=== PATIENT | male | born 1940 | race Asian ===

== ENCOUNTER → 2016-10-09 | Outpatient (CLI) | payer BC ==
[~2016-10-09] MED LIST: GADAVIST IV PRN; GLUC10007 PO; KFL250 PO; MTR500 PO; MULTTAB58 PO; NRV5 PO; OXYB5TAB74 PO; TAMS0.4C38 PO; TERA5CAP PO; saw palmetto PO
--- NOTE | 2016-10-09 14:28 | DIAGNOSTIC IMAGING REPORT ---
MRI OF THE BRAIN WITHOUT AND WITH IV CONTRAST CLINICAL HISTORY: HEADACHE, LEFT SIDED FACIAL NUMBNESS neuropathy COMPARISON STUDY: 05/31/2009 TECHNIQUE: Utilizing a 1.5 Giovanna magnet and dedicated coil, multiplanar, multiecho imaging of the brain was performed pre and postcontrast administration. IV administration of 8.5 mL of Gadavist contrast was uneventful. FINDINGS: Diffusion-weighted images are considered negative for an acute ischemic process. There is been a significant increase in number as well as size of the periventricular and deep white matter foci of increased signal. Increased involvement of the optic radiations bilaterally is present. Postcontrast images are considered negative for an enhancing lesion. Ventricular system is midline. Internal auditory canals are symmetric. IMPRESSION: 1. Significant increase in number as well as size of foci of increased signal within the periventricular and deep white matter regions. 2. No evidence for an acute ischemic focus. 3. Possibility of a late onset demyelinating disorder is considered, versus progressive chronic small vessel change. Electronically signed by: Preston Mosqueda M.D. 10/09/2016 2:27 PM Dictated Date/Time: 10/09/2016 2:22 PM
== END | disposition home or self-care (01) ==
LOC: C.MRI 12:37
PROVIDERS: ATTEND Family Medicine
DX: I10 Essential (primary) hypertension (principal); R51 Headache; R93.0 Abnormal findings on diagnostic imaging of skull and head, not elsewhere classified

== ENCOUNTER → 2017-12-31 | Outpatient (CLI) | payer OTHER, MEDICARE ==
[~2017-12-31] MED LIST changes: +DTR/5 PO; -GADAVIST IV PRN; -OXYB5TAB74 PO
== END | disposition home or self-care (01) ==
LOC: C.LAB 12:30
PROVIDERS: ATTEND Urology
DX: N41.0 Acute prostatitis (principal)

== ENCOUNTER 2020-03-21 06:46 | Inpatient (IN) ==
[2020-03-21] MEDS ORDERED: MAGNESIUM SULFATE / D5W 1 GM/100 ML BAG IV ONE (07:02)
[2020-03-21] MEDS ORDERED: ONDANSETRON INJ 2 MG/ML 2 ML VIAL IV STA (07:08)
--- NOTE | 2020-03-21 07:09 | Emergency Department Note ---
History of Present Illness General Chief complaint: Nausea Stated complaint: NAUSEA/DOUBLE VISION/FEVER Time Seen by Provider: 03/21/20 06:46 Source: patient, EMS, RN notes reviewed and old records reviewed Mode of arrival: EMS Limitations: no limitations History of Present Illness Provider complaint: double vision, hypertension Onset (ago): hour(s) 10 Location: eyes Radiation: non-radiation Current Pain Intensity: 0 Associated symptoms: + fever/chills and + nausea/vomiting; no confusion, no chest pain, no headaches and no shortness of breath Treatments prior to arrival: aspirin (2 baby) This is an 79-year-old male who presents emergency department with double vision. The patient reports his symptoms started around 9:00 last evening. He reports he began seeing double at that time. The patient reports he also recent ly had a visit with a kidney doctor. He reports he takes amlodipine for his blood pressure and took the amlodipine this morning but he noted that his blood pressure was markedly increased. He reports he does not normally have issues with his blood pressure. He is also complaining of nausea. He also reports he is allergic to IV contrast and is refusing the IV contrast for CAT scan study. Home Medications Home Medications Medication Instructions Recorded Confirmed Type terazosin 5 mg PO HS 11/29/19 03/21/20 History amlodipine 5 mg tablet 7.5 mg PO QAM tab 03/19/20 03/21/20 History aspirin 162 mg PO DAILY 03/21/20 03/21/20 History Allergies Allergy/AdvReac Type Severity Reaction Status Date / Time iodine Allergy Unknown RASHES Verified 03/21/20 08:21 Past Med/Surg History Medical History (Updated 03/21/20 @ 13:16 by Marshall Pisano MD) Acute kidney injury Anemia baseline hgb 10-11 range per chart review/no hx of blood transfusions per patient Asthma as child BPH (benign prostatic hyperplasia) Chronic cerebral ischemia possible per 02/2019 MRI but patient states further neurology workup ruled out Chronic kidney disease, stage IV (severe) (Acute) E coli bacteremia was hospitalized while in [facility] for this (10/2018) finished ABX treatment HTN (hypertension) Losartan on hold in setting of ROSALVA Kidney stones Migraine Prostatitis 2015; with sepsis Tinnitus hx Vertigo hx Surgical History (Updated 03/21/20 @ 12:28 by Josafat Lechuga) History of colonoscopy History of renal stent has currently History of tooth extraction wisdom teeth S/P TURP modified, during ureteral stent placement for kidney stone in [place] Family History (Updated 03/21/20 @ 11:21 by Josafat Lechuga) Family/Other Hypertension Diabetes Mother , old age at age 88 Breast cancer Hypertension Father , complications of hip fracture No problems noted. 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) Feels Safe at Home: Yes Safety Concerns: Feels Safe At This Time Smoking Status: Former smoker Age Quit Using Tobacco: 43 ; packs per day: 0.5 ; Years Smoked: 20 ; Second Hand Exposure: No ; Hx Alcohol Use: Yes Alcohol type: beer and hard liquor Alcohol Intake Frequency: Rarely Hx Substance Use: No Review of Systems A total of 10 systems reviewed and were otherwise negative Physical Exam Vital Signs Vital Signs - 24 hr 03/21/20 07:52 03/21/20 08:00 03/21/20 08:10 Pulse Rate 113 H 103 H 103 H Pulse Rate [Apical] Pulse Rate from SpO2 Sensor Respiratory Rate 20 19 15 Respiratory Effort / Characteristics Respiratory Depth Blood Pressure 165/101 H Blood Pressure [Right Arm] Blood Pressure Mean 128 Blood Pressure Mean [Right Arm] Pulse Oximetry Oxygen Delivery Method Room Air Room Air Room Air 03/21/20 08:20 03/21/20 08:30 03/21/20 08:31 Pulse Rate 107 H 104 H 103 H Pulse Rate [Apical] Pulse Rate from SpO2 Sensor Respiratory Rate 18 14 20 Respiratory Effort / Characteristics Respiratory Depth Blood Pressure 174/102 H Blood Pressure [Right Arm] Blood Pressure Mean 140 Blood Pressure Mean [Right Arm] Pulse Oximetry Oxygen Delivery Method Room Air Room Air Room Air 03/21/20 08:40 03/21/20 08:41 03/21/20 08:50 Pulse Rate 98 H 98 H Pulse Rate [Apical] 97 H Pulse Rate from SpO2 Sensor Respiratory Rate 19 16 20 Respiratory Effort / Characteristics Respiratory Depth Blood Pressure Blood Pressure [Right Arm] 174/102 H Blood Pressure Mean Blood Pressure Mean [Right Arm] 126 Pulse Oximetry Oxygen Delivery Method Room Air Room Air 03/21/20 09:00 03/21/20 10:13 03/21/20 10:14 Pulse Rate 98 H 101 H 100 H Pulse Rate [Apical] 99 H Pulse Rate from SpO2 Sensor 101 H 100 H Respiratory Rate 17 21 15 Respiratory Effort / Characteristics Respiratory Depth Blood Pressure 159/96 H 145/124 H Blood Pressure [Right Arm] 145/124 H Blood Pressure Mean 113 129 Blood Pressure Mean [Right Arm] 131 Pulse Oximetry 97 97 Oxygen Delivery Method Room Air Room Air Room Air 03/21/20 10:20 03/21/20 10:49 03/21/20 10:50 Pulse Rate 105 H 100 H 100 H Pulse Rate [Apical] Pulse Rate from SpO2 Sensor 106 H 95 H 100 H Respiratory Rate 23 20 18 Respiratory Effort / Characteristics Respiratory Depth Blood Pressure Blood Pressure [Right Arm] Blood Pressure Mean Blood Pressure Mean [Right Arm] Pulse Oximetry 98 97 98 Oxygen Delivery Method Room Air Room Air Room Air 03/21/20 11:00 03/21/20 11:10 03/21/20 11:20 Pulse Rate 100 H 96 H 100 H Pulse Rate [Apical] Pulse Rate from SpO2 Sensor 99 H 97 H 99 H Respiratory Rate 15 17 19 Respiratory Effort / Characteristics Respiratory Depth Blood Pressure 149/93 H Blood Pressure [Right Arm] Blood Pressure Mean 98 Blood Pressure Mean [Right Arm] Pulse Oximetry 98 97 98 Oxygen Delivery Method Room Air Room Air Room Air 03/21/20 11:30 03/21/20 11:40 03/21/20 11:50 Pulse Rate 101 H 101 H 102 H Pulse Rate [Apical] 97 H Pulse Rate from SpO2 Sensor 101 H 101 H Respiratory Rate 16 23 20 Respiratory Effort / Characteristics Non-Labored Spontaneous Respiratory Depth Normal Blood Pressure 147/96 H Blood Pressure [Right Arm] 147/96 H Blood Pressure Mean 116 Blood Pressure Mean [Right Arm] 113 Pulse Oximetry 98 96 Oxygen Delivery Method Room Air Room Air Room Air VITAL SIGNS - Vital signs and nursing notes were reviewed. GENERAL - 79-year-old male appearing stated age who is in no acute distress. Communicates well with provider and answers questions appropriately. SKIN - Without rashes. HEAD - NC/AT. EYES - PERRL, Rt eye does not adduct and has a general nystagmus with movement. Sclera anicteric. Palpebral conjunctiva pink and moist with no injection noted. EARS - No deformities of external structures noted on gross examination bilaterally. No pain elicited with palpation of the tragus bilaterally. External auditory canals without discharge or otorrhea. Tympanic membranes pearly chun without retraction or bulging. No fluid or purulent material visualized behind the TM. Handle of malleus, umbo, cone of light, pars tensa/flaccid all easily visualized. NOSE - Midline and without cyanosis. No epistaxis or purulent drainage noted. Septum midline without deviation or septal hematoma noted. MOUTH/OROPHARYNX - Without perioral cyanosis. Buccal mucosa pink and moist and without leukoplakia. Tongue midline with equal elevation of palate bilaterally. No tonsillar hypertrophy, erythema, or exudates noted. dentition noted. NECK - Neck with FROM. Supple to palpation. lymphadenopathy noted. No nuchal rigidity. LUNGS - Chest wall symmetric without accessory muscle use, intercostals retractions, or central cyanosis. Normal vesicular breath sounds CTA B/L. No wheezes, rales, or rhonchi appreciated. CARDIAC - RRR with S1/S2. No murmur, rubs, or gallops appreciated. ABDOMEN - Abdominal contour without pulsations or visible masses. BS normoactive all four quadrants. No tenderness, palpable masses, hep atosplenomegaly, or ascites noted. EXTREMITIES - No clubbing or peripheral cyanosis. No pretibial edema present. +3/5 radial, posterior tibial, and dorsalis pedis pulses palpated throughout. +5/5 strength noted in UE/LE bilaterally. NEUROLOGIC - Cranial nerves II through XII grossly intact. Sensory intact to light touch throughout. Patellar reflexes +2/4. PSYCH - A&Ox3 and cooperates fully with examiner. Pt is very pleasant and interacts well with examiner. Course Administered Medications Heparin Sodium (Porcine) (Heparin Sodium (Porcine)) 5,000 units SQ Q12 KRISHNA Stop: 04/20/20 20:59 Last Admin: 03/21/20 20:59 Dose: 5,000 units Documented by: [id number] Cosigned by: [id number] Terazosin HCl (Hytrin) 5 mg PO HS KRISHNA Stop: 04/20/20 20:59 Last Admin: 03/21/20 20:59 Dose: 5 mg Documented by: [id number] Discontinued Medications Clopidogrel Bisulfate (Plavix) 75 mg PO NOW ONE Stop: 03/21/20 11:59 Last Admin: 03/21/20 12:58 Dose: 75 mg Documented by: [id number] Magnesium Sulfate/Dextrose (Magnesium Sulfate / D5w) 1 gm in 100 mls @ 50 mls/hr IV ONE ONE Stop: 03/21/20 09:01 Last Infusion: 03/21/20 10:58 Dose: 0 mls/hr Documented by: [id number] Admin: 03/21/20 08:09 Dose: 50 mls/hr Documented by: [id number] Sodium Chloride (Nss 1000ml) 1,000 mls @ 999 mls/hr IV .Q1H1M ONE Stop: 03/21/20 08:12 Last Infusion: 03/21/20 08:55 Dose: 0 mls/hr Documented by: [id number] Admin: 03/21/20 08:09 Dose: 999 mls/hr Documented by: [id number] Promethazine HCl (Phenergan) 25 mg in 51 mls @ 204 mls/hr IV NOW STA Stop: 03/21/20 08:06 Last Infusion: 03/21/20 08:25 Dose: 0 mls/hr Documented by: [id number] Admin: 03/21/20 08:09 Dose: 204 mls/hr Documented by: [id number] Sodium Chloride (Nss 1000ml) 1,000 mls @ 100 mls/hr IV .Q10H KRISHNA Stop: 03/21/20 23:50 Last Infusion: 03/22/20 00:34 Dose: 0 mls/hr Documented by: [id number] Admin: 03/21/20 14:34 Dose: 100 mls/hr Documented by: [id number] Ondansetron HCl (Zofran) 4 mg IV NOW STA Stop: 03/21/20 07:09 Last Admin: 03/21/20 07:35 Dose: 4 mg Documented by: [id number] Medical Decision Making Differential Diagnosis Infection, dehydration, metabolic abnormality, hypo/hyperglycemia, electrolyte disturbance, anemia, hypoxia, cardiac sources, intracerebral event, toxicologic, neurologic, as well as other pathologies. Medical Records Attestation: I reviewed the patient's medical records. Home Medications Current Medication List: was personally reviewed by me Laboratory Data Attestation: I reviewed the patient's lab results. Result diagrams: 03/21/20 07:19 06/18/20 06:03 Lab Results 03/21/20 03/21/20 03/21/20 Range/Units 07:19 07:19 07:19 WBC 5.09 (4.8-10.8) K/uL RBC 3.87 L (4.7-6.1) M/uL Hgb 11.4 L (14.0-18.0) g/dL Hct 32.0 L (42-52) % MCV 82.7 (80-100) fL MCH 29.5 (25-34) pg MCHC 35.6 (32-36) g/dL RDW Std Deviation 43.9 (36.4-46.3) fL RDW Coeff of Rickey 14.6 H (11.5-14.5) % Plt Count 171 (130-400) K/uL MPV 10.7 H (7.4-10.4) fL Immature Gran % (Auto) 0.2 % Neut % (Auto) 68.8 % Lymph % (Auto) 25.5 % [place] % (Auto) 3.7 % Eos % (Auto) 1.6 % Baso % (Auto) 0.2 % Immature Gran # (Auto) 0.01 (0.00-0.02) K/uL Neut # (Auto) 3.50 (1.4-6.5) K/uL Lymph # (Auto) 1.30 (1.2-3.4) K/uL [place] # (Auto) 0.19 (0.11-0.59) K/uL Eos # (Auto) 0.08 (0-0.5) K/uL Baso # (Auto) 0.01 (0-0.2) K/uL ESR (0-14) mm/hr PT 11.2 (9.0-12.0) Seconds INR 1.1 (0.9-1.1) APTT 29.2 (21.0-31.0) Seconds PTT Ratio 1.0 Sodium 140 (136-145) mmol/L Potassium 3.6 (3.5-5.1) mmol/L Chloride 109 H (98-107) mmol/L Carbon Dioxide 22 (21-32) mmol/L Anion Gap 9.0 (3-11) BUN 23 H (7-18) mg/dl Creatinine 2.09 H (0.6-1.4) mg/dl Est Cr Clr Drug Dosing 27.8 ml/min Est GFR ( Amer) 33.4 Est GFR (Non-Af Amer) 28.8 BUN/Creatinine Ratio 11.1 (10-20) Glucose 167 H (70-99) mg/dl Calcium 8.9 (8.5-10.1) mg/dl Magnesium 1.8 (1.8-2.4) mg/dl Total Bilirubin 0.6 (0.2-1) mg/dl AST 13 L (15-37) U/L ALT 18 (12-78) U/L Alkaline Phosphatase 67 (45-117) U/L CK-MB (CK-2) 1.2 (0.5-3.6) ng/ml Troponin I < 0.015 (0-0.045) ng/ml C-Reactive Protein (0-0.29) mg/dl Total Protein 8.6 H (6.4-8.2) gm/dl Albumin 3.7 (3.4-5.0) gm/dl Globulin 4.9 H (2.5-4.0) gm/dl Albumin/Globulin Ratio 0.8 L (0.9-2) 03/21/20 03/21/20 Range/Units 07:19 07:19 WBC (4.8-10.8) K/uL RBC (4.7-6.1) M/uL Hgb (14.0-18.0) g/dL Hct (42-52) % MCV (80-100) fL MCH (25-34) pg MCHC (32-36) g/dL RDW Std Deviation (36.4-46.3) fL RDW Coeff of Rickey (11.5-14.5) % Plt Count (130-400) K/uL MPV (7.4-10.4) fL Immature Gran % (Auto) % Neut % (Auto) % Lymph % (Auto) % [place] % (Auto) % Eos % (Auto) % Baso % (Auto) % Immature Gran # (Auto) (0.00-0.02) K/uL Neut # (Auto) (1.4-6.5) K/uL Lymph # (Auto) (1.2-3.4) K/uL [place] # (Auto) (0.11-0.59) K/uL Eos # (Auto) (0-0.5) K/uL Baso # (Auto) (0-0.2) K/uL ESR 43 H (0-14) mm/hr PT (9.0-12.0) Seconds INR (0.9-1.1) APTT (21.0-31.0) Seconds PTT Ratio Sodium (136-145) mmol/L Potassium (3.5-5.1) mmol/L Chloride (98-107) mmol/L Carbon Dioxide (21-32) mmol/L Anion Gap (3-11) BUN (7-18) mg/dl Creatinine (0.6-1.4) mg/dl Est Cr Clr Drug Dosing ml/min Est GFR ( Amer) Est GFR (Non-Af Amer) BUN/Creatinine Ratio (10-20) Glucose (70-99) mg/dl Calcium (8.5-10.1) mg/dl Magnesium (1.8-2.4) mg/dl Total Bilirubin (0.2-1) mg/dl AST (15-37) U/L ALT (12-78) U/L Alkaline Phosphatase (45-117) U/L CK-MB (CK-2) (0.5-3.6) ng/ml Troponin I (0-0.045) ng/ml C-Reactive Protein 1.15 H (0-0.29) mg/dl Total Protein (6.4-8.2) gm/dl Albumin (3.4-5.0) gm/dl Globulin (2.5-4.0) gm/dl Albumin/Globulin Ratio (0.9-2) Imaging Data Radiologist's Impression: [place] [phone] Ultrasound Report Patient: HONEY VELASQUEZ Admit Date: 03/21/20 MR#: [id number] Address1: [address] [place] [address] Acct ID:[id number] Address2: Date: 1940 [facility] Zip: [place] [address] Age: 79 Location: ED Sex: M Room/Bed: Att Phy: Diagnosis: NAUSEA/DOUBLE VISION/FEVER Es Phy: Albina Cruz D.O. Service Date: 03/21/20 Fam Phy: Interpreting Phy: Long Oconnell MD Admit Phy: Ordering Phy: Marshall Pisano MD cc: ~ ULTRASOUND OF THE CAROTID ARTERIES CLINICAL HISTORY: 3rd cranial nerve palsy. COMPARISON STUDY: No priors. TECHNIQUE: Real-time, grayscale, and color Doppler sonography of the carotid arteries is performed. Images are reviewed in the transverse and longitudinal planes. FINDINGS: Blood pressures were not assessed due to the presence of IV catheters. The carotid arteries are patent bilaterally and demonstrate antegrade flow. There is mild atherosclerotic plaque bilaterally. Normal doppler arterial waveforms are seen throughout. Velocity measurements are listed below. Common carotid peak systolic velocity (cm/sec): RIGHT: 96 LEFT: 97 ICA proximal peak systolic velocity (cm/sec): RIGHT: 65 LEFT: 98 ICA mid peak systolic velocity (cm/sec): RIGHT: 56 LEFT: 61 ICA distal peak systolic velocity (cm/sec): RIGHT: 66 LEFT: 60 ICA/CC peak systolic ratio: RIGHT: 0.7 LEFT: 1.0 Antegrade flow was shown in the vertebral arteries. The external carotid arter ies are patent. IMPRESSION: 1. There is no sonographic evidence of hemodynamically significant stenosis in the right or left carotid arterial system. 2. Antegrade flow is shown in the vertebral arteries. ACT 112: Negative or not required by law. Electronically signed by: Long Oconnell M.D. 03/21/2020 10:54 AM Dictated: 03/21/20 1052 Transcribed: 03/21/20 1052 [place] [phone] Magnetic Resonance Report Patient: HONEY VELASQUEZ Admit Date: 03/21/20 MR#: [id number] Address1: [address] [place] [address] Acct ID:[id number] Address2: Date: 1940 [facility] Zip: [place] [address] Age: 79 Location: ED Sex: M Room/Bed: Att Phy: Diagnosis: NAUSEA/DOUBLE VISION/FEVER Es Phy: Albina CruzDMari Service Date: 03/21/20 [facility] Phy: Interpreting Phy: Preston Mosqueda MD Admit Phy: Ordering Phy: Marshall Pisano MD cc: ~ MR angio head wo con HISTORY: Mental status change Pt cant adduct Rt eye (3rd nerve palsy) TECHNIQUE: 3-D [id number] MRA of the brain was performed without contrast. COMPARISON STUDY: None. FINDINGS: Visualized intracranial internal carotid arteries, distal vertebral arteries, and basilar artery are widely patent. There is no significant stenosis, occlusion, or aneurysm seen within the bilateral ACAs, MCAs, or clearing distribution clerk. 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 ACT 112: Negative or not required by law. The above report was generated using voice recognition software. It may contain grammatical, syntax or spelling errors. Electronically signed by: Preston Mosqueda M.D. 03/21/2020 9:43 AM Dictated: 03/21/20940 Transcribed: 03/21/20940 [place] [phone] Magnetic Resonance Report Patient: HONEY VELASQUEZ Admit Date: 03/21/20 MR#: [id number] Address1: [address] [place] [address] Acct ID:[id number] Address2: Date: 1940 [facility] Zip: [place] [address] Age: 79 Location: ED Sex: M Room/Bed: Att Phy: Diagnosis: NAUSEA/DOUBLE VISION/FEVER Es Phy: Albina Cruz,DAimeeOAimee Service Date: 03/21/20 Fam Phy: Interpreting Phy: Preston Mosqueda MD Admit Phy: Ordering Phy: Marshall Pisano MD cc: ~ MR brain wo con HISTORY: Mental status change Pt cant adduct Rt eye (3rd nerve palsy) TECHNIQUE: Multiplanar multisequence MRI of the brain was performed without the use of contrast. COMPARISON STUDY: 03/02/2019 FINDINGS: Small focus of acute ischemic change left central pontine medullary junction. This measures no more than 4 mm. No additional acute ischemic event is identified. Findings of considerable atrophy and chronic small vessel change are stable compared to the prior study. The ventricular system is midline. It demonstrates mild compensatory prominence. IMPRESSION: 1. Acute/subacute punctate infarct left central pontine medullary junction. 2. Pre-existing extensive component of atrophy and chronic small vessel change. 3. This report was phoned to the emergency room ACT 112: Negative or not required by law. The above report was generated using voice recognition software. It may contain grammatical, syntax or spelling errors. Electronically signed by: Preston Mosqueda M.D. 03/21/2020 10:03 AM Dictated: 03/21/2049 Transcribed: 03/21/2049 [place], [place] [phone] CT Scan Report Patient: HONEY VELASQUEZ Admit Date: 03/21/20 MR#: [id number] Address1: [address] [place] [address] Acct ID:[id number] Address2: Date: 1940 [facility] Zip: [place] [address] Age: 79 Location: ED Sex: M Room/Bed: Att Phy: Diagnosis: NAUSEA/DOUBLE VISION/FEVER Es Phy: Albina CruzD.OAimee Service Date: 03/21/20 Fam Phy: Interpreting Phy: Long Oconnell MD Admit Phy: Ordering Phy: Marshall Pisano MD cc: ~ CT SCAN OF THE BRAIN WITHOUT IV CONTRAST CLINICAL HISTORY: Strokelike symptoms. COMPARISON STUDY: MRI of the brain dated 03/02/2019. TECHNIQUE: Unenhanced axial CT scan of the brain is performed from the vertex to the skull base. A dose lowering technique was utilized adhering to the principles of ALARA. CT DOSE: 614.27 mGy.cm FINDINGS: Brain parenchyma: There is age-related involutional change noting mild to moderate subcortical and periventricular microangiopathic disease. There is no hemorrhage, mass effect, or evidence of acute territorial ischemia by CT criteria. Chun-white matter differentiation is preserved. No extra-axial fluid collection is seen. Ventricles, sulci, cisterns: Prominent secondary to involutional change. Intracranial vasculature: There is atherosclerotic calcification of the cavernous carotid and vertebral arteries. Calvarium: Unremarkable. Sinuses and mastoids: Trace mucosal thickening is noted in the maxillary antra. The remaining paranasal sinuses are clear. The mastoid air cells are well pneumatized. Orbits: The bony orbits are grossly intact. IMPRESSION: There is no hemorrhage, mass effect, or evidence of acute territorial ischemia by CT criteria. ACT 112: Negative or not required by law. Electronically signed by: Long Oconnell M.D. 03/21/2020 7:51 AM Dictated: 03/21/20748 Transcribed: 03/21/20748 ECG Data Attestation: I personally reviewed and interpreted this ECG as follows: Indication: + other (Rt 3rd nerve palsy) Rate (beats per minute): 110 Rhythm: + sinus tachycardia ECG Intervals/blocks: + Normal QT-c (468) ECG [place]: + Normal; no Left axis deviation and no Right axis deviation ECG ST segments: no ST depression and no ST elevation Comparison ECG Date: from (11/29/2019) Change: no significant change Blood Pressure Blood Pressure Findings: Elevated blood pressure Blood Pressure Disposition: elevated BP felt to be situational MDM Narrative Patient was seen and evaluated as above in room C6. Review was performed of nursing notes and vital signs. I did review pertinent previous visits and patient history. After obtaining a thorough history and physical examination the above work up was performed. This is an 79-year-old male that presents the emergency department with a right 3rd nerve palsy. The symptoms have been ongoing for greater than 12 hours, for this reason I do not feel the patient is a TPA candidate. Using shared medical decision making with the patient I recommended a CTA of the head and neck which the patient refused due to contrast allergy. I did recommend Solu-Medrol Benadryl and Zantac which he also refused. He did go for CT of the head which does not show any acute intracranial abnormality. Again using shared medical decision making her recommended an MRA of the head as well as ultrasound of the neck. His MRI of the head is concerning for a pontine stroke the patient was given magnesium here in the emergency department he Meño took aspirin at home he was given a normal saline bolus. The patient was given Zofran as well as Phenergan for his nausea. There was concerned that the patient had slurred speech however I actually believe that this is a reaction to his Phenergan. I did discuss the case with the hospitalist service who did agree to admit the patient. While in the department, I personally reevaluated the patient several times and each time the patient was found to be resting comfortably. The patient was educated upon management, educated upon todays findings/results. An order was placed for continuous cardiac monitoring. The monitor shows a rate of 94 with Normal Sinus rhythm. The patient was evaluated during the global COVID-19 pandemic, and that diagnosis was suspected/considered upon their initial presentation. Their evaluation, treatment and testing was consistent with current guidelines for patients who present with complaints or symptoms that may be related to COVID- 19. Impression & Plan Left pontine stroke, Chronic kidney disease, stage IV (severe), Diplopia, Cranial nerve III palsy Discharge Plan Visit Data *Final* Discharge Date/Time: 03/21/20 13:11 Chief Complaint: Nausea Stated Complaint: NAUSEA/DOUBLE VISION/FEVER Other Complaint: Fever Visual Disturbance ED Provider: Marshall Pisano Discharge Problem: Left pontine stroke, Chronic kidney disease, stage IV (severe), Diplopia, Cranial nerve III palsy Patient Disposition: Admitted As Inpatient Discharge Instructions Interventions: ED Discharge Assessment Last Done: 03/21/20 13:11 Discharge Problem: Cranial nerve III palsy Qualifiers: Laterality: right Qualified Code(s): H49.01 - Third [oculomotor] nerve palsy, right eye
[2020-03-21] MEDS ORDERED: SODIUM CHLORIDE 0.9% 1000ML 1,000 ML IV ONE (07:12)
[2020-03-21 07:37] LABS: Basophils # (auto) 0.01 K/uL (0-0.2); Basophils % (auto) 0.2 %; Eosinophils # (auto) 0.08 K/uL (0-0.5); Eosinophils % (auto) 1.6 %; Hemoglobin 11.4 g/dL (14.0-18.0); Immature Granulocytes # (auto) 0.01 K/uL (0.00-0.02); Immature Granulocytes % (auto) 0.2 %; Lymphocytes % (auto) 25.5 %; Mean Corpuscular Hemoglobin 29.5 pg (25-34); Mean Corpuscular Hgb Conc 35.6 g/dL (32-36); Mean Corpuscular Volume 82.7 fL (80-100); Mean Platelet Volume 10.7 fL (7.4-10.4); Monocytes # (auto) 0.19 K/uL (0.11-0.59); Monocytes % (auto) 3.7 %; Neutrophils % (auto) 68.8 %; Platelet Count 171 K/uL (130-400); RDW Coefficient of Variation 14.6 % (11.5-14.5); RDW Standard Deviation 43.9 fL (36.4-46.3); Red Blood Count 3.87 M/uL (4.7-6.1); White Blood Count 5.09 K/uL (4.8-10.8)
[2020-03-21 07:49] LABS: INR 1.1 (0.9-1.1); Partial Thromboplastin Time 29.2 Seconds (21.0-31.0); Prothrombin Time 11.2 Seconds (9.0-12.0)
[2020-03-21] MEDS ORDERED: PROMETHAZINE 25 MG/51 ML BAG IV STA (07:52)
--- NOTE | 2020-03-21 07:53 | CT Scan Report ---
CT SCAN OF THE BRAIN WITHOUT IV CONTRAST CLINICAL HISTORY: Strokelike symptoms. COMPARISON STUDY: MRI of the brain dated 03/02/2019. TECHNIQUE: Unenhanced axial CT scan of the brain is performed from the vertex to the skull base. A do se lowering technique was utilized adhering to the principles of ALARA. CT DOSE: 614.27 mGy.cm FINDINGS: Brain parenchyma: There is age-related involutional change noting mild to moderate subcortical and pe riventricular microangiopathic disease. There is no hemorrhage, mass effect, or evidence of acute ter ritorial ischemia by CT criteria. Chun-white matter differentiation is preserved. No extra-axial flui d collection is seen. Ventricles, sulci, cisterns: Prominent secondary to involutional change. Intracranial vasculature: There is atherosclerotic calcification of the cavernous carotid and vertebr al arteries. Calvarium: Unremarkable. Sinuses and mastoids: Trace mucosal thickening is noted in the maxillary antra. The remaining paranas al sinuses are clear. The mastoid air cells are well pneumatized. Orbits: The bony orbits are grossly intact. IMPRESSION: There is no hemorrhage, mass effect, or evidence of acute territorial ischemia by CT gloria boyd. ACT 112: Negative or not required by law. Electronically signed by: Long Oconnell M.D. 03/21/2020 7:51 AM
[2020-03-21 08:12] LABS: Alkaline Phosphatase 67 U/L (45-117); Chloride 109 mmol/L (98-107); Creatine Kinase MB 1.2 ng/ml (0.5-3.6); Magnesium 1.8 mg/dl (1.8-2.4); Potassium 3.6 mmol/L (3.5-5.1); Sodium 140 mmol/L (136-145)
[2020-03-21 08:21] LABS: Albumin Level 3.7 gm/dl (3.4-5.0); Aspartate Aminotransferase 13 U/L (15-37); Blood Urea Nitrogen 23 mg/dl (7-18); Carbon Dioxide 22 mmol/L (21-32); Creatinine Clr Calc Pharmacy 27.8 ml/min; Est GFR (African American) 33.4; Est GFR (Non-African American) 28.8
[2020-03-21 08:23] LABS: BUN Creatinine Ratio 11.1 (10-20); Calcium 8.9 mg/dl (8.5-10.1); Glucose 167 mg/dl (70-99)
[2020-03-21 08:26] LABS: Albumin Globulin Ratio 0.8 (0.9-2); Bilirubin,Total 0.6 mg/dl (0.2-1); Troponin I < 0.015 ng/ml (0-0.045)
[2020-03-21 08:28] LABS: Alanine Aminotransferase 18 U/L (12-78); Globulin 4.9 gm/dl (2.5-4.0); Total Protein 8.6 gm/dl (6.4-8.2)
--- NOTE | 2020-03-21 09:44 | Magnetic Resonance Report ---
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 COMPARISON STUDY: None. FINDINGS: Visualized intracranial internal carotid arteries, distal vertebral arteries, and basilar a rtery are widely patent. There is no significant stenosis, occlusion, or aneurysm seen within the laz ateral ACAs, MCAs, or cab starter. 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 ACT 112: Negative or not required by law. The above report was generated using voice recognition software. It may contain grammatical, syntax or spelling errors. Electronically signed by: Perston Mosqueda M.D. 03/21/2020 9:43 AM
--- NOTE | 2020-03-21 10:05 | Magnetic Resonance Report ---
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 COMPARISON STUDY: 03/02/2019 FINDINGS: Small focus of acute ischemic change left central pontine medullary junction. This measures no more than 4 mm. No additional acute ischemic event is identified. Findings of considerable atrophy and chronic small vessel change are stable compared to the prior beto dy. The ventricular system is midline. It demonstrates mild compensatory prominence. IMPRESSION: 1. Acute/subacute punctate infarct left central pontine medullary junction. 2. Pre-existing extensive component of atrophy and chronic small vessel change. 3. This report was phoned to the emergency room ACT 112: Negative or not required by law. The above report was generated using voice recognition software. It may contain grammatical, syntax or spelling errors. Electronically signed by: Preston Mosqueda M.D. 03/21/2020 10:03 AM
--- NOTE | 2020-03-21 10:55 | Ultrasound Report ---
ULTRASOUND OF THE CAROTID ARTERIES CLINICAL HISTORY: 3rd cranial nerve palsy. COMPARISON STUDY: No priors. TECHNIQUE: Real-time, grayscale, and color Doppler sonography of the carotid arteries is performed. I mages are reviewed in the transverse and longitudinal planes. FINDINGS: Blood pressures were not assessed due to the presence of IV catheters. The carotid arteries are patent bilaterally and demonstrate antegrade flow. There is mild atheroscler otic plaque bilaterally. Normal doppler arterial waveforms are seen throughout. Velocity measurements are listed below. Common carotid peak systolic velocity (cm/sec): RIGHT: 96 LEFT: 97 ICA proximal peak systolic velocity (cm/sec): RIGHT: 65 LEFT: 98 ICA mid peak systolic velocity (cm/sec): RIGHT: 56 LEFT: 61 ICA distal peak systolic velocity (cm/sec): RIGHT: 66 LEFT: 60 ICA/CC peak systolic ratio: RIGHT: 0.7 LEFT: 1.0 Antegrade flow was shown in the vertebral arteries. The external carotid arteries are patent. IMPRESSION: 1. There is no sonographic evidence of hemodynamically significant stenosis in the right or left krishnamurthy tid arterial system. 2. Antegrade flow is shown in the vertebral arteries. ACT 112: Negative or not required by law. Electronically signed by: Long Oconnell M.D. 03/21/2020 10:54 AM
--- NOTE | 2020-03-21 11:06 | History & Physical Report ---
Date of Service March 21, 2020 Assessment & Plan (1) Left pontine stroke: MRI brain confirmed left acute/subacute pontine stroke at the boy- medullary junction. 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 He has had intermittent myoclonic jerks of the LUE/LLE but has no weakness on exam of those limbs. No sensory loss on the left either. Speech is fluent. No dysphagia. Likely small vessel disease with thrombosis causing the event. Will change aspirin to plavix for secondary prevention. Initiate statin; check lipids in am. Check HbA1C in am. Check echo; r/o thrombus; r/o PFO. Telemetry; r/o a.fib/flutter. Formal neuro consult with Dr Guardado requested. PT, OT, speech evals. (2) Diplopia: 2nd to left-sided pontine stroke as above. I patched the right eye and his diplopia extinguished. Will need to see ophthamology post-discharge. No driving after discharge. (3) Chronic kidney disease, stage IV (severe): baseline Cr 2 to 2.5. Cr today 2. Gentle IV fluids; repeat BMP am. Follows with [facility] [place] [place] nephrology. (4) BPH (benign prostatic hypertrophy): Long history of prostate issues including UTI/prostatitis/sepsis/BPH. s/p modified TURP in [place]. Follows with Dr Flores [facility] [place] [place] urology. Cont alpha kelly. (5) Hypertension: Allow permissive HTN today. Hold amlodipine. Cont alpha kelly. Start more aggressive BP control tomorrow. (6) Abnormal EKG: EKG with ST changes but patient without any recent or current ischemic symptoms. Check echo and LV function. (7) DVT prophylaxis: heparin 5000 BID extensively updated at bedside History of Present Illness Chief Complaint: double vision, nausea Primary Care Provider: Albina Cruz DO 79yo male with history of HTN, CKD stage 4, and BPH who presents with acute onset of dizziness/lightheadedness starting at 2100 last night when he was standing on his porch visiting with his grandchildren. He went inside to his bedroom to lay down/rest and noted double vision with images [id number] and occasionally vertical diplopia. He went to bed and slept all night. Upon awakening this am he noted continued double vision. He had associated nausea with emesis (mucous) this am as well. Denies motor weakness. Denies paresthesias. Since coming to ER he has noted "involuntary twitching" of left arm and left leg. No obvious dysphagia. Mouth is dry and feels that this has affected his speech but no aphasia. Allergies Allergy/AdvReac Type Severity Reaction Status Date / Time iodine Allergy Unknown RASHES Verified 03/21/20 08:21 Home Medications Home Medications Medication Instructions Recorded Confirmed Type terazosin 5 mg PO HS 11/29/19 03/21/20 History amlodipine 5 mg tablet 7.5 mg PO QAM tab 03/19/20 03/21/20 History aspirin 162 mg PO DAILY 03/21/20 03/21/20 History Past Med/Surg History Medical History (Updated 03/21/20 @ 13:16 by Marshall Pisano MD) Acute kidney injury Anemia baseline hgb 10-11 range per chart review/no hx of blood transfusions per patient Asthma as child BPH (benign prostatic hyperplasia) Chronic cerebral ischemia possible per 02/2019 MRI but patient states further neurology workup ruled out Chronic kidney disease, stage IV (severe) (Acute) E coli bacteremia was hospitalized while in [facility] for this (10/2018) finished ABX treatment HTN (hypertension) Losartan on hold in setting of ROSALVA Kidney stones Migraine Prostatitis 2015; with sepsis Tinnitus hx Vertigo hx Surgical History (Updated 03/21/20 @ 12:28 by Josafat Lechuga) History of colonoscopy History of renal stent has currently History of tooth extraction wisdom teeth S/P TURP modified, during ureteral stent placement for kidney stone in [place] Family History (Updated 03/21/20 @ 11:21 by Josafat Lechuga) Family/Other Hypertension Diabetes Mother , old age at age 88 Breast cancer Hypertension Father , complications of hip fracture No problems noted. 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) Feels Safe at Home: Yes Safety Concerns: Feels Safe At This Time Smoking Status: Former smoker Age Quit Using Tobacco: 43 ; packs per day: 0.5 ; Years Smoked: 20 ; Second Hand Exposure: No ; Hx Alcohol Use: Yes Alcohol type: beer and hard liquor Alcohol Intake Frequency: Rarely Hx Substance Use: No Review of Systems Constitutional: + fever (highest temp 99.1 on Thursday night), + fatigue (Thursday/Thursday ) and + weight loss (10 pounds around the time of his kidney stone ); no anorexia Eyes: + diplopia Ear, Nose, Mouth, Throat: no nasal discharge, no sore throat and no dysphagia no loss of taste or smell Respiratory: no cough and no dyspnea Cardiovascular: no chest pain and no edema Gastrointestinal: + nausea and + vomiting; no abdominal pain, no diarrhea/loose stools and no blood in stools Genitourinary: no dysuria and no difficulty urinating Musculoskeletal: + back pain and + neck pain Integumentary: no rash Neurologic: + gait abnormality, + unsteadiness and + headache(s); no paralysis and no numbness Psychiatric: no depression (but sad about COVID-19, etc) Endocrine: no diabetes Hematologic / Lymphatic: no easy bleeding and no easy bruising Physical Exam Constitutional: well developed and well nourished; no acute distress and no altered mental status speech fluent/clear Eyes: PERRL visual mcdaniel full by direct confrontation; CN 3 palsy with inability to adduct the right eye on extraocular muscle testing; no ptosis ENMT: external ear and nose normal, oropharynx normal Ears: + unable to visualize TM (2nd cerumen ) Neck: trachea midline, no thyromegaly no bruits Respiratory: normal respiratory effort, lungs clear to auscultation Cardiovascular: Rate/Rhythm: regular rhythm and + tachycardic Heart Sounds: normal S1 and normal S2; no murmur Vessels: posterior tibial pulses present and dorsalis pedis pulses present; no JVD Extremities: no edema Gastrointestinal (Abdomen): normal bowel sounds, soft, nontender, no hepatosplenomegaly Musculoskeletal: no cyanosis or clubbing, extremities motor strength 5/5 Skin: no rashes, warm and dry Neurologic: deep tendon reflexes 2+ bilaterally, plantar reflexes intact bilaterally, moves all extremities and awake; no focal motor deficits and not confused Speech / Cognition: normal speech Motor/Sensory: no pronator drift Cranial Nerves: + EOM not intact (CN 3 palsy, right, with inability to adduct eye) and + nystagmus Coordination: normal [id number] test Psychiatric: A+Ox3, euthymic affect Lymphatic: no cervical lymphadenopathy Results & Data Results & Data ([facility]) Vital Signs (Past 12 Hours) Vital Signs Temp Pulse Pulse Resp BP BP Pulse Ox 03/21/20 10:14 99 H 16 145/124 H 98 03/21/20 08:41 97 H 16 174/102 H 03/21/20 07:35 96 H 16 171/95 H 97 03/21/20 06:59 36.9 C 113 H 16 179/87 H 97 Laboratory Results Laboratory Results - last 24 hr 03/21/20 03/21/20 03/21/20 07:19 07:19 07:19 WBC 5.09 RBC 3.87 L Hgb 11.4 L Hct 32.0 L MCV 82.7 MCH 29.5 MCHC 35.6 RDW Std Deviation 43.9 RDW Coeff of Rickey 14.6 H Plt Count 171 MPV 10.7 H Immature Gran % (Auto) 0.2 Neut % (Auto) 68.8 Lymph % (Auto) 25.5 Roberts % (Auto) 3.7 Eos % (Auto) 1.6 Baso % (Auto) 0.2 Immature Gran # (Auto) 0.01 Neut # (Auto) 3.50 Lymph # (Auto) 1.30 Roberts # (Auto) 0.19 Eos # (Auto) 0.08 Baso # (Auto) 0.01 ESR PT 11.2 INR 1.1 APTT 29.2 PTT Ratio 1.0 Sodium 140 Potassium 3.6 Chloride 109 H Carbon Dioxide 22 Anion Gap 9.0 BUN 23 H Creatinine 2.09 H Est Cr Clr Drug Dosing 27.8 Est GFR ( Amer) 33.4 Est GFR (Non-Af Amer) 28.8 BUN/Creatinine Ratio 11.1 Glucose 167 H Calcium 8.9 Magnesium 1.8 Total Bilirubin 0.6 AST 13 L ALT 18 Alkaline Phosphatase 67 CK-MB (CK-2) 1.2 Troponin I < 0.015 C-Reactive Protein Total Protein 8.6 H Albumin 3.7 Globulin 4.9 H Albumin/Globulin Ratio 0.8 L 03/21/20 03/21/20 07:19 07:19 WBC RBC Hgb Hct MCV MCH MCHC RDW Std Deviation RDW Coeff of Rickey Plt Count MPV Immature Gran % (Auto) Neut % (Auto) Lymph % (Auto) Roberts % (Auto) Eos % (Auto) Baso % (Auto) Immature Gran # (Auto) Neut # (Auto) Lymph # (Auto) Roberts # (Auto) Eos # (Auto) Baso # (Auto) ESR Pending PT INR APTT PTT Ratio Sodium Potassium Chloride Carbon Dioxide Anion Gap BUN Creatinine Est Cr Clr Drug Dosing Est GFR ( Amer) Est GFR (Non-Af Amer) BUN/Creatinine Ratio Glucose Calcium Magnesium Total Bilirubin AST ALT Alkaline Phosphatase CK-MB (CK-2) Troponin I C-Reactive Protein Pending Total Protein Albumin Globulin Albumin/Globulin Ratio Diagnostic Findings 1. MRI brain - IMPRESSION: 1. Acute/subacute punctate infarct left central pontine medullary junction. 2. Pre-existing extensive component of atrophy and chronic small vessel change. 2. MRA brain - IMPRESSION: No significant stenosis, occlusion, or aneurysm within the [place]. 3. carotid duplex study - no ICA stenosis; antegrade flow vertebral arteries. 4. EKG - my reading - nonspecific ST changes III, AVF; nonspecific ST changes V1-V4; NSR; QTc borderline prolonged Code Status & VTE Plan Code Status full - but would NOT want prolonged mech ventilation, etc VTE Prophylaxis Plan VTE Prophylaxis will be ordered: Yes PG Care Time/CCT Total # of Minutes Spent Total Time Spent with Patient: Total time spent is greater than 50% in coordination of care (as documented) at patient's floor/unit and/or counseling patient: Coding Level of Care Code 01830 Initial Inpt Care Lvl 2 Diagnoses Left pontine stroke I63.50 Diplopia H53.2 Chronic kidney disease, stage IV (severe) N18.4 BPH (benign prostatic hypertrophy) N40.0 Lower urinary tract symptom presence: symptoms absent Hypertension I10 Hypertension type: essential hypertension Abnormal EKG R94.31 DVT prophylaxis Z29.9 (1) BPH (benign prostatic hypertrophy) Lower urinary tract symptom presence: symptoms absent Qualified Code(s): N40.0 - Benign prostatic hyperplasia without lower urinary tract symptoms (2) Hypertension Hypertension type: essential hypertension Qualified Code(s): I10 - Essential (primary) hypertension
[2020-03-21] MEDS ORDERED: CLOPIDOGREL BISULFATE 75 MG TAB PO ONE (11:58)
[2020-03-21] MEDS ORDERED: ONDANSETRON INJ 2 MG/ML 2 ML VIAL IV PRN (13:51)
[2020-03-21] MEDS ORDERED: PHARMACIST DISCHARGE MED REC CONSULT PRN (13:51)
[2020-03-21] MEDS ORDERED: ACETAMINOPHEN 325 MG TAB PO PRN (13:51)
[2020-03-21] MEDS ORDERED: SODIUM CHLORIDE 0.9% 1000ML 1,000 ML IV SCH (13:51)
--- NOTE | 2020-03-21 14:54 | XCELERA ---
[id number]
--- NOTE | 2020-03-21 15:27 | Electrocardiogram Report ---
Test Reason : Blood Pressure : / mmHG Vent. Rate : 110 BPM Atrial Rate : 110 BPM P-R Int : 164 ms QRS Dur : 088 ms QT Int : 346 ms P-R-T Axes : 074 043 063 degrees QTc Int : 468 ms Sinus tachycardia Nonspecific ST and T wave abnormality Abnormal ECG When compared with ECG of 29-NOV-2019 12:24, Nonspecific T wave abnormality now evident in Inferior leads Confirmed by Nicholas Venegas ([id number]) on 03/21/2020 3:27:01 PM Referred By: REFERRED SELF Confirmed By:Yusuf Venegas
[2020-03-21] MEDS: HEPARIN SOD 5,000 UNIT/0.5 ML VIAL SQ SCH (20:59)
[2020-03-21] MEDS ORDERED: TERAZOSIN HCL 5 MG CAP PO SCH (21:00)
[2020-03-21 22:41] LABS: Appearance Urine Cloudy (Clear); Bacteria Urine Automated 4+ (Negative); Bilirubin Urine Negative (Negative); Blood Urine 1+ (Negative); Color Urine Yellow; Epithelial Cell Urine Auto 0-5 /lpf (0-5); Glucose Urine UA Negative (Negative); Ketones Urine Negative (Negative); Leukocyte Esterase Urine 3+ (Negative); Nitrite Urine Positive (Negative); Protein Urine 1+ (Negative); Specific Gravity Urine 1.013 (1.000-1.030); Urobilinogen Urine Negative (Negative); WBC Urine Automated >30 /hpf (0-5); pH Urine 6.5 (4.5-7.5)
[2020-03-22 07:02] LABS: BUN Creatinine Ratio 11.4 (10-20); Calcium 8.3 mg/dl (8.5-10.1); Creatinine Clr Calc Pharmacy 28.2 ml/min; Est GFR (African American) 34.8; Potassium 3.8 mmol/L (3.5-5.1)
[2020-03-22 08:15] LABS: Estimated Average Glucose 111 mg/dl; Hemoglobin A1C 5.5 % (4.5-5.6)
[2020-03-22] MEDS ORDERED: ATORVASTATIN 40 MG TAB PO SCH (09:00)
[2020-03-22] MEDS ORDERED: CLOPIDOGREL BISULFATE 75 MG TAB PO SCH (09:00)
[2020-03-22] MEDS: HEPARIN SOD 5,000 UNIT/0.5 ML VIAL SQ SCH ×2 (09:30→10:21)
--- NOTE | 2020-03-22 09:36 | Discharge Summary ---
Date of Service March 22, 2020 Admission HPI Per Admitting Provider 79yo male with history of HTN, CKD stage 4, and BPH who presents with acute onset of dizziness/lightheadedness starting at 2100 last night when he was standing on his porch visiting with his grandchildren. He went inside to his bedroom to lay down/rest and noted double vision with images [id number] and occasionally vertical diplopia. He went to bed and slept all night. Upon awakening this am he noted continued double vision. He had associated nausea with emesis (mucous) this am as well. Denies motor weakness. Denies paresthesias. Since coming to ER he has noted "involuntary twitching" of left arm and left leg. No obvious dysphagia. Mouth is dry and feels that this has affected his speech but no aphasia. 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 on extraocular muscle testing; no ptosis ENMT: external ear and nose normal, oropharynx normal Ears: + unable to visualize TM (2nd cerumen ) Neck: trachea midline, no thyromegaly no bruits Respiratory: normal respiratory effort, lungs clear to auscultation Cardiovascular: Rate/Rhythm: regular rhythm and + tachycardic Heart Sounds: normal S1 and normal S2; no murmur Vessels: posterior tibial pulses present and dorsalis pedis pulses present; no JVD Extremities: no edema Gastrointestinal (Abdomen): normal bowel sounds, soft, nontender, no hepatosplenomegaly Musculoskeletal: no cyanosis or clubbing, extremities motor strength 5/5 Skin: no rashes, warm and dry Neurologic: deep tendon reflexes 2+ bilaterally, plantar reflexes intact bilaterally, moves all extremities and awake; no focal motor deficits and not confused Speech / Cognition: normal speech Motor/Sensory: no pronator drift Cranial Nerves: + EOM not intact (CN 3 palsy, right, with inability to adduct eye) and + nystagmus Coordination: normal [id number] test Psychiatric: A+Ox3, euthymic affect Lymphatic: no cervical lymphadenopathy Principal Diagnosis left pontine stroke Discharge Exam Constitutional cooperative; no acute distress and not ill appearing Neck normal visual inspection Respiratory normal respiratory effort and able to speak in complete sentences; no respiratory distress, no labored breathing, no retractions, no cough and no audible wheezes Auscultation: lungs clear to auscultation bilaterally; no crackles, no rales, no rhonchi and no wheezes Cardiovascular Rate/Rhythm: regular rate and regular rhythm Heart Sounds: normal S1 and normal S2; no gallop, no murmur and no cardiac rub Vessels: posterior tibial pulses present Extremities: no pedal edema and no edema Gastrointestinal (Abdomen) Inspection/Auscultation: abdomen normal to inspection and normal bowel sounds; abdomen not distended Percussion/Palpation: abdomen soft; abdomen nontender, no guarding, abdomen not rigid and no abdominal mass Neurologic Cranial Nerves: PERRL and no nystagmus Diplopia improving, slight lag of right eye compared to left, no obvious nystagmus or palsy Discharge Data Allergies Allergy/AdvReac Type Severity Reaction Status Date / Time iodine Allergy Unknown RASHES Verified 03/21/20 08:21 Consultations 03/21/20 10:34 ED Decision to Admit Stat 03/21/20 13:51 Consult Case Management - Discharge Planning Routine Consult Neurology Routine Ordered Studies 03/21/20 06:58 CT head/brain wo con Stat 03/21/20 07:00 MR angio head wo con Stat MR brain wo con Stat 03/21/20 07:09 US carotid doppler BI Stat Hospital Course (1) Left pontine stroke: Very pleasant 79-year-old man who presented to the emergency department for acute diplopia and dizziness found to be secondary to a left stroke at the pontine midbrain junction. This also caused a presentation with a right sided cranial nerve III palsy. Full stroke work-up including transthoracic echocardiogram, carotid ultrasound, lipid profile, hemoglobin A1c performed. TTE and carotid ultrasounds negative for concerning disease. Cardiac ejection fraction 60 to 65%. No other abnormalities noted on cardiac echo. Hemoglobin A1c was 5.5, lipid profile showed cholesterol of 151, triglycerides of 104, HDL 33, LDL of 97. Given that this was his first stroke his daily aspirin was changed to 75 mg Plavix daily and he was started on 40 mg of daily atorvastatin to lower his LDL to 70 or less. We advised blood pressure control and to discuss with his PCP restarting his losartan as it would also provide protective benefit for his chronic kidney disease. Recommended to follow-up with neurology in 2 to 3 weeks, as well as with ophthalmology in addition to doing eye exercises and PT. All other medical conditions controlled per home regimens. (2) Cranial nerve III palsy: Total Time Total Time Spent Total Time Spent (In Minutes): Discharge Plan Discharge Items Patient Disposition: Home - Self-Care Reason For Visit: LEFT PONTINE STROKE Discharge Diagnosis: left pontine stroke Activity: Resume your previous activity Non-emergency contact: Primary Care Provider and Neurologist Call non-emergency contact if: you have any medication questions and your symptoms worsen Follow-up/Referrals: Tonny Guardado MD [Physician] - Albina Cruz DO [Primary Care Provider] - Diet: Regular Addtl Attending Provider Instructions: You were seen in the hospital for double vision and dizziness found to be secondary to a left pontine stroke on MRI. Doppler ultrasound of your carotid arteries and cardiac echogram were both negative. Your lipid levels and HgA1c were also within normal limits. Your daily aspirin was switched to plavix as a preventative measure for future strokes. The stroke was most likely due to a history of plaque build up from smoking and elevated blood pressures. In regards to your double vision, making sure that you complete appropriate eye therapy and exercises will optimize your ability to return to normal vision and reading/writing ability. follow up with Dr. Guardado in 2-3 weeks and an ophth almologist in 2-3 weeks. If you have any questions about your care, please contact your PCP or Neurologist. If you have worsening or repeat symptoms, loss of strength on one side, abnormal tingling or sensations on one side, seek care in the ER immediately. Pending Studies at Discharge: No Stand-Alone Forms: Medications to Prevent Stroke, My [facility] Awareness Card, Smok ing Cessation Medications and DC Order Prescriptions: New clopidogrel 75 mg Tablet 75 mg PO QAM Qty: 30 RF: 0 atorvastatin 40 mg Tablet 40 mg PO QAM Qty: 30 RF: 0 Continued amlodipine 5 mg tablet 7.5 mg PO QAM RF: 0 terazosin 5 mg Capsule 5 mg PO HS RF: 0 Discontinued aspirin 81 mg Tablet,Delayed Release (Dr/Ec) 162 mg PO DAILY RF: 0 Discharge Orders: Discharge Order (Routine); Ordered 03/22/20 Ordered By: Radha Plascencia Admission Data Admit Date/Time: 03/21/20 11:58 Attending Provider: Goto,Kiyomi K. Admit Provider: Josafat Lechuga Primary Care Provider: Albina Cruz Other Providers: Josafat Lechuga ; Tonny Guardado ; Radha Plascencia Other Interventions: Discharge Summary Assessment (RN) Last Done: 03/22/20 11:57 DC Date/Time DO NOT enter until pt leaves facility: 03/22/20 13:00 Supervising Physician Co-Signing Physician Notes Patient seen and examined with PGY-1 Dr. Plascencia. Agree with history, exam findings, assessment, and plan of care as outlined by Dr. Plascencia. Case also discussed with consulting neurologist, Dr. Guardado. 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 Since admission, his diplopia from the CN3 palsy has started to improve. MRI/MRA brain shows a left pontine stroke in the boy-midbrain junction and small vessel disease. Carotid ultrasound unremarkable. Hemoglobin A1C not consistent with DM or pre-DM. Lipids: LDL 97, HDL 33. TTE does not show an embolic source or shunt. EF 60-65%. There is mild, concentric LVH, mild aortic regurg. He was switched from ASA to Plavix 75mg and started on a high intensity statin. He will follow up with Ophtho at discharge and Dr. Guardado (neurology) in 1-2 weeks. Follow up with PCP, Dr. Cruz within 1 week. Cr was at his baseline. If he needs additional BP control, can consider an ASHLEY or ARB for renal protection. Discharged home today. I personally spent 25 minutes discharge planning for this patient. Resident Activity Tracking Resident Involvement: Resident Care Provided Care Provided: Adult Hospital Medicine
[2020-03-22] MEDS ORDERED: STROKE PATIENT DISCHARGE STA (10:51)
--- NOTE | 2020-03-22 11:13 | Neurology Consultation ---
Date of Consultation March 22, 2020 Assessment & Plan (1) Left pontine stroke: (2) Cranial nerve III palsy: (3) Diplopia: (4) Hypertension: Patient has experienced an acute, tiny left pontine stroke near the midline and near the midbrain junction. This has resulted in some acute double vision and on exam he has a mild right 3rd nerve palsy with limited abduction. Up and down gaze is normal and there is no nystagmus. There are no pupillary changes and this has been painless. The location of this stroke is classic for small vessel ischemic disease from hypertension. In addition he has moderate old small vessel ischemia seen on MRI as well. Other risk factors would include age/Genetics and has history of cigarette smoking. Otherwise, his neurologic examination is unremarkable and he has no other focal neurologic signs, meningeal signs, or encephalopathy. Overall, his prognosis for recovery is quite good and he is already making improvements with double vision since admission. Recommendations: 1. Agree with switching aspirin to 75 milligrams clopidogrel daily. 2. Control blood pressure as you are doing, aiming for a mean arterial pressure of 95-100. 3. Follow up with Ophthalmology as an outpatient. 4. I can see in 2-3 weeks as an outpatient for follow-up as well. Overall, I spent a total of 60 minutes with this case including review of records, review of MRI films, direct evaluation the patient at bedside, and discussing the case with the patient and RN at bedside as well as Dr. De Paz including differential diagnosis and treatment options. History of Present Illness Reason for Consultation: Patient is an 79-year-old, who was asked to see at the request of Dr. Lechuga, for neurologic consultation regarding acute onset double vision and stroke. Requesting Physician: Dr. Lechuga Attending Physician: Kenna De Paz, History of Present Illness Patient has a history of hypertension for years and some migraine headaches. I saw him in November of 2016 for left facial numbness and chronic cerebral ischemia seen on imaging. He was on aspirin at that time and stable. Patient was in [place] in October of 2019 and developed a right renal stone. He underwent lithotripsy when he came back to the [place] by Dr. Flores at the end of November. He has been doing fairly well although on March 16 he noted some elevated blood pressure. The patient had some lightheadedness (not true vertigo) around 2099March 20 with some vague double vision. He ended up going to sleep around 2200 hours and slept well. He remembers getting up to go to the bathroom once in the middle the night and although he was a little bit off balance he did not notice anything else in particular. When he awoke at 0600 he noted double vision. The images were side ways and above each other and he had no eye pain or headaches. He had no visual loss. He did not notice any numbness or weakness of the limbs, confusion but he wondered if he had a little bit of dysarthria. He took his blood pressure and it was 150/90 something. EMS came in it was 171/100. He arrived to the emergency room March 21 at 0752 with a blood pressure 165/101, pulse of 113 and respiratory rate of 20. O2 saturation was 97 percent. He had some double vision with the inability to adduct his right eye fully. There was some nystagmus associated. No other focal neurologic finding was noted and he had no mental status change. CBC was remarkable for mild anemia and a sed rate was 43. Chem profile was noted for a mild elevation of BUN and creatinine. Glucose was 167. CRP was elevated at 1.15. CT scan of the head was unremarkable. Carotid ultrasound was unremarkable. MR angiography of the head showed no significant vessel stenosis for anomaly. MRI of the brain showed a very small (3-4 millimeter) acute infarct in the left pontine-midbrain junction (near midline). This was not a pontomedullary junction infarct that was recorded by Radiology. There was moderate old small vessel ischemia seen and mild generalized atrophy. Echocardiogram showed no abnormalities, shunt, or source of embolus. This morning the patient feels his double vision is better and he has no headache or other symptoms. Total cholesterol was 151 and triglyceride 109. Chem profile showed a BUN of 23 and creatinine of 2.0. Glucose was 99. Allergies Allergy/AdvReac Type Severity Reaction Status Date / Time iodine Allergy Unknown RASHES Verified 03/21/20 08:21 Home Medications Home Medications Medication Instructions Recorded Confirmed Type terazosin 5 mg PO HS 11/29/19 03/21/20 History amlodipine 5 mg tablet 7.5 mg PO QAM tab 03/19/20 03/21/20 History aspirin 162 mg PO DAILY 03/21/20 03/21/20 History atorvastatin 40 mg PO QAM #30 tab 03/22/20 Rx clopidogrel 75 mg PO QAM #30 tab 03/22/20 Rx Patient History Medical History Acute kidney injury Anemia baseline hgb 10-11 range per chart review/no hx of blood transfusions per patient Asthma as child BPH (benign prostatic hyperplasia) Chronic cerebral ischemia possible per 02/2019 MRI but patient states further neurology workup ruled out Chronic kidney disease, stage IV (severe) (Acute) E coli bacteremia was hospitalized while in [place] for this (10/2018) finished ABX treatment HTN (hypertension) Losartan on hold in setting of ROSALVA Kidney stones Migraine Prostatitis 2015; with sepsis Tinnitus hx Vertigo hx Surgical History History of colonoscopy History of renal stent has currently History of tooth extraction wisdom teeth S/P TURP modified, during ureteral stent placement for kidney stone in [facility] Family History Family/Other Hypertension Diabetes Mother , old age at age 88 Breast cancer Hypertension Father , complications of hip fracture No problems noted. 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) Feels Safe at Home: Yes Safety Concerns: Feels Safe At This Time Smoking Status: Former smoker Age Quit Using Tobacco: 43 ; packs per day: 0.5 ; Years Smoked: 20 ; Second Hand Exposure: No ; Hx Alcohol Use: Yes Alcohol type: beer and hard liquor Alcohol Intake Frequency: Rarely Hx Substance Use: No Review of Systems Constitutional: no fever, no fatigue and no weakness Eyes: + diplopia; no eye pain and no worsening vision Ear, Nose, Mouth, Throat: no ear pain, no tinnitus, no hearing loss, no dizziness, no hoarseness and no dysphagia Respiratory: no cough and no dyspnea Cardiovascular: no chest pain, no palpitations and no lightheadedness Gastrointestinal: no abdominal pain, no nausea and no vomiting Genitourinary: no dysuria and no urinary incontinence Musculoskeletal: no back pain, no neck pain, no radicular pain, no joint pain and no myalgia Integumentary: no rash and no lesions Neurologic: no gait abnormality, no localized weakness, no generalized we akness, no tingling, no numbness, no tremor(s), no abnormal movements, no headac he(s), no abnormal speech, no confusion and no memory loss Psychiatric: no depression, no irritability, no anxiety, no difficulty concentrating, no confusion and no hallucinations Endocrine: no fatigue and no flushing Hematologic / Lymphatic: no easy bleeding and no easy bruising Allergy / Immunological: no urticaria and no problem reported Exam (Neuro) Physical Exam: The patient is right-handed. The patient is awake, alert, and attentive. Speech is normal without any aphasia or dysarthria. he can name objects, repeat phrases, and has normal spontaneous speech. Mentation and thought processes are intact, with orientation to person, place and time, and normal fund of knowledge. Attention and concentration are normal. Mood and affect are normal and appropriate. General appearance and grooming are normal. Short and long-term memory are intact. The discs are sharp with positive venous pulsations bilaterally. There are no exudates, hemorrhages, or blood vessel changes seen. Pupils are 3 mm bilaterally and reactive to light. Extraocular eye muscles are intact to the right without nystagmus. To the left, he cannot fully abduct the right eye but the left eye fully abducts. Again, there is no nystagmus. Visual acuity and visual mcdaniel seem normal grossly to confrontation. There are no deficits to sensation in the face in all 3 distributions of the fifth cranial nerve bilaterally. Corneal reflexes are positive bilaterally. Facial strength and symmetry was normal bilaterally. Hearing seems normal to whisper and finger rub bilaterally. Palate moves well without asymmetry. There is normal sternocleidomastoid and trapezius (shoulder shrug) strength bilaterally. Tongue is midline with good strength bilaterally. Neck has a full range of motion without discomfort. There are no cervical bruits bilaterally. There are no cranial or ocular bruits. Heart is without murmur. There is a regular rhythm and rate. Cervical, thoracic, and lumbar spine are nontender to palpation. Gait is narrow based, with good arm swing, turns, and stance. Stance sitting up in the bed with his feet dangling is quite normal. With outstretched arms there is no drift. There are no resting, postural, or action tremors. There is no ataxia with finger to nose testing. There is good facility in the hands. No other abnormal involuntary movements are noted. Motor strength is 5/5 diffusely in the arms bilaterally including deltoids, biceps, triceps, brachioradialis, wrist flexors and extensors, integrated marketing specialist, and intrinsic hand muscles. Motor strength is 5/5 diffusely in the legs bilaterally including hip flexors, quadriceps, hamstrings, gastrocnemius, tibialis anterior, tibialis posterior, and Peroneii muscles. Toe extensors are normal and there is good bulk in the extensor digitorum brevis muscles bilaterally. The limbs have good tone without rigidity or spasticity. There is no atrophy noted in the muscles. Muscle bulk is normal, there is no tenderness to palpation, no myotonia to percussion, and no fasciculations seen. Sensory examination is intact to touch and pin throughout all 4 limbs diffusely. Reflexes are 1/4 in the biceps, triceps, brachioradialis, quadriceps, and Achilles tendons bilaterally. There is no clonus bilaterally. Toes are downgoing with plantar stimulation bilaterally. Peripheral pulses are present and of normal quality distally in all 4 limbs. There is no peripheral edema noted in the limbs. Results & Data ([facility]) Vital Signs (Past 12 Hours) Vital Signs Temp Pulse Pulse Resp BP Pulse Ox 03/22/20 07:00 36.6 C 70 18 134/73 97 03/22/20 04:13 87 03/22/20 03:18 36.6 C 74 20 147/71 H 97 03/22/20 00:00 36.8 C 83 20 134/73 96 Diagnostic Findings MR brain wo con HISTORY: Mental status change Pt cant adduct Rt eye (3rd nerve palsy) TECHNIQUE: Multiplanar multisequence MRI of the brain was performed without the use of contrast. COMPARISON STUDY: 03/02/2019 FINDINGS: Small focus of acute ischemic change left central pontine medullary junction. This measures no more than 4 mm. No additional acute ischemic event is identified. Findings of considerable atrophy and chronic small vessel change are stable compared to the prior study. The ventricular system is midline. It demonstrates mild compensatory prominence. IMPRESSION: 1. Acute/subacute punctate infarct left central pontine medullary junction. 2. Pre-existing extensive component of atrophy and chronic small vessel change. 3. This report was phoned to the emergency room ACT 112: Negative or not required by law. The above report was generated using voice recognition software. It may contain grammatical, syntax or spelling errors. Electronically signed by: Preston Mosqueda M.D. 03/21/2020 10:03 AM PG Care Time/CCT Total # of Minutes Spent Total Time Spent with Patient: Total time spent is greater than 50% in coordination of care (as documented) at patient's floor/unit and/or counseling patient: Coding Level of Care Code 55355 Initial Inpt Care Lvl 3 Diagnoses Left pontine stroke I63.50 Cranial nerve III palsy H49.01 Laterality: right Diplopia H53.2 Hypertension I10 Hypertension type: essential hypertension Time Spent (min) 60 (1) Cranial nerve III palsy Laterality: right Qualified Code(s): H49.01 - Third [oculomotor] nerve palsy, right eye (2) Hypertension Hypertension type: essential hypertension Qualified Code(s): I10 - Essential (primary) hypertension
--- NOTE | 2020-03-22 11:47 | Pharmacy Report ---
Pharmacist Stroke Counseling - Date of Service March 22, 2020 - Scope: Pharmacy has been consulted to provide medication discharge counseling for this patient admitted with [ischemic stroke] [hemorrhagic stroke] [transient ischemic attack] as per the Pharmacist Discharge Counseling for Stroke Patients Cristal walls - Medications on Discharge: Home Medications Medication Instructions Recorded Confirmed terazosin 5 mg PO HS 11/29/19 03/21/20 amlodipine 5 mg tablet 7.5 mg PO QAM tab 03/19/20 03/21/20 aspirin 162 mg PO DAILY 03/21/20 03/21/20 New Rx's Medication Instructions Recorded atorvastatin 40 mg PO QAM #30 tab 03/22/20 clopidogrel 75 mg PO QAM #30 tab 03/22/20 - Action: The above medications, specifically ones for stroke treatment/prophylaxis, have been reviewed in detail with the patient and/or patient telephone claims representative(s) prior to discharge. This includes indication, common adverse reactions, drug interactions, and medication administration. Medication counseling has been employed using the teach-back method to ensure understanding. - Outcome: The patient has demonstrated understanding of the medications. Additional comments: - Patient is very knowledgeable about current medications. No barriers anticipated to taking medications as prescribed. - During discussion of atorvastatin, patient expressed concern that this was not mentioned by neurologist this morning. I called and clarified with ordering provider of atorvastatin. Confirmed that patient should be taking atorvastatin. Thank you for allowing pharmacy to be involved in the care of this patient. Please call [phone] with any additional questions
== END 2020-03-22 13:00 | disposition home or self-care (01) | DRG 65 ==
LOC: ED 06:46 → 2W 11:58 → SUATTDRO 11:58 → 2W 13:11

== ENCOUNTER 2021-01-24 07:05 | Inpatient (IN) ==
--- NOTE | 2021-01-23 14:19 | Anesthesiology Consultation ---
Date of Service January 23, 2021 Assessment & Plan (1) Encounter for pre-operative examination: Chart Review Chart Review: Acceptable Risk for Surgery (pending anesthesia evaluation DOS ) and Patient NOT seen in Pre Admission Testing Per urology office note January 23an continue Plavix. Per nursing assessment January 23, 2021, patient denies any recent travel. No known Covid infection of past 90 days. No known Covid positive contacts or Covid related symptoms. Preop Covid test 01/22/21= negative Seen by nephrology 12/18/2020 = patient seen for recheck. Most recent creatinine has fluctuated between 2.02.5. Most recent creatinine 2.8has not really changed. 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 Following with hematology. Patient has had abnormal paraprotein detected on blood workslightly elevated level of kappa light chain as well as slightly elevated level of lambda chain with normal ratio so does not need renal biopsy. History Surgery Operation Date: 01/24/21 08:35 Proposed Procedures p Cystoscopy, Ureteronephroscopy, Retrograde Pyelogram, with Possible Ureteral Diliation, Left Laser Destruction or Extraction of the Stone, Insertion or Exchangeof Stent Catheter - Anshul Flores MD Operation Date: 01/25/21 12:55 Proposed Procedures p Left Extracorporeal Shock Wave Lithotripsy(Left) - Darin Royal DO Height/Weight Height: 5 ft 8 in Weight: 68.946 kg Allergies Allergy/AdvReac Type Severity Reaction Status Date / Time iodine Allergy Severe RASHES Verified 01/23/21 10:39 Medications Home Medications Medication Instructions Recorded Confirmed Last Taken terazosin 5 mg PO HS 11/29/19 01/23/21 03/20/20 cholecalciferol (vitamin D3) 125 125 mcg PO QPM cap 04/24/20 01/23/21 Unknown mcg (5,000 unit) capsule glucos sul [id number] 2 cap PO QPM 04/24/20 01/23/21 Unknown vitamin B complex 1 tab PO QAM 04/24/20 01/23/21 Unknown amlodipine 10 mg tablet 10 mg PO QAM 01/02/21 01/23/21 Unknown Lactobacillus acidophilus 10,000 mmu cells PO QAM 01/23/21 01/23/21 Unknown [Probiotic] clopidogrel 75 mg PO QPM 01/23/21 01/23/21 Unknown ferrous fumarate 55 mg PO QAM 01/23/21 01/23/21 Unknown omeprazole 20 mg PO QAM 01/23/21 01/23/21 Unknown ondansetron HCl 4 mg tablet 4 mg PO Q8H PRN #20 tab 01/23/21 01/23/21 Unknown oxycodone-acetaminophen 5 mg-325 1 tab PO Q8H #21 tab 01/23/21 01/23/21 Unknown mg tablet vitamin A-vitamin C-vit E-min 1 tab PO QAM 01/23/21 01/23/21 Unknown [Ocuvite] Past Medical History Medical History (Updated 01/23/21 @ 14:16 by Lucinda Velasquez PA-C) Acute kidney injury Asthma as child BPH (benign prostatic hyperplasia) Chronic cerebral ischemia Chronic kidney disease, stage IV (severe) E coli bacteremia was hospitalized while in [facility] for this (10/2018) finished ABX treatment GERD (gastroesophageal reflux disease) HTN (hypertension) Losartan on hold in setting of ROSALVA Kidney stones Left pontine stroke Double vision, 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 On Plavix Prostatitis 2015; with sepsis Past Family History Family History Family/Other Hypertension Diabetes Mother , old age at age 88 Breast cancer Hypertension Father , complications of hip fracture No problems noted. Denies family history of Myocardial infarction Stroke Past Surgical History Surgical History History of colonoscopy History of cystoscopy History of lithotripsy History of tooth extraction wisdom teeth S/P TURP modified, during ureteral stent placement for kidney stone in [place] Social History Smoking Status: Former smoker Do You Dip or Chew Tobacco: No Smoking End Date: quit 40 years ago Hx Alcohol Use: Yes Alcohol type: beer and hard liquor alcohol intake frequency: holidays/special occasions only Hx Substance Use: No substance use type: does not use Lab Results Anesthesia Preop Results Results Anesthesia Widget: WBC 10.41 K/uL (4.8-10.8) 01/22/21 Hgb 12.7 g/dL (14.0-18.0) L 01/22/21 Hct 34.6 % (42-52) L 01/22/21 Plt 185 K/uL (130-400) 01/22/21 Na 139 mmol/L (136-145) 01/22/21 K 4.0 mmol/L (3.5-5.1) 01/22/21 Cl 110 mmol/L (98-107) H 01/22/21 CO2 23 mmol/L (21-32) 01/22/21 BUN 25 mg/dl (7-18) H 01/22/21 Creat 2.04 mg/dl (0.6-1.4) H 01/22/21 Glucose Level 154 mg/dl (70-99) H 01/22/21 Testing Laboratory Results 01/11/21= UA: Cloudy urine appearance, 100+ urine protein, large urine blood, positive urine nitrate, moderate leukocyte esterase, 04 RBC, 1030 urine WBC. Electrocardiogram Date: 03/21/20 Findings: + ST @ (110 bpm) Nonspecific ST and T wave abnormality Chest X-Ray Date: 01/08/21 Cardiomediastinal and hilar silhouettes are within normal limits. There is no pneumothorax, pleural effusion, airspace consolidation or overt pulmonary edema. There is chronic interstitial coarsening. Mild linear scarring/atelectasis of the inferior segment lingula. Echocardiogram Date: 03/20/20 EF: 60-65% LV Function: normal RWMA: + none Other Findings: + LVH (mild/concentric ) Valvular Disease: + AI (mild ) Injection of contrast document on interatrial shunt. Other Testing Carotid doppler 03/21/20= There is no sonographic evidence of hemodynamically significant stenosis in the right or left carotid arterial system. Antegrade flow is shown in the vertebral arteries.
[~2021-01-24 07:05] MED LIST changes: +CIPROFLOXACIN / D5W 400 MG/200 ML BAG IV SCH; -DTR/5 PO; -GLUC10007 PO; -KFL250 PO; -MTR500 PO; -MULTTAB58 PO; -NRV5 PO; +SODIUM CHLORIDE 0.9% 1000ML IV SCH; -TAMS0.4C38 PO; -TERA5CAP PO; -saw palmetto PO
[2021-01-24] MEDS ORDERED: fentaNYL citrate 100 MCG/2 ML VIAL ONE (07:32)
[2021-01-24] MEDS ORDERED: ONDANSETRON INJ 2 MG/ML 2 ML VIAL ONE (07:32)
[2021-01-24] MEDS ORDERED: PROPOFOL IV EMULSION 10 MG/ML 20 ML VIAL IV ONE (07:32)
[2021-01-24] MEDS ORDERED: LIDOCAINE HCL 2% 2 ML VIAL/AMP(20MG/ML) INFIL ONE (07:32)
[2021-01-24] MEDS ORDERED: DEXAMETHASONE SOD INJ 4 MG/ML VIAL ONE (07:32)
--- NOTE | 2021-01-24 07:57 | History & Physical Bridge Note ---
Date of Service January 24, 2021 History & Physical Bridge Note I have examined the patient, reviewed the History & Physical and in the interval since the performance of the History & Physical I have noted the following changes of clinical significance: no changes noted
[2021-01-24] MEDS ORDERED: ATROPINE SULFATE 0.1 MG/ML 10ML SYR IV PRN (08:02)
[2021-01-24] MEDS ORDERED: ePHEDrine sulfate 50 MG/ML AMP IV PRN (08:02)
[2021-01-24] MEDS ORDERED: ONDANSETRON INJ 2 MG/ML 2 ML VIAL IV PRN ×2 (08:02→12:29)
[2021-01-24] MEDS ORDERED: fentaNYL citrate 100 MCG/2 ML VIAL IV PRN (08:02)
[2021-01-24] MEDS ORDERED: PHENYLEPHRINE 100MCG/ML 5ML SYR ONE (08:16)
[2021-01-24] MEDS ORDERED: HYDROCODONE/ACETAMOPHEN 5/325MG TAB PO PRN (08:50)
[2021-01-24] MEDS ORDERED: ACETAMINOPHEN 325 MG TAB PO PRN ×2 (08:50→12:29)
--- NOTE | 2021-01-24 08:56 | Operative Report ---
PG Post Operative Report Pre & Post Diagnosis Operation Date: 01/24/21 08:35 Pre-Op Diagnosis: Kidney Stone, Renal Insufficiency Post-Op Diagnosis: Kidney Stone, Renal Insufficiency Operation Date: 01/25/21 12:55 <No data on this case meets the specified criteria> I identified the patient and participated in the time-out.: Yes Procedure Operation Date: 01/24/21 08:35 Actual Procedures p Cystoscopy, Ureteronephroscopy, Retrograde Pyelogram, Left Laser Destruction of Stone, Insertion of Left Stent Catheter(Left) - Anshul Flores MD Operation Date: 01/25/21 12:55 <No data on this case meets the specified criteria> Surgeon Nicholas Flores MD Occupational Health And Safety Officer none Estimated Blood Loss 0 Findings Consistent with Post-Op Diagnosis Specimens none Description of Procedure The patient was identified in the preoperative holding area, appropriate informed consents were reviewed and completed and the patient was transferred to the operative suite. Upon arrival, appropriate antibiotics and anesthesia were administered and the patient was placed in dorsal lithotomy position and prepped and draped in sterile fashion. To be in the case I passed a 22 Kazakh cystoscope with 30 degree lens. Inspection revealed a healthy-appearing urethra, he has a very large prostate which is status post TURP. I was able to advance the scope into the bladder and inspected. He had some inflammation of the bladder with a little bit of blood. I was able to identify the left UO and cannulated with a sensor wire and a 10 Kazakh double-lumen catheter. 2 wires were advanced to the kidney, there was a bit of J hooking in the distal ureter but this was straightened with a 10 Kazakh double-lumen. After advancing both wires, I advanced a flexible ureteroscope over 1 will reserving that there is a safety wire. Inspection revealed a large stone that had been pushed retrograde back into the upper pole of the kidney. There were no other stones visualized. He had a little bit of cloudiness to the lower pole but the remainder of the urine was relatively clear. I elected to continue with the case given the appearance of the urine. I lasered the stone fragmented into pieces that were safer spontaneous passage. I reinspected and saw no large fragments. Inspection of the ureter revealed a healthy-appearing ureter with the site of impaction inspected and found to be healthy. A 6 Kazakh by 26 cm double-J ureteral stent was placed with a good curl in the kidney as well as the bladder. There was good drainage through and around the stent. The bladder was decompressed and the case concluded. He was reversed from anesthesia and taken to the recovery room in stable condition. Of note, his preop cultures did show gram-negative bacilli, these are not speciated, given the appearance of the urine I elected to proceed with the case but I will cover him with antibiotics for an extended time period post operatively. There were no complications. I attest to the content of the Intraoperative Record and any orders documented therein. Any exceptions are noted below.
[2021-01-24] MEDS ORDERED: SODIUM CHLORIDE 0.9% 1000ML 1,000 ML IV SCH ×2 (09:00→13:45)
--- NOTE | 2021-01-24 09:16 | Fluoroscopy Report ---
FL KUB CLINICAL HISTORY: LEFT LASER AND STENT PLACEMENT COMPARISON STUDY: Supine abdomen dated 01/22/2021 FLUOROSCOPY TIME: 24 seconds. NUMBER OF FLUOROSCOPIC IMAGES: 7 FINDINGS: 7 intraprocedural fluoroscopic spot images were obtained during a retrograde study and the laser lithotripsy. A left-sided nephroureteral stent was placed. Only the proximal pigtail was docume nted. IMPRESSION: Fluoroscopic spot images obtained during a left-sided retrograde study with laser lithot ripsy and ureteral stent placement ACT 112: Negative or not required by law. Electronically signed by: Tyler Burrell M.D. 01/24/2021 9:14 AM
[2021-01-24] MEDS ORDERED: MEPERIDINE HCL 50 MG/ML CARP ONE (09:35)
[2021-01-24] MEDS ORDERED: ACETAMINOPHEN 1000 MG/100 ML IV IV ONE (09:36)
[2021-01-24] MEDS ORDERED: MEPERIDINE HCL 25 MG/ML CARP/VIAL IV ONE (09:39)
[2021-01-24] MEDS ORDERED: ACETAMINOPHEN 1,000 MG/100 ML VIAL IV STA (09:40)
[2021-01-24] MEDS ORDERED: LABETALOL HCL IV 5 MG/ML 20ML IV ONE (09:40)
[2021-01-24] MEDS ORDERED: cefTRIAXone SODIUM 1,000 MG in DEXTROSE 5% 50 ML IV STA (09:51)
[2021-01-24 10:28] LABS: Hemoglobin 13.1 g/dL (14.0-18.0); Mean Corpuscular Hemoglobin 31.3 pg (25-34); Mean Corpuscular Volume 86.1 fL (80-100); Mean Platelet Volume 10.9 fL (7.4-10.4); Platelet Count 136 K/uL (130-400); RDW Coefficient of Variation 15.1 % (11.5-14.5); RDW Standard Deviation 47.2 fL (36.4-46.3); Red Blood Count 4.18 M/uL (4.7-6.1); White Blood Count 4.99 K/uL (4.8-10.8)
--- NOTE | 2021-01-24 10:44 | Anesthesiology Progress Note ---
Date of Service January 24, 2021 Anesthesia Post Procedure Vital Signs Vital Signs: Temp Pulse Pulse Resp BP Pulse Ox 01/24/21 10:35 96 H 20 115/72 92 01/24/21 10:25 104 H 19 122/76 93 01/24/21 10:15 102 H 19 126/78 93 01/24/21 10:05 112 H 23 128/83 93 01/24/21 09:55 107 H 23 127/87 95 01/24/21 09:45 107 H 29 H 159/120 H 94 01/24/21 09:35 137 H 29 H 216/117 H 97 01/24/21 09:25 105 H 15 160/104 H 93 01/24/21 09:15 109 H 21 133/85 91 01/24/21 09:05 101 H 19 115/77 95 01/24/21 08:55 97.3 F L 100 H 107 H 20 110/77 96 01/24/21 07:36 98.1 F 107 H 20 142/85 H 95 Pain Intensity Left Upper Abdomen: Pain Intensity: 1 Transfer of Care Handoff Completed per policy Notes Mental Status: alert / awake / arousable and participated in evaluation Patient Amnestic to Procedure: Yes Nausea / Vomiting: adequately controlled Pain: adequately controlled Airway Patency, RR, SpO2: stable & adequate BP & HR: stable & adequate Hydration State: stable & adequate Anesthetic Complications: no major complications apparent and Pt Satisfied with anesthetic care Notes: Patient appeared to become uroseptic s/p laser litho with stent placement. The patient was having rigors. The patient was given IV demerol and acetaminophen. The patient was also tachycardic and hypertensive, and labetolol 10mg IV was given. Dr. Royal was notified of the situation. The patient was given IV rocephin and blood cultures/labs were drawn. The patient was looking much better. The patient was seen by Dr. Royal, and the plan is for the patient to stay for further monitoring.
[2021-01-24 10:51] LABS: Albumin Globulin Ratio 0.7 (0.9-2); Albumin Level 3.2 gm/dl (3.4-5.0); BUN Creatinine Ratio 11.1 (10-20); Bilirubin,Total 1.5 mg/dl (0.2-1); Calcium 9.1 mg/dl (8.5-10.1); Creatinine Clr Calc Pharmacy 13.2 ml/min; Est GFR (African American) 14.4; Est GFR (Non-African American) 12.5; Globulin 4.9 gm/dl (2.5-4.0); Potassium 4.6 mmol/L (3.5-5.1); Total Protein 8.1 gm/dl (6.4-8.2)
[2021-01-24 10:56] LABS: Dohle Bodies 1+; Echinocytes 1+; Immature Granulocytes # (auto) 0.01 K/uL (0.00-0.02); Immature Granulocytes % (auto) 0.2 %; Lymphocytes # (auto) 0.55 K/uL (1.2-3.4); Mean Corpuscular Hgb Conc 36.4 g/dL (32-36); Monocytes # (auto) 0.11 K/uL (0.11-0.59); Monocytes % (auto) 2.2 %; Neutrophils # (auto) 4.32 K/uL (1.4-6.5); Neutrophils % (auto) 86.6 %
[2021-01-24] MEDS ORDERED: MoRPHine SULFATE 2 MG/ML CARP IV PRN ×2 (12:29)
[2021-01-24] MEDS ORDERED: oxyCODONE HCL IR 5 MG TAB (IMMEDIATE RELEASE) PO PRN ×2 (12:29)
--- NOTE | 2021-01-24 12:59 | XRay Report ---
XR chest 1V portable CLINICAL HISTORY: tachypnea COMPARISON STUDY: Chest radiograph January 08, 2021. FINDINGS: There is no pneumothorax. A small left pleural effusion is noted with left basilar opacity. Patient is rotated. Cardiac size is at the upper limits of normal. There is no evidence for pulmonar y edema. IMPRESSION: Small left pleural effusion with left basilar opacity which could reflect consolidation or atelectasis. ACT 112: Negative or not required by law. Electronically signed by: Chris Palacios M.D. 01/24/2021 12:58 PM
[2021-01-24] MEDS ORDERED: SODIUM CHLOR 0.45% + 20MEQ KCL 20 MEQ/1,000 ML BAG IV SCH (13:30)
--- NOTE | 2021-01-24 13:39 | Hospitalist Consultation ---
Date of Consultation January 24, 2021 Assessment & Plan (1) Acute kidney injury: Patient with a history of CKD stage III-IV and follows with nephrology. Baseline creatinine is 2.0-2.3 Presents here after having left ureterolithiasis and is now status post cystoscopy with left ureteral stent placement by urology on 01/24 Preoperative laboratory values showed creatinine up to 4.16, BUN up to 46, with an anion gap metabolic acidosis and hyponatremia. Acute kidney injury likely secondary to post renal obstruction versus intrinsic from infection? Nephrology consulted-appreciated -Ureteral stent now in place -Continue IV fluids-nephrology plans on switching to bicarbonate drip rather than normal saline -Follow BMP in the morning -Follow strict I's and O's, limit fluid 1800 mL as per nephrology -Renally dose medications when appropriate and avoid nephrotoxins -Discontinue morphine and would advise against all NSAIDs -Treating infection as below -Support blood pressure by giving IV fluids and holding amlodipine in the morning (2) Kidney stone: As above, left-sided ureterolithiasis now status post stent Urology managing Pain control with oxycodone Discontinue IV morphine in the setting of renal failure (3) UTI (urinary tract infection): UA abnormal from the office on 01/23 Has a 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 to ertapenem Urine culture from 01/23 already with 2 different gram-negative myesha species Blood cultures are pending Consult infectious disease-discussed through [facility] today prior to formal consultation-recommends meropenem for now Follow all cultures (4) Chronic kidney disease, stage IV (severe): As above (5) BPH (benign prostatic hypertrophy): With a history of TURP Watch for urine retention (6) Hypertension: Blood pressures were apparently elevated in the PACU but he was having rigors, question if this blood pressure was accurate He was given 1 dose of IV labetalol in the PACU and now blood pressures are in the 90s systolic Support blood pressure with IV fluids as above Hold home amlodipine in the morning (7) Metabolic acidosis: As above Starting bicarbonate drip (8) Hyponatremia: Secondary to acute kidney injury Follow BMP (9) 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 Continue Plavix, should be on a statin-we will need to research why he is not (10) GERD (gastroesophageal reflux disease): No acute issues Continue PPI (11) Pleural effusion: Chest x-ray done x2 on 01/24, first was preoperative and the second 1 was postoperative for bibasilar crackles noted and requiring 2 to 3 L nasal cannula With left-sided small pleural effusion which is new since chest x-ray from a couple of months ago Could be some volume overload secondary to renal failure Wean off oxygen as tolerated Not big enough for thoracentesis at this point Follow clinically and with chest x-ray (12) Hyperbilirubinemia: Bilirubin mildly elevated at 1.5, other LFTs are normal Follow LFTs in the morning but not having any abdominal pain Could be secondary to infection (13) DVT prophylaxis: SCDs, avoid SQ heparin for now given recent procedure Disposition-transfer to PCU for closer monitoring given low blood pressures and hypoxia and possibility of early sepsis History of Present Illness Reason for Consultation: Post-op,possible sepsis Requesting Physician: Dr. 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 He was also found to have a UTI based on UA collected in Urology office on 01/23. Agronomy Advisor noted to be up to 4 from baseline of 2.0-2.3, along with hyponatremia and AG metabolic acidosis. Post-op, he had some tremors and tachycardia, hypertension, fever, was given IV Demerol, labetalol, and IV tylenol in the PACU. Fever down but now mildly hypotensive in 90s systolic. When I saw him, he was eating his dinner and denied feeling lightheaded or short of breath, no chest pain. No abdominal pain except for some slight amount on the left that was sharp in nature with movement or taking a deep breath. I did discuss his care with the knitting demonstrator on the phone as well as infectious disease via [place] [facility]. Allergies Allergy/AdvReac Type Severity Reaction Status Date / Time iodine Allergy Severe RASHES Verified 01/24/21 07:29 Home Medications Medication Instructions Recorded Confirmed Type terazosin 5 mg PO HS 11/29/19 01/24/21 History cholecalciferol (vitamin D3) 125 125 mcg PO QPM cap 04/24/20 01/24/21 History mcg (5,000 unit) capsule glucos sul [id number]-C-Mn 2 cap PO QPM 04/24/20 01/24/21 History vitamin B complex 1 tab PO QAM 04/24/20 01/24/21 History amlodipine 10 mg tablet 10 mg PO QAM 01/02/21 01/24/21 History Probiotic 10,000 mmu cells PO QAM 01/23/21 01/24/21 History clopidogrel 75 mg PO QPM 01/23/21 01/24/21 History ferrous fumarate 55 mg PO QAM 01/23/21 01/24/21 History omeprazole 20 mg PO QAM 01/23/21 01/24/21 History ondansetron HCl 4 mg tablet 4 mg PO Q8H PRN #20 tab 01/23/21 01/24/21 Rx oxycodone-acetaminophen 5 mg-325 1 tab PO Q8H #21 tab 01/23/21 01/24/21 Rx mg tablet vitamin A-vitamin C-vit E-min 1 tab PO QAM 01/23/21 01/24/21 History cefadroxil 500 mg PO BID #10 cap 01/24/21 Rx Patient History Medical History Asthma as child BPH (benign prostatic hyperplasia) 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 On Plavix Prostatitis 2015; with sepsis Surgical History History of colonoscopy History of cystoscopy History of lithotripsy History of tooth extraction wisdom teeth S/P TURP modified, during ureteral stent placement for kidney stone in [place] Family History Family/Other Hypertension Diabetes Mother , old age at age 88 Breast cancer Hypertension Father , complications of hip fracture No problems noted. 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) Feels Safe at Home: Yes Assistive Devices: Glasses Review of Systems Review of Systems: All systems reviewed & are unremarkable except as noted in HPI & below Physical Exam Constitutional: WD/WN, vitals as above Eyes: + anicteric sclerae and EOM intact bilaterally ENMT: external ear and nose normal, oropharynx normal Neck: trachea midline, no thyromegaly Respiratory: normal respiratory effort; no cough Auscultation: + crackles (Bibasilar); no rhonchi and no wheezes Cardiovascular: RRR, no murmur, no edema Chest (Breasts): Chest: normal inspection of chest Gastrointestinal (Abdomen): normal bowel sounds, soft, nontender, no hepatosplenomegaly Musculoskeletal: Extremities: extremities normal to inspection; no cyanosis and no clubbing Skin: no rashes, warm and dry Neurologic: moves all extremities and awake; no focal motor deficits Psychiatric: A+Ox3, euthymic affect Lymphatic: no lymphedema Results & Data Results & Data ([facility]) Vital Signs (Past 12 Hours) Vital Signs Temp Pulse Pulse Pulse Resp BP Pulse Ox 01/24/21 13:23 94 H 96 H 16 97/62 L 94 01/24/21 12:50 36.6 C 92 H 16 97/61 L 93 01/24/21 12:20 36.9 C 98 H 20 105/63 94 01/24/21 12:00 93 H 17 100/61 94 01/24/21 11:45 97 H 18 102/60 95 01/24/21 11:30 37.6 C H 97 H 19 100/61 93 01/24/21 11:15 97 H 22 101/65 93 01/24/21 11:05 95 H 20 105/63 93 01/24/21 10:55 93 H 20 104/61 92 01/24/21 10:45 37.5 C 99 H 21 108/63 92 01/24/21 10:35 96 H 20 115/72 92 01/24/21 10:25 104 H 19 122/76 93 01/24/21 10:15 102 H 19 126/78 93 01/24/21 10:05 112 H 23 128/83 93 01/24/21 09:55 107 H 23 127/87 95 01/24/21 09:45 107 H 29 H 159/120 H 94 01/24/21 09:35 137 H 29 H 216/117 H 97 01/24/21 09:25 105 H 15 160/104 H 93 01/24/21 09:15 109 H 21 133/85 91 01/24/21 09:05 101 H 19 115/77 95 01/24/21 08:55 36.3 C L 100 H 107 H 20 110/77 96 01/24/21 07:36 36.7 C 107 H 20 142/85 H 95 Laboratory Results 01/24/21 01/24/21 Range/Units 10:03 10:03 WBC 4.99 (4.8-10.8) K/uL RBC 4.18 L (4.7-6.1) M/uL Hgb 13.1 L (14.0-18.0) g/dL Hct 36.0 L (42-52) % MCV 86.1 (80-100) fL MCH 31.3 (25-34) pg MCHC 36.4 H (32-36) g/dL RDW Std Deviation 47.2 H (36.4-46.3) fL RDW Coeff of Rickey 15.1 H (11.5-14.5) % Plt Count 136 (130-400) K/uL MPV 10.9 H (7.4-10.4) fL Immature Gran % (Auto) 0.2 % Neut % (Auto) 86.6 % Lymph % (Auto) 11.0 % Sampson % (Auto) 2.2 % Eos % (Auto) 0.0 % Baso % (Auto) 0.0 % Neut # (Auto) 4.32 (1.4-6.5) K/uL Lymph # (Auto) 0.55 L (1.2-3.4) K/uL Sampson # (Auto) 0.11 (0.11-0.59) K/uL Eos # (Auto) 0.00 (0-0.5) K/uL Baso # (Auto) 0.00 (0-0.2) K/uL Immature Gran # (Auto) 0.01 (0.00-0.02) K/uL Dohle Bodies 1+ Echinocytes 1+ Sodium 133 L (136-145) mmol/L Potassium 4.6 (3.5-5.1) mmol/L Chloride 104 (98-107) mmol/L Carbon Dioxide 17 L (21-32) mmol/L Anion Gap 12.0 H (3-11) BUN 46 H D (7-18) mg/dl Creatinine 4.16 H D (0.6-1.4) mg/dl Est Cr Clr Drug Dosing 13.2 ml/min Est GFR ( Amer) 14.4 Est GFR (Non-Af Amer) 12.5 BUN/Creatinine Ratio 11.1 (10-20) Glucose 119 H (70-99) mg/dl Calcium 9.1 (8.5-10.1) mg/dl Total Bilirubin 1.5 H (0.2-1) mg/dl AST 21 (15-37) U/L ALT 22 (12-78) U/L Alkaline Phosphatase 60 (45-117) U/L Total Protein 8.1 (6.4-8.2) gm/dl Albumin 3.2 L (3.4-5.0) gm/dl Globulin 4.9 H (2.5-4.0) gm/dl Albumin/Globulin Ratio 0.7 L (0.9-2) Specimen Hemolysis Diagnostic Findings Chest x-ray images personally reviewed by me and agree with the following report: Chest X-Ray 01/24/21 12:29 XR chest 1V portable CLINICAL HISTORY: tachypnea COMPARISON STUDY: Chest radiograph January 08, 2021. FINDINGS: There is no pneumothorax. A small left pleural effusion is noted with left basilar opacity. Patient is rotated. Cardiac size is at the upper limits of normal. There is no evidence for pulmonary edema. IMPRESSION: Small left pleural effusion with left basilar opacity which could reflect consolidation or atelectasis. ACT 112: Negative or not required by law. SINGLE VIEW CHEST CLINICAL HISTORY: Dyspnea. FINDINGS: An AP, portable, upright chest radiograph is compared to study performed earlier the same day 01/24/2021. The heart is enlarged noting atherosclerotic calcification of the thoracic aorta. The pulmonary vasculature is noncongested. Chronic interstitial thickening is similar to previous. There is a small left pleural effusion with bibasilar consolidation. This is unchanged from today's earlier study. The right lung appears clear noting basilar scarring/atelectasis. No pneumothorax is seen. The skeletal structures are osteopenic. The bony thorax is grossly intact. IMPRESSION: 1. A small left pleural effusion with left basilar consolidation is unchanged from today's earlier examination. 2. Cardiomegaly without radiographic evidence of congestive failure. PG Care Time/CCT Total # of Minutes Spent Total Time Spent with Patient: Total time spent is greater than 50% in coordination of care (as documented) at patient's floor/unit and/or counseling patient: Coding Level of Care Code 52043 Inpt Consult Level 3 Diagnoses Acute kidney injury N17.9 Kidney stone N20.0 UTI (urinary tract infection) N39.0 Chronic kidney disease, stage IV (severe) N18.4 BPH (benign prostatic hypertrophy) N40.0 Lower urinary tract symptom presence: symptoms absent Hypertension I10 Hypertension type: essential hypertension Metabolic acidosis E87.2 Hyponatremia E87.1 Left pontine stroke I63.50 GERD (gastroesophageal reflux disease) K21.9 Pleural effusion J90 Hyperbilirubinemia E80.6 DVT prophylaxis Z29.9 (1) BPH (benign prostatic hypertrophy) Lower urinary tract symptom presence: symptoms absent Qualified Code(s): N40.0 - Benign prostatic hyperplasia without lower urinary tract symptoms (2) Hypertension Hypertension type: essential hypertension Qualified Code(s): I10 - Essential (primary) hypertension
--- NOTE | 2021-01-24 14:56 | Nephrology Consultation ---
Date of Consultation January 24, 2021 Assessment & Plan (1) Acute on chronic renal failure: baseline creatinine low to mid 2's; was at baseline 2 days back; now creatinine 4.2 on presentation w/ acidosis. no obvious offending meds on med list from before admission but he did have several ibuprofen doses. obstructive uropathy versus prerenal or ischemic ATN; glomerulopathies related to nsaids on differential but far less likely -started renal diet and 1.8 L fluid limit -IVF as below -daily bmp -no need for acute dialysis; cannot rule out need this admission -be sure to renally dose abtx; inf dzs consult recommended -note that home bp meds have been held and agree w/ this given hypotens ion/labile bp -avoid morphine and nsaids for pain control w/ advanced renal failure -needs strict I/O and daily STANDINg wt >>BLADDER scan prn ordered Present on Admission?: Yes (2) Metabolic acidosis: anion gap metabolic acidosis > from ROSALVA/CKD -recheck in AM >changed IVF to bicarb gtt to run continuously given relative hypotension Present on Admission?: Yes (3) UTI (urinary tract infection): history of ESBL resistant klebsiella colonization; last 3 urine cx results being ffaxed from [facility] and I will put on his hard chart. reported UTI by [facility] OPERATIONS STAFF OFFICER; f/u pending blood and urine cxs -recommend inf dzs consultation w/ [facility]; their team knows this of pt >> Dr Melchor aware Present on Admission?: Yes (4) Dyspnea: IVF at lower rate of 80 mL/ hr as above - needs repeat CXR today Present on Admission?: Yes (5) Labile blood pressure: sbp 200s in pacu; angelic to 90s now >> may contribute to worsened renal function as well next few days; cont to monitor; IVF for now; bp meds held Present on Admission?: Yes History of Present Illness Reason for Consultation: ROSALVA on CKD Requesting Physician: Dr Melchor Attending Physician: Nicholas Flores MD History of Present Illness 80 y/o M whom I'm asked to see for ROSALVA on CKD was admitted today to the urology service for laser therapy of L stone w/ L ureteral stent placement. PMH includes CKD 4, chronic urinary colonization w/ resistant/ESBL Klebsiella for symptomatic tx only, nephrolithiasis w/ [place], HTN, L pontine strke, prostatic hypertrophy s/p TURP, hx of abnormal serum paraproteins, GERD. He follows w/ Dr Swanson in CKD clinic; last seen 12/18. Also evaluated by hematology for paraproteinemia and per Kiki[facility] and their evaluation no renal bx indicated. His baseline creatinine is labile but generally low-mid 2's; his admission creatinine was 4.2. Labs notable also for AG 12, bicarb 17. UA from urology visit 01/23 concerning for infection. Creatinine on 01/22 was 2.0. he is cur rently receiving NS at 125 mL/hr for 1L. Also on ceftriaxone. he tells me that he had 3-4 doses of ibuprofen 600 mg tabs x 2 (1200 mg/dose) in the days prior to admission. In pacu by report he had rigors and extreme HTN > received labetalol; denies pain abdominal or flank currently; no chest pain; slight sob w/ speech after repeated evals; no current urinary complaints Allergies Allergy/AdvReac Type Severity Reaction Status Date / Time iodine Allergy Severe RASHES Verified 01/24/21 07:29 Home Medications Medication Instructions Recorded Confirmed Type terazosin 5 mg PO HS 11/29/19 01/24/21 History cholecalciferol (vitamin D3) 125 125 mcg PO QPM cap 04/24/20 01/24/21 History mcg (5,000 unit) capsule glucos sul 9DLm-lyj-[id number]-C-Mn 2 cap PO QPM 04/24/20 01/24/21 History vitamin B complex 1 tab PO QAM 04/24/20 01/24/21 History amlodipine 10 mg tablet 10 mg PO QAM 01/02/21 01/24/21 History Probiotic 10,000 mmu cells PO QAM 01/23/21 01/24/21 History clopidogrel 75 mg PO QPM 01/23/21 01/24/21 History ferrous fumarate 55 mg PO QAM 01/23/21 01/24/21 History omeprazole 20 mg PO QAM 01/23/21 01/24/21 History ondansetron HCl 4 mg tablet 4 mg PO Q8H PRN #20 tab 01/23/21 01/24/21 Rx oxycodone-acetaminophen 5 mg-325 1 tab PO Q8H #21 tab 01/23/21 01/24/21 Rx mg tablet vitamin A-vitamin C-vit E-min 1 tab PO QAM 01/23/21 01/24/21 History cefadroxil 500 mg PO BID #10 cap 01/24/21 Rx Patient History Medical History Asthma as child BPH (benign prostatic hyperplasia) 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 On Plavix Prostatitis 2015; with sepsis Surgical History History of colonoscopy History of cystoscopy History of lithotripsy History of tooth extraction wisdom teeth S/P TURP modified, during ureteral stent placement for kidney stone in [facility] Family History Family/Other Hypertension Diabetes Mother , old age at age 88 Breast cancer Hypertension Father , complications of hip fracture No problems noted. 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, 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) Feels Safe at Home: Yes Assistive Devices: None Review of Systems Review of Systems: All systems reviewed & are unremarkable except as noted in Subjective Respiratory: + dyspnea (slight w/ speech after asking him repeatedly) Physical Exam Constitutional: well developed, well nourished and cooperative; no acute distress Eyes: + anicteric sclerae and EOM intact bilaterally ENMT: Ears: no external ear abnormality Nose: no external nose abnormality Mouth: + dry oral mucous membranes Neck: no nuchal rigidity Respiratory: normal respiratory effort and able to speak in complete sentences (but slight sob w/ this); no respiratory distress and no labored breathing Auscultation: + diminished lung sounds and + crackles ([address] posterior mcdaniel) Cardiovascular: Rate/Rhythm: regular rhythm and + tachycardic Extremities: no edema Gastrointestinal (Abdomen): Inspection/Auscultation: normal bowel sounds; abdomen not distended Percussion/Palpation: abdomen soft; abdomen nontender Musculoskeletal: Extremities: + abnormal strength (? less mvt of L arm ) Skin: no rashes, warm and dry Neurologic: witt, fluent speech, no tremor Psychiatric: A+Ox3, euthymic affect Results & Data ([facility]) Vital Signs (Past 12 Hours) Vital Signs Temp Pulse Pulse Pulse Resp BP Pulse Ox 01/24/21 14:20 36.4 C L 94 H 16 97/63 L 94 01/24/21 13:23 94 H 96 H 16 97/62 L 94 01/24/21 12:50 36.6 C 92 H 16 97/61 L 93 01/24/21 12:20 36.9 C 98 H 20 105/63 94 01/24/21 12:00 93 H 17 100/61 94 01/24/21 11:45 97 H 18 102/60 95 01/24/21 11:30 37.6 C H 97 H 19 100/61 93 01/24/21 11:15 97 H 22 101/65 93 01/24/21 11:05 95 H 20 105/63 93 01/24/21 10:55 93 H 20 104/61 92 01/24/21 10:45 37.5 C 99 H 21 108/63 92 01/24/21 10:35 96 H 20 115/72 92 01/24/21 10:25 104 H 19 122/76 93 01/24/21 10:15 102 H 19 126/78 93 01/24/21 10:05 112 H 23 128/83 93 01/24/21 09:55 107 H 23 127/87 95 01/24/21 09:45 107 H 29 H 159/120 H 94 01/24/21 09:35 137 H 29 H 216/117 H 97 01/24/21 09:25 105 H 15 160/104 H 93 01/24/21 09:15 109 H 21 133/85 91 01/24/21 09:05 101 H 19 115/77 95 01/24/21 08:55 36.3 C L 100 H 107 H 20 110/77 96 01/24/21 07:36 36.7 C 107 H 20 142/85 H 95 Laboratory Results 01/24/21 10:03 01/24/21 10:03 Diagnostic Findings cxr IMPRESSION: Small left pleural effusion with left basilar opacity which could reflect consolidation or atelectasis. (1) UTI (urinary tract infection) Hematuria presence: with hematuria Urinary tract infection type: site unspecified Qualified Code(s): N39.0 - Urinary tract infection, site not specified; R31.9 - Hematuria, unspecified (2) Acute on chronic renal failure Acute renal failure type: with acute tubular necrosis Chronic kidney disease stage: stage 4 (severe) Qualified Code(s): N17.0 - Acute kidney failure with tubular necrosis; N18.4 - Chronic kidney disease, stage 4 (severe)
[2021-01-24] MEDS ORDERED: MEROPENEM CONSULT ACITVE PRN (16:09)
[2021-01-24] MEDS: SODIUM BICARBONATE 8.4% 150 MEQ in DEXTROSE 5% 1,000 ML IV SCH (16:49)
--- NOTE | 2021-01-24 16:50 | XRay Report ---
SINGLE VIEW CHEST CLINICAL HISTORY: Dyspnea. FINDINGS: An AP, portable, upright chest radiograph is compared to study performed earlier the same d ay 01/24/2021. The heart is enlarged noting atherosclerotic calcification of the thoracic aorta. The p ulmonary vasculature is noncongested. Chronic interstitial thickening is similar to previous. There i s a small left pleural effusion with bibasilar consolidation. This is unchanged from today's earlier study. The right lung appears clear noting basilar scarring/atelectasis. No pneumothorax is seen. The skeletal structures are osteopenic. The bony thorax is grossly intact. IMPRESSION: 1. A small left pleural effusion with left basilar consolidation is unchanged from today's earlier ex amination. 2. Cardiomegaly without radiographic evidence of congestive failure. ACT 112: Negative or not required by law. Electronically signed by: Long Oconnell M.D. 01/24/2021 4:48 PM
[2021-01-24] MEDS: MEROPENEM 500 MG in SYRINGE 0 ML IV SCH (17:25)
[2021-01-24] MEDS: TERAZOSIN HCL 5 MG CAP PO SCH (20:09)
[2021-01-24] MEDS: CHOLECALCIFEROL 1,000 UNITS 25 MCG TAB PO SCH (20:09)
[2021-01-24] MEDS: CLOPIDOGREL BISULFATE 75 MG TAB PO SCH (20:09)
[2021-01-24] MEDS ORDERED: CHOLECALCIFEROL 1,000 UNITS 25 MCG TAB PO SCH (21:00)
[2021-01-25] MEDS ORDERED: SODIUM CHLORIDE 0.65% NA SOLN 45 ML (OCEAN) ONE (03:54)
[2021-01-25] MEDS: MEROPENEM 500 MG in SYRINGE 0 ML IV SCH (05:21)
[2021-01-25 06:17] LABS: Hematocrit (blood only) 28.9 % (42-52); Hemoglobin 10.7 g/dL (14.0-18.0); Mean Corpuscular Hemoglobin 30.9 pg (25-34); Mean Corpuscular Volume 83.5 fL (80-100); Mean Platelet Volume 11.1 fL (7.4-10.4); Platelet Count 126 K/uL (130-400); RDW Coefficient of Variation 14.7 % (11.5-14.5); RDW Standard Deviation 44.9 fL (36.4-46.3); Red Blood Count 3.46 M/uL (4.7-6.1); White Blood Count 7.97 K/uL (4.8-10.8)
[2021-01-25 06:39] LABS: Dohle Bodies 2+; Immature Granulocytes # (auto) 0.01 K/uL (0.00-0.02); Immature Granulocytes % (auto) 0.1 %; Lymphocytes % (auto) 8.8 %; Monocytes # (auto) 0.39 K/uL (0.11-0.59); Monocytes % (auto) 4.9 %; Neutrophils # (auto) 6.87 K/uL (1.4-6.5); Neutrophils % (auto) 86.2 %; Toxic Vacuolation 1+
[2021-01-25 06:57] LABS: Albumin Level 2.4 gm/dl (3.4-5.0); BUN Creatinine Ratio 12.8 (10-20); Bilirubin Direct 0.4 mg/dl (0-0.2); Calcium 8.1 mg/dl (8.5-10.1); Creatinine Clr Calc Pharmacy 12.4 ml/min; Est GFR (African American) 13.3; Est GFR (Non-African American) 11.4; Potassium 3.7 mmol/L (3.5-5.1); Total Protein 6.9 gm/dl (6.4-8.2)
[2021-01-25] MEDS: PANTOprazole 40 MG TAB PO SCH (08:13)
[2021-01-25] MEDS: SODIUM BICARBONATE 8.4% 150 MEQ in DEXTROSE 5% 1,000 ML IV SCH ×2 (08:13→20:31)
[2021-01-25] MEDS ORDERED: cefTRIAXone SODIUM 1,000 MG in DEXTROSE 5% 50 ML IV SCH (09:00)
[2021-01-25] MEDS ORDERED: amLODIPine BESYLATE 5 MG TAB PO SCH (09:00)
[2021-01-25] MEDS ORDERED: NON-FORMULARY MEDICATION (Ferrous Fumarate 55 mg (18 mg iron) Tablet Extended Release) PO SCH (09:00)
--- NOTE | 2021-01-25 09:05 | Nephrology Progress Note ---
Date of Service January 25, 2021 Assessment & Plan (1) Acute on chronic renal failure: baseline creatinine low to mid 2's; was at baseline 2 days back; now creatinine 4.2 on presentation 01/24 w/ acidosis. no obvious offending meds on med list from before admission but he did have several ibuprofen doses. obstructive uropathy versus prerenal or ischemic ATN; glomerulopathies related to nsaids on differential but far less likely -cont renal diet and 1.8 L fluid limit -IVF as below -no need for acute dialysis; cannot rule out need this admission -daily bmp -avoid morphine and nsaids for pain control w/ advanced renal failure -needs strict I/O and daily STANDINg wt -bladder scan prn ordered >>also ordered bmp for 1500 >> reordered for 1800 > will at that point consider ? change ivf to 1/2 NS at 80 ml/hr >>note that home bp meds have been held and agree w/ this given hypotension/lab ile bp >> overall improved though but may still see lability effects on renal function next 24-48 hr >>>>>>tachycardia noted and new >> not on rate control meds as OP; consider cautious low dose beta blockade and other causes; defer to primary service (2) Metabolic acidosis: anion gap metabolic acidosis > from ROSALVA/CKD; resolved w/ med mgt (3) UTI (urinary tract infection): history of ESBL resistant klebsiella colonization; last 3 urine cx results [email or web address] and I will put on his hard chart. reported UTI by [facility] [employer]; f/u pending blood and urine cxs -cont meropenem recommended by ID (4) Dyspnea: on RA, CXR last evening reassuring (5) Labile blood pressure: sbp 200s in pacu; down to 90s for several hours yesterday >> may contribute to worsened renal function as well next few days. much less labile today -ivf, bp meds as above Admission and Anticipated Discharge Date Admission Date: January 24, 2021 Subjective seen on rounds this am at 10; no further /worsening sob; no pain; no n/v Review of Systems Review of Systems: All systems reviewed & are unremarkable except as noted in Subjective Physical Exam Constitutional: well developed, well nourished and cooperative; no acute distress Eyes: + anicteric sclerae and EOM intact bilaterally ENMT: Ears: no external ear abnormality Nose: no external nose abnormality Mouth: + dry oral mucous membranes Neck: no nuchal rigidity Respiratory: normal respiratory effort and able to speak in complete sentences (but slight sob w/ this); no respiratory distress and no labored breathing Auscultation: + diminished lung sounds (L base) and + crackles (1/[address] BL posterior mcdaniel, R>L) Cardiovascular: Rate/Rhythm: regular rhythm and + tachycardic Extremities: no edema Gastrointestinal (Abdomen): Inspection/Auscultation: normal bowel sounds; abdomen not distended Percussion/Palpation: abdomen soft; abdomen nontender Musculoskeletal: Extremities: + abnormal strength Skin: no rashes, warm and dry Neurologic: witt, fluent speech, marked generalized weakness - needs assist to sit forward for lung exam Psychiatric: A+Ox3, euthymic affect Genitourinary: no cesar Results & Data ([facility]) Vital Signs (Past 12 Hours) Vital Signs Temp Pulse Resp BP Pulse Ox 01/25/21 07:05 37.0 C 114 H 18 142/76 H 90 01/25/21 03:42 37.1 C 106 H 22 112/62 92 01/24/21 22:51 36.7 C 101 H 20 108/67 90 Laboratory Results 01/25/21 05:37 01/25/21 05:37 (1) UTI (urinary tract infection) Hematuria presence: with hematuria Urinary tract infection type: site unspecified Qualified Code(s): N39.0 - Urinary tract infection, site not specified; R31.9 - Hematuria, unspecified (2) Acute on chronic renal failure Acute renal failure type: with acute tubular necrosis Chronic kidney disease stage: stage 4 (severe) Qualified Code(s): N17.0 - Acute kidney failure with tubular necrosis; N18.4 - Chronic kidney disease, stage 4 (severe)
--- NOTE | 2021-01-25 09:53 | Urology Progress Note ---
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 Flores; admitted for UTI, possible bacteremia, and acute on chronic renal insufficiency. - Afebrile, HR 100-110s, SBPs improved - Pt notes some subjective improvement - Lab work reviewed - creatinine increased to 4.46, WBC 7.97 - Urine culture prelim Klebsiella and Klebsiella ESBL - discussed with Dr. Melchor - transitioning to Ceftazidime/Avibactam - Blood cultures 1/2 prelim gram negative bacilli - continue to follow cultures - Continue antibiotics and supportive care - Appreciate hospital medicine, nephrology and ID recommendations - Will continue to monitor closely, please call with any acute changes Admission and Anticipated Discharge Date Admission Date: January 24, 2021 Subjective 80 yo M POD #1 s/p Cystoscopy, URS, Retrograde Pyelogram, Left Laser Destruction of Stone, Insertion of Left Stent with Dr. Flores; admitted for UTI, possible bacteremia, and acute on chronic renal insufficiency. Patient seen and examined at bedside this AM. He is awake and sitting up in bed. Reports feeling tired and weak, but feeling better than yesterday. No abdominal pain, occasional mild left flank discomfort. Voiding via urinal, depends. No dysuria. Notes hematuria, clearing some today. Low appetite. No nausea or vomiting. Breathing stable, on RA. No CP. No fever or chills. Hospital medicine, nephrology and ID following. No additional concerns today. Chart review: Afebrile HRs - 100-110s, SBPs 110-140s Creatinine 4.46 WBC 7.97 Urine culture (01/23) showing Klebsiella, #2 Klebsiella ESBL BCx 1/2 (01/24) gram negative bacilli BCx (01/25) pending On IV Meropenem Review of Systems Constitutional: as per Subjective / HPI Respiratory: as per Subjective / HPI Cardiovascular: as per Subjective / HPI Gastrointestinal: as per Subjective / HPI Genitourinary: + as per Subjective / HPI Physical Exam Constitutional: comfortable; no acute distress nontoxic Neck: normal visual inspection Respiratory: normal respiratory effort and able to speak in complete sentences; no respiratory distress and no labored breathing Cardiovascular: Extremities: no pedal edema Gastrointestinal (Abdomen): Inspection/Auscultation: abdomen normal to inspection; abdomen not distended Percussion/Palpation: abdomen soft; abdomen nontender and no guarding Musculoskeletal: Head/Neck/Chest: normocephalic and head atraumatic Skin: no rashes, warm and dry Neurologic: moves all extremities and awake Psychiatric: Orientation: alert and oriented x 3 Genitourinary: no CVA tenderness Results & Data ([facility]) Vital Signs (Past 12 Hours) Vital Signs Temp Pulse Resp BP Pulse Ox 01/25/21 07:05 37.0 C 114 H 18 142/76 H 90 01/25/21 03:42 37.1 C 106 H 22 112/62 92 01/24/21 22:51 36.7 C 101 H 20 108/67 90 PG Care Time/CCT Total # of Minutes Spent Total Time Spent with Patient: Total time spent is greater than 50% in coordination of care (as documented) at patient's floor/unit and/or counseling patient: Coding Level of Care Code 67458 Subseq Hosp Care Lvl 2 Diagnoses UTI (urinary tract infection) N39.0; R31.9 Urinary tract infection type: site unspecified Hematuria presence: with hematuria 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
[2021-01-25] MEDS ORDERED: [UNRECOGNIZED DRUG - OTHER] PRN (12:14)
--- NOTE | 2021-01-25 12:44 | Hospitalist Progress Note ---
Date of Service January 25, 2021 Assessment & Plan (1) Acute kidney injury: Patient with a history of CKD stage III-IV and follows with nephrology. Baseline creatinine is 2.0-2.3 Presents here after having left ureterolithiasis and is now status post cystoscopy with left ureteral stent placement by urology on 01/24 Preoperative laboratory values showed creatinine up to 4.16, BUN up to 46, with an anion gap metabolic acidosis and hyponatremia. Acute kidney injury likely secondary to post renal obstruction versus intrinsic from infection; also took several doses of ibuprofen at home Nephrology consulted-appreciated Creatinine is improving this afternoon down to 4.2 after increasing this morning to 4.4 He is making urine, metabolic acidosis is improved -Ureteral stent now in place -Continue IV fluids-nephrology recommends continued bicarbonate drip -Follow BMP in the morning -Follow strict I's and O's, limit fluid 1800 mL as per nephrology -Renally dose medications when appropriate and avoid nephrotoxins -Discontinued morphine and would advise against all NSAIDs -Treating infection as below -Support blood pressure holding amlodipine from home (2) UTI (urinary tract infection): UA abnormal from the office on 01/23 Has a 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 to ertapenem Urine culture from 01/23 now resulted with 2 different ESBL Klebsiellas that are highly resistant to multiple antibiotics Blood cultures also now positive for gram-negative rods which is likely also ESBL Klebsiella Consult infectious disease-formal consult still pending, but discussed through [employer] today-given that second Klebsiella organism is intermediate sensitivity to meropenem, will switch to Avycaz which should cover for both -Other option would be to add gentamicin-will await formal ID consult Discussed antibiotic choices with pharmacist today as well Follow all cultures (3) Bacteremia: As above, with gram-negative rods in blood cultures, likely to be the same ESBL Klebsiella Continue Avycaz as above, discontinue meropenem -Repeat blood cultures now -Tylenol as needed for fevers (4) Kidney stone: As above, left-sided ureterolithiasis now status post stent Urology managing Pain control with oxycodone, acetaminophen Not really having much pain (5) Chronic kidney disease, stage IV (severe): As above (6) BPH (benign prostatic hypertrophy): With a history of TURP Watch for urine retention (7) Hypertension: Blood pressures were apparently elevated in the PACU but he was having rigors, question if this blood pressure was accurate He was given 1 dose of IV labetalol in the PACU and then blood pressures were in the 90s systolic Blood pressures are now much improved after holding home amlodipine and giving IV fluids -Continue to hold home amlodipine (8) Metabolic acidosis: As above, secondary to acute kidney injury Now improving after being on bicarbonate drip Follow BMP (9) Hyponatremia: Secondary to acute kidney injury, stable at 133 Follow BMP (10) 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 There is an increased [employer] hemorrhage risk with statins and low-cholesterols in people over 75. (11) GERD (gastroesophageal reflux disease): No acute issues Continue PPI (12) Pleural effusion: Chest x-ray done x2 on 01/24, first was preoperative and the second 1 was postoperative for bibasilar crackles noted and requiring 2 to 3 L nasal cannula With left-sided small pleural effusion which is new since chest x-ray from a couple of months ago Could be some volume overload secondary to renal failure He is now weaned off oxygen He also has a remote history of smoking and could have some component of this although no wheezing on my examination Not big enough for thoracentesis at this point Follow clinically and with chest x-ray as needed (13) Hyperbilirubinemia: Bilirubin mildly elevated at 1.5, other LFTs are normal Bilirubin now normal (14) Generalized weakness: No focal neurological deficits Feel he is just generalized weak from the sepsis No need for stroke work-up (15) Visual disturbance: With about 1 week of intermittent visual disturbances seeing things that are not there that then disappear after 1 second Doubt this is neurologically related Recommend follow-up with ophthalmology after discharge (16) Sinus tachycardia: With persistent sinus tachycardia secondary to sepsis Did get sustained 120s 130s today and was given low-dose of IV Lopressor x1 Continue to treat sepsis as above Monitor on telemetry (17) DVT prophylaxis: SCDs, start SQ heparin Disposition- continued stay in PCU Admission and Anticipated Discharge Date Admission Date: January 24, 2021 Subjective Patient reports feeling a bit better today. He was out of bed to a chair and eating lunch when I saw him. He has some pain in the left flank and abdomen region but improved. He still feels a little bit short of breath but was weaned off oxygen and pulse ox has been low to mid 90s on room air. Denies chest pain. He is concerned that he feels generally weak and at times feels like he slumped to the right side in his chair. He also describes over the last week some occasional visual changes where he will see things that are not there for a couple of seconds and then it goes away. He questions if he needs a work-up for recurrent stroke. Telemetry with sinus tachycardia in the low 100s persistently. His heart rate was sustained in the 120s to 130s later in the day and he was given 1 small dose of Lopressor 2.5 mg IV x1 Review of Systems Review of Systems: All systems reviewed & are unremarkable except as noted in HPI & below Physical Exam Constitutional: WD/WN, vitals as above Eyes: PERRL, conjunctivae normal, anicteric sclerae EOM intact bilaterally; no anisocoria and no nystagmus ENMT: external ear and nose normal, oropharynx normal Neck: trachea midline, no thyromegaly Respiratory: normal respiratory effort; no cough Auscultation: + crackles (Very minimal at the bases, improved); no rhonchi and no wheezes Cardiovascular: Rate/Rhythm: regular rhythm and + tachycardic (Mild) Heart Sounds: no murmur Extremities: no calf tenderness and no edema Chest (Breasts): Chest: normal inspection of chest Gastrointestinal (Abdomen): normal bowel sounds, soft, nontender, no hepatosplenomegaly Musculoskeletal: Extremities: extremities normal to inspection; no cyanosis and no clubbing Skin: no rashes, warm and dry Neurologic: CN's II-XI intact bilaterally, moves all extremities and awake; no focal motor deficits (5 out of 5 strength throughout upper and lower extremities bilaterally) Motor/Sensory: no sensory deficit (intact to lt touch UEs and LEs bilat) Psychiatric: A+Ox3, euthymic affect Lymphatic: no lymphedema Results & Data Results & Data ([facility]) Vital Signs (Past 12 Hours) Vital Signs Temp Pulse Resp BP Pulse Ox 01/25/21 11:27 36.9 C 118 H 20 128/86 93 01/25/21 07:05 37.0 C 114 H 18 142/76 H 90 01/25/21 03:42 37.1 C 106 H 22 112/62 92 Laboratory Results 01/25/21 01/25/21 01/25/21 Range/Units 17:49 05:37 05:37 WBC 7.97 (4.8-10.8) K/uL RBC 3.46 L (4.7-6.1) M/uL Hgb 10.7 L (14.0-18.0) g/dL Hct 28.9 L (42-52) % MCV 83.5 (80-100) fL MCH 30.9 (25-34) pg MCHC 37.0 H (32-36) g/dL RDW Std Deviation 44.9 (36.4-46.3) fL RDW Coeff of Rickey 14.7 H (11.5-14.5) % Plt Count 126 L (130-400) K/uL MPV 11.1 H (7.4-10.4) fL Immature Gran % (Auto) 0.1 % Neut % (Auto) 86.2 % Lymph % (Auto) 8.8 % Woodford % (Auto) 4.9 % Eos % (Auto) 0.0 % Baso % (Auto) 0.0 % Neut # (Auto) 6.87 H (1.4-6.5) K/uL Lymph # (Auto) 0.70 L (1.2-3.4) K/uL Woodford # (Auto) 0.39 (0.11-0.59) K/uL Eos # (Auto) 0.00 (0-0.5) K/uL Baso # (Auto) 0.00 (0-0.2) K/uL Immature Gran # (Auto) 0.01 (0.00-0.02) K/uL Toxic Vacuolation 1+ Dohle Bodies 2+ Sodium 133 L 133 L (136-145) mmol/L Potassium 3.5 3.7 D (3.5-5.1) mmol/L Chloride 100 102 (98-107) mmol/L Carbon Dioxide 25 23 (21-32) mmol/L Anion Gap 8.0 8.0 (3-11) BUN 62 H 58 H (7-18) mg/dl Creatinine 4.20 H 4.46 H D (0.6-1.4) mg/dl Est Cr Clr Drug Dosing 13.1 12.4 ml/min Est GFR ( Amer) 14.3 13.3 Est GFR (Non-Af Amer) 12.3 11.4 BUN/Creatinine Ratio 14.8 12.8 (10-20) Glucose 133 H 126 H (70-99) mg/dl Calcium 8.7 8.1 L (8.5-10.1) mg/dl Total Bilirubin 1.0 D (0.2-1) mg/dl Direct Bilirubin 0.4 H (0-0.2) mg/dl AST 16 (15-37) U/L ALT 18 (12-78) U/L Alkaline Phosphatase 46 (45-117) U/L Total Protein 6.9 (6.4-8.2) gm/dl Albumin 2.4 L (3.4-5.0) gm/dl PG Care Time/CCT Total # of Minutes Spent Total Time Spent with Patient: Total time spent is greater than 50% in coordination of care (as documented) at patient's floor/unit and/or counseling patient: Coding Level of Care Code 46012 Subseq Hosp Care Lvl 3 Diagnoses Acute kidney injury N17.9 UTI (urinary tract infection) N39.0; R31.9 Hematuria presence: with hematuria Urinary tract infection type: site unspecified Bacteremia R78.81 Kidney stone N20.0 Chronic kidney disease, stage IV (severe) N18.4 BPH (benign prostatic hypertrophy) N40.0 Lower urinary tract symptom presence: symptoms absent Hypertension I10 Hypertension type: essential hypertension Metabolic acidosis E87.2 Hyponatremia E87.1 Left pontine stroke I63.50 GERD (gastroesophageal reflux disease) K21.9 Pleural effusion J90 Hyperbilirubinemia E80.6 Generalized weakness R53.1 Visual disturbance H53.9 Sinus tachycardia R00.0 DVT prophylaxis Z29.9 (1) UTI (urinary tract infection) Hematuria presence: with hematuria Urinary tract infection type: site unspecified Qualified Code(s): N39.0 - Urinary tract infection, site not specified; R31.9 - Hematuria, unspecified (2) BPH (benign prostatic hypertrophy) Lower urinary tract symptom presence: symptoms absent Qualified Code(s): N40.0 - Benign prostatic hyperplasia without lower urinary tract symptoms (3) Hypertension Hypertension type: essential hypertension Qualified Code(s): I10 - Essential (primary) hypertension
[2021-01-25] MEDS ORDERED: METOPROLOL TARTRATE 1 MG/ML VIAL IV STA (13:31)
[2021-01-25 18:26] LABS: BUN Creatinine Ratio 14.8 (10-20); Calcium 8.7 mg/dl (8.5-10.1); Creatinine Clr Calc Pharmacy 13.1 ml/min; Est GFR (African American) 14.3; Est GFR (Non-African American) 12.3; Potassium 3.5 mmol/L (3.5-5.1)
[2021-01-25] MEDS ORDERED: LEVALBUTEROL HCL 0.63 MG/3 ML NEB NEB STA (21:09)
[2021-01-25] MEDS ORDERED: ACETAMINOPHEN 1,000 MG/100 ML VIAL IV STA (21:12)
[2021-01-25] MEDS ORDERED: LIDOCAINE 2% JELLY 5 ML TUBE ONE (22:05)
[2021-01-25 22:22] LABS: iSTAT Arterial Blood Gas HCO3 21 meg/L (19-24); iSTAT Arterial Blood Gas pCO2 27 mmHg (35-46); iSTAT Arterial Blood Gas pH 7.51 (7.35-7.45); iSTAT Arterial Blood Gas pO2 77 mmHg (80-95); iSTAT Carbon Dioxide 22 mmol/L (24-31)
[2021-01-25] MEDS ORDERED: FUROSEMIDE 20 MG in SYRINGE 0 ML IV ONE (22:30)
[2021-01-25 22:37] LABS: Hemoglobin 10.9 g/dL (14.0-18.0); Immature Granulocytes # (auto) 0.03 K/uL (0.00-0.02); Immature Granulocytes % (auto) 0.5 %; Lymphocytes # (auto) 0.51 K/uL (1.2-3.4); Lymphocytes % (auto) 8.3 %; Mean Corpuscular Hemoglobin 30.9 pg (25-34); Mean Corpuscular Volume 82.2 fL (80-100); Mean Platelet Volume 10.7 fL (7.4-10.4); Monocytes % (auto) 3.3 %; Neutrophils # (auto) 5.38 K/uL (1.4-6.5); Neutrophils % (auto) 87.9 %; Platelet Count 131 K/uL (130-400); RDW Coefficient of Variation 14.3 % (11.5-14.5); RDW Standard Deviation 43.6 fL (36.4-46.3); Red Blood Count 3.53 M/uL (4.7-6.1); White Blood Count 6.12 K/uL (4.8-10.8)
[2021-01-25] MEDS: HEPARIN SOD 5,000 UNIT/0.5 ML VIAL SQ SCH (22:40)
[2021-01-25 22:54] LABS: BUN Creatinine Ratio 15.6 (10-20); Calcium 7.9 mg/dl (8.5-10.1); Creatinine Clr Calc Pharmacy 13.9 ml/min; Est GFR (African American) 15.3; Est GFR (Non-African American) 13.2; Mean Corpuscular Hgb Conc 37.6 g/dL (32-36); Potassium 3.6 mmol/L (3.5-5.1)
[2021-01-25] MEDS ORDERED: ACETAMINOPHEN 1000 MG/100 ML IV IV PRN (23:28)
[2021-01-26] MEDS: CLOPIDOGREL BISULFATE 75 MG TAB PO SCH ×2 (01:00→20:25)
[2021-01-26] MEDS: CHOLECALCIFEROL 1,000 UNITS 25 MCG TAB PO SCH (01:00)
[2021-01-26] MEDS: TERAZOSIN HCL 5 MG CAP PO SCH ×2 (01:01→20:26)
--- NOTE | 2021-01-26 03:34 | Communication Note ---
Date of Service: January 26, 2021 Called to bedside at approximately 9:10 PM by nursing for ongoing rigors and shortness of breath. Patient was previously on room air and had a new require ment of 4 L of nasal cannula. Upon assessment at bedside patient appeared to have difficulty breathing, was visibly rigors throughout his body and was unable to speak a comprehensive fashion secondary to his trouble breathing. Lung mcdaniel with crackles bilaterally at bases. Bicarb drip stopped. O2 support was elevated to oxi- mask without much improvement, after which orders for chest x- ray, ABG, BiPAP were placed. Manual blood pressure taken by nursing initially 180/110, repeated by myself after being placed on BiPAP. Remeasure of manual blood pressure 160/100. Heart rate varied sinus tachycardia between 130 and 155. Maintaining saturation of 92 on BiPAP. Patient acutely confused and unable to follow commands or speak coherently which is new per nursing. Chest x-ray showed worsening left-sided opacification and streaking throughout pulmonary vasculature most likely pulmonary edema. KUB showed severe abdominal distention with dilated loops of bowel considerably worsened compared to admission. Szvqu-iw-esej ABG done by respiratory therapy showed a pH of 7.51/27/77/21. Patient was switched to CPAP. Breathing status considerably improved with CPAP. Patient likely suffered flash pulmonary edema secondary to increasing volume expansion with sodium bicarb drip. Last echo showing EF 60 to 65% in March 2020. 1 dose of 20 mg IV Lasix ordered to help relieve pulmonary edema. Multiple attempts made to place Woodward catheter as patient is admitted for acute renal failure and unable to quantify proper I&O's. Nursing unable to place Woodward due to difficulties with prostamegaly. Laboratories repeatedno significant change in CBC, small interval reduction in creatinine from 4.46-3.96. Procalcitonin elevated at 6.58. Patient is already covered on appropriate antibiotics for gram-negative bacteremia secondary to urinary source. Can trend pro-Willie going forward while monitoring patient for ongoing rigors and breathing difficulty. Lactate negative at 1.6. No indicat ion of bowel ischemia at this time however low threshold to get a CT abdomen pelvis if patient has worsening abdominal distention or abdominal pain. KUB ordered for the a.m. Resident Activity Tracking Resident Involvement: Resident Care Provided Care Provided: Adult Hospital Medicine
--- NOTE | 2021-01-26 07:19 | XRay Report ---
KUB CLINICAL HISTORY: distended abdomen COMPARISON STUDY: KUB January 25, 2021. FINDINGS: Moderate gaseous distention of the colon is similar to prior exam. Transverse colon measure s 7.4 cm in caliber. Small bowel dilatation has slightly diminished. Left ureteral stent is in place. No definite ureteral calculi or fragments are noted. Pelvic calcifications favor phleboliths. IMPRESSION: Persistent moderate gaseous distention of the colon. An ileus is favored. However, radio graphic follow-up is recommended. ACT 112: Negative or not required by law. Electronically signed by: Chris Palacios M.D. 01/26/2021 7:18 AM
[2021-01-26] MEDS: PANTOprazole 40 MG TAB PO SCH (07:41)
[2021-01-26] MEDS: HEPARIN SOD 5,000 UNIT/0.5 ML VIAL SQ SCH ×2 (07:41→20:31)
[2021-01-26 07:43] LABS: Basophils # (auto) 0.01 K/uL (0-0.2); Basophils % (auto) 0.1 %; Eosinophils # (auto) 0.02 K/uL (0-0.5); Eosinophils % (auto) 0.2 %; Hematocrit (blood only) 29.4 % (42-52); Hemoglobin 10.7 g/dL (14.0-18.0); Immature Granulocytes # (auto) 0.04 K/uL (0.00-0.02); Immature Granulocytes % (auto) 0.4 %; Lymphocytes # (auto) 1.06 K/uL (1.2-3.4); Lymphocytes % (auto) 9.5 %; Mean Corpuscular Hemoglobin 30.7 pg (25-34); Mean Corpuscular Hgb Conc 36.4 g/dL (32-36); Mean Corpuscular Volume 84.5 fL (80-100); Mean Platelet Volume 10.7 fL (7.4-10.4); Monocytes # (auto) 0.79 K/uL (0.11-0.59); Monocytes % (auto) 7.1 %; Neutrophils # (auto) 9.27 K/uL (1.4-6.5); Neutrophils % (auto) 82.7 %; Platelet Count 150 K/uL (130-400); RDW Coefficient of Variation 14.6 % (11.5-14.5); RDW Standard Deviation 45.2 fL (36.4-46.3); Red Blood Count 3.48 M/uL (4.7-6.1); White Blood Count 11.19 K/uL (4.8-10.8)
[2021-01-26 08:12] LABS: BUN Creatinine Ratio 14.9 (10-20); Calcium 8.5 mg/dl (8.5-10.1); Est GFR (African American) 14.1; Est GFR (Non-African American) 12.1; Potassium 3.5 mmol/L (3.5-5.1)
--- NOTE | 2021-01-26 08:23 | XRay Report ---
SINGLE VIEW CHEST CLINICAL HISTORY: Hypoxia. FINDINGS: An AP, portable, upright chest radiograph is compared to studies dated 01/24/2021. The exami nation is degraded by portable technique and patient rotation. The heart is enlarged noting atheros clerotic calcification of the thoracic aorta. There is prominence of the pulmonary vasculature. Chron ic interstitial thickening is similar to previous. There is a small left pleural effusion with bibasi lar consolidation. This is unchanged from yesterday. Question trace left pleural effusion. There is r ight basilar scarring/atelectasis. No pneumothorax is seen. The skeletal structures are osteopenic. T he bony thorax is grossly intact. IMPRESSION: 1. A small left pleural effusion with left basilar consolidation is unchanged from yesterday. 2. Cardiomegaly with prominence of the pulmonary vasculature. Correlate clinically for mild congestiv e change. 3. Question trace right pleural effusion. ACT 112: Negative or not required by law. Electronically signed by: Long Oconnell M.D. 01/26/2021 8:21 AM
--- NOTE | 2021-01-26 09:04 | XRay Report ---
KUB CLINICAL HISTORY: Abdominal distention. FINDINGS: 2 AP, portable, supine abdominal radiographs are compared to study dated 01/22/2021 and haile elated with abdominal CT dated 06/13/2020. A left ureteral stent is new from previous. No calcification s are clearly identified in the left ureter along the course of the stent. Question a calculus projec ting over the lower pole of the left kidney. No calcifications are seen projecting over the right kid sandra. There is gaseous distention of the small bowel loops and colon. No evidence of intraperitoneal f ree air is seen on these supine views. Numerous phleboliths are seen in the pelvis. The skeletal stru ctures are osteopenic and appear intact. Spondylotic changes noted in the lumbar spine. There is left basilar consolidation. IMPRESSION: 1. A left ureteral stent is new from previous. No calcifications are seen along the course of the ivory nt. 2. There is gaseous distention of the small bowel and colon. The appearance favors a postoperative il eus. Developing obstruction is considered less likely and clinical correlation will be required. 3. A calcification projects over the lower pole of the left kidney. 4. Left basilar consolidation is noted. Electronically signed by: Long Oconnell M.D. 01/26/2021 9:03 AM
--- NOTE | 2021-01-26 09:52 | Nephrology Progress Note ---
Date of Service January 26, 2021 Assessment & Plan (1) Acute on chronic renal failure: baseline creatinine low to mid 2's; was at baseline 2 days back; now creatinine 4.2 on presentation 01/24 w/ acidosis. no obvious offending meds on med list from before admission but he did have several ibuprofen doses. obstructive uropathy versus prerenal or ischemic ATN; glomerulopathies related to nsaids on differential but far less likely -cont renal diet and 1.8 L fluid limit -daily bmp -avoid morphine and nsaids for pain control w/ advanced renal failure -needs strict I/O and daily STANDINg wt -bladder scan prn ordered (2) Metabolic acidosis: anion gap metabolic acidosis > from ROSALVA/CKD; resolved w/ med mgt (3) UTI (urinary tract infection): history of ESBL resistant klebsiella colonization; last 3 urine cx results being ffaxed from [facility] and I will put on his hard chart. reported UTI by [employer]; f/u pending blood and urine cxs -cont meropenem recommended by ID (4) Dyspnea: Patient required BiPAP last night during the time of having chills and temperature of 39. He is on room air this morning. We will continue to monitor. No IV fluids. (5) Labile blood pressure: sbp 200s in pacu; down to 90s for several hours yesterday >> may contribute to worsened renal function as well next few days. much less labile today -Avoid hypotension Admission and Anticipated Discharge Date Admission Date: January 24, 2021 Subjective Seen in follow-up for acute kidney injury on CKD. Patient had a fever of 39 last night and chills. No fever this morning. No shortness of breath. No leg swelling. Review of Systems Review of Systems: All systems reviewed & are unremarkable except as noted in HPI & below Physical Exam Physical Exam: General exam: Appears comfortable, no acute distress HEENT: Pupils are equal and reactive to light Neck: No JVD, neck is supple trachea is midline Respiratory system: Clear breath sounds bilaterally. Gastrointestinal: Abdomen is soft, non distended, non tender, bowel sounds are present CVS: Regular rate and rhythm. No murmurs, rubs or gallops Musculoskeletal: No joint or muscle tenderness Extremities: Non tender, no edema, peripheral pulses are present Neuro: Oriented, no tremors, no focal neurological deficits Skin: No rashes Results & Data ([facility]) Vital Signs (Past 12 Hours) Vital Signs Temp Pulse Pulse Resp BP Pulse Ox 01/26/21 08:01 36.7 C 96 H 18 131/81 92 01/26/21 04:50 36.7 C 82 20 120/74 95 01/26/21 02:35 90 17 94 01/26/21 01:00 37.2 C 01/25/21 23:35 115 H 20 96 01/25/21 23:14 39.2 C H 123 H 22 106/70 94 01/25/21 22:06 125 H 27 H 95 Laboratory Results 01/26/21 07:16 01/25/21 01/26/21 22:21 07:16 WBC 6.12 11.19 H RBC 3.53 L 3.48 L MCV 82.2 84.5 MCH 30.9 30.7 MCHC 37.6 H 36.4 H RDW Std Deviation 43.6 45.2 RDW Coeff of Rickey 14.3 14.6 H Plt Count 131 150 MPV 10.7 H 10.7 H (1) Acute on chronic renal failure Acute renal failure type: with acute tubular necrosis Chronic kidney disease stage: stage 4 (severe) Qualified Code(s): N17.0 - Acute kidney failure with tubular necrosis; N18.4 - Chronic kidney disease, stage 4 (severe) (2) UTI (urinary tract infection) Urinary tract infection type: site unspecified Hematuria presence: with hematuria Qualified Code(s): N39.0 - Urinary tract infection, site not specified; R31.9 - Hematuria, unspecified
--- NOTE | 2021-01-26 11:57 | Urology Progress Note ---
Date of Service January 26, 2021 Assessment & Plan (1) UTI (urinary tract infection): Patient is postop day 2 status post stone treatment with stent. Patient is undergoing supportive care for bacteremia with highly resistant infection. Is following with nephrology, infectious disease, and hospitalist group. Patient is tolerating antibiotics. Have been discussing different options for medications moving forward. Bacteria are sensitive to Bactrim however due to patient's significant chronic kidney disease are trying to find an alternative. Patient is returning to normal activity. Is tolerating full diet. Is not having considerable issues. Has not had nausea or vomiting. Chills have largely gone away. Is noticing some weakness but is improving overall. We will continue with supportive care and close monitoring. We will monitor kidney function and time. Creatinine was elevated again today. Continue with active management of this. (2) Carbapenem-resistant Klebsiella pneumoniae infection: Admission and Anticipated Discharge Date Admission Date: January 24, 2021 Subjective Postop from stone treatment and stent placement for obstruction issues. Po stoperatively patient developed chills ill feelings and tachycardia and was admitted for observation. Patient was found to be bacteremic. Subsequently cultures were found to be a Carbapenem resistant Klebsiella. Patient's renal function has fluctuated and is dealing with an acute kidney injury on chronic kidney disease. Patient has been tolerating well otherwise. Fevers and chills are gone away and patient is feeling somewhat weak but overall better. Has noticed some frequency and urgency. Has not had severe pain in the back and flank. Does have occasional burning and irritation. No severe episodes or major changes. No new nausea or vomiting. Had tolerated anesthesia without major problems. Is working with nephrology, hospitalist, and infectious disease. Review of Systems Review of Systems: All systems reviewed & are unremarkable except as noted in HPI & below Physical Exam Physical Exam: General: Alert in no acute distress. HEENT: Normocephalic Atraumatic. Inspection normal. Cranial Nerves 2-12 Grossly intact. Normal inspection of face. Normal inspection of neck. Psychologic: Normal affect. Respiratory: Nonlabored. No use of accessory muscles. No tachypnea or dyspnea. Cardiovascular: No tachycardia Skin: Harvey and Dry. No rashes or visible lesions. Extremities/Lymphatics: No edema Abdomen: Soft Non-distended. No rebound or guarding. Results & Data ([facility]) Vital Signs (Past 12 Hours) Vital Signs Temp Pulse Pulse Resp BP Pulse Ox 04/24/21 08:01 36.7 C 96 H 18 131/81 92 01/26/21 04:50 36.7 C 82 20 120/74 95 01/26/21 02:35 90 17 94 01/26/21 01:00 37.2 C PG Care Time/CCT Total # of Minutes Spent Total Time Spent with Patient: Total time spent is greater than 50% in coordination of care (as documented) at patient's floor/unit and/or counseling patient: Coding Level of Care Code 86531 Subseq Hosp Care Lvl 3 Diagnoses UTI (urinary tract infection) N39.0; R31.9 Urinary tract infection type: site unspecified Hematuria presence: with hematuria Carbapenem-resistant Klebsiella pneumoniae infection A49.8 (1) UTI (urinary tract infection) Urinary tract infection type: site unspecified Hematuria presence: with hematuria Qualified Code(s): N39.0 - Urinary tract infection, site not specified; R31.9 - Hematuria, unspecified
--- NOTE | 2021-01-26 14:43 | Hospitalist Progress Note ---
Date of Service January 26, 2021 Assessment & Plan (1) Acute kidney injury: Patient with a history of CKD stage III-IV and follows with nephrology. Baseline creatinine is 2.0-2.3 Presents here after having left ureterolithiasis and is now status post cystoscopy with left ureteral stent placement by urology on 01/24 Preoperative laboratory values showed creatinine up to 4.16, BUN up to 46, with an anion gap metabolic acidosis and hyponatremia. Acute kidney injury likely secondary to post renal obstruction versus intrinsic from infection; also took several doses of ibuprofen at home Nephrology consulted-appreciated Creatinine was improved to 3.9, but became volume overloaded and received 1 dose of IV Lasix on the evening of 01/25-creatinine now up slightly to 4.25, BUN up to 63 He is making urine with 0 mL on PVR; metabolic acidosis is now resolved, potassium is normal He is now discontinued from bicarbonate drip due to volume overload -Appreciate nephrology consultation -Ureteral stent remains in place -Follow BMP in the morning -Follow strict I's and O's, limit fluid 1800 mL -Renally dose medications when appropriate and avoid nephrotoxins -Discontinued morphine and would advise against all NSAIDs -Treating infection as below -Support blood pressure holding amlodipine from home (2) UTI (urinary tract infection): UA abnormal from the office on 01/23 Has a history 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 that is resis tant to ertapenem Initially he was treated with IV ceftriaxone preoperatively, and then received 2 doses of meropenem from 01/24-01/25 before switching to Avycaz as below Urine culture from 01/23 resulted with 2 different ESBL Klebsiellas that are highly resistant to multiple antibiotics Blood cultures also now positive Carbapenem resistant ESBL Klebsiella Consult infectious disease-formal consult still pending, but discussed through [employer] -given that second Klebsiella organism is intermediate sensitivity to meropenem, will switch to Avycaz which should cover for both Follow repeat blood cultures Suspect he will need at least 2 to 4 weeks or perhaps longer of IV antibiotics given this is likely colonized in his prostate-await ID consultation for recommendations (3) Bacteremia: As above, with ESBL Klebsiella Continue Avycaz as above With rigors, fever 39.2, and hypoxic respiratory failure on the evening of 01/25, and then milder rigors on 01/26 but is improving -Repeat blood cultures from 01/25-no growth to date -Continue Tylenol as needed for fevers -Awaiting ID consultation (4) Carbapenem-resistant Klebsiella pneumoniae infection: As above (5) Acute respiratory failure with hypoxia: Secondary to sepsis Chest x-ray on day of admission shows small left pleural effusion likely secondary to volume overload from acute kidney injury Chest x-ray on the evening of 01/25 shows worsening pulmonary edema and pleural effusions Chest x-ray on 01/26 is improved Pulse ox dropped to 82% while having rigors with fever on the evening of 01/25, required IV Lasix, BiPAP placement through the night Now weaned to room air and improved Also with small left pleural effusion which is now improved after IV Lasix Continue incentive spirometry Follow and keep pulse ox greater than 90% (6) Kidney stone: As above, left-sided ureterolithiasis now status post stent and lithotripsy Urology managing Pain control with oxycodone, acetaminophen Not really having much pain -will need stent removal in the future -Discontinue vitamin D in case contributing to development of kidney stones-his vitamin D-OH level from last year was in the 70s, although not hypercalcemic care (7) Chronic kidney disease, stage IV (severe): As above (8) BPH (benign prostatic hypertrophy): With a history of TURP Watch for urine retention-PVRs have been 0 Woodward catheter attempts were placed on the evening of 01/25 unsuccessfully but will hold off for now (9) Hypertension: Blood pressures were apparently elevated in the PACU but he was having rigors; question if this blood pressure was accurate He was given 1 dose of IV labetalol in the PACU and then blood pressures were in the 90s systolic Blood pressures are now much improved after holding home amlodipine and giving IV fluids -Continue to hold home amlodipine (10) Metabolic acidosis: As above, secondary to acute kidney injury Now resolved after being on bicarbonate drip Follow BMP -Have discontinued bicarbonate drip as above (11) Hyponatremia: Secondary to acute kidney injury, now resolved Follow BMP (12) Pleural effusion: Chest x-ray done x2 on 01/24, first was preoperative and the second 1 was postoperative for bibasilar crackles noted and requiring 2 to 3 L nasal cannula With left-sided small pleural effusion which is new since chest x-ray from a couple of months ago Could be some volume overload secondary to renal failure Improved now after IV Lasix (13) Sinus tachycardia: With persistent sinus tachycardia secondary to sepsis Now much improved after volume resuscitation Continue to treat sepsis as above Monitor on telemetry (14) Hyperbilirubinemia: Bilirubin mildly elevated at 1.5, other LFTs are normal Bilirubin now normal (15) Generalized weakness: No focal neurological deficits Feel he is just generalized weak from the sepsis No need for stroke work-up PT/OT consultations placed (16) Visual disturbance: With about 1 week of intermittent visual disturbances seeing things that are not there that then disappear after 1 second Doubt this is neurologically related Recommend follow-up with ophthalmology after discharge (17) GERD (gastroesophageal reflux disease): No acute issues Continue PPI (18) 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 There is an increased [employer]PER[employer] hemorrhage risk with statins and low-cholesterols in people over 75. (19) DVT prophylaxis: SCDs, SQ heparin Disposition- continued stay in PCU Admission and Anticipated Discharge Date Admission Date: January 24, 2021 Subjective Patient had an episode last night of rigors and fever to 39.2, hypoxia requiring BiPAP. Chest x-ray showed pulmonary edema and his IV bicarbonate drip was stopped and he was given IV Lasix. Woodward catheter placement was attempted x3 without success. His blood pressure remained stable and he had sinus tachycardia up to the 150s. He wore BiPAP all night and was weaned off of it this morning to room air and he is much improved. He is making urine and has 0 mL on his PVR. He denies any shortness of breath or chest pain. He has minimal left-sided abdominal/flank pain from his stent. He did start to have some tremors/milder rigors this afternoon when he was being infused with his Avycaz, however he was given Tylenol preemptively and his temperature only went up to 37.3 and the tremors improved. He reports he is passing flatus and had 2 bowel movements today. He is evidence of distended bowel without obstruction but more consistent with ileus on KUB-KUB performed last night and again this morning which was improved. He has no nausea or vomiting and is eating. Telemetry with normal sinus rhythm and sinus tachycardia, PACs, rates in the 90s to 150s Review of Systems Review of Systems: All systems reviewed & are unremarkable except as noted in HPI & below Physical Exam Constitutional: WD/WN, vitals as above Eyes: + anicteric sclerae Neck: trachea midline, no thyromegaly Respiratory: normal respiratory effort; no cough Auscultation: + crackles (Very minimal at the bases); no rhonchi and no wheezes Cardiovascular: RRR, no murmur, no edema Extremities: no calf tenderness Chest (Breasts): Chest: normal inspection of chest Gastrointestinal (Abdomen): normal bowel sounds, soft, nontender, no hepatosplenomegaly Musculoskeletal: Extremities: extremities normal to inspection; no cyanosis and no clubbing Skin: no rashes, warm and dry Neurologic: moves all extremities and awake Psychiatric: A+Ox3, euthymic affect Results & Data Results & Data ([facility]) Vital Signs (Past 12 Hours) Vital Signs Temp Pulse Pulse Resp BP Pulse Ox 01/26/21 13:15 36.6 C 99 H 20 153/81 H 93 01/26/21 12:53 93 01/26/21 11:53 36.7 C 92 H 17 122/73 92 01/26/21 09:05 92 H 01/26/21 08:01 36.7 C 96 H 18 131/81 92 01/26/21 04:50 36.7 C 82 20 120/74 95 Laboratory Results 01/26/21 01/26/21 01/25/21 Range/Units 07:16 07:16 22:21 WBC 11.19 H (4.8-10.8) K/uL RBC 3.48 L (4.7-6.1) M/uL Hgb 10.7 L (14.0-18.0) g/dL Hct 29.4 L (42-52) % MCV 84.5 (80-100) fL MCH 30.7 (25-34) pg MCHC 36.4 H (32-36) g/dL RDW Std Deviation 45.2 (36.4-46.3) fL RDW Coeff of Rickey 14.6 H (11.5-14.5) % Plt Count 150 (130-400) K/uL MPV 10.7 H (7.4-10.4) fL Immature Gran % (Auto) 0.4 % Neut % (Auto) 82.7 % Lymph % (Auto) 9.5 % [place] % (Auto) 7.1 % Eos % (Auto) 0.2 % Baso % (Auto) 0.1 % Neut # (Auto) 9.27 H (1.4-6.5) K/uL Lymph # (Auto) 1.06 L (1.2-3.4) K/uL [place] # (Auto) 0.79 H (0.11-0.59) K/uL Eos # (Auto) 0.02 (0-0.5) K/uL Baso # (Auto) 0.01 (0-0.2) K/uL Immature Gran # (Auto) 0.04 H (0.00-0.02) K/uL POC pH (7.35-7.45) POC pCO2 (35-46) mmHg POC pO2 (80-95) mmHg POC HCO3 (19-24) susan/L POC Total CO2 (24-31) mmol/L POC Base Excess (-9-1.8) susan/L POC ABG O2 Sat (90-95) % Sodium 136 (136-145) mmol/L Potassium 3.5 (3.5-5.1) mmol/L Chloride 101 (98-107) mmol/L Carbon Dioxide 26 (21-32) mmol/L Anion Gap 9.0 (3-11) BUN 63 H (7-18) mg/dl Creatinine 4.25 H (0.6-1.4) mg/dl Est Cr Clr Drug Dosing 13.0 ml/min Est GFR ( Amer) 14.1 Est GFR (Non-Af Amer) 12.1 BUN/Creatinine Ratio 14.9 (10-20) Glucose 95 (70-99) mg/dl Lactate (0.4-2.0) mmol/L Calcium 8.5 (8.5-10.1) mg/dl Procalcitonin 6.58 H (0-0.5) ng/ml 01/25/21 01/25/21 01/25/21 Range/Units 22: 22: 22: WBC 6.12 (4.8-10.8) K/uL RBC 3.53 L (4.7-6.1) M/uL Hgb 10.9 L (14.0-18.0) g/dL Hct 29.0 L (42-52) % MCV 82.2 (80-100) fL MCH 30.9 (25-34) pg MCHC 37.6 H (32-36) g/dL RDW Std Deviation 43.6 (36.4-46.3) fL RDW Coeff of Rickey 14.3 (11.5-14.5) % Plt Count 131 (130-400) K/uL MPV 10.7 H (7.4-10.4) fL Immature Gran % (Auto) 0.5 % Neut % (Auto) 87.9 % Lymph % (Auto) 8.3 % [place] % (Auto) 3.3 % Eos % (Auto) 0.0 % Baso % (Auto) 0.0 % Neut # (Auto) 5.38 (1.4-6.5) K/uL Lymph # (Auto) 0.51 L (1.2-3.4) K/uL [place] # (Auto) 0.20 (0.11-0.59) K/uL Eos # (Auto) 0.00 (0-0.5) K/uL Baso # (Auto) 0.00 (0-0.2) K/uL Immature Gran # (Auto) 0.03 H (0.00-0.02) K/uL POC pH (7.35-7.45) POC pCO2 (35-46) mmHg POC pO2 (80-95) mmHg POC HCO3 (19-24) susan/L POC Total CO2 (24-31) mmol/L POC Base Excess (-9-1.8) susan/L POC ABG O2 Sat (90-95) % Sodium 136 (136-145) mmol/L Potassium 3.6 (3.5-5.1) mmol/L Chloride 101 (98-107) mmol/L Carbon Dioxide 24 (21-32) mmol/L Anion Gap 11.0 (3-11) BUN 62 H (7-18) mg/dl Creatinine 3.96 H (0.6-1.4) mg/dl Est Cr Clr Drug Dosing 13.9 ml/min Est GFR ( Amer) 15.3 Est GFR (Non-Af Amer) 13.2 BUN/Creatinine Ratio 15.6 (10-20) Glucose 98 (70-99) mg/dl Lactate 1.6 (0.4-2.0) mmol/L Calcium 7.9 L (8.5-10.1) mg/dl Procalcitonin (0-0.5) ng/ml 01/25/21 Range/Units 22:00 WBC (4.8-10.8) K/uL RBC (4.7-6.1) M/uL Hgb (14.0-18.0) g/dL Hct (42-52) % MCV (80-100) fL MCH (25-34) pg MCHC (32-36) g/dL RDW Std Deviation (36.4-46.3) fL RDW Coeff of Rickey (11.5-14.5) % Plt Count (130-400) K/uL MPV (7.4-10.4) fL Immature Gran % (Auto) % Neut % (Auto) % Lymph % (Auto) % [place] % (Auto) % Eos % (Auto) % Baso % (Auto) % Neut # (Auto) (1.4-6.5) K/uL Lymph # (Auto) (1.2-3.4) K/uL [place] # (Auto) (0.11-0.59) K/uL Eos # (Auto) (0-0.5) K/uL Baso # (Auto) (0-0.2) K/uL Immature Gran # (Auto) (0.00-0.02) K/uL POC pH 7.51 H* (7.35-7.45) POC pCO2 27 L (35-46) mmHg POC pO2 77 L (80-95) mmHg POC HCO3 21 (19-24) susan/L POC Total CO2 22 L (24-31) mmol/L POC Base Excess -2.0 (-9-1.8) susan/L POC ABG O2 Sat 97.0 H (90-95) % Sodium (136-145) mmol/L Potassium (3.5-5.1) mmol/L Chloride (98-107) mmol/L Carbon Dioxide (21-32) mmol/L Anion Gap (3-11) BUN (7-18) mg/dl Creatinine (0.6-1.4) mg/dl Est Cr Clr Drug Dosing ml/min Est GFR ( Amer) Est GFR (Non-Af Amer) BUN/Creatinine Ratio (10-20) Glucose (70-99) mg/dl Lactate (0.4-2.0) mmol/L Calcium (8.5-10.1) mg/dl Procalcitonin (0-0.5) ng/ml Urine Culture Final 01/25/21-1234 Organism 1 Klebsiella pneumoniae [place] Count >100,000 CFU/ml Sens Sensitivities to Follow Organism 2 Klebsiella pneumoniae ESBL [place] Count >100,000 CFU/ml Sens Sensitivities to Follow 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 This organism is also an extended spectrum Beta lactamase record producer. This is considered a Multidrug Resistant Organism. Phoned to FLAVIA DOBBS on 01/25/21 at 1053 by Maricarmen Heaton. Results were verbalized back to Maricarmen Heaton. Kleb pneum ESBL K pne RX M.I.C. RX M.I.C. --- --------- --- --------- Amox/Clav R >16/8 R >16/8 Amp/Sul R >16/8 R >16/8 Cefazolin R >16 R >16 Cefepime I 4 R >16 Cefotaxime R >16 Ceftaz/Avibact S <=4 Ceftriaxone S <=1 R >2 Ciprofloxacin R >2 R >2 Ertapenem S <=0.5 R >2 Gentamicin R >8 S <=4 Levofloxacin R >4 R >4 Meropenem S <=1 I 2 Nitrofurantoin R >64 R >64 Tobramycin R >8 I 8 Trimeth/Sulfa S <=2/38 S <=2/38 Pip/Tazo I 64 R >64 Blood Culture Aerobic Preliminary 01/26/21-0721 Organism 1 Klebsiella pneumoniae Sens Sensitivities to Follow Phoned positive Blood Culture Gram Stain report to YOLA SIMMS on 01/24/21 at 2353 [place] [id number]. [place] [id number]. Kleb pneum RX M.I.C. --- --------- Amox/Clav R >16/8 Amp/Sul R >16/8 Cefazolin R >16 Cefepime I 4 Ceftriaxone S <=1 Ciprofloxacin R >2 Ertapenem S <=0.5 Gentamicin R >8 Levofloxacin R >4 Meropenem S <=1 Tobramycin R >8 Trimeth/Sulfa R >2/38 Pip/Tazo I 64 PG Care Time/CCT Total # of Minutes Spent Total Time Spent with Patient: Total time spent is greater than 50% in coordin ation of care (as documented) at patient's floor/unit and/or counseling patient: Coding Level of Care Code 33810 Subseq Hosp Care Lvl 3 Diagnoses Acute kidney injury N17.9 UTI (urinary tract infection) N39.0; R31.9 Hematuria presence: with hematuria Urinary tract infection type: site unspecified Bacteremia R78.81 Carbapenem-resistant Klebsiella pneumoniae infection A49.8 Acute respiratory failure with hypoxia J96.01 Kidney stone N20.0 Chronic kidney disease, stage IV (severe) N18.4 BPH (benign prostatic hypertrophy) N40.0 Lower urinary tract symptom presence: symptoms absent Hypertension I10 Hypertension type: essential hypertension Metabolic acidosis E87.2 Hyponatremia E87.1 Pleural effusion J90 Sinus tachycardia R00.0 Hyperbilirubinemia E80.6 Generalized weakness R53.1 Visual disturbance H53.9 GERD (gastroesophageal reflux disease) K21.9 Left pontine stroke I63.50 DVT prophylaxis Z29.9 (1) UTI (urinary tract infection) Hematuria presence: with hematuria Urinary tract infection type: site unspecified Qualified Code(s): N39.0 - Urinary tract infection, site not specified; R31.9 - Hematuria, unspecified (2) BPH (benign prostatic hypertrophy) Lower urinary tract symptom presence: symptoms absent Qualified Code(s): N40.0 - Benign prostatic hyperplasia without lower urinary tract symptoms (3) Hypertension Hypertension type: essential hypertension Qualified Code(s): I10 - Essential (primary) hypertension
[2021-01-27 06:44] LABS: Basophils # (auto) 0.01 K/uL (0-0.2); Basophils % (auto) 0.1 %; Eosinophils # (auto) 0.14 K/uL (0-0.5); Eosinophils % (auto) 1.7 %; Hematocrit (blood only) 28.8 % (42-52); Hemoglobin 10.8 g/dL (14.0-18.0); Immature Granulocytes # (auto) 0.12 K/uL (0.00-0.02); Immature Granulocytes % (auto) 1.5 %; Lymphocytes # (auto) 1.24 K/uL (1.2-3.4); Lymphocytes % (auto) 15.4 %; Mean Corpuscular Hemoglobin 30.9 pg (25-34); Mean Corpuscular Hgb Conc 37.5 g/dL (32-36); Mean Corpuscular Volume 82.3 fL (80-100); Mean Platelet Volume 10.5 fL (7.4-10.4); Monocytes # (auto) 0.98 K/uL (0.11-0.59); Monocytes % (auto) 12.1 %; Neutrophils # (auto) 5.58 K/uL (1.4-6.5); Neutrophils % (auto) 69.2 %; Platelet Count 169 K/uL (130-400); RDW Coefficient of Variation 14.5 % (11.5-14.5); RDW Standard Deviation 43.7 fL (36.4-46.3); White Blood Count 8.07 K/uL (4.8-10.8)
--- NOTE | 2021-01-27 07:11 | Electrocardiogram Report ---
Test Reason : Blood Pressure : / mmHG Vent. Rate : 138 BPM Atrial Rate : 138 BPM P-R Int : 140 ms QRS Dur : 092 ms QT Int : 280 ms P-R-T Axes : 056 030 044 degrees QTc Int : 424 ms Sinus tachycardia Possible Inferior infarct , age undetermined Nonspecific ST abnormality Abnormal ECG When compared with ECG of 21-MAR-2020 06:51, Inferior infarct is now Present Confirmed by Philip Robins ([id number]) on 01/27/2021 7:10:51 AM Referred By: Anshul Flores Confirmed By:Philip Robins
[2021-01-27 07:12] LABS: BUN Creatinine Ratio 20.6 (10-20); Calcium 8.2 mg/dl (8.5-10.1); Est GFR (African American) 18.1; Est GFR (Non-African American) 15.6; Magnesium 2.2 mg/dl (1.8-2.4); Phosphorus 3.5 mg/dl (2.5-4.9); Potassium 2.9 mmol/L (3.5-5.1)
[2021-01-27] MEDS ORDERED: POTASSIUM CHLORIDE CRTAB 20 MEQ TABCR PO STA ×2 (07:53→12:00)
[2021-01-27] MEDS: PANTOprazole 40 MG TAB PO SCH (08:08)
[2021-01-27] MEDS: HEPARIN SOD 5,000 UNIT/0.5 ML VIAL SQ SCH ×2 (08:08→21:07)
[2021-01-27] MEDS ORDERED: POTASSIUM CHLORIDE CRTAB 20 MEQ TABCR PO ONE (08:45)
--- NOTE | 2021-01-27 09:41 | Nephrology Progress Note ---
Date of Service January 27, 2021 Assessment & Plan (1) Acute on chronic renal failure: baseline creatinine low to mid 2's; was 4.2 on presentation 01/24 w/ acidosis. no obvious offending meds on med list from before admission but he did have several ibuprofen doses. obstructive uropathy versus prerenal or ischemic ATN; glomerulopathies related to nsaids on differential but far less likely. Creatinine down to 3.4 on 01/27/2021. Potassium is 2.9 likely due to GI losses. -Potassium chloride 40 mEq p.o. once. Patient received 20 mEq IV. -cont renal diet and 1.8 L fluid limit -daily bmp -avoid morphine and nsaids for pain control w/ advanced renal failure -needs strict I/O and daily STANDINg wt -bladder scan prn ordered (2) Metabolic acidosis: anion gap metabolic acidosis > from ROSALVA/CKD; resolved w/ med mgt (3) UTI (urinary tract infection): Due to Carbapenem resistant klebsiella reported UTI by [employer]; f/u pending blood and urine cxs -cont ceftazidime/Avibactam per ID (4) Dyspnea: Patient required BiPAP on 01/26/2021 but better this morning. He is on room air this morning. We will continue to monitor. No IV fluids. (5) Labile blood pressure: sbp 200s in pacu; stable now>> may contribute to worsened renal function as well next few days. Admission and Anticipated Discharge Date Admission Date: January 24, 2021 Subjective Seen in follow-up for acute kidney injury and renal stones. He feels better today. No fever last night. He is having diarrhea. No shortness of breath. Creatinine downtrending. Review of Systems Review of Systems: All systems reviewed & are unremarkable except as noted in HPI & below Physical Exam Physical Exam: General exam: Appears comfortable, no acute distress HEENT: Pupils are equal and reactive to light Neck: No JVD, neck is supple trachea is midline Respiratory system: Clear breath sounds bilaterally. Gastrointestinal: Abdomen is soft, non distended, non tender, bowel sounds are present CVS: Regular rate and rhythm. No murmurs, rubs or gallops Musculoskeletal: No joint or muscle tenderness Extremities: Non tender, no edema, peripheral pulses are present Neuro: Oriented, no tremors, no focal neurological deficits Skin: No rashes Results & Data ([facility]) Vital Signs (Past 12 Hours) Vital Signs Temp Pulse Pulse Resp BP Pulse Ox 01/27/21 07:26 36.8 C 95 H 19 135/72 94 01/27/21 04:09 36.9 C 93 H 18 139/80 94 01/27/21 00:00 36.8 C 99 H 20 130/73 94 01/26/21 22:46 98 H 22 99 Laboratory Results 01/27/21 06:04 01/27/21 01/27/21 06:04 06:04 WBC 8.07 RBC 3.50 L MCV 82.3 MCH 30.9 MCHC 37.5 H RDW Std Deviation 43.7 RDW Coeff of Rickey 14.5 Plt Count 169 MPV 10.5 H Phosphorus 3.5 (1) Acute on chronic renal failure Acute renal failure type: with acute tubular necrosis Chronic kidney disease stage: stage 4 (severe) Qualified Code(s): N17.0 - Acute kidney failure with tubular necrosis; N18.4 - Chronic kidney disease, stage 4 (severe) (2) UTI (urinary tract infection) Urinary tract infection type: site unspecified Hematuria presence: with hematuria Qualified Code(s): N39.0 - Urinary tract infection, site not specified; R31.9 - Hematuria, unspecified
--- NOTE | 2021-01-27 11:55 | Hospitalist Progress Note ---
Date of Service January 27, 2021 Assessment & Plan (1) Acute kidney injury: with a history of CKD stage III-IV and follows with nephrology. Baseline creatinine is 2.0-2.3 Presents here after having left ureterolithiasis and is now status post cystoscopy with left ureteral stent placement by urology on 01/24 Preoperative laboratory values showed creatinine up to 4.16, BUN up to 46, with an anion gap metabolic acidosis and hyponatremia. Acute kidney injury likely secondary to post renal obstruction versus intrinsic from infection; also took several doses of ibuprofen at home Nephrology consulted-appreciated Creatinine peaked at 4.25, now improving to 3.45 He is making urine with 0 mL on PVR; metabolic acidosis is now resolved, potassium is actually low today from GI losses Has since been discontinued from bicarbonate drip due to volume overload -Appreciate nephrology consultation -Ureteral stent remains in place -Follow BMP in the morning -Follow strict I's and O's, limit fluid 1800 mL due to volume overload requiring lasix use -Renally dose medications when appropriate and avoid nephrotoxins -avoid nephrotoxins -Treating infection as below -Support blood pressure- holding amlodipine from home (2) Bacteremia: As above, with ESBL Klebsiella x 2 With septicemia, POA with fever, tachycardia, leukocytosis, and bacteremia, UTI Continue Avycaz which will cover for both organisms With rigors, fever 39.2, and hypoxic respiratory failure on the evening of 01/25, and then milder rigors on 01/26 but now fevers resolved -Repeat blood cultures from 01/25-no growth to date over 48 hours now -Continue Tylenol as needed for fevers -Awaiting ID consultation-hopefully on Thursday Suspect will need at least 2 weeks IV abx, but perhaps even 4-6 weeks of IV abx given likely source is prostate (3) UTI (urinary tract infection): UA abnormal from the office on 01/23 Has a 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 to ertapenem Initially he was treated with IV ceftriaxone preoperatively, and then received 2 doses of meropenem from 01/24-01/25 before switching to Avycaz as below Urine culture from 01/23 resulted with 2 different ESBL Klebsiellas that are highly resistant to multiple antibiotics Blood cultures also now positive Carbapenem resistant ESBL Klebsiella Consult infectious disease-formal consult still pending, but discussed through [email or web address] -given that second Klebsiella organism is intermediate sensitivity to meropenem, will switch to Avycaz which should cover for both Follow repeat blood cultures Suspect he will need at least 2 to 4 weeks or perhaps longer of IV antibiotics given this is likely colonized in his prostate-await ID consultation for recommendations (4) Diarrhea: having numerous loose stools on 01/26 and 01/27 C. diff gene positive but toxin negative, so no need to treat for now -now afebrile, leukocytosis resolved, no significant abd pain -start Florastor -replace K+ -if diarrhea persists or clinically worsens, could repeat C. diff testing (5) Hypokalemia: K+ 2.9 today, likely 2/2 GI losses from diarrhea -replace with 60meq po KCL follow BMP in AM (6) Carbapenem-resistant Klebsiella pneumoniae infection: As above (7) Acute respiratory failure with hypoxia: Secondary to sepsis Chest x-ray on day of admission shows small left pleural effusion likely secondary to volume overload from acute kidney injury Chest x-ray on the evening of 01/25 shows worsening pulmonary edema and pleural effusions Chest x-ray on 01/26 is improved Pulse ox dropped to 82% while having rigors with fever on the evening of 01/25, required IV Lasix, BiPAP placement through the night Now weaned to room air and improved Also with small left pleural effusion which is now improved after IV Lasix Continue incentive spirometry Follow and keep pulse ox greater than 90% (8) Kidney stone: As above, left-sided ureterolithiasis now status post stent and lithotripsy Urology managing Pain control with oxycodone, acetaminophen Not really having much pain -will need stent removal in the future -Discontinue vitamin D in case contributing to development of kidney stones-his vitamin D-OH level from last year was in the 70s, although not hypercalcemic care (9) Chronic kidney disease, stage IV (severe): As above (10) Metabolic acidosis: As above, secondary to acute kidney injury Now resolved after being on bicarbonate drip Follow BMP -Have discontinued bicarbonate drip as above (11) Hyponatremia: Secondary to acute kidney injury, now resolved Follow BMP (12) Pleural effusion: Chest x-ray done x2 on 01/24, first was preoperative and the second 1 was postoperative for bibasilar crackles noted and requiring 2 to 3 L nasal cannula With left-sided small pleural effusion which is new since chest x-ray from a couple of months ago Could be some volume overload secondary to renal failure Improved now after IV Lasix (13) Sinus tachycardia: With persistent sinus tachycardia secondary to sepsis Now much improved after volume resuscitation Continue to treat sepsis as above Monitor on telemetry (14) Hyperbilirubinemia: Bilirubin mildly elevated at 1.5, other LFTs are normal Bilirubin now normal (15) Generalized weakness: No focal neurological deficits Feel he is just generalized weak from the sepsis PT/OT consultations placed (16) Visual disturbance: With about 1 week of intermittent visual disturbances prior to admission- seeing things that are not there that then disappear after 1 second Doubt this is neurologically related Recommend follow-up with ophthalmology after discharge (17) GERD (gastroesophageal reflux disease): No acute issues Continue PPI (18) 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 There is an increased [employer]ISTER hemorrhage risk with statins and low-cholesterols in people over 75. (19) Hypertension: Blood pressures were apparently elevated in the PACU but he was having rigors; question if this blood pressure was accurate He was given 1 dose of IV labetalol in the PACU and then blood pressures were in the 90s systolic BPs low during sepsis which is ow resolved If BPs remain mildly elevated as they are nowm can restart amlodipine in AM tomorrow (20) BPH (benign prostatic hypertrophy): With a history of TURP Watch for urine retention-PVRs have been 0 continue terazosin (21) DVT prophylaxis: SCDs, SQ heparin Disposition- continued stay in PCU, improving, Awaiting formal ID consult on Thursday and further improvement in ROSALVA. WIll likely need fdc IV abx Admission and Anticipated Discharge Date Admission Date: January 24, 2021 Subjective Pt feels very well today. Only minor left sided abd pain with certain movements, no hematuria and is making plenty of urine. Is having very frequent loose stools today. Denies CP or SOB. Is eating and drinking. No fevers overnight. Tele with NSR, rates 80-90s Review of Systems Review of Systems: All systems reviewed & are unremarkable except as noted in HPI & below Physical Exam Constitutional: WD/WN, vitals as above Eyes: + anicteric sclerae Neck: trachea midline, no thyromegaly Respiratory: normal respiratory effort; no cough Auscultation: + crackles (Very minimal at the bases); no rhonchi and no wheezes Cardiovascular: RRR, no murmur, no edema Extremities: no calf tenderness Chest (Breasts): Chest: normal inspection of chest Gastrointestinal (Abdomen): normal bowel sounds, soft, nontender, no hepatosplenomegaly Musculoskeletal: Extremities: extremities normal to inspection; no cyanosis and no clubbing Skin: no rashes, warm and dry Neurologic: moves all extremities and awake Psychiatric: A+Ox3, euthymic affect Lymphatic: no lymphedema Results & Data Results & Data ([facility]) Vital Signs (Past 12 Hours) Vital Signs Temp Pulse Pulse Resp BP Pulse Ox 01/27/21 11:12 91 H 01/27/21 07:26 36.8 C 95 H 19 135/72 94 01/27/21 04:09 36.9 C 93 H 18 139/80 94 01/27/21 00:00 36.8 C 99 H 20 130/73 94 Laboratory Results 01/27/21 01/27/21 01/27/21 Range/Units 14:58 06:04 06:04 WBC 8.07 (4.8-10.8) K/uL RBC 3.50 L (4.7-6.1) M/uL Hgb 10.8 L (14.0-18.0) g/dL Hct 28.8 L (42-52) % MCV 82.3 (80-100) fL MCH 30.9 (25-34) pg MCHC 37.5 H (32-36) g/dL RDW Std Deviation 43.7 (36.4-46.3) fL RDW Coeff of Rickey 14.5 (11.5-14.5) % Plt Count 169 (130-400) K/uL MPV 10.5 H (7.4-10.4) fL Immature Gran % (Auto) 1.5 % Neut % (Auto) 69.2 % Lymph % (Auto) 15.4 % Parmer % (Auto) 12.1 % Eos % (Auto) 1.7 % Baso % (Auto) 0.1 % Neut # (Auto) 5.58 (1.4-6.5) K/uL Lymph # (Auto) 1.24 (1.2-3.4) K/uL Parmer # (Auto) 0.98 H (0.11-0.59) K/uL Eos # (Auto) 0.14 (0-0.5) K/uL Baso # (Auto) 0.01 (0-0.2) K/uL Immature Gran # (Auto) 0.12 H (0.00-0.02) K/uL Sodium 139 (136-145) mmol/L Potassium 2.9 L D (3.5-5.1) mmol/L Chloride 106 (98-107) mmol/L Carbon Dioxide 23 (21-32) mmol/L Anion Gap 10.0 (3-11) BUN 71 H (7-18) mg/dl Creatinine 3.45 H D (0.6-1.4) mg/dl Est Cr Clr Drug Dosing 16.0 ml/min Est GFR ( Amer) 18.1 Est GFR (Non-Af Amer) 15.6 BUN/Creatinine Ratio 20.6 H (10-20) Glucose 111 H (70-99) mg/dl Calcium 8.2 L (8.5-10.1) mg/dl Phosphorus 3.5 (2.5-4.9) mg/dl Magnesium 2.2 (1.8-2.4) mg/dl Procalcitonin (0-0.5) ng/ml Stl C. diff Tox B Gene Positive Cdiff Gene H (Neg) Stl C.difficile Tox A&B Negative Cdiff Toxin (Negative) 01/27/21 Range/Units 06:04 WBC (4.8-10.8) K/uL RBC (4.7-6.1) M/uL Hgb (14.0-18.0) g/dL Hct (42-52) % MCV (80-100) fL MCH (25-34) pg MCHC (32-36) g/dL RDW Std Deviation (36.4-46.3) fL RDW Coeff of Rickey (11.5-14.5) % Plt Count (130-400) K/uL MPV (7.4-10.4) fL Immature Gran % (Auto) % Neut % (Auto) % Lymph % (Auto) % Parmer % (Auto) % Eos % (Auto) % Baso % (Auto) % Neut # (Auto) (1.4-6.5) K/uL Lymph # (Auto) (1.2-3.4) K/uL Parmer # (Auto) (0.11-0.59) K/uL Eos # (Auto) (0-0.5) K/uL Baso # (Auto) (0-0.2) K/uL Immature Gran # (Auto) (0.00-0.02) K/uL Sodium (136-145) mmol/L Potassium (3.5-5.1) mmol/L Chloride (98-107) mmol/L Carbon Dioxide (21-32) mmol/L Anion Gap (3-11) BUN (7-18) mg/dl Creatinine (0.6-1.4) mg/dl Est Cr Clr Drug Dosing ml/min Est GFR ( Amer) Est GFR (Non-Af Amer) BUN/Creatinine Ratio (10-20) Glucose (70-99) mg/dl Calcium (8.5-10.1) mg/dl Phosphorus (2.5-4.9) mg/dl Magnesium (1.8-2.4) mg/dl Procalcitonin 42.71 H (0-0.5) ng/ml Stl C. diff Tox B Gene (Neg) Stl C.difficile Tox A&B (Negative) BCxs (01/25) NGTD PG Care Time/CCT Total # of Minutes Spent Total Time Spent with Patient: Total time spent is greater than 50% in coordination of care (as documented) at patient's floor/unit and/or counseling patient: Coding Level of Care Code 87649 Subseq Hosp Care Lvl 3 Diagnoses Acute kidney injury N17.9 Bacteremia R78.81 UTI (urinary tract infection) N39.0; R31.9 Hematuria presence: with hematuria Urinary tract infection type: site unspecified Diarrhea R19.7 Hypokalemia E87.6 Carbapenem-resistant Klebsiella pneumoniae infection A49.8 Acute respiratory failure with hypoxia J96.01 Kidney stone N20.0 Chronic kidney disease, stage IV (severe) N18.4 Metabolic acidosis E87.2 Hyponatremia E87.1 Pleural effusion J90 Sinus tachycardia R00.0 Hyperbilirubinemia E80.6 Generalized weakness R53.1 Visual disturbance H53.9 GERD (gastroesophageal reflux disease) K21.9 Left pontine stroke I63.50 Hypertension I10 Hypertension type: essential hypertension BPH (benign prostatic hypertrophy) N40.0 Lower urinary tract symptom presence: symptoms absent DVT prophylaxis Z29.9 (1) UTI (urinary tract infection) Hematuria presence: with hematuria Urinary tract infection type: site unspecified Qualified Code(s): N39.0 - Urinary tract infection, site not specified; R31.9 - Hematuria, unspecified (2) BPH (benign prostatic hypertrophy) Lower urinary tract symptom presence: symptoms absent Qualified Code(s): N40.0 - Benign prostatic hyperplasia without lower urinary tract symptoms (3) Hypertension Hypertension type: essential hypertension Qualified Code(s): I10 - Essential (primary) hypertension
[2021-01-27] MEDS: SACCHAROMYCES BOULARDII 250 MG CAP PO SCH (12:46)
[2021-01-27 16:53] LABS: Cdiff Antigen Positive; Cdiff Toxin A+B Negative Cdiff Toxin (Negative)
--- NOTE | 2021-01-27 17:43 | Urology Progress Note ---
Date of Service January 27, 2021 Assessment & Plan (1) UTI (urinary tract infection): Patient is postop day 3 status post stone treatment with stent. Patient is undergoing supportive care for bacteremia with highly resistant infection. Is following with nephrology, infectious disease, and hospitalist group. Patient is tolerating antibiotics. Have been discussing different options for medications moving forward. Bacteria are sensitive to Bactrim however due to patient's significant chronic kidney disease are trying to find an alternative. Patient is returning to normal activity. Is tolerating full diet. Is not having considerable issues. Has not had nausea or vomiting. Chills have largely gone away. Is noticing some weakness but is improving overall. We will continue with supportive care and close monitoring. We will monitor kidney function and time. Creatinine improved mildly but is still being closely monitored. Patient continues to mildly improve however still closely monitoring and actively managing. Has not had fevers for greater than 24 hours. Admission and Anticipated Discharge Date Admission Date: January 24, 2021 Subjective Postop from stone treatment and stent placement for obstruction issues. Patient developed fever found to have a Carbapenem resistant UTI with bacteremia. Patient was also dealing with acute long and acute kidney failure on chronic kidney disease. Patient has not been dealing with major issues related to pain, patient has been tolerating stents well. Has noticed some frequency and urgency. Has not had severe pain in the back and flank. Does have occasional burning and irritation. No severe episodes or major changes. No new nausea or vomiting. Review of Systems Review of Systems: All systems reviewed & are unremarkable except as noted in HPI & below Physical Exam Physical Exam: General: Alert in no acute distress. HEENT: Normocephalic Atraumatic. Inspection normal. Cranial Nerves 2-12 Grossly intact. Normal inspection of face. Normal inspection of neck. Psychologic: Normal affect. Respiratory: Nonlabored. No use of accessory muscles. No tachypnea or dyspnea. Cardiovascular: No tachycardia Skin: [place] and Dry. No rashes or visible lesions. Extremities/Lymphatics: No edema Abdomen: Soft Non-distended. No rebound or guarding. Results & Data ([facility]) Vital Signs (Past 12 Hours) Vital Signs Temp Pulse Pulse Resp BP Pulse Ox 01/27/21 17:16 87 01/27/21 15:46 37.1 C 100 H 18 156/88 H 94 01/27/21 12:03 36.9 C 100 H 17 161/82 H 96 01/27/21 11:12 91 H 01/27/21 07:26 36.8 C 95 H 19 135/72 94 PG Care Time/CCT Total # of Minutes Spent Total Time Spent with Patient: Total time spent is greater than 50% in coordination of care (as documented) at patient's floor/unit and/or counseling patient: Coding Level of Care Code 45286 Subseq Hosp Care Lvl 2 Diagnoses UTI (urinary tract infection) N39.0; R31.9 Hematuria presence: with hematuria Urinary tract infection type: site unspecified (1) UTI (urinary tract infection) Hematuria presence: with hematuria Urinary tract infection type: site unspecified Qualified Code(s): N39.0 - Urinary tract infection, site not specified; R31.9 - Hematuria, unspecified
[2021-01-27] MEDS: CLOPIDOGREL BISULFATE 75 MG TAB PO SCH (21:07)
[2021-01-27] MEDS: TERAZOSIN HCL 5 MG CAP PO SCH (21:07)
[2021-01-28 06:08] LABS: Basophils # (auto) 0.03 K/uL (0-0.2); Basophils % (auto) 0.4 %; Eosinophils # (auto) 0.11 K/uL (0-0.5); Eosinophils % (auto) 1.5 %; Hematocrit (blood only) 26.8 % (42-52); Hemoglobin 9.7 g/dL (14.0-18.0); Immature Granulocytes # (auto) 0.37 K/uL (0.00-0.02); Lymphocytes # (auto) 1.39 K/uL (1.2-3.4); Lymphocytes % (auto) 18.8 %; Mean Corpuscular Hgb Conc 36.2 g/dL (32-36); Mean Platelet Volume 10.1 fL (7.4-10.4); Monocytes # (auto) 0.91 K/uL (0.11-0.59); Monocytes % (auto) 12.3 %; Neutrophils # (auto) 4.59 K/uL (1.4-6.5); Platelet Count 211 K/uL (130-400); RDW Coefficient of Variation 14.6 % (11.5-14.5); RDW Standard Deviation 44.9 fL (36.4-46.3); Red Blood Count 3.23 M/uL (4.7-6.1)
[2021-01-28 06:48] LABS: BUN Creatinine Ratio 21.3 (10-20); Calcium 8.5 mg/dl (8.5-10.1); Creatinine Clr Calc Pharmacy 19.7 ml/min; Est GFR (African American) 23.3; Est GFR (Non-African American) 20.1; Potassium 3.2 mmol/L (3.5-5.1)
[2021-01-28] MEDS: PANTOprazole 40 MG TAB PO SCH (08:26)
[2021-01-28] MEDS: HEPARIN SOD 5,000 UNIT/0.5 ML VIAL SQ SCH ×2 (08:26→20:58)
[2021-01-28] MEDS: SACCHAROMYCES BOULARDII 250 MG CAP PO SCH (08:26)
--- NOTE | 2021-01-28 08:26 | Urology Progress Note ---
Date of Service January 28, 2021 Assessment & Plan (1) UTI (urinary tract infection): (2) Carbapenem-resistant Klebsiella pneumoniae infection: 80 year-old male patient, POD #4 s/p Cystoscopy, URS, Retrograde Pyelogram, Left Laser Destruction of Stone, Insertion of Left Stent with Dr. Flores; admitted for UTI, bacteremia, and acute on chronic renal insufficiency. -Plan of care reviewed with Dr. Royal. -Patient continues to clinically progress. -Remains afebrile. -Labs reviewed - white count stable, creatinine improved this morning to 2.80 (previously 3.45). -Reviewed hospital and nephrology notes, appreciate input. -Plans for ID consultation today, await recommendations. Likely home with 2-4 weeks IV antibiotic therapy. -Continue with supportive care and antibiotic therapy for bacteremia with highly resistant infection. -Will continue to follow closely, please call with any acute changes. Admission and Anticipated Discharge Date Admission Date: January 24, 2021 Subjective Patient seen and examined this morning. Clinically progressing as expected. He is tolerating diet, without nausea or vomiting. Does report mild discomfort to left lower side/abdominal area. Dysuria has improved, denies hematuria. Feels he is emptying his bladder well. Denies fevers or chills. Has been out of bed ambulating without dizziness/lightheadedness. Plans for formal ID consult today. Chart review: Afebrile Wbc 7.40 Hgb 9.7 Creatinine 2.80 (previously 3.45) Urine culture 01/23 positive for Klebsiella pneumoniae and Klebsiella pneumoniae ESBL - carbapenem resistant. Initial blood cultures 01/24 positive for Klebsiella. Repeat blood cultures 01/25 no growth after 48 hours. Currently on IV Ceftazidime/Avibactam. Denies additional urologic concerns today. Review of Systems Constitutional: as per Subjective / HPI; no fever and no chills Gastrointestinal: as per Subjective / HPI; no nausea and no vomiting Genitourinary: + as per Subjective / HPI Physical Exam Constitutional: well developed and well nourished; no acute distress and not ill appearing Respiratory: normal respiratory effort and able to speak in complete sentences; no respiratory distress and no audible wheezes Gastrointestinal (Abdomen): Inspection/Auscultation: abdomen normal to inspection; abdomen not distended Patient points to left lower abdominal quadrant where intermittent discomfort is present. Musculoskeletal: Moves all extremities without difficulty Skin: No visible rashes, lesions, or wounds noted. Psychiatric: Orientation: alert, oriented x 3 and cooperative Affect: euthymic affect Results & Data ([facility]) Vital Signs (Past 12 Hours) Vital Signs Temp Pulse Resp BP Pulse Ox 01/28/21 07:41 36.8 C 98 H 18 162/70 H 95 01/28/21 03:33 36.9 C 101 H 20 138/91 95 01/28/21 00:10 36.9 C 88 18 146/76 H 96 PG Care Time/CCT Total # of Minutes Spent Total Time Spent with Patient: Total time spent is greater than 50% in c oordination of care (as documented) at patient's floor/unit and/or counseling patient: Coding Level of Care Code 28279 Subseq Hosp Care Lvl 2 Diagnoses UTI (urinary tract infection) N39.0; R31.9 Hematuria presence: with hematuria Urinary tract infection type: site unspecified Carbapenem-resistant Klebsiella pneumoniae infection A49.8 (1) UTI (urinary tract infection) Hematuria presence: with hematuria Urinary tract infection type: site unspecified Qualified Code(s): N39.0 - Urinary tract infection, site not specified; R31.9 - Hematuria, unspecified
[2021-01-28] MEDS: TERAZOSIN HCL 5 MG CAP PO SCH (20:58)
[2021-01-28] MEDS: CLOPIDOGREL BISULFATE 75 MG TAB PO SCH (20:58)
[2021-01-29] MEDS: ACETAMINOPHEN 325 MG TAB PO PRN (02:54)
[2021-01-29 06:30] LABS: Hematocrit (blood only) 28.7 % (42-52); Hemoglobin 10.4 g/dL (14.0-18.0); Mean Corpuscular Hemoglobin 30.5 pg (25-34); Mean Corpuscular Hgb Conc 36.2 g/dL (32-36); Mean Corpuscular Volume 84.2 fL (80-100); Platelet Count 239 K/uL (130-400); RDW Coefficient of Variation 14.7 % (11.5-14.5); RDW Standard Deviation 45.5 fL (36.4-46.3); Red Blood Count 3.41 M/uL (4.7-6.1); White Blood Count 8.65 K/uL (4.8-10.8)
--- NOTE | 2021-01-29 06:50 | Hospitalist Progress Note ---
Date of Service January 29, 2021 Assessment & Plan (1) Acute kidney injury: with a history of CKD stage III-IV and follows with nephrology. Baseline creatinine is 2.0-2.3 Presents here after having left ureterolithiasis and is now status post cystoscopy with left ureteral stent placement by urology on 01/24 Preoperative laboratory values showed creatinine up to 4.16, BUN up to 46, with an anion gap metabolic acidosis and hyponatremia. Acute kidney injury likely secondary to post renal obstruction versus intrinsic from infection; also took several doses of ibuprofen at home Nephrology consulted-appreciated Creatinine peaked at 4.25, now improving to 3.45 He is making urine with 0 mL on PVR; metabolic acidosis is now resolved, potassium is actually low today from GI losses Has since been discontinued from bicarbonate drip due to volume overload -Appreciate nephrology consultation -Ureteral stent remains in place -Follow BMP in the morning -Follow strict I's and O's, limit fluid 1800 mL due to volume overload requiring lasix use -Renally dose medications when appropriate and avoid nephrotoxins -avoid nephrotoxins -Treating infection as below -Support blood pressure- holding amlodipine from home (2) Bacteremia: As above, with ESBL Klebsiella x 2 With septicemia, POA with fever, tachycardia, leukocytosis, and bacteremia, UTI Continue Avycaz which will cover for both organisms With rigors, fever 39.2, and hypoxic respiratory failure on the evening of 01/25, and then milder rigors on 01/26 but now fevers resolved -Repeat blood cultures from 01/25-no growth to date over 48 hours now -Continue Tylenol as needed for fevers -Awaiting ID consultation-hopefully on Thursday Plan is to continue antibiotics until 02/16. Will need to have ureteral stents removed. Will obtain ultrasound peripheral line Appreciate input from Urology. (3) UTI (urinary tract infection): UA abnormal from the office on 01/23 Has a 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 to ertapenem Initially he was treated with IV ceftriaxone preoperatively, and then received 2 doses of meropenem from 01/24-01/25 before switching to Avycaz as below Urine culture from 01/23 resulted with 2 different ESBL Klebsiellas that are highly resistant to multiple antibiotics Blood cultures also now positive Carbapenem resistant ESBL Klebsiella Consult infectious disease-formal consult still pending, but discussed through [facility] -given that second Klebsiella organism is intermediate sensitivity to meropenem, will switch to Avycaz which should cover for both Follow repeat blood cultures (4) Diarrhea: having numerous loose stools on 01/26 and 01/27 C. diff gene positive but toxin negative, so no need to treat for now -now afebrile, leukocytosis resolved, no significant abd pain -start Florastor improved, will monitor (5) Hypokalemia: improved, but remains low, will replace (6) Carbapenem-resistant Klebsiella pneumoniae infection: As above (7) Acute respiratory failure with hypoxia: Secondary to sepsis Chest x-ray on day of admission shows small left pleural effusion likely secondary to volume overload from acute kidney injury Chest x-ray on the evening of 01/25 shows worsening pulmonary edema and pleural effusions Chest x-ray on 01/26 is improved Pulse ox dropped to 82% while having rigors with fever on the evening of 01/25, required IV Lasix, BiPAP placement through the night Now weaned to room air and improved Also with small left pleural effusion which is now improved after IV Lasix Continue incentive spirometry Follow and keep pulse ox greater than 90% (8) Kidney stone: As above, left-sided ureterolithiasis now status post stent and lithotripsy Urology managing Pain control with oxycodone, acetaminophen Not really having much pain -will need stent removal in the future -Discontinue vitamin D in case contributing to development of kidney stones-his vitamin D-OH level from last year was in the 70s, although not hypercalcemic care (9) Chronic kidney disease, stage IV (severe): As above (10) Metabolic acidosis: As above, secondary to acute kidney injury Now resolved after being on bicarbonate drip Follow BMP -Have discontinued bicarbonate drip as above (11) Hyponatremia: Secondary to acute kidney injury, now resolved Follow BMP (12) Pleural effusion: Chest x-ray done x2 on 01/24, first was preoperative and the second 1 was postoperative for bibasilar crackles noted and requiring 2 to 3 L nasal cannula With left-sided small pleural effusion which is new since chest x-ray from a couple of months ago Could be some volume overload secondary to renal failure Improved now after IV Lasix (13) Sinus tachycardia: With persistent sinus tachycardia secondary to sepsis Now much improved after volume resuscitation Continue to treat sepsis as above Monitor on telemetry (14) Hyperbilirubinemia: Bilirubin mildly elevated at 1.5, other LFTs are normal Bilirubin now normal (15) Generalized weakness: No focal neurological deficits Feel he is just generalized weak from the sepsis PT/OT consultations placed (16) Visual disturbance: With about 1 week of intermittent visual disturbances prior to admission- seeing things that are not there that then disappear after 1 second Doubt this is neurologically related Recommend follow-up with ophthalmology after discharge (17) GERD (gastroesophageal reflux disease): No acute issues Continue PPI (18) 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 There is an increased [employer] hemorrhage risk with statins and low-cholesterols in people over 75. (19) Hypertension: Blood pressures were apparently elevated in the PACU but he was having rigors; question if this blood pressure was accurate He was given 1 dose of IV labetalol in the PACU and then blood pressures were in the 90s systolic BPs low during sepsis which is ow resolved If BPs remain mildly elevated as they are nowm can restart amlodipine in AM tomorrow (20) BPH (benign prostatic hypertrophy): With a history of TURP Watch for urine retention-PVRs have been 0 continue terazosin (21) DVT prophylaxis: SCDs, SQ heparin Disposition- continued stay in PCU, improving, Awaiting formal ID consult on Thursday and further improvement in ROSAL[facility]. WIll likely need director long term care IV abx Admission and Anticipated Discharge Date Admission Date: January 24, 2021 Subjective 80 yo male reports feeling well. He has no new complaints at this time. Review of Systems Review of Systems: All systems reviewed & are unremarkable except as noted in HPI & below Physical Exam Physical Exam: Constitutional: WD/WN, vitals as above Eyes: + anicteric sclerae Neck: trachea midline, no thyromegaly Respiratory: normal respiratory effort; no cough Auscultation: + crackles (Very minimal at the bases); no rhonchi and no wheezes Cardiovascular: RRR, no murmur, no edema Extremities: no calf tenderness Chest (Breasts): Chest: normal inspection of chest Gastrointestinal (Abdomen): normal bowel sounds, soft, nontender, no hepatosplenomegaly Musculoskeletal: Extremities: extremities normal to inspection; no cyanosis and no clubbing Skin: no rashes, warm and dry Neurologic: moves all extremities and awake Psychiatric: A+Ox3, euthymic affect Lymphatic: no lymphedema Results & Data Results & Data ([facility]) Vital Signs (Past 12 Hours) Vital Signs Temp Pulse Resp BP Pulse Ox 01/29/21 02:56 37.0 C 69 19 148/63 H 96 01/28/21 23:50 37.3 C 91 H 20 164/77 H 96 01/28/21 18:57 37.7 C H 83 19 131/71 94 PG Care Time/CCT Total # of Minutes Spent Total Time Spent with Patient: Total time spent is greater than 50% in coordination of care (as documented) at patient's floor/unit and/or counseling patient: Coding Level of Care Code 51765 Subseq Hosp Care Lvl 3 Diagnoses Acute kidney injury N17.9 Bacteremia R78.81 UTI (urinary tract infection) N39.0; R31.9 Hematuria presence: with hematuria Urinary tract infection type: site unspecified Diarrhea R19.7 Hypokalemia E87.6 Carbapenem-resistant Klebsiella pneumoniae infection A49.8 Acute respiratory failure with hypoxia J96.01 Kidney stone N20.0 Chronic kidney disease, stage IV (severe) N18.4 Metabolic acidosis E87.2 Hyponatremia E87.1 Pleural effusion J90 Sinus tachycardia R00.0 Hyperbilirubinemia E80.6 Generalized weakness R53.1 Visual disturbance H53.9 GERD (gastroesophageal reflux disease) K21.9 Left pontine stroke I63.50 Hypertension I10 Hypertension type: essential hypertension BPH (benign prostatic hypertrophy) N40.0 Lower urinary tract symptom presence: symptoms absent DVT prophylaxis Z29.9 Time Spent (min) 35 (1) UTI (urinary tract infection) Hematuria presence: with hematuria Urinary tract infection type: site unspecified Qualified Code(s): N39.0 - Urinary tract infection, site not specified; R31.9 - Hematuria, unspecified (2) BPH (benign prostatic hypertrophy) Lower urinary tract symptom presence: symptoms absent Qualified Code(s): N40.0 - Benign prostatic hyperplasia without lower urinary tract symptoms (3) Hypertension Hypertension type: essential hypertension Qualified Code(s): I10 - Essential (primary) hypertension
[2021-01-29 06:56] LABS: BUN Creatinine Ratio 19.4 (10-20); Calcium 8.3 mg/dl (8.5-10.1); Creatinine Clr Calc Pharmacy 23.2 ml/min; Est GFR (African American) 28.3; Est GFR (Non-African American) 24.5; Potassium 3.2 mmol/L (3.5-5.1)
[2021-01-29 07:04] LABS: Basophils # (auto) 0.02 K/uL (0-0.2); Basophils % (auto) 0.2 %; Eosinophils # (auto) 0.12 K/uL (0-0.5); Eosinophils % (auto) 1.4 %; Immature Granulocytes # (auto) 0.55 K/uL (0.00-0.02); Immature Granulocytes % (auto) 6.4 %; Lymphocytes # (auto) 1.74 K/uL (1.2-3.4); Lymphocytes % (auto) 20.1 %; Monocytes # (auto) 0.71 K/uL (0.11-0.59); Monocytes % (auto) 8.2 %; Neutrophils # (auto) 5.51 K/uL (1.4-6.5); Neutrophils % (auto) 63.7 %
[2021-01-29] MEDS: PANTOprazole 40 MG TAB PO SCH (07:43)
[2021-01-29] MEDS: SACCHAROMYCES BOULARDII 250 MG CAP PO SCH (07:43)
[2021-01-29] MEDS: HEPARIN SOD 5,000 UNIT/0.5 ML VIAL SQ SCH ×2 (07:43→21:26)
[2021-01-29] MEDS ORDERED: POTASSIUM CHLORIDE CRTAB 20 MEQ TABCR PO STA (08:04)
--- NOTE | 2021-01-29 12:40 | Nephrology Progress Note ---
Date of Service January 29, 2021 Assessment & Plan Admission and Anticipated Discharge Date Admission Date: January 24, 2021 Subjective (1) Acute on chronic renal failure: baseline creatinine low to mid 2's; was 4.2 on presentation 01/24 w/ acidosis. ARF from obstructive uropathy. Now S/p stent Creatinine down to baseline now. -At this point D/c renal Diet-- -daily bmp -avoid morphine and nsaids for pain control w/ advanced renal failure -needs strict I/O -bladder scan prn ordered (2) Metabolic acidosis: anion gap metabolic acidosis > from ROSALVA/CKD; resolved w/ med mgt (3) UTI (urinary tract infection): Due to Carbapenem resistant klebsiella reported UTI by [facility] [employer]; f/u pending blood and urine cxs -cont Abx per ID. Plan is for prolonged outpt iv ABX through PICC line Subjective Seen in follow-up for acute kidney injury and renal stones. He feels better today. No new issues. Creatinine downtrending. Review of Systems Review of Systems: All systems reviewed & are unremarkable except as noted in HPI & below Physical Exam Physical Exam: General exam: Appears comfortable, no acute distress HEENT: Pupils are equal and reactive to light Neck: No JVD, neck is supple trachea is midline Respiratory system: Clear breath sounds bilaterally. Gastrointestinal: Abdomen is soft, non distended, non tender, bowel sounds are present CVS: Regular rate and rhythm. No murmurs, rubs or gallops Musculoskeletal: No joint or muscle tenderness Extremities: Non tender, no edema, peripheral pulses are present Neuro: Oriented, no tremors, no focal neurological deficits Skin: No rashes Results [facility] ([facility]) Vital Signs (Past 12 Hours) Vital Signs Temp Pulse Resp BP Pulse Ox 01/29/21 12:00 36.8 C 74 18 137/80 95 01/29/21 08:28 36.8 C 66 20 131/69 98 01/29/21 02:56 37.0 C 69 19 148/63 H 96
[2021-01-29] MEDS: POTASSIUM CHLORIDE CRTAB 20 MEQ TABCR PO SCH (13:53)
[2021-01-29] MEDS: TERAZOSIN HCL 5 MG CAP PO SCH (21:26)
[2021-01-29] MEDS: CLOPIDOGREL BISULFATE 75 MG TAB PO SCH (21:26)
[2021-01-30] MEDS: ACETAMINOPHEN 325 MG TAB PO PRN ×2 (02:51→23:40)
[2021-01-30 07:33] LABS: Toxic Granulation 1+
--- NOTE | 2021-01-30 07:53 | Urology Progress Note ---
Date of Service January 30, 2021 Assessment & Plan (1) Bacteremia: (2) UTI (urinary tract infection): (3) Kidney stone: Sepsis/bacteremia from source - resistant klebsiella - on appropriate abx - Cr improving steadily - clinically improving - ID recs for extended course of IV treatment - need to finalize arrangements for home infusion/PICC/etc - if these logistics can be arranged, he could be d/c'ed home today, if not, tomorrow Admission and Anticipated Discharge Date Admission Date: January 24, 2021 Subjective Pt seen yesterday and today continues to improve low grade temps yesterday no subjective complaints feels he is more energetic no discomfort no hematuria Physical Exam Constitutional: well developed and well nourished Neck: neck nontender Respiratory: normal respiratory effort; no respiratory distress and does not use accessory muscles Cardiovascular: Rate/Rhythm: regular rate Vessels: radial pulses present Extremities: no edema Gastrointestinal (Abdomen): Inspection/Auscultation: abdomen normal to inspection Percussion/Palpation: abdomen soft; abdomen nontender and no guarding Musculoskeletal: Head/Neck/Chest: normocephalic and head atraumatic Extremities: extremities normal to inspection Skin: no rashes and no lesions Trauma: no evidence of skin trauma Neurologic: awake; not obtunded Speech / Cognition: normal speech Motor/Sensory: no tremor Psychiatric: Orientation: alert and oriented x 3 Genitourinary: no CVA tenderness Lymphatic: no lymphadenopathy Results & Data ([facility]) Vital Signs (Past 12 Hours) Vital Signs Temp Pulse Resp BP BP Pulse Ox 01/30/21 04:27 37.2 C 84 18 156/81 H 98 01/29/21 23:14 37.9 C H 84 18 167/79 H 96 PG Care Time/CCT Total # of Minutes Spent Total Time Spent with Patient: Total time spent is greater than 50% in coordination of care (as documented) at patient's floor/unit and/or counseling patient: Coding Level of Care Code 98587 Subseq Hosp Care Lvl 3 Diagnoses Bacteremia R78.81 UTI (urinary tract infection) N39.0; R31.9 Urinary tract infection type: site unspecified Hematuria presence: with hematuria Kidney stone N20.0 (1) UTI (urinary tract infection) Urinary tract infection type: site unspecified Hematuria presence: with hematuria Qualified Code(s): N39.0 - Urinary tract infection, site not specified; R31.9 - Hematuria, unspecified
[2021-01-30 08:06] LABS: Creatinine Clr Calc Pharmacy 24.1 ml/min; Est GFR (African American) 29.7; Est GFR (Non-African American) 25.6
[2021-01-30] MEDS: POTASSIUM CHLORIDE CRTAB 20 MEQ TABCR PO SCH (08:07)
[2021-01-30] MEDS: HEPARIN SOD 5,000 UNIT/0.5 ML VIAL SQ SCH ×2 (08:07→21:43)
[2021-01-30] MEDS: SACCHAROMYCES BOULARDII 250 MG CAP PO SCH (08:08)
[2021-01-30] MEDS: PANTOprazole 40 MG TAB PO SCH (08:08)
[2021-01-30] MEDS: CLOPIDOGREL BISULFATE 75 MG TAB PO SCH (20:53)
[2021-01-30] MEDS: TERAZOSIN HCL 5 MG CAP PO SCH (20:53)
[2021-01-31 07:49] LABS: Creatinine Clr Calc Pharmacy 24.7 ml/min; Est GFR (African American) 30.7; Est GFR (Non-African American) 26.5
[2021-01-31] MEDS: POTASSIUM CHLORIDE CRTAB 20 MEQ TABCR PO SCH (08:17)
[2021-01-31] MEDS: SACCHAROMYCES BOULARDII 250 MG CAP PO SCH (08:19)
[2021-01-31] MEDS: PANTOprazole 40 MG TAB PO SCH (08:19)
[2021-01-31] MEDS: HEPARIN SOD 5,000 UNIT/0.5 ML VIAL SQ SCH (08:19)
--- NOTE | 2021-01-31 12:04 | Urology Progress Note ---
Date of Service January 31, 2021 Assessment & Plan (1) UTI (urinary tract infection): Bacteremia/sepsis from an obstructed and infected kidney stone Very resistant Klebsiella Home with IV antibiotics x3 weeks All arrangements have been made Plan for discharge home this afternoonstable condition overall with creatinine back to baseline at 2.2 Admission and Anticipated Discharge Date Admission Date: January 24, 2021 Subjective Substantial subjective improvement Feeling much better Ultrasound-guided IV placed today Home nursing arranged for tomorrow morning to administer his antibiotic Anxious to go home Physical Exam Constitutional: well developed and well nourished Respiratory: no respiratory distress Cardiovascular: Extremities: no pedal edema Gastrointestinal (Abdomen): Inspection/Auscultation: abdomen normal to inspection Results & Data ([facility]) Vital Signs (Past 12 Hours) Vital Signs Temp Pulse Pulse Resp BP Pulse Ox 01/31/21 10:48 80 01/31/21 08:21 92 H 19 153/74 H 98 01/31/21 04:24 36.8 C 83 18 151/86 H 97 PG Care Time/CCT Total # of Minutes Spent Total Time Spent with Patient: Total time spent is greater than 50% in c oordination of care (as documented) at patient's floor/unit and/or counseling patient: Coding Level of Care Code 30181 Subseq Hosp Care Lvl 3 Diagnoses UTI (urinary tract infection) N39.0; R31.9 Urinary tract infection type: site unspecified Hematuria presence: with hematuria (1) UTI (urinary tract infection) Urinary tract infection type: site unspecified Hematuria presence: with hematuria Qualified Code(s): N39.0 - Urinary tract infection, site not specified; R31.9 - Hematuria, unspecified
--- NOTE | 2021-01-31 23:34 | Hospitalist Progress Note ---
Date of Service January 31, 2021 Assessment & Plan (1) Acute kidney injury: with a history of CKD stage III-IV and follows with nephrology. Baseline creatinine is 2.0-2.3 Presents here after having left ureterolithiasis and is now status post cystoscopy with left ureteral stent placement by urology on 01/24 Preoperative laboratory values showed creatinine up to 4.16, BUN up to 46, with an anion gap metabolic acidosis and hyponatremia. Acute kidney injury likely secondary to post renal obstruction versus intrinsic from infection; also took several doses of ibuprofen at home Nephrology consulted-appreciated Creatinine peaked at 4.25, now improved Has since been discontinued from bicarbonate drip due to volume overload -Appreciate nephrology consultation -Ureteral stent remains in place -Renally dose medications when appropriate and avoid nephrotoxins -avoid nephrotoxins -Treating infection as below -Support blood pressure- holding amlodipine from home (2) Bacteremia: As above, with ESBL Klebsiella x 2 With septicemia, POA with fever, tachycardia, leukocytosis, and bacteremia, UTI Continue Avycaz which will cover for both organisms With rigors, fever 39.2, and hypoxic respiratory failure on the evening of 01/25, and then milder rigors on 01/26 but now fevers resolved -Repeat blood cultures from 01/25-no growth to date over 48 hours now -Continue Tylenol as needed for fevers -Awaiting ID consultation-hopefully on Thursday Plan is to continue antibiotics until 02/16. Will need to have ureteral stents removed. Will obtain ultrasound peripheral line Antibiotic will be dosedfor twice a day until Creatinine clearance imprves to over 30. However his baseline number have not achieved over 30, this seems unlikely, that he would require an increase in his dosage to TID. ID and family are aware. Urology and or PCP will followup weekly labs. Appreciate input from Urology. Assisted with discharge planning with Urology and case management. 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 diff gene positive but toxin negative, so no need to treat for now -now afebrile, leukocytosis resolved, no significant abd pain -start Florastor improved, (5) Hypokalemia: improved, but remains low, will replace (6) Carbapenem-resistant Klebsiella pneumoniae infection: As above (7) Acute respiratory failure with hypoxia: Secondary to sepsis Chest x-ray on day of admission shows small left pleural effusion likely secondary to volume overload from acute kidney injury Chest x-ray on the evening of 01/25 shows worsening pulmonary edema and pleural effusions Chest x-ray on 01/26 is improved Pulse ox dropped to 82% while having rigors with fever on the evening of 01/25, required IV Lasix, BiPAP placement through the night Now weaned to room air and improved Also with small left pleural effusion which is now improved after IV Lasix Continue incentive spirometry Follow and keep pulse ox greater than 90% (8) Kidney stone: As above, left-sided ureterolithiasis now status post stent and lithotripsy Urology managing Pain control with oxycodone, acetaminophen Not really having much pain -will need stent removal in the future -Discontinue vitamin D in case contributing to development of kidney stones-his vitamin D-OH level from last year was in the 70s, although not hypercalcemic care (9) Chronic kidney disease, stage IV (severe): As above (10) Metabolic acidosis: As above, secondary to acute kidney injury Now resolved after being on bicarbonate drip Follow BMP -Have discontinued bicarbonate drip as above (11) Hyponatremia: Secondary to acute kidney injury, now resolved Follow BMP (12) Pleural effusion: Chest x-ray done x2 on 01/24, first was preoperative and the second 1 was postoperative for bibasilar crackles noted and requiring 2 to 3 L nasal cannula With left-sided small pleural effusion which is new since chest x-ray from a couple of months ago Could be some volume overload secondary to renal failure Improved now after IV Lasix (13) Sinus tachycardia: With persistent sinus tachycardia secondary to sepsis Now much improved after volume resuscitation Continue to treat sepsis as above Monitor on telemetry (14) Hyperbilirubinemia: Bilirubin mildly elevated at 1.5, other LFTs are normal Bilirubin now normal (15) Generalized weakness: No focal neurological deficits Feel he is just generalized weak from the sepsis PT/OT consultations placed (16) Visual disturbance: With about 1 week of intermittent visual disturbances prior to admission- seeing things that are not there that then disappear after 1 second Doubt this is neurologically related Recommend follow-up with ophthalmology after discharge (17) GERD (gastroesophageal reflux disease): No acute issues Continue PPI (18) 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 There is an increased [employer] hemorrhage risk with statins and low-cholesterols in people over 75. (19) Hypertension: Blood pressures were apparently elevated in the PACU but he was having rigors; question if this blood pressure was accurate He was given 1 dose of IV labetalol in the PACU and then blood pressures were in the 90s systolic BPs low during sepsis which is ow resolved If BPs remain mildly elevated as they are nowm can restart amlodipine in AM tomorrow (20) BPH (benign prostatic hypertrophy): With a history of TURP Watch for urine retention-PVRs have been 0 continue terazosin (21) DVT prophylaxis: SCDs, SQ heparin Disposition- continued stay in PCU, improving, Awaiting formal ID consult on Thursday and further improvement in ROSALVA. WIll likely need detention IV abx Admission and Anticipated Discharge Date Admission Date: January 24, 2021 Subjective PATIENT REPORTS NO NEW SYMPTOMS. Patient has questions about dosing. Also had extensive conversation with regarding dosing of antibiotic. Review of Systems Review of Systems: All systems reviewed & are unremarkable except as noted in HPI & below Physical Exam Physical Exam: Constitutional: WD/WN, vitals as above Eyes: + anicteric sclerae Neck: trachea midline, no thyromegaly Respiratory: normal respiratory effort; no cough Chest (Breasts): Chest: normal inspection of chest Musculoskeletal: Extremities: extremities normal to inspection; no cyanosis and no clubbing Skin: no rashes, warm and dry Neurologic: moves all extremities and awake Psychiatric: euthymic affect Lymphatic: no lymphedema Results & Data Results & Data ([facility]) Vital Signs (Past 12 Hours) Vital Signs Temp Pulse Pulse Resp BP Pulse Ox 01/31/21 14:22 36.9 C 79 14 L 20 163/76 H 97 01/31/21 12:41 36.9 C 79 20 163/76 H 97 PG Care Time/CCT Total # of Minutes Spent Total Time Spent with Patient: Total time spent is greater than 50% in coordination of care (as documented) at patient's floor/unit and/or counseling patient: Prolonged Care Time Prolonged Care Time: Yes Total Prolonged Care Time: 67 9:00 to 9:10 12:00 to 12:05 4:08 to 5:00 Coding Level of Care Code 53441 Subseq Hosp Care Lvl 3 Diagnoses Acute kidney injury N17.9 Bacteremia R78.81 UTI (urinary tract infection) N39.0; R31.9 Hematuria presence: with hematuria Urinary tract infection type: site unspecified Diarrhea R19.7 Hypokalemia E87.6 Carbapenem-resistant Klebsiella pneumoniae infection A49.8 Acute respiratory failure with hypoxia J96.01 Kidney stone N20.0 Chronic kidney disease, stage IV (severe) N18.4 Metabolic acidosis E87.2 Hyponatremia E87.1 Pleural effusion J90 Sinus tachycardia R00.0 Hyperbilirubinemia E80.6 Generalized weakness R53.1 Visual disturbance H53.9 GERD (gastroesophageal reflux disease) K21.9 Left pontine stroke I63.50 Hypertension I10 Hypertension type: essential hypertension BPH (benign prostatic hypertrophy) N40.0 Lower urinary tract symptom presence: symptoms absent DVT prophylaxis Z29.9 Additional Codes Prolonged Care Time - Prolonged Care Time: Yes ([id number]) (1) UTI (urinary tract infection) Hematuria presence: with hematuria Urinary tract infection type: site unspecified Qualified Code(s): N39.0 - Urinary tract infection, site not specified; R31.9 - Hematuria, unspecified (2) BPH (benign prostatic hypertrophy) Lower urinary tract symptom presence: symptoms absent Qualified Code(s): N40.0 - Benign prostatic hyperplasia without lower urinary tract symptoms (3) Hypertension Hypertension type: essential hypertension Qualified Code(s): I10 - Essential (primary) hypertension
--- NOTE | 2021-02-06 10:17 | Discharge Summary ---
Date of Service February 06, 2021 Admission HPI Per Admitting Provider 80-year-old gentleman with a history of CKD and kidney stones who presented to the hospital after being seen in the office with an acute, obstructing left ureteral calculus He was presenting for surgical intervention in the form of ureteroscopy Of note, he is chronically colonized urine with Klebsiella Principal Diagnosis Sepsis; kidney stones; CKD Discharge Data Allergies Allergy/AdvReac Type Severity Reaction Status Date / Time iodine Allergy Severe RASHES Verified 01/24/21 07:29 Consultations 01/24/21 12:29 Consult Hospitalist Routine 01/24/21 13:35 Consult Nephrology Routine 01/24/21 15:37 Consult Infectious Diseases Routine Procedures Performed Operation Date: 01/24/21 08:35 Actual Procedures p Left Laser Destruction of Stone, (Left) - Anshul Flores MD s Insertion of Left Stent Catheter(Left) - Anshul Flores MD s Cystoscopy, Ureteronephroscopy, Retrograde Pyelogram(Left) - Anshul Flores MD Operation Date: 01/25/21 12:55 <No data on this case meets the specified criteria> Ordered Studies 01/24/21 08:35 FL KUB Routine 01/30/21 08:35 US guide vascular access Routine Hospital Course (1) Carbapenem-resistant Klebsiella pneumoniae infection: (2) UTI (urinary tract infection): (3) Kidney stone: Dr. Bonner underwent cystoscopy ureteroscopy and laser lithotripsy with a planned outpatient procedure, however after the surgery he developed chills, fluctuating blood pressure and heart rate and other signs and symptoms concerning for development of sepsis Of note, he is chronically colonized with bacteria in his bladderthis has been present from the time of an episode of acute prostatitis approximately 5 years ago He also was hospitalized in [place] last year with a sepsis event after an obstructing kidney stone on the right He has chronic kidney diseasehis preop labs showed stability, however at the time of admission he had an acute rise in creatinine, doubling his baseline creatinine He was admitted, immediate consultation placed to nephrology as well as infectious disease, cultures were sent again Cultures ultimately returned a Klebsiella which was extremely resistant to standard antibiotics Given the balance between kidney function and antibiotic coverage, the full team input was required to be able to identify an appropriate and reasonable treatment He required relatively close care for several days. His creatinine unfortunately continued to worsen through his first 3/4 days of the hospitalization before it peaked and began to improve He ultimately was discharged home on IV antibioticsculture/sensitivity appropriate, he also had essential resolution of his acute kidney failure back to his baseline CKD He was in stable condition at that time, he was ambulatory, he was tolerating a diet and clinically appeared well Total Time Total Time Spent Total Time Spent (In Minutes): 60 Total Time Includes: Examination of the Patient, Discharge Planning, Medication Reconciliation, Communication With Other Providers and Other Discharge Plan Discharge Items Patient Disposition: Home - Home Health Services Reason For Visit: Calculus of Kidney, Renal Insufficiency Discharge Diagnosis: calculus of the left ureter, bacteremia, ROSALVA Activity: Resume your previous activity Lifting: Gradually increase as tolerated Bathing: No limitations Sexual Activity: When tolerated Exercise/Sports: Gradually increase as tolerated Driving/Machine Use: No limitations Non-emergency contact: Surgeon, Hand I Tube Bender and Urologist Call non-emergency contact if: you have any medication questions, your pain is not controlled, your pain is worsening, you have a fever and your temperature is above 101 Follow-up/Referrals: Anshul Flores MD [Physician] - 02/11/21 11:20 am Albina Cruz DO [Primary Care Provider] - 02/05/21 3:10 pm (WILL SEE HAILEY GUTIÉRREZ) Diet: Regular Addtl Attending Provider Instructions: Please take all medications as prescribed and keep all follow-ups as scheduled. Please call our office at [phone] with any questions, concerns or need to reschedule appointments for any reason. We are happy to assist you. Your stent removal is scheduled 02/11/21 at 11:[address] Flores in the office. You will continue your home IV antibiotics as directed. A prescription was arranged for IV Avycaz 0.94 grams Q12 hours until 02/15. It is recommended that you obtain routine, weekly blood work to assess your kidney function. Please continue to follow closely with your assistant front end manager as well. [facility] will start seeing you on Thursday morning. While you have a ureteral stent in place: Some discomfort is normal. Certain movements may trigger pain or a feeling that you need to urinate. You may also feel mild soreness or pressure before or during urination. These symptoms should go away a few days after the stent is removed. Your urine may be slightly pink or red. This is due to bleeding caused by minor irritation from the stent. This may happen on and off while you have the stent, it is not harmful and is to be expected. Medication to help minimize discomfort or bladder spasms, or to prevent infection may be prescribed. Take this as directed. Drink plenty of fluids to help flush out your urinary tract. If you go home with a catheter, wash with soapy water and a fresh washcloth twice daily. We recommend mild bar soap such as Dial or Dove. How long will you need a stent? An appointment should already be made for you for stent removal, unless directed otherwise. The stent is often taken out after the blockage in the ureter is treated or the ureter has healed. This may take 1-2 weeks, or longer. If a stent is needed for a longer period of time, it may need to be exchanged every few months. Likely prior to your followup appointment you will be asked to get an X-ray, please complete this the night before or morning of your appointment. When to call [facility] at [phone]: Your urine contains heavy blood clots You are constantly leaking urine Fever of 101F or higher, chills, nausea, or vomiting Your pain is not relieved with medication The end of the stent comes out of your urethra Pending Studies at Discharge: No Stand-Alone Forms: Anesthesia/Sedation, Adult, [facility], Smoking Cessation Medications and DC Order Prescriptions: Continued amlodipine 10 mg tablet 10 mg PO QAM RF: 0 oxycodone-acetaminophen 5-325 mg tablet 1 tab PO Q8H Qty: 21 RF: 0 ondansetron HCl [Zofran] 4 mg tablet 4 mg PO Q8H PRN (Reason: nausea and vomiting) Qty: 20 RF: 0 vitamin B complex 1 tab PO QAM RF: 0 cholecalciferol (vitamin D3) 125 mcg (5,000 unit) capsule 125 mcg PO QPM RF: 0 glucos sul [id number]-peo-zjcwe-C-Mn 2 cap PO QPM RF: 0 terazosin 5 mg Capsule 5 mg PO HS RF: 0 omeprazole 20 mg Capsule,Delayed Release(Dr/Ec) 20 mg PO QAM RF: 0 vitamin A-vitamin C-vit E-min Tablet 1 tab PO QAM RF: 0 Probiotic 10 billion cell Capsule 10,000 mmu cells PO QAM RF: 0 clopidogrel 75 mg tablet 75 mg PO QPM RF: 0 ferrous fumarate 55 mg (18 mg iron) Tablet Extended Release 55 mg PO QAM RF: 0 Discharge Orders: Discharge Order (Routine); Ordered 01/31/21 Ordered By: Tara Ramirez/Other Patient Handouts: Preventing Deep Vein Thrombosis, Having a Ureteral Stent Admission Data Admit Date/Time: 01/24/21 11:03 Attending Provider: Anshul Flores Admit Provider: Anshul Flores Primary Care Provider: Albina Cruz Other Providers: Willy Oconnor ; Mary Carson ; Josafat Lechuga ; Jose Gandhi ; Herbie Quarles ; Petar Cee ; Cathi Melchor ; Lorelei Camarena ; Geo Ortega ; Karely Crouch ; Chelsey Mcguire ; Raul Mitchell ; Minesh Johnson ; Ninfa Sprague ; Terry Pardo ; Francisco Javier Dowd ; Kenna De Paz ; Anshul Knight ; Josafat Moseley ; Dick Palomino ; Magi Joyce ; Rahat Carcamo ; Toya Edmond ; Miguelangel Sarmiento ; Carlo Sprague ; Pedro Mcguire I. ; El Delacruz II ; Sara Beck ; Preston Sharma ; [facility],Referral Center ; Elan Dang Other Interventions: Discharge Summary Assessment (RN) Last Done: 01/31/21 14:22 Coding Level of Care Code D/C Day Management >30 mins Diagnoses Carbapenem-resistant Klebsiella pneumoniae infection A49.8 UTI (urinary tract infection) N39.0; R31.9 Urinary tract infection type: site unspecified Hematuria presence: with hematuria Kidney stone N20.0
== END 2021-01-31 17:31 | disposition home health service (06) | DRG 853 ==
LOC: ASU 07:05 → 3N 11:03 → 2S 16:19

== ENCOUNTER 2021-12-31 14:47 | Inpatient (IN) ==
[2021-12-31 15:39] LABS: Basophils # (auto) 0.01 K/uL (0-0.2); Basophils % (auto) 0.1 %; Eosinophils # (auto) 0.01 K/uL (0-0.5); Eosinophils % (auto) 0.1 %; Hematocrit (blood only) 37.3 % (42-52); Hemoglobin 13.2 g/dL (14.0-18.0); Immature Granulocytes # (auto) 0.02 K/uL (0.00-0.02); Immature Granulocytes % (auto) 0.2 %; Lymphocytes # (auto) 0.68 K/uL (1.2-3.4); Lymphocytes % (auto) 7.3 %; Mean Corpuscular Hemoglobin 30.8 pg (25-34); Mean Corpuscular Hgb Conc 35.4 g/dL (32-36); Mean Corpuscular Volume 86.9 fL (80-100); Mean Platelet Volume 10.3 fL (7.4-10.4); Monocytes # (auto) 0.57 K/uL (0.11-0.59); Monocytes % (auto) 6.1 %; Neutrophils # (auto) 8.01 K/uL (1.4-6.5); Neutrophils % (auto) 86.2 %; Platelet Count 208 K/uL (130-400); RDW Coefficient of Variation 14.5 % (11.5-14.5); Red Blood Count 4.29 M/uL (4.7-6.1)
[2021-12-31 16:12] LABS: Alanine Aminotransferase 13 U/L (7-52); Albumin Globulin Ratio 1.1 (0.9-2); Albumin Level 4.6 gm/dl (3.4-5.0); Alkaline Phosphatase 76 U/L (34-104); Anion Gap 9 (3-11); Aspartate Aminotransferase 15 U/L (13-39); BUN Creatinine Ratio 12.6 (10-20); Bilirubin,Total 1.1 mg/dl (0.2-1.0); Blood Urea Nitrogen 25 mg/dl (6-23); Calcium 9.5 mg/dl (8.5-10.1); Carbon Dioxide 23 mmol/L (21-32); Chloride 105 mmol/L (98-107); Est GFR (Non-African American) 30.2 ml/min; Globulin 4.3 gm/dl (2.5-4.0); Glucose 146 mg/dl (70-99(Fasting)); Lipase 22 U/L (11-82); Potassium 4.1 mmol/L (3.5-5.1); Sodium 137 mmol/L (136-145); Total Protein 8.9 gm/dl (6.0-8.3)
--- NOTE | 2021-12-31 16:21 | Electrocardiogram Report ---
Test Reason : Blood Pressure : / mmHG Vent. Rate : 099 BPM Atrial Rate : 099 BPM P-R Int : 154 ms QRS Dur : 084 ms QT Int : 344 ms P-R-T Axes : 044 009 049 degrees QTc Int : 441 ms Normal sinus rhythm Normal ECG When compared with ECG of 25-JAN-2021 20:52, Criteria for Inferior infarct are no longer Present Confirmed by Abdiel Chávez ([id number]) on 12/31/2021 4:20:52 PM Referred By: Confirmed By:Abdiel Chávez
--- NOTE | 2021-12-31 16:34 | Emergency Department Note ---
Impression & Plan Acute epididymitis, UTI (urinary tract infection) ED Provider Note NAME: HONEY VELASQUEZ AGE: 81 SEX: M : 1940 ARRIVES VIA: Walk-In INFORMANT: Patient ED PROVIDER(S): Herbie Craft DO CHIEF COMPLAINT: right testicular pain HPI: Patient is an 81-year-old male who presents to the ER with right testicular pain. He notes for the past 2 to 3 days he has had been having dysuria, urgency, and some frequency. He denies any headache or change in her vision. No chest pain or shortness of breath. No belly pain with exception of right testicular pain. This has been swollen/become more painful over the past 24 hours. Patient notes that he called Dr. Flores he was referred in. He has been having a string of infections with Klebsiella and has become sepsis with these. He admits to feeling hot and cold. ROS: See above HPI for pertinent positives & negatives. A total of 10 systems reviewed and were otherwise negative. PAST MEDICAL HISTORY:See Below PAST SURGICAL HISTORY:See Below FAMILY HISTORY:See Below SOCIAL HISTORY:See Below HOME MEDICATIONS:See Below ALLERGIES:See Below VITALS:See Below PHYSICAL EXAMINATION: GENERAL: Sitting up in bed, alert, well appearing, well nourished, no distress, non-toxic EYE EXAM: normal conjunctiva. PERRL and EOM's grossly intact. OROPHARYNX: no exudate, no erythema, lips, buccal mucosa, and tongue normal and mucous membranes are moist NECK: supple, no nuchal rigidity, no adenopathy, non-tender LUNGS: Clear to auscultation. Normal chest wall mechanics HEART: no murmurs, S1 normal and S2 normal : Enlarged tender and erythematous right testicle. No appreciable hernia ABDOMEN: abdomen soft, non-tender, normo-active bowel sounds, no masses, no rebound or guarding. UPPER EXTREMITIES: upper extremities are grossly normal. LOWER EXTREMITIES: No pitting edema. NEURO EXAM: Normal sensorium, cranial nerves II-XII grossly intact, normal speech, no gross weakness of arms, no gross weakness of legs. MEDICAL DECISION MAKING: Patient is an 81-year-old male who follows with infectious disease, urology and nephrology who presents the ER for urinary symptoms in combination with right testicular pain and swelling. IV was established blood work was obtained. Labs show no significant leukocytosis. No anemia. BMP with a creatinine 1.9 which is improved from previous which normally runs in the low twos. T bili slightly up at 1.1. LFTs and lipase were negative. UA with leuks whites and +1 bacteria and only 5 epithelial cells. Ultrasound shows a large right epididymis. With the previous Klebsiella infections discussed with Dr. Flores who recommended meropenem. This is consistent with his previous sensitivities. He was given 2 dose of IV morphine as well as fluids and Zofran. Discussed with Dr. Jaydon Castle for admission. Triage Nursing notes reviewed. Limited review of prior medical records performed Vital Signs: reviewed and remarkable for no significant abnormalities Differential diagnosis: Testicular torsion, mass, infection, hernia, hydrocele, epididymitis, STI, trauma, intra-abdominal process, as well as other pathologies. ER treatment provided: See below Diagnostics interpreted by me: ECG: none Cardiac Monitoring: An order was placed for continuous cardiac monitoring. The monitor shows a rate of 101 with sinus rhythm. Laboratory studies: As stated above and show below. Imaging studies: Ultrasound shows epididymitis Consultation(s): Discussed with Dr. 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, 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) Feels Safe at Home: Yes Assistive Devices: None Allergies Allergies Allergy/AdvReac Type Severity Reaction Status Date / Time Iodinated Contrast Media Allergy Severe Rashes Unverified 12/31/21 16:03 iodine Allergy Severe RASHES Verified 12/31/21 16:02 Home Meds Home Medications Medication Instructions Recorded Confirmed terazosin 5 mg capsule 5 mg PO HS 11/29/19 12/31/21 cholecalciferol (vitamin D3) 125 125 mcg PO QPM cap 04/24/20 12/31/21 mcg (5,000 unit) capsule amlodipine 10 mg tablet 10 mg PO QAM 01/02/21 12/31/21 Lactobacillus acidophilus 10 10,000 mmu cells PO QAM 01/23/21 12/31/21 billion cell capsule (Probiotic) clopidogrel 75 mg tablet 75 mg PO QPM 01/23/21 12/31/21 omeprazole 20 mg capsule,delayed 20 mg PO QAM 01/23/21 12/31/21 release vitamin A-vitamin C-vit E-min 1 tab PO QAM 01/23/21 12/31/21 tablet ferrous sulfate 27 mg iron tablet 27 mg PO DAILY 12/31/21 12/31/21 glucosamine sulf dipot 2 cap PO HS 12/31/21 12/31/21 chlr,msm,chond 550 mg-C 30 mg-que 1 mg capsule (Glucosamine Chondroitin) loratadine 10 mg tablet 10 mg PO HS 12/31/21 12/31/21 magnesium oxide 400 mg PO DAILY 12/31/21 12/31/21 vitamin B complex 1 tab PO DAILY 12/31/21 12/31/21 Results & Data (ED) Vital Signs Vital Signs - 24 hr 12/31/21 14:58 12/31/21 15:02 12/31/21 15:56 Temperature 37.6 C H 37.5 C Temperature Source Temporal Artery Scan Oral Pulse Rate 107 H Pulse Rate [Left Radial] 101 H Pulse Rate from SpO2 Sensor Pulse Rhythm [Left Radial] Regular Respiratory Rate 18 14 Respiratory Effort / Characteristics Non-Labored Respiratory Depth Normal Blood Pressure 149/85 H Blood Pressure [Left Arm] 174/93 H Blood Pressure Mean 106 Blood Pressure Mean [Left Arm] 120 Blood Pressure Position [Left Arm] Lying Pulse Oximetry 98 98 98 Oxygen Delivery Method Room Air Room Air Room Air Sepsis Recent Fever Within 48 Hours Yes Sepsis New/Unexplained Change in Mental Status No Sepsis Action Taken by Nursing No Action Required 12/31/21 16:28 12/31/21 16:30 12/31/21 17:35 Temperature Temperature Source Pulse Rate 99 H 101 H 97 H Pulse Rate [Left Radial] Pulse Rate from SpO2 Sensor 101 H 104 H 94 H Pulse Rhythm [Left Radial] Respiratory Rate 21 20 17 Respiratory Effort / Characteristics Respiratory Depth Blood Pressure 163/88 H Blood Pressure [Left Arm] Blood Pressure Mean 113 Blood Pressure Mean [Left Arm] Blood Pressure Position [Left Arm] Pulse Oximetry 99 99 97 Oxygen Delivery Method Sepsis Recent Fever Within 48 Hours Sepsis New/Unexplained Change in Mental Status Sepsis Action Taken by Nursing 12/31/21 17:53 12/31/21 18:00 Temperature Temperature Source Pulse Rate 100 H Pulse Rate [Left Radial] 98 H Pulse Rate from SpO2 Sensor 101 H Pulse Rhythm [Left Radial] Regular Respiratory Rate 20 16 Respiratory Effort / Characteristics Non-Labored Respiratory Depth Normal Blood Pressure 164/85 H Blood Pressure [Left Arm] 163/88 H Blood Pressure Mean 111 Blood Pressure Mean [Left Arm] 113 Blood Pressure Position [Left Arm] Lying Pulse Oximetry 98 97 Oxygen Delivery Method Room Air Sepsis Recent Fever Within 48 Hours Sepsis New/Unexplained Change in Mental Status Sepsis Action Taken by Nursing Laboratory Data Result diagrams: 12/31/21 15:20 12/31/21 15:20 Lab Results 12/31/21 12/31/21 12/31/21 Range/Units 15:20 15:20 17:50 WBC 9.30 (4.8-10.8) K/uL RBC 4.29 L (4.7-6.1) M/uL Hgb 13.2 L (14.0-18.0) g/dL Hct 37.3 L (42-52) % MCV 86.9 (80-100) fL MCH 30.8 (25-34) pg MCHC 35.4 (32-36) g/dL RDW Std Deviation 46.0 (36.4-46.3) fL RDW Coeff of Rickey 14.5 (11.5-14.5) % Plt Count 208 (130-400) K/uL MPV 10.3 (7.4-10.4) fL Immature Gran % (Auto) 0.2 % Neut % (Auto) 86.2 % Lymph % (Auto) 7.3 % Cottle % (Auto) 6.1 % Eos % (Auto) 0.1 % Baso % (Auto) 0.1 % Neut # (Auto) 8.01 H (1.4-6.5) K/uL Lymph # (Auto) 0.68 L (1.2-3.4) K/uL Cottle # (Auto) 0.57 (0.11-0.59) K/uL Eos # (Auto) 0.01 (0-0.5) K/uL Baso # (Auto) 0.01 (0-0.2) K/uL Immature Gran # (Auto) 0.02 (0.00-0.02) K/uL Sodium 137 (136-145) mmol/L Potassium 4.1 (3.5-5.1) mmol/L Chloride 105 (98-107) mmol/L Carbon Dioxide 23 (21-32) mmol/L Anion Gap 9 (3-11) BUN 25 H (6-23) mg/dl Creatinine 1.99 H (0.6-1.4) mg/dl Est Cr Clr Drug Dosing Not Reportable Est GFR ( Amer) 35.0 ml/min Est GFR (Non-Af Amer) 30.2 ml/min BUN/Creatinine Ratio 12.6 (10-20) Glucose 146 H (70-99(Fasting)) mg/dl Calcium 9.5 (8.5-10.1) mg/dl Total Bilirubin 1.1 H (0.2-1.0) mg/dl AST 15 (13-39) U/L ALT 13 (7-52) U/L Alkaline Phosphatase 76 (34-104) U/L Total Protein 8.9 H (6.0-8.3) gm/dl Albumin 4.6 (3.4-5.0) gm/dl Globulin 4.3 H (2.5-4.0) gm/dl Albumin/Globulin Ratio 1.1 (0.9-2) Lipase 22 (11-82) U/L Urine Color [place] Urine Appearance Cloudy A (Clear) Urine pH 6.5 (4.5-7.5) Ur Specific [place] 1.016 (1.000-1.030) Urine Protein 2+ H (Negative) Urine Glucose (UA) Negative (Negative) Urine Ketones Negative (Negative) Urine Blood 3+ H (Negative) Urine Nitrite Negative (Negative) Urine Bilirubin Negative (Negative) Urine Urobilinogen Negative (Negative) Ur Leukocyte Esterase 2+ H (Negative) Urine WBC (Auto) >30 H (0-5) /hpf Urine RBC (Auto) >30 H (0-4) /hpf U Hyaline Cast (Auto) 0 (0-5) /lpf U Epithel Cells (Auto) 5-10 H (0-5) /lpf Urine Bacteria (Auto) 1+ H (Negative) Urine Yeast Not Reportable Administered Medications Discontinued Medications Morphine Sulfate (Morphine Sulfate 2 Mg/Ml Carp) 2 mg IV NOW STA Stop: 12/31/21 17:37 Last Admin: 12/31/21 17:45 Dose: 2 mg Documented by: [id number] Morphine Sulfate (Morphine Sulfate 4 Mg/Ml 1 Ml Carp\Vial) 4 mg IV NOW STA Stop: 12/31/21 18:40 Last Admin: 12/31/21 18:44 Dose: 4 mg Documented by: [id number] Ondansetron HCl (Ondansetron Inj 2 Mg/Ml 2 Ml Vial) 4 mg IV NOW STA Stop: 12/31/21 17:37 Last Admin: 12/31/21 17:46 Dose: 4 mg Documented by: [id number] Imaging Data Radiologist's Impression: Scrotum Ultrasound 12/31/21 16:23 US scrotum/testicle CLINICAL HISTORY: r testicular pain. COMPARISON: None. TECHNIQUE: Grayscale, color images and Doppler spectral waveform assessment of the scrotum. FINDINGS: Right testicle: The testicle is normal in size and homogeneous in echogenicity. There is no evidence for testicular mass. There is slight increased flow to the right testis when compared to the left. Right testicular size: 4.1 x 2.9 x 2.7 cm. Right epididymis: The epididymis is grossly enlarged and heterogeneous in echogenicity. Diffuse increased vascularity is present with the findings characteristic of marked epididymitis. Right hemiscrotum: There is a very small right hydrocele. There is no evidence for a varicocele. Left testicle: The testicle is normal in size and homogeneous in echogenicity. There is no evidence for testicular mass. There is anatomic color flow Doppler to the testes. Left testicular size: 4.6 x 2.7 x 2.8 cm. Left epididymis: The epididymis is normal in size. There is no evidence for cyst or mass. Left hemiscrotum: There is no evidence for a hydrocele. There is no evidence for a varicocele. IMPRESSION: 1. Slight increased flow to the right testis when compared to the left. The testes are otherwise normal bilaterally. 2. Marked enlargement of the right epididymis with heterogeneous echogenicity and marked increased flow present. The findings are characteristic of epididymitis. 3. Small right hydrocele. ACT 112: Negative or not required by law. Electronically signed by: Aleksander Cramer M.D. 12/31/2021 5:17 PM Discharge Plan Visit Data Chief Complaint: Testicular Pain Stated Complaint: IV ANTIBIOTICS FOR POSS KIDNEY INFECTION, DR REFER ED Provider: Herbie Craft Discharge Problem: Acute epididymitis, UTI (urinary tract infection) Forms Stand Alone Forms: [facility] Prescriptions Prescriptions: No Action amlodipine 10 mg tablet 10 mg PO QAM RF: 0 cholecalciferol (vitamin D3) 125 mcg (5,000 unit) capsule 125 mcg PO QPM RF: 0 terazosin 5 mg Capsule 5 mg PO HS RF: 0 omeprazole 20 mg Capsule,Delayed Release(Dr/Ec) 20 mg PO QAM RF: 0 vitamin A-vitamin C-vit E-min Tablet 1 tab PO QAM RF: 0 Probiotic 10 billion cell Capsule 10,000 mmu cells PO QAM RF: 0 clopidogrel 75 mg tablet 75 mg PO QPM RF: 0 vitamin B complex Tablet 1 tab PO DAILY RF: 0 loratadine 10 mg Tablet 10 mg PO HS RF: 0 ferrous sulfate 27 mg iron Tablet 27 mg PO DAILY RF: 0 Glucosamine Chondroitin 550-30-1 mg Capsule 2 cap PO HS RF: 0 magnesium oxide 400 mg magnesium Tablet 400 mg PO DAILY RF: 0 Referrals Referrals: Albina Cruz DO [Primary Care Provider] - Discharge Problem: UTI (urinary tract infection) Qualifiers: Urinary tract infection type: site unspecified Hematuria presence: with hematuria Qualified Code(s): N39.0 - Urinary tract infection, site not specified
--- NOTE | 2021-12-31 17:20 | Ultrasound Report ---
US scrotum/testicle CLINICAL HISTORY: r testicular pain. COMPARISON: None. TECHNIQUE: Grayscale, color images and Doppler spectral waveform assessment of the scrotum. FINDINGS: Right testicle: The testicle is normal in size and homogeneous in echogenicity. There is no evidence for testicular mass. There is slight increased flow to the right testis when compared to the left. Right testicular size: 4.1 x 2.9 x 2.7 cm. Right epididymis: The epididymis is grossly enlarged and heterogeneous in echogenicity. Diffuse incr eased vascularity is present with the findings characteristic of marked epididymitis. Right hemiscrotum: There is a very small right hydrocele. There is no evidence for a varicocele. Left testicle: The testicle is normal in size and homogeneous in echogenicity. There is no evidence for testicular mass. There is anatomic color flow Doppler to the testes. Left testicular size: 4.6 x 2.7 x 2.8 cm. Left epididymis: The epididymis is normal in size. There is no evidence for cyst or mass. Left hemiscrotum: There is no evidence for a hydrocele. There is no evidence for a varicocele. IMPRESSION: 1. Slight increased flow to the right testis when compared to the left. The testes are ot herwise normal bilaterally. 2. Marked enlargement of the right epididymis with heterogeneous echogenicity and marked increased fl ow present. The findings are characteristic of epididymitis. 3. Small right hydrocele. ACT 112: Negative or not required by law. Electronically signed by: Aleksander Cramer M.D. 12/31/2021 5:17 PM
[2021-12-31] MEDS ORDERED: MoRPHine SULFATE 2 MG/ML CARP IV STA (17:36)
[2021-12-31] MEDS ORDERED: ONDANSETRON INJ 2 MG/ML 2 ML VIAL IV STA (17:36)
[2021-12-31] MEDS ORDERED: MEROPENEM 500 MG in SYRINGE 0 ML IV STA (17:51)
[2021-12-31] MEDS ORDERED: MEROPENEM CONSULT ACTIVE PRN (17:51)
[2021-12-31 18:02] LABS: Appearance Urine Cloudy (Clear); Bacteria Urine Automated 1+ (Negative); Bilirubin Urine Negative (Negative); Blood Urine 3+ (Negative); Color Urine Orange; Glucose Urine UA Negative (Negative); Ketones Urine Negative (Negative); Leukocyte Esterase Urine 2+ (Negative); Nitrite Urine Negative (Negative); Protein Urine 2+ (Negative); Specific Gravity Urine 1.016 (1.000-1.030); Urobilinogen Urine Negative (Negative); WBC Urine Automated >30 /hpf (0-5); pH Urine 6.5 (4.5-7.5)
[2021-12-31 18:14] LABS: RBC Urine Automated >30 /hpf (0-4)
[2021-12-31 18:15] LABS: Cast Urine Automated 0 /lpf (0-5)
[2021-12-31] MEDS ORDERED: MoRPHine SULFATE 4 MG/ML 1 ML CARP\\VIAL IV STA (18:39)
--- NOTE | 2021-12-31 18:52 | History & Physical Report ---
Date of Service December 31, 2021 Assessment & Plan (1) Acute epididymitis: Plan: right-sided. has h/o ESBL klebsiella - recurrent infections. thus, will need to start broad with Meropenem IV. await urine & blood cultures. scrotal support/elevation. cool packs prn. pain meds prn. no evidence of torsion on u/s. low threshold for formal urology consultation w/ Dr Flores who knows Dr Bonner well. (2) UTI (urinary tract infection): Plan: ua highly suggestive and certainly has clinical/radiographic evidence of epididymitis. cont IV meropenem. follow blood/urine cx's. see #1 above for further information. gentle IV fluids overnight x 1 liter. (3) Benign localized prostatic hyperplasia with lower urinary tract symptoms (LUTS): Plan: despite #1, #2 he appears to be voiding without difficulty. no evidence of obstruction on CT a/p today. cont alpha kelly. (4) GERD (gastroesophageal reflux disease): Plan: cont PPI. (5) Chronic kidney disease, stage IV (severe): Plan: baseline CrCl 20s, with baseline Cr ~1.9 to low 2's. follows with [facility]. gentle hydration overnight, bmp in am. (6) Hypertension: Plan: uncontrolled while in the ER - simply trend for now. cont amlodipine. cont alpha kelly. adjust meds if needed. (7) Hematuria, gross: Plan: CT a/p obtained to r/o obstructing kidney stone -- this was not seen. hematuria could be2nd to bladder infection, prostatitis, etc. follow. treat #1, #2. (8) History of stroke: Plan: cont plavix for secondary prevention. (9) Kidney stones: Plan: CT a/p obtained to r/o obstructing stone on right given his RLQ abd pain - negative for obstructing stones; does have tiny stones in L renal pelvis but no hydronephrosis either side. (10) DVT prophylaxis: Plan: if gross hematuria resolves then consider adding heparin 5000 BID in meantime - SCDs Plan: updated at bedside History of Present Illness Chief Complaint: gross hematuria, right testicular pain, RLQ abdominal pain Primary Care Provider: Albina Cruz, DO 81yo male with h/o BPH, kidney stones, recurrent MDR ESBL klebsiella UTIs, and prior bacteremia due to klebsiella infection presents with 3-4 days of low-grade fevers (99-100.5), gross hematuria, fatigue, and simply feeling unwell. Then, about 24 hours ago, he developed right testicular pain and swelling. Further, he has had right groin pain and right anterior upper thigh pain over the last few days. He is followed by Dr Nicholas Flores of [facility] for his urological issues. He contacted their office and they advised him to come to the ER today for evaluation. Allergies Allergy/AdvReac Type Severity Reaction Status Date / Time Iodinated Contrast Media Allergy Severe Rashes Unverified 12/31/21 16:03 iodine Allergy Severe RASHES Verified 12/31/21 16:02 Home Medications Medication Instructions Recorded Confirmed Type terazosin 5 mg capsule 5 mg PO HS 11/29/19 12/31/21 History cholecalciferol (vitamin D3) 125 125 mcg PO QPM cap 04/24/20 12/31/21 History mcg (5,000 unit) capsule amlodipine 10 mg tablet 10 mg PO QAM 01/02/21 12/31/21 History Lactobacillus acidophilus 10 10,000 mmu cells PO QAM 01/23/21 12/31/21 History billion cell capsule (Probiotic) clopidogrel 75 mg tablet 75 mg PO QPM 01/23/21 12/31/21 History omeprazole 20 mg capsule,delayed 20 mg PO QAM 01/23/21 12/31/21 History release vitamin A-vitamin C-vit E-min 1 tab PO QAM 01/23/21 12/31/21 History tablet ferrous sulfate 27 mg iron tablet 27 mg PO DAILY 12/31/21 12/31/21 History glucosamine sulf dipot 2 cap PO HS 12/31/21 12/31/21 History chlr,msm,chond 550 mg-C 30 mg-que 1 mg capsule (Glucosamine Chondroitin) loratadine 10 mg tablet 10 mg PO HS 12/31/21 12/31/21 History magnesium oxide 400 mg PO DAILY 12/31/21 12/31/21 History vitamin B complex 1 tab PO DAILY 12/31/21 12/31/21 History Past Med/Surg History Medical History (Updated 12/31/21 @ 19:54 by Josafat Lechuga) Asthma as child BPH (benign prostatic hyperplasia) 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 On Plavix Prostatitis 2016; with sepsis Surgical History History of colonoscopy History of cystoscopy History of lithotripsy History of tooth extraction wisdom teeth S/P TURP modified, during ureteral stent placement for kidney stone in [place] Family History (Updated 12/31/21 @ 19:50 by Josafat Lechuga) Family/Other Hypertension Diabetes Mother , old age at age 88 Breast cancer Hypertension Father , from complications of hip fracture No problems noted. 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 How many Children do You have: 2 other: 2 children; 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, 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) Feels Safe at Home: Yes Assistive Devices: Glasses Review of Systems Review of Systems: gen - fevers, chills, fatigue, weakness present; no significant weight changes of late; appetite good despite the fevers eyes - no vision changes HENT - no sore throat, runny nose or dysphagia neck - no pain CV - no chest pain or orthopnea or edema pulm - no cough, no dyspnea GI - no abdominal pain; fleeting nausea x 1 time only; no vomiting; no diarrhea; no blood in stools - no dysuria; has had gross hematuria, right testicular pain/swelling musculo - right upper thigh/groin pain; no joint effusions skin - no rash psych - no depression neuro - no headaches, no paresthesias Physical Exam Physical Exam: gen - very pleasant; looks tired & unwell but nontoxic eyes - PERRL HENT - cerumen b/l ear canals; mouth - MMM neck - supple, no lymphadenopathy or thyroid masses heart - RRR, s1 s2, no murmur lungs - CTA b/l abd - minimal discomfort RLQ to palpation; soft otherwise; ND; BS+; no HSM - right testicle/epididymis warm, very swollen and tender to palpation; left testicle wnl musculo - NO pain of right hip with passive flexion/extension; no joint effusions skin - no rash ext - no edema, pulses 2+ b/l psych - a/o x 3 lymph - no cervical lymph nodes neuro - strength 5/5 x 4 exts; DTRs 2+ b/l upper & lower exts Results & Data Results & Data ([facility]) Vital Signs (Past 12 Hours) Vital Signs Temp Pulse Pulse Resp BP BP Pulse Ox 12/31/21 18:00 100 H 16 164/85 H 97 12/31/21 17:53 98 H 20 163/88 H 98 12/31/21 17:35 97 H 17 163/88 H 97 12/31/21 16:30 101 H 20 99 12/31/21 16:28 99 H 21 99 12/31/21 15:56 37.5 C 101 H 14 174/93 H 98 12/31/21 15:02 98 12/31/21 14:58 37.6 C H 107 H 18 149/85 H 98 Laboratory Results Laboratory Results - last 24 hr 12/31/21 12/31/21 12/31/21 15:20 15:20 17:50 WBC 9.30 RBC 4.29 L Hgb 13.2 L Hct 37.3 L MCV 86.9 MCH 30.8 MCHC 35.4 RDW Std Deviation 46.0 RDW Coeff of Rickey 14.5 Plt Count 208 MPV 10.3 Immature Gran % (Auto) 0.2 Neut % (Auto) 86.2 Lymph % (Auto) 7.3 Pacific % (Auto) 6.1 Eos % (Auto) 0.1 Baso % (Auto) 0.1 Neut # (Auto) 8.01 H Lymph # (Auto) 0.68 L Pacific # (Auto) 0.57 Eos # (Auto) 0.01 Baso # (Auto) 0.01 Immature Gran # (Auto) 0.02 Sodium 137 Potassium 4.1 Chloride 105 Carbon Dioxide 23 Anion Gap 9 BUN 25 H Creatinine 1.99 H Est Cr Clr Drug Dosing Not Reportable Est GFR ( Amer) 35.0 Est GFR (Non-Af Amer) 30.2 BUN/Creatinine Ratio 12.6 Glucose 146 H Calcium 9.5 Total Bilirubin 1.1 H AST 15 ALT 13 Alkaline Phosphatase 76 Total Protein 8.9 H Albumin 4.6 Globulin 4.3 H Albumin/Globulin Ratio 1.1 Lipase 22 Urine Color Gamaliel Urine Appearance Cloudy A Urine pH 6.5 Ur Specific [place] 1.016 Urine Protein 2+ H Urine Glucose (UA) Negative Urine Ketones Negative Urine Blood 3+ H Urine Nitrite Negative Urine Bilirubin Negative Urine Urobilinogen Negative Ur Leukocyte Esterase 2+ H Urine WBC (Auto) >30 H Urine RBC (Auto) >30 H U Hyaline Cast (Auto) 0 U Epithel Cells (Auto) 5-10 H Urine Bacteria (Auto) 1+ H Urine Yeast Not Reportable SARS-CoV-2, RNA, NAAT 12/31/21 19:37 WBC RBC Hgb Hct MCV MCH MCHC RDW Std Deviation RDW Coeff of Rickey Plt Count MPV Immature Gran % (Auto) Neut % (Auto) Lymph % (Auto) Pacific % (Auto) Eos % (Auto) Baso % (Auto) Neut # (Auto) Lymph # (Auto) Pacific # (Auto) Eos # (Auto) Baso # (Auto) Immature Gran # (Auto) Sodium Potassium Chloride Carbon Dioxide Anion Gap BUN Creatinine Est Cr Clr Drug Dosing Est GFR ( Amer) Est GFR (Non-Af Amer) BUN/Creatinine Ratio Glucose Calcium Total Bilirubin AST ALT Alkaline Phosphatase Total Protein Albumin Globulin Albumin/Globulin Ratio Lipase Urine Color Urine Appearance Urine pH Ur Specific [place] Urine Protein Urine Glucose (UA) Urine Ketones Urine Blood Urine Nitrite Urine Bilirubin Urine Urobilinogen Ur Leukocyte Esterase Urine WBC (Auto) Urine RBC (Auto) U Hyaline Cast (Auto) U Epithel Cells (Auto) Urine Bacteria (Auto) Urine Yeast SARS-CoV-2, RNA, NAAT Pending Diagnostic Findings Scrotum Ultrasound 12/31/21 16:23 US scrotum/testicle CLINICAL HISTORY: r testicular pain. COMPARISON: None. TECHNIQUE: Grayscale, color images and Doppler spectral waveform assessment of the scrotum. FINDINGS: Right testicle: The testicle is normal in size and homogeneous in echogenicity. There is no evidence for testicular mass. There is slight increased flow to the right testis when compared to the left. Right testicular size: 4.1 x 2.9 x 2.7 cm. Right epididymis: The epididymis is grossly enlarged and heterogeneous in echogenicity. Diffuse increased vascularity is present with the findings characteristic of marked epididymitis. Right hemiscrotum: There is a very small right hydrocele. There is no evidence for a varicocele. Left testicle: The testicle is normal in size and homogeneous in echogenicity. There is no evidence for testicular mass. There is anatomic color flow Doppler to the testes. Left testicular size: 4.6 x 2.7 x 2.8 cm. Left epididymis: The epididymis is normal in size. There is no evidence for cyst or mass. Left hemiscrotum: There is no evidence for a hydrocele. There is no evidence for a varicocele. IMPRESSION: 1. Slight increased flow to the right testis when compared to the left. The testes are otherwise normal bilaterally. 2. Marked enlargement of the right epididymis with heterogeneous echogenicity and marked increased flow present. The findings are characteristic of epididymitis. 3. Small right hydrocele. ACT 112: Negative or not required by law. Electronically signed by: Aleksander Cramer M.D. 12/31/2021 5:17 PM Abdomen/Pelvis CT 12/31/21 19:36 CT abd pelvis wo con CLINICAL HISTORY: RLQ abd pain; eval for stone . Previous history of stones. COMPARISON STUDY: 06/13/2020 CT DOSE: 277.61 mGy.cm TECHNIQUE: Standard CT of the Abdomen and Pelvis was performed without IV contrast. The patient did not receive oral contrast. A dose lowering technique was utilized adhering to the principles of ALARA. FINDINGS: Lung base: The lung bases are clear. Abdominal cavity: There is no evidence for abdominal mass, adenopathy or ascites. Liver: The liver is homogeneous in attenuation on these limited noncontrast images.. Spleen: The spleen is homogeneous in attenuation on these limited noncontrast images. Pancreas: The pancreas is homogeneous in attenuation on these limited noncontrast images. Gall Bladder: The gallbladder is well distended with no evidence for cholelithiasis, wall thickening or pericholecystic edema.. Adrenal glands: The adrenal glands are normal in size and attenuation on these limited noncontrast images. Kidneys: The kidneys are homogeneous in attenuation on these limited noncontrast images. There are 2, 3 to 4 mm nonobstructing left renal calculi. There are no right renal calculi or hydronephrosis bilaterally. There are no gross renal masses identified on these limited noncontrast images. Bowel: The bowel loops are normally placed within the abdomen and pelvis without evidence for dilatation or obstruction. There is no evidence for mass lesion. There is sigmoid diverticulosis without evidence for diverticulitis. There are no inflammatory changes present. There is no evidence for free air. There is a normal appendix in the right lower quadrant. Bladder: There is distention of the bladder with no evidence for focal bladder wall thickening, calculus or diverticulum. : There is no evidence for pelvic mass or adenopathy. The prostate is moderately to markedly enlarged. Vasculature: There is no evidence for focal aneurysmal dilatation of the abdominal aorta. Atherosclerotic calcification is present. Osseous structures: There is no acute osseous pathology. Degenerative changes are seen within the spine. IMPRESSION: 1. No right renal calculus or hydronephrosis. 2. Normal appendix. 3. 2 nonobstructing left renal calculi. 4. Sigmoid diverticulosis without evidence for diverticulitis. 5. Additional nonacute findings are delineated above. ACT 112: Negative or not required by law. Electronically signed by: Aleksander Cramer M.D. 12/31/2021 8:19 PM EKG - NSR, no ST changes Code Status & VTE Plan Code Status DNR/DNI PG Care Time/CCT Total # of Minutes Spent Total Time Spent with Patient: Total time spent is greater than 50% in coordination of care (as documented) at patient's floor/unit and/or counseling patient: Coding Level of Care Code 80513 Initial Inpt Care Lvl 3 Diagnoses Acute epididymitis N45.1 UTI (urinary tract infection) N39.0; R31.9 Hematuria presence: with hematuria Urinary tract infection type: site unspecified Benign localized prostatic hyperplasia with lower urinary tract symptoms (LUTS) N40.1 GERD (gastroesophageal reflux disease) K21.9 Chronic kidney disease, stage IV (severe) N18.4 Hypertension I10 Hypertension type: essential hypertension Hematuria, gross R31.0 History of stroke Z86.73 Kidney stones N20.0 DVT prophylaxis Z29.9 (1) UTI (urinary tract infection) Hematuria presence: with hematuria Urinary tract infection type: site unspecified Qualified Code(s): N39.0 - Urinary tract infection, site not specified; R31.9 - Hematuria, unspecified (2) Hypertension Hypertension type: essential hypertension Qualified Code(s): I10 - Essential (primary) hypertension
--- NOTE | 2021-12-31 20:21 | CT Scan Report ---
CT abd pelvis wo con CLINICAL HISTORY: RLQ abd pain; eval for stone . Previous history of stones. COMPARISON STUDY: 06/13/2020 CT DOSE: 277.61 mGy.cm TECHNIQUE: Standard CT of the Abdomen and Pelvis was performed without IV contrast. The patient did not receive oral contrast. A dose lowering technique was utilized adhering to the principles of HARLEY Nolan FINDINGS: Lung base: The lung bases are clear. Abdominal cavity: There is no evidence for abdominal mass, adenopathy or ascites. Liver: The liver is homogeneous in attenuation on these limited noncontrast images.. Spleen: The spleen is homogeneous in attenuation on these limited noncontrast images. Pancreas: The pancreas is homogeneous in attenuation on these limited noncontrast images. Gall Bladder: The gallbladder is well distended with no evidence for cholelithiasis, wall thickening or pericholecystic edema.. Adrenal glands: The adrenal glands are normal in size and attenuation on these limited noncontrast im ages. Kidneys: The kidneys are homogeneous in attenuation on these limited noncontrast images. There are 2, 3 to 4 mm nonobstructing left renal calculi. There are no right renal calculi or hydronephrosis bila terally. There are no gross renal masses identified on these limited noncontrast images. Bowel: The bowel loops are normally placed within the abdomen and pelvis without evidence for dilatat ion or obstruction. There is no evidence for mass lesion. There is sigmoid diverticulosis without divine dence for diverticulitis. There are no inflammatory changes present. There is no evidence for free ai r. There is a normal appendix in the right lower quadrant. Bladder: There is distention of the bladder with no evidence for focal bladder wall thickening, calcu diaz or diverticulum. : There is no evidence for pelvic mass or adenopathy. The prostate is moderately to markedly enlarg ed. Vasculature: There is no evidence for focal aneurysmal dilatation of the abdominal aorta. Atheroscler otic calcification is present. Osseous structures: There is no acute osseous pathology. Degenerative changes are seen within the spi ne. IMPRESSION: 1. No right renal calculus or hydronephrosis. 2. Normal appendix. 3. 2 nonobstructing left renal calculi. 4. Sigmoid diverticulosis without evidence for diverticulitis. 5. Additional nonacute findings are delineated above. ACT 112: Negative or not required by law. Electronically signed by: Aleksander Cramer M.D. 12/31/2021 8:19 PM
[2021-12-31] MEDS ORDERED: SODIUM CHLORIDE 0.9% 1000ML 1,000 ML IV SCH (21:53)
[2021-12-31] MEDS ORDERED: ONDANSETRON INJ 2 MG/ML 2 ML VIAL IV PRN (21:53)
[2021-12-31] MEDS: MoRPHine SULFATE 2 MG/ML CARP IV PRN (22:57)
[2021-12-31] MEDS: LORATADINE 10 MG TAB PO SCH (23:03)
[2021-12-31] MEDS: CHOLECALCIFEROL 5,000 UNITS 125 MCG TAB PO SCH (23:03)
[2021-12-31] MEDS: CLOPIDOGREL BISULFATE 75 MG TAB PO SCH (23:03)
[2021-12-31] MEDS: TERAZOSIN HCL 5 MG CAP PO SCH (23:03)
[2022-01-01] MEDS: MEROPENEM 500 MG in SYRINGE 0 ML IV SCH ×3 (04:13→21:22)
[2022-01-01 06:58] LABS: BUN Creatinine Ratio 12.1 (10-20); Calcium 8.8 mg/dl (8.5-10.1); Est GFR (African American) 33.5 ml/min; Est GFR (Non-African American) 28.9 ml/min; Potassium 4.2 mmol/L (3.5-5.1)
[2022-01-01] MEDS: amLODIPine BESYLATE 5 MG TAB PO SCH (09:05)
[2022-01-01] MEDS: MAGNESIUM OXIDE 400 MG TAB PO SCH (09:05)
[2022-01-01] MEDS: PANTOprazole 40 MG TAB PO SCH (09:06)
[2022-01-01] MEDS: VITAMIN B COMPLEX TAB PO SCH (09:06)
[2022-01-01] MEDS: CEROVITE ADV FORMULA TAB PO SCH (09:06)
[2022-01-01] MEDS: MoRPHine SULFATE 2 MG/ML CARP IV PRN ×2 (09:10→21:22)
[2022-01-01] MEDS: ADVANCED PROBIOTIC 1250 MG CAPSULE PO SCH (16:49)
[2022-01-01] MEDS: LIDOCAINE 5% 1 PATCH TD SCH (16:49)
--- NOTE | 2022-01-01 19:16 | Hospitalist Progress Note ---
Date of Service January 01, 2022 Assessment & Plan (1) Acute epididymitis: Plan: right-sided. has h/o ESBL klebsiella colonization with recurrent infections. remains on Meropenem IV == continue while awaiting urine culture result. prelim urine cx with 100,000 CFU. cont scrotal support/elevation. cool packs prn. pain meds prn. no evidence of torsion on u/s. cont antibiotics. (2) Sepsis: Plan: 2nd to #1, #3 resolving hemodynamically stable nl wbc count fever curve trending down (3) UTI (urinary tract infection): Plan: 2nd GNR - final ID will dictate which abx to use. in meantime - Meropenem IV q8h. follow blood cx's received IV fluids overnight - now saline locked. if PO intake remains poor resume fluids. (4) Benign localized prostatic hyperplasia with lower urinary tract symptoms (LUTS): Plan: despite #1, #2 he appears to be voiding without difficulty. no evidence of obstruction on CT a/p at time of admission. cont alpha kelly. (5) GERD (gastroesophageal reflux disease): Plan: cont PPI. (6) Chronic kidney disease, stage IV (severe): Plan: baseline CrCl 20s, with baseline Cr ~1.9 to low 2's. follows with [facility]. Cr today is 2 - stable. BMP again in am. (7) Hypertension: Plan: uncontrolled despite amlodipine and terazosin. consider low-dose beta kelly. follow overnight. (8) Hematuria, gross: Plan: CT a/p obtained to r/o obstructing kidney stone -- this was not seen. hematuria could be 2nd to bladder infection, prostatitis, etc. either way the hematuria continues to improve. (9) History of stroke: Plan: cont plavix for secondary prevention. (10) Kidney stones: Plan: CT a/p obtained to r/o obstructing stone on right given his RLQ abd pain at time of admission - negative for obstructing stones; does have tiny stones in L renal pelvis but no hydronephrosis either side. (11) DVT prophylaxis: Plan: if gross hematuria resolves then consider adding heparin 5000 BID in meantime - SCDs, ambulation (12) Right hip pain: Plan: chronic, has seen sports med and has received PT for this. cont tylenol prn. add lidoderm patches prn. Plan: updated at bedside once again today Admission and Anticipated Discharge Date Admission Date: December 31, 2021 Subjective tele - NSR or sinus tach pt with less gross hematuria - urine now pink rather than voss red cont with scrotal pain on right cont with lateral right hip pain - was seen by sports med at [facility], advised to attend outpatient physical therapy for this appetite still fair at best feels weak/tired did have fever/chills overnight Review of Systems Review of Systems: gen - fevers, chills, loss of appetite cv - no chest pain, no orthopnea pulm - no cough or dyspnea GI - no diarrhea, no abd pain today except minimal suprapubic pain musculo - right lateral and anterior hip pain - chronic, no worse than previous Physical Exam Physical Exam: gen - pleasant, NAD mouth - MM slightly dry neck - supple heart - tachy, RR, s1 s2, no murmur lungs - CTA b/l abd - no flank tenderness b/l; ongoing scrotal swelling/tenderness on right (no worse than previous exam); BS+, soft ext - no edema, pulses 2+ b/l skin - no rash musculo - mild tenderness to palpation of right pelvis/hip anteriorly; passive flexion of right hip does not illicit pain Results & Data Results & Data ([facility]) Vital Signs (Past 12 Hours) Vital Signs Temp Pulse Pulse Resp BP Pulse Ox 01/01/22 15:41 108 H 01/01/22 15:20 37.1 C 104 H 20 153/74 H 96 01/01/22 11:06 37.6 C H 93 H 20 156/76 H 96 01/01/22 07:44 37.8 C H 98 H 20 153/82 H 96 01/01/22 07:27 93 H Laboratory Results Laboratory Results - last 24 hr 01/01/22 06:01 Sodium 136 Potassium 4.2 Chloride 107 Carbon Dioxide 23 Anion Gap 6 BUN 25 H Creatinine 2.06 H Est Cr Clr Drug Dosing 0.0 Est GFR ( Amer) 33.5 Est GFR (Non-Af Amer) 28.9 BUN/Creatinine Ratio 12.1 Glucose 141 H Calcium 8.8 Diagnostic Findings urine cx with >100,000 CFU of a gram negative blood cx's negative PG Care Time/CCT Total # of Minutes Spent Total Time Spent with Patient: Total time spent is greater than 50% in coordination of care (as documented) at patient's floor/unit and/or counseling patient: Coding Level of Care Code 39809 Subseq Hosp Care Lvl 3 Diagnoses Acute epididymitis N45.1 UTI (urinary tract infection) N39.0; R31.9 Hematuria presence: with hematuria Urinary tract infection type: site unspecified Benign localized prostatic hyperplasia with lower urinary tract symptoms (LUTS) N40.1 GERD (gastroesophageal reflux disease) K21.9 Chronic kidney disease, stage IV (severe) N18.4 Hypertension I10 Hypertension type: essential hypertension Hematuria, gross R31.0 History of stroke Z86.73 Kidney stones N20.0 DVT prophylaxis Z29.9 Sepsis A41.9 Right hip pain M25.551 (1) UTI (urinary tract infection) Hematuria presence: with hematuria Urinary tract infection type: site unspecified Qualified Code(s): N39.0 - Urinary tract infection, site not specified; R31.9 - Hematuria, unspecified (2) Hypertension Hypertension type: essential hypertension Qualified Code(s): I10 - Essential (primary) hypertension
[2022-01-01] MEDS: CHOLECALCIFEROL 5,000 UNITS 125 MCG TAB PO SCH (21:19)
[2022-01-01] MEDS: CLOPIDOGREL BISULFATE 75 MG TAB PO SCH (21:20)
[2022-01-01] MEDS: TERAZOSIN HCL 5 MG CAP PO SCH (21:20)
[2022-01-01] MEDS: LORATADINE 10 MG TAB PO SCH (21:20)
[2022-01-01] MEDS: ACETAMINOPHEN 325 MG TAB PO PRN (21:37)
[2022-01-02] MEDS: MEROPENEM 500 MG in SYRINGE 0 ML IV SCH (05:07)
[2022-01-02 07:11] LABS: Estimated Average Glucose 105 mg/dl; Hemoglobin A1C 5.3 % (4.5-5.6)
[2022-01-02 07:36] LABS: BUN Creatinine Ratio 14.3 (10-20); Calcium 9.1 mg/dl (8.5-10.1); Creatinine Clr Calc Pharmacy 22.1 ml/min; Est GFR (African American) 27.2 ml/min; Est GFR (Non-African American) 23.5 ml/min; Potassium 4.5 mmol/L (3.5-5.1)
[2022-01-02] MEDS: amLODIPine BESYLATE 5 MG TAB PO SCH (08:15)
[2022-01-02] MEDS: ADVANCED PROBIOTIC 1250 MG CAPSULE PO SCH (08:16)
[2022-01-02] MEDS: VITAMIN B COMPLEX TAB PO SCH (08:16)
[2022-01-02] MEDS: CEROVITE ADV FORMULA TAB PO SCH (08:16)
[2022-01-02] MEDS: PANTOprazole 40 MG TAB PO SCH (08:16)
[2022-01-02] MEDS: MAGNESIUM OXIDE 400 MG TAB PO SCH (08:16)
[2022-01-02] MEDS: LIDOCAINE 5% 1 PATCH TD SCH (08:17)
[2022-01-02] MEDS: MoRPHine SULFATE 2 MG/ML CARP IV PRN ×2 (10:54→21:03)
--- NOTE | 2022-01-02 14:11 | Hospitalist Progress Note ---
Date of Service January 02, 2022 Assessment & Plan (1) Acute epididymitis: Plan: right-sided. clinically improving - no fever in 24+ hours, nl wbc count, eating better. Less tenderness on exam. has h/o ESBL klebsiella colonization with recurrent infections. fortunately the urine cx this admission is showing klebsiella - NOT ESBL. stop meropenem. switch to rocephin 2gm IV daily while here. although sensitive to bactrim, he has CKD stage 4 and bactrim usage would have to be followed very carefully (hyperkalemia risk, etc). perhaps do rocephin x 7-10 days, then switch to bactrim? I did correspond with his primary urologist Dr Flores and we both feel we shou ld treat for presumed acute prostatitis in addition to the epididymitis. Thus, he would really need prolonged abx course of 4 weeks. Will consult [facility] for their opinion. cont scrotal support/elevation. cool packs prn. pain meds prn. no evidence of torsion on u/s. cont antibiotics as above. (2) Sepsis: Plan: 2nd to #1, #3 resolving hemodynamically stable nl wbc count no fever in 24+ hours blood cx's remain negative (3) UTI (urinary tract infection): Plan: 2nd klebsiella, NOT ESBL as on prior cultures. blood cx's remain negative. see #1 above. (4) Benign localized prostatic hyperplasia with lower urinary tract symptoms (LUTS): Plan: despite #1, #2 he appears to be voiding without difficulty. no evidence of obstruction on CT a/p at time of admission. cont alpha kelly. see discussion above re: Rx of presumed acute prostatitis. (5) GERD (gastroesophageal reflux disease): Plan: cont PPI. (6) Chronic kidney disease, stage IV (severe): Plan: baseline CrCl 20s, with baseline Cr ~1.9 to low 2's. follows with [facility] Nephrology. Cr today is 2.5 -- I suspect he is behind on fluids due to increased sensible water loss from fevers and less than robust PO liquid intake. will give 500cc of IVF today and repeat BMP am. (7) Hypertension: Plan: uncontrolled despite amlodipine and terazosin. consider low-dose beta kelly. follow overnight one additional night and if still high then consider BB. (8) Hematuria, gross: Plan: CT a/p obtained to r/o obstructing kidney stone -- this was not seen. hematuria could be 2nd to bladder infection, prostatitis, etc. either way the hematuria continues to improve and is essentially resolved today. (9) History of stroke: Plan: cont plavix for secondary prevention. (10) Kidney stones: Plan: CT a/p obtained to r/o obstructing stone on right given his RLQ abd pain at time of admission - negative for obstructing stones; does have tiny stones in L renal pelvis but no hydronephrosis either side. (11) DVT prophylaxis: Plan: given just recently improved hematuria hold off on chemical means at least 1 more day ambulation/SCDs (12) Right hip pain: Plan: chronic, has seen sports med and has received PT for this. cont tylenol prn. cont lidoderm patches prn. Plan: updated at bedside once again today will f/u on PT/OT eval reports Admission and Anticipated Discharge Date Admission Date: December 31, 2021 Subjective pt is feeling some better today on general scale his scrotal/testicular pain, however, is largely unchanged still having to use pain meds for such no fevers overnight eating is a bit better gross hematuria is improved; urine now yellow he requests ID consultation - [email or web address] asks about timeline of his hospitalization at bedside during the visit Review of Systems Review of Systems: gen - no fevers/chills overnight; liquid intake is fair at best cv - no orthopnea, no chest pain pulm - no dyspnea at rest or w/ exertion GI - no abd pain - no dysuria musculo - right hip pain improved w/ lidoderm patches Physical Exam Physical Exam: gen - pleasant, NAD - looks better today mouth - MM slightly dry again neck - supple heart - RRR, s1 s2, no murmur lungs - CTA b/l abd - no flank tenderness b/l; ongoing scrotal swelling/tenderness on right but latter is improved; BS+, soft ext - no edema, pulses 2+ b/l skin - no rash; turgor still sluggish Results & Data Results & Data ([facility]) Vital Signs (Past 12 Hours) Vital Signs Temp Pulse Pulse Resp BP BP Pulse Ox 01/02/22 12:00 37.3 C 96 H 18 139/77 95 01/02/22 07:40 37.3 C 99 H 18 148/77 H 93 01/02/22 07:18 90 01/02/22 03:43 36.8 C 93 H 18 127/74 96 Laboratory Results Laboratory Results - last 24 hr 01/02/22 01/02/22 06:29 06:29 Sodium 136 Potassium 4.5 Chloride 106 Carbon Dioxide 24 Anion Gap 6 BUN 35 H Creatinine 2.45 H D Est Cr Clr Drug Dosing 22.1 Est GFR ( Amer) 27.2 Est GFR (Non-Af Amer) 23.5 BUN/Creatinine Ratio 14.3 Glucose 116 H Estimat Average Glucose 105 Hemoglobin A1c 5.3 Calcium 9.1 Diagnostic Findings Urine cx - klebsiella - R to amp, amp/sulb, levofloxacin, cipro; S to bactrim, rocephin, ertapenem PG Care Time/CCT Total # of Minutes Spent Total Time Spent with Patient: Total time spent is greater than 50% in coordination of care (as documented) at patient's floor/unit and/or counseling patient: Coding Level of Care Code 32800 Subseq Hosp Care Lvl 3 Diagnoses Acute epididymitis N45.1 Sepsis A41.9 UTI (urinary tract infection) N39.0; R31.9 Hematuria presence: with hematuria Urinary tract infection type: site unspecified Benign localized prostatic hyperplasia with lower urinary tract symptoms (LUTS) N40.1 GERD (gastroesophageal reflux disease) K21.9 Chronic kidney disease, stage IV (severe) N18.4 Hypertension I10 Hypertension type: essential hypertension Hematuria, gross R31.0 History of stroke Z86.73 Kidney stones N20.0 DVT prophylaxis Z29.9 Right hip pain M25.551 (1) UTI (urinary tract infection) Hematuria presence: with hematuria Urinary tract infection type: site unspecified Qualified Code(s): N39.0 - Urinary tract infection, site not specified; R31.9 - Hematuria, unspecified (2) Hypertension Hypertension type: essential hypertension Qualified Code(s): I10 - Essential (primary) hypertension
[2022-01-02] MEDS: ACETAMINOPHEN 325 MG TAB PO PRN ×3 (15:16→23:49)
[2022-01-02] MEDS ORDERED: SODIUM CHLORIDE 0.9% 500 ML IV SCH (17:00)
[2022-01-02] MEDS: cefTRIAXone SODIUM 2,000 MG in DEXTROSE 5% 50 ML IV SCH (17:07)
[2022-01-02] MEDS: LORATADINE 10 MG TAB PO SCH (21:01)
[2022-01-02] MEDS: CLOPIDOGREL BISULFATE 75 MG TAB PO SCH (21:02)
[2022-01-02] MEDS: CHOLECALCIFEROL 5,000 UNITS 125 MCG TAB PO SCH (21:02)
[2022-01-02] MEDS: TERAZOSIN HCL 5 MG CAP PO SCH (21:02)
[2022-01-03] MEDS: MoRPHine SULFATE 2 MG/ML CARP IV PRN (01:35)
[2022-01-03 07:28] LABS: BUN Creatinine Ratio 16.5 (10-20); Calcium 8.7 mg/dl (8.5-10.1); Creatinine Clr Calc Pharmacy 24.2 ml/min; Est GFR (African American) 30.3 ml/min; Est GFR (Non-African American) 26.1 ml/min; Potassium 3.8 mmol/L (3.5-5.1)
[2022-01-03] MEDS: HYDROCODONE/ACETAMOPHEN 5/325MG TAB PO PRN ×3 (08:41→22:37)
[2022-01-03] MEDS: amLODIPine BESYLATE 5 MG TAB PO SCH (08:42)
[2022-01-03] MEDS: LIDOCAINE 5% 1 PATCH TD SCH (08:43)
[2022-01-03] MEDS: CEROVITE ADV FORMULA TAB PO SCH (08:43)
[2022-01-03] MEDS: MAGNESIUM OXIDE 400 MG TAB PO SCH (08:43)
[2022-01-03] MEDS: ADVANCED PROBIOTIC 1250 MG CAPSULE PO SCH (08:43)
[2022-01-03] MEDS: PANTOprazole 40 MG TAB PO SCH (08:44)
[2022-01-03] MEDS: VITAMIN B COMPLEX TAB PO SCH (08:44)
[2022-01-03] MEDS: cefTRIAXone SODIUM 2,000 MG in DEXTROSE 5% 50 ML IV SCH (15:27)
[2022-01-03] MEDS ORDERED: bisacodyL 10 MG SUPP PR STA (16:18)
[2022-01-03] MEDS: POLYETHYLENE (MIRALAX) 17 GM PACK PO SCH (16:38)
--- NOTE | 2022-01-03 19:22 | Hospitalist Progress Note ---
Date of Service January 03, 2022 Assessment & Plan (1) Acute epididymitis: Plan: right-sided. continues to clinically improve. reassurance given that the swelling will go down but it can take weeks or longer to do so. continue scrotal support/elevation and cool packs. has h/o ESBL klebsiella colonization with recurrent infections. fortunately the urine cx this admission is showing klebsiella - NOT ESBL. currently on rocephin. ID advising 1gm daily. although sensitive to bactrim, he has CKD stage 4 and bactrim usage would have to be followed very carefully (hyperkalemia risk, etc). will plan on IV therapy for a total of 14 days, followed by 2 weeks of PO abx -- I corresponded with his primary urologist Dr Flores and we both feel we should treat for presumed acute prostatitis in addition to the epididymitis. [facility]. cont scrotal support/elevation. cool packs prn. pain meds prn. no evidence of torsion on u/s. cont antibiotics as above. (2) Sepsis: Plan: 2nd to #1, #3 resolved hemodynamically stable nl wbc count no fever in 48+ hours blood cx's remain negative (3) UTI (urinary tract infection): Plan: 2nd klebsiella, NOT ESBL as on prior cultures. blood cx's remain negative. see #1 above. (4) Benign localized prostatic hyperplasia with lower urinary tract symptoms (LUTS): Plan: voiding fine. no evidence of obstruction on CT a/p at time of admission. cont alpha kelly. see discussion above re: Rx of presumed acute prostatitis. (5) GERD (gastroesophageal reflux disease): Plan: cont PPI. (6) Chronic kidney disease, stage IV (severe): Plan: baseline CrCl 20s, with baseline Cr ~1.9 to low 2's. follows with [facility]. Cr was 2.5 yesterday - now improved s/p fluids overnight. repeat BMP in am. (7) Hypertension: Plan: uncontrolled despite amlodipine and terazosin. consider low-dose beta kelly. (8) Hematuria, gross: Plan: CT a/p obtained to r/o obstructing kidney stone -- this was not seen. hematuria could be 2nd to bladder infection, prostatitis, etc. either way the hematuria is resolved. (9) History of stroke: Plan: cont plavix for secondary prevention. (10) Kidney stones: Plan: CT a/p obtained to r/o obstructing stone on right given his RLQ abd pain at time of admission - negative for obstructing stones; does have tiny stones in L renal pelvis but no hydronephrosis either side. (11) DVT prophylaxis: Plan: given just recently improved hematuria hold off on chemical means ambulation/SCDs (12) Right hip pain: Plan: chronic, has seen sports med and has received PT for this. cont tylenol prn. cont lidoderm patches prn. Plan: updated at bedside once again today PT session went better today hopefully can d/c home this weekend constipation - dulcolax suppos x 1 ordered Admission and Anticipated Discharge Date Admission Date: December 31, 2021 Subjective no new complaints he does state the lidoderm patches help his hip pain the gross hematuria is improved/resolved his scrotal pain remains about the same - using cool packs, scrotal support as much as possible was using morphine for pain - switched to norco still no bowel movement since admission passing flatus - and no nausea appetite improved - eating 75% of meals at bedside during the visit Review of Systems Review of Systems: gen - no fevers, no chills, fatigue/appetite both improved CV - no cp, no orthopnea pulm - no dyspnea or RICHARDS GI - no abd pain, no N/V; + constipation - no dysuria Physical Exam Physical Exam: gen - pleasant, NAD, looks good today; mentation wnl today mouth - MMM neck - supple, no JVD heart - RRR, s1 s2, no murmur lungs - CTA b/l abd - ongoing scrotal swelling/tenderness on right but improved; BS+, soft, ND ext - no edema, pulses 2+ b/l skin - no rash; turgor wnl today Results & Data Results & Data ([facility]) Vital Signs (Past 12 Hours) Vital Signs Temp Pulse Pulse Pulse Resp BP Pulse Ox 01/03/22 15:43 37.1 C 104 H 18 155/81 H 96 01/03/22 10:46 36.9 C 82 17 148/74 H 98 01/03/22 07:30 37 C 88 16 148/80 H 97 01/03/22 07:23 82 Laboratory Results Laboratory Results - last 24 hr 01/03/22 06:29 Sodium 137 Potassium 3.8 Chloride 107 Carbon Dioxide 22 Anion Gap 8 BUN 37 H Creatinine 2.24 H Est Cr Clr Drug Dosing 24.2 Est GFR ( Amer) 30.3 Est GFR (Non-Af Amer) 26.1 BUN/Creatinine Ratio 16.5 Glucose 110 H Calcium 8.7 Diagnostic Findings blood cx's negative to date [facility] telehealth consultation note reviewed - IV rocephin advised PG Care Time/CCT Total # of Minutes Spent Total Time Spent with Patient: Total time spent is greater than 50% in coordination of care (as documented) at patient's floor/unit and/or counseling patient: Coding Level of Care Code 51946 Subseq Hosp Care Lvl 2 Diagnoses Acute epididymitis N45.1 Sepsis A41.9 UTI (urinary tract infection) N39.0; R31.9 Hematuria presence: with hematuria Urinary tract infection type: site unspecified Benign localized prostatic hyperplasia with lower urinary tract symptoms (LUTS) N40.1 GERD (gastroesophageal reflux disease) K21.9 Chronic kidney disease, stage IV (severe) N18.4 Hypertension I10 Hypertension type: essential hypertension Hematuria, gross R31.0 History of stroke Z86.73 Kidney stones N20.0 DVT prophylaxis Z29.9 Right hip pain M25.551 (1) UTI (urinary tract infection) Hematuria presence: with hematuria Urinary tract infection type: site unspecified Qualified Code(s): N39.0 - Urinary tract infection, site not specified; R31.9 - Hematuria, unspecified (2) Hypertension Hypertension type: essential hypertension Qualified Code(s): I10 - Essential (primary) hypertension
[2022-01-03] MEDS: TERAZOSIN HCL 5 MG CAP PO SCH (21:05)
[2022-01-03] MEDS: LORATADINE 10 MG TAB PO SCH (21:05)
[2022-01-03] MEDS: MELATONIN 3 MG TAB PO SCH (21:05)
[2022-01-03] MEDS: CHOLECALCIFEROL 5,000 UNITS 125 MCG TAB PO SCH (21:06)
[2022-01-03] MEDS: CLOPIDOGREL BISULFATE 75 MG TAB PO SCH (21:06)
[2022-01-04] MEDS: HYDROCODONE/ACETAMOPHEN 5/325MG TAB PO PRN ×4 (04:43→22:29)
[2022-01-04 07:04] LABS: Hematocrit (blood only) 30.1 % (42-52); Hemoglobin 10.9 g/dL (14.0-18.0); Mean Corpuscular Hemoglobin 31.1 pg (25-34); Mean Corpuscular Hgb Conc 36.2 g/dL (32-36); Mean Platelet Volume 10.2 fL (7.4-10.4); Platelet Count 196 K/uL (130-400); RDW Coefficient of Variation 14.1 % (11.5-14.5); RDW Standard Deviation 44.3 fL (36.4-46.3); White Blood Count 8.49 K/uL (4.8-10.8)
[2022-01-04 07:29] LABS: BUN Creatinine Ratio 16.8 (10-20); Calcium 8.9 mg/dl (8.5-10.1); Creatinine Clr Calc Pharmacy 28.4 ml/min; Est GFR (African American) 36.7 ml/min; Est GFR (Non-African American) 31.7 ml/min; Potassium 3.9 mmol/L (3.5-5.1)
[2022-01-04] MEDS: LIDOCAINE 5% 1 PATCH TD SCH (09:00)
[2022-01-04] MEDS: MAGNESIUM OXIDE 400 MG TAB PO SCH (09:02)
[2022-01-04] MEDS: POLYETHYLENE (MIRALAX) 17 GM PACK PO SCH (09:02)
[2022-01-04] MEDS: VITAMIN B COMPLEX TAB PO SCH (09:02)
[2022-01-04] MEDS: ADVANCED PROBIOTIC 1250 MG CAPSULE PO SCH (09:02)
[2022-01-04] MEDS: amLODIPine BESYLATE 5 MG TAB PO SCH (09:02)
[2022-01-04] MEDS: PANTOprazole 40 MG TAB PO SCH (09:03)
[2022-01-04] MEDS: CEROVITE ADV FORMULA TAB PO SCH (09:03)
[2022-01-04] MEDS: cefTRIAXone SODIUM 1,000 MG in DEXTROSE 5% 50 ML IV SCH (16:23)
[2022-01-04] MEDS: bisacodyL 10 MG SUPP PR ONE ×2 (18:20→18:32)
[2022-01-04] MEDS ORDERED: bisacodyL 10 MG SUPP PR ONE (18:31)
--- NOTE | 2022-01-04 20:09 | Hospitalist Progress Note ---
Date of Service January 04, 2022 Assessment & Plan (1) Acute epididymitis: Plan: right-sided. continues to clinically improve. reassurance given that the swelling will go down but it can take weeks or longer to do so. patient info handout given. continue scrotal support/elevation and cool packs. He is using depends right now - encouraged him to use cotton briefs - this will provide more support. has h/o ESBL klebsiella colonization with recurrent infections. fortunately the urine cx this admission is showing klebsiella - NOT ESBL. currently on rocephin. ID advising 1gm daily. Will plan on IV therapy for a total of 14 days, followed by 2 weeks of PO abx -- I corresponded with his primary urologist Dr Flores and we both feel we should treat for presumed acute prostatitis in addition to the epididymitis. 14th day of IV rocephin would be 01/13/22. Script given to social work today. She is working on coordinating with a home IV abx company. US-guided peripheral IV now in place. Good option for PO abx after rocephin is done - omnicef once daily. Appreciate [facility] ID consultation. cont scrotal support/elevation. cool packs prn. pain meds prn. no evidence of torsion on u/s. (2) Sepsis: Plan: 2nd to #1, #3 resolved hemodynamically stable nl wbc count no fever in 72+ hours blood cx's cont to be negative (3) UTI (urinary tract infection): Plan: 2nd klebsiella, NOT ESBL fortunately, as on prior cultures. blood cx's remain negative. see #1 above. 2 weeks of IV abx followed by 2 weeks of PO abx (see above) (4) Benign localized prostatic hyperplasia with lower urinary tract symptoms (LUTS): Plan: voiding fine. no evidence of obstruction on CT a/p at time of admission. cont alpha kelly. see discussion above re: Rx of presumed acute prostatitis. (5) GERD (gastroesophageal reflux disease): Plan: cont PPI. (6) Chronic kidney disease, stage IV (severe): Plan: baseline CrCl 20s, with baseline Cr ~1.9 to low 2's. follows with [facility]. Cr 1.9 today repeat Cr in am for stability (7) Hypertension: Plan: largely controlled today w/ amlodipine and terazosin. (8) Hematuria, gross: Plan: CT a/p obtained to r/o obstructing kidney stone -- this was not seen. hematuria likely 2nd to bladder infection, prostatitis, etc. resolved (9) History of stroke: Plan: cont plavix for secondary prevention. (10) Kidney stones: Plan: CT a/p obtained to r/o obstructing stone on right given his RLQ abd pain at time of admission - negative for obstructing stones; does have tiny stones in L renal pelvis but no hydronephrosis either side. (11) DVT prophylaxis: Plan: since gross hematuria is resolved start heparin 5000 BID starting tonight ambulation has not been the greatest thus benefits outweigh risks (12) Right hip pain: Plan: chronic, has seen sports med locally for this and has received physical therapy. cont tylenol prn. cont lidoderm patches prn. Plan: updated at bedside once again today constipation - ongoing - dulcolax suppos x 1 today with PO bowel regimen will consult urology in am to help educate patient, provide any other recs prior to discharge hopefully can d/c home tomorrow ok to d/c telemetry; tx to med/surg Admission and Anticipated Discharge Date Admission Date: December 31, 2021 Subjective tele stable overnight (NSR) pt w/ complaints of soreness/discomfort in the R scrotum but no worse than previous also with slight soreness over the R inguinal ligament region (mild) eating very well no fevers he is ambulating to bathroom more comfortably than previous he & his are hoping to perform his IV antibiotics at home I gave a handout on epididymitis to the patient today Review of Systems Review of Systems: gen - no fevers/chills cv - no cp, no orthopnea pulm - no dyspnea, cough or RICHARDS GI - no abd pain/nausea/emesis; ongoing constipation - gross hematuria resolved Physical Exam Physical Exam: gen - pleasant, NAD, looks great today mouth - MMM neck - supple, no JVD heart - RRR, s1 s2, no murmur lungs - CTA b/l (minimal dry rales) - ongoing scrotal swelling on right but improving albeit slowly; tenderness much improved from previous; warmth/redness resolved abd - soft, NT, ND, BS+ ext - no edema, pulses 2+ b/l skin - no rash; turgor wnl Results & Data Results & Data ([facility]) Vital Signs (Past 12 Hours) Vital Signs Temp Pulse Pulse Resp BP Pulse Ox 01/04/22 16:41 91 H 01/04/22 15:16 37.2 C 93 H 18 151/80 H 95 01/04/22 12:10 37.0 C 72 18 134/72 96 01/04/22 08:05 37.3 C 87 18 129/69 98 Laboratory Results Laboratory Results - last 24 hr 01/04/22 01/04/22 06:25 06:25 WBC 8.49 RBC 3.50 L Hgb 10.9 L Hct 30.1 L MCV 86.0 MCH 31.1 MCHC 36.2 H RDW Std Deviation 44.3 RDW Coeff of Rickey 14.1 Plt Count 196 MPV 10.2 Sodium 137 Potassium 3.9 Chloride 107 Carbon Dioxide 22 Anion Gap 8 BUN 32 H Creatinine 1.91 H D Est Cr Clr Drug Dosing 28.4 Est GFR ( Amer) 36.7 Est GFR (Non-Af Amer) 31.7 BUN/Creatinine Ratio 16.8 Glucose 125 H Calcium 8.9 PG Care Time/CCT Total # of Minutes Spent Total Time Spent with Patient: Total time spent is greater than 50% in coordination of care (as documented) at patient's floor/unit and/or counseling patient: Coding Level of Care Code 51104 Subseq Hosp Care Lvl 3 Diagnoses Acute epididymitis N45.1 Sepsis A41.9 UTI (urinary tract infection) N39.0; R31.9 Hematuria presence: with hematuria Urinary tract infection type: site unspecified Benign localized prostatic hyperplasia with lower urinary tract symptoms (LUTS) N40.1 GERD (gastroesophageal reflux disease) K21.9 Chronic kidney disease, stage IV (severe) N18.4 Hypertension I10 Hypertension type: essential hypertension Hematuria, gross R31.0 History of stroke Z86.73 Kidney stones N20.0 DVT prophylaxis Z29.9 Right hip pain M25.551 (1) UTI (urinary tract infection) Hematuria presence: with hematuria Urinary tract infection type: site unspecified Qualified Code(s): N39.0 - Urinary tract infection, site not specified; R31.9 - Hematuria, unspecified (2) Hypertension Hypertension type: essential hypertension Qualified Code(s): I10 - Essential (primary) hypertension
[2022-01-04] MEDS: TERAZOSIN HCL 5 MG CAP PO SCH (21:26)
[2022-01-04] MEDS: HEPARIN SOD 5,000 UNIT/0.5 ML VIAL SQ SCH (21:26)
[2022-01-04] MEDS: CHOLECALCIFEROL 5,000 UNITS 125 MCG TAB PO SCH (21:26)
[2022-01-04] MEDS: LORATADINE 10 MG TAB PO SCH (21:26)
[2022-01-04] MEDS: CLOPIDOGREL BISULFATE 75 MG TAB PO SCH (21:26)
[2022-01-04] MEDS: MELATONIN 3 MG TAB PO SCH (21:26)
[2022-01-04] MEDS: ACETAMINOPHEN 325 MG TAB PO PRN (22:31)
[2022-01-05] MEDS: HYDROCODONE/ACETAMOPHEN 5/325MG TAB PO PRN ×3 (04:45→22:11)
[2022-01-05 06:18] LABS: Creatinine Clr Calc Pharmacy 26.7 ml/min; Est GFR (African American) 34.1 ml/min; Est GFR (Non-African American) 29.4 ml/min
--- NOTE | 2022-01-05 07:39 | Urology Consultation ---
Date of Consultation January 05, 2022 Assessment & Plan (1) UTI (urinary tract infection): (2) Epididymitis: 81-year-old male admitted for UTI and right epididymitis urine culture growing Klebsiella pneumonia. Agree with course of antibiotics including 2 weeks of IV and then transitioning to 2 weeks of p.o. Patient already has a line in for outpatient treatment. Discussed with patient that swelling and pain may persist for several weeks to a month based on typical clinical course of epididymitis. Despite reported low- grade temp, low concern as exam is not worrisome with worsening epididymitis. He is scheduled to see Dr. Flores 01/27/2022 and we can keep that appointment Advised that he can wear tight fitting underwear to help with discomfort. He should return to the hospital with worsening pain, swelling or any further concerns with his scrotum -Urology to follow peripherally while patient remains in hospital History of Present Illness Reason for Consultation: Right-sided epididymitis and UTI Attending Physician: Josafat Lechuga History of Present Illness 81-year-old male known to the urologic service as he follows with Dr. Flores. He was admitted on 12/31/2021 for acute right-sided epididymitis and a urinary tract infection. He had previously reported 3 to 4 days of low-grade fevers, gross hematuria, fatigue and malaise. Labs on admission showed a white blood cell count of 9.3, creatinine of 1.99, and a urinalysis that was negative for nitrites, 2+ leukocyte esterase, greater than 30 WBCs, greater than 30 RBCs and 1+ bacteria. Urine culture has grown Klebsiella pneumonia and blood cultures have been negative up to date. I dependently reviewed a scrotal ultrasound and a CT scan of the abdomen and pelvis from 12/31/2021. Scrotal ultrasound shows increased flow to the right epididymis and is consistent with right epididymitis. There is a small right hydrocele, which is likely reactive. CT scan shows no hydronephrosis and an enlarged prostate. There are several nonobstructing calculi in the left side. He is currently on ceftriaxone. Labs on 01/04/2022 showed a white count of 8.49, creatinine of 1.91. Review of creatinines in the system have ranged from 1.9 to as high as 4.4. He last saw Dr. Flores on 09/30/2021. Patient reports feeling much better since admission. He did have a temperature of 38.1 overnight but he did not report subjective fevers. Allergies Allergy/AdvReac Type Severity Reaction Status Date / Time Iodinated Contrast Media Allergy Severe Rashes Unverified 12/31/21 16:03 iodine Allergy Severe RASHES Verified 12/31/21 16:02 Home Medications Medication Instructions Recorded Confirmed Type terazosin 5 mg capsule 5 mg PO HS 11/29/19 12/31/21 History cholecalciferol (vitamin D3) 125 125 mcg PO QPM cap 04/24/20 12/31/21 History mcg (5,000 unit) capsule amlodipine 10 mg tablet 10 mg PO QAM 01/02/21 12/31/21 History Lactobacillus acidophilus 10 10,000 mmu cells PO QAM 01/23/21 12/31/21 History billion cell capsule (Probiotic) clopidogrel 75 mg tablet 75 mg PO QPM 01/23/21 12/31/21 History omeprazole 20 mg capsule,delayed 20 mg PO QAM 01/23/21 12/31/21 History release vitamin A-vitamin C-vit E-min 1 tab PO QAM 01/23/21 12/31/21 History tablet ferrous sulfate 27 mg iron tablet 27 mg PO DAILY 12/31/21 12/31/21 History glucosamine sulf dipot 2 cap PO HS 12/31/21 12/31/21 History chlr,msm,chond 550 mg-C 30 mg-que 1 mg capsule (Glucosamine Chondroitin) loratadine 10 mg tablet 10 mg PO HS 12/31/21 12/31/21 History magnesium oxide 400 mg PO DAILY 12/31/21 12/31/21 History vitamin B complex 1 tab PO DAILY 12/31/21 12/31/21 History ceftriaxone 1 gram solution for 1 g IV DAILY 8 Days #8 ea 01/04/22 Rx injection Patient History Medical History (Updated 01/05/22 @ 07:39 by Isra Wisdom MD) Asthma as child BPH (benign prostatic hyperplasia) 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 On Plavix Prostatitis 2016; with sepsis Surgical History History of colonoscopy History of cystoscopy History of lithotripsy History of tooth extraction wisdom teeth S/P TURP modified, during ureteral stent placement for kidney stone in [place] Family History (Updated 12/31/21 @ 19:50 by Josafat Lechuga) Family/Other Hypertension Diabetes Mother , old age at age 88 Breast cancer Hypertension Father , from complications of hip fracture No problems noted. 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 Beliefs That Will Affect Care: None marital status: Current Living Situation: Spouse Current Living Situation Comment: lives at home with spouse current occupational status: retired 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 How many Children do You have: 2 Other Information That Helps Us Care for You: No other: 2 children; 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, 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 Testicles descended bilaterally. Right testicle and epididymis is firm and enlarged, consistent with epididymitis. Left testicle is palpably normal. No erythema, or crepitus. Extremities: Moves all 4 spontaneously Neuro: No gross deficits Skin: Warm, dry, no rashes noted Results & Data ([facility]) Vital Signs (Past 12 Hours) Vital Signs Temp Pulse Resp BP Pulse Ox 01/05/22 04:45 37.0 C 01/05/22 01:48 36.9 C 01/04/22 23:11 37.8 C H 01/04/22 22:28 38.1 C H 103 H 20 150/73 H 96 PG Care Time/CCT Total # of Minutes Spent Total Time Spent with Patient: Total time spent is greater than 50% in coordination of care (as documented) at patient's floor/unit and/or counseling patient: C[place] [id number] Inpt Consult Level 4 Patient Type Established Diagnoses UTI (urinary tract infection) N39.0; R31.9 Hematuria presence: with hematuria Urinary tract infection type: site unspecified Epididymitis N45.1 (1) UTI (urinary tract infection) Hematuria presence: with hematuria Urinary tract infection type: site unspecified Qualified Code(s): N39.0 - Urinary tract infection, site not specified; R31.9 - Hematuria, unspecified
[2022-01-05] MEDS: amLODIPine BESYLATE 5 MG TAB PO SCH (07:56)
[2022-01-05] MEDS: ADVANCED PROBIOTIC 1250 MG CAPSULE PO SCH (07:56)
[2022-01-05] MEDS: VITAMIN B COMPLEX TAB PO SCH (07:56)
[2022-01-05] MEDS: PANTOprazole 40 MG TAB PO SCH (07:56)
[2022-01-05] MEDS: HEPARIN SOD 5,000 UNIT/0.5 ML VIAL SQ SCH ×3 (07:57→20:38)
[2022-01-05] MEDS: MAGNESIUM OXIDE 400 MG TAB PO SCH (07:57)
[2022-01-05] MEDS: CEROVITE ADV FORMULA TAB PO SCH (07:57)
[2022-01-05] MEDS: POLYETHYLENE (MIRALAX) 17 GM PACK PO SCH ×4 (07:58→22:15)
[2022-01-05] MEDS: LIDOCAINE 5% 1 PATCH TD SCH (07:58)
[2022-01-05] MEDS: SENNA 8.6 MG TAB PO SCH (09:07)
[2022-01-05] MEDS ORDERED: LACTULOSE SYRUP 20 GM/30 ML UDC PO ONE (13:30)
[2022-01-05] MEDS: cefTRIAXone SODIUM 1,000 MG in DEXTROSE 5% 50 ML IV SCH (16:20)
[2022-01-05] MEDS: CLOPIDOGREL BISULFATE 75 MG TAB PO SCH (20:37)
[2022-01-05] MEDS: CHOLECALCIFEROL 5,000 UNITS 125 MCG TAB PO SCH (20:38)
[2022-01-05] MEDS: TERAZOSIN HCL 5 MG CAP PO SCH (20:38)
[2022-01-05] MEDS: LORATADINE 10 MG TAB PO SCH (20:38)
--- NOTE | 2022-01-05 20:41 | Hospitalist Progress Note ---
Date of Service January 05, 2022 Assessment & Plan (1) Acute epididymitis: Plan: right-sided. continues to clinically improve. continue scrotal support/elevation and cool packs. cont abx. cont pain control (norco prn). has h/o ESBL klebsiella colonization with recurrent infections. fortunately the urine cx this admission grew klebsiella but NOT ESBL. s/p [facility] consult - they advised: IV rocephin 1gm daily for ~10 days. Plan is HOME ON THURSDAY with us-guided IV and daily IV rocephin 1gm. Last dose 01/13/22. Following the IV rocephin course will switch to 2 weeks of PO abx -- I corresponded with his primary urologist Dr Flores and we both feel we should treat for presumed acute prostatitis in addition to the epididymitis. PO cefdinir would be good choice for those 2 weeks. Appreciate [facility] consultation. Appreciate urology consultation today. (2) Sepsis: Plan: 2nd to #1, #3 resolved blood cx's negative (3) UTI (urinary tract infection): Plan: 2nd klebsiella, NOT ESBL fortunately, as on prior cultures. blood cx's remain negative. see #1 above. 2 weeks of IV abx followed by 2 weeks of PO abx (see above) (4) Constipation: Plan: ongoing issue. opiate induced. despite suppositories, miralax, senna, etc still no success. gave lactulose this afternoon without results. tonight - give miralax x 3 doses q1h. re-eval tomorrow am. no signs clinically of ileus. (5) Benign localized prostatic hyperplasia with lower urinary tract symptoms (LUTS): Plan: voiding fine. no evidence of obstruction on CT a/p at time of admission. no stones. cont alpha kelly. see discussion above re: Rx of presumed acute prostatitis. (6) GERD (gastroesophageal reflux disease): Plan: cont PPI. (7) Chronic kidney disease, stage IV (severe): Plan: baseline CrCl 20s, with baseline Cr ~1.9 to low 2's. follows with [facility]. Cr 2 today repeat Cr in am for stability (8) Hypertension: Plan: largely controlled w/ amlodipine and terazosin. (9) Hematuria, gross: Plan: CT a/p obtained to r/o obstructing kidney stone -- this was not seen. hematuria likely 2nd to bladder infection, prostatitis, etc. resolved (10) History of stroke: Plan: cont plavix for secondary prevention. (11) Kidney stones: Plan: history of such in the past. was hospitalized in [place] for an obstructing stone and had severe sepsis. CT a/p at admission negative for obstructing stones; does have tiny stones in L renal pelvis but no hydronephrosis either side. (12) DVT prophylaxis: Plan: since gross hematuria as resolved started heparin 5000 BID (13) Right hip pain: Plan: chronic, has seen sports med locally for this and has received physical therapy. cont tylenol prn. cont lidoderm patches prn. Plan: updated at bedside briefly today told her we are shooting for home tomorrow AM PT saw patient today - did very well - walked independently 250+ feet Admission and Anticipated Discharge Date Admission Date: December 31, 2021 Subjective pt's only complaint is that of constipation used the dulcolax suppos last night finally did have a BM but it was only a few balls of hard stool no BM since gave lactulose this afternoon - still no results despite the constipation he is consuming 100% of the meals no nausea or abd pain - just mild bloating no emesis R scrotal pain improving albeit slowly voiding ok Review of Systems Review of Systems: gen - no fevers today cv - no chest pain pulm - no cough/dyspnea GI - no pain - no further gross hematuria Physical Exam Physical Exam: gen - pleasant, NAD mouth - MMM neck - supple, no JVD heart - RRR, s1 s2, no murmur lungs - CTA b/l (scant basilar dry rales) - ongoing firm scrotal swelling on right but again improved from prior exams; no tenderness with moving the scrotum or palpation; warmth/redness resolved abd - soft, NT, BS+, mildly distended today ext - no edema, pulses 2+ b/l skin - no rash Results & Data Results & Data ([facility]) Vital Signs (Past 12 Hours) Vital Signs Temp Pulse Resp BP Pulse Ox 01/05/22 16:06 37.5 C 94 H 20 146/74 H 97 Laboratory Results Laboratory Results - last 24 hr 01/05/22 05:17 Creatinine 2.03 H Est Cr Clr Drug Dosing 26.7 Est GFR ( Amer) 34.1 Est GFR (Non-Af Amer) 29.4 Diagnostic Findings blood cultures negative since admission PG Care Time/CCT Total # of Minutes Spent Total Time Spent with Patient: Total time spent is greater than 50% in coordination of care (as documented) at patient's floor/unit and/or counseling patient: Coding Level of Care Code 82250 Subseq Hosp Care Lvl 3 Diagnoses Acute epididymitis N45.1 Sepsis A41.9 UTI (urinary tract infection) N39.0; R31.9 Hematuria presence: with hematuria Urinary tract infection type: site unspecified Benign localized prostatic hyperplasia with lower urinary tract symptoms (LUTS) N40.1 GERD (gastroesophageal reflux disease) K21.9 Chronic kidney disease, stage IV (severe) N18.4 Hypertension I10 Hypertension type: essential hypertension Hematuria, gross R31.0 History of stroke Z86.73 Kidney stones N20.0 DVT prophylaxis Z29.9 Right hip pain M25.551 Constipation K59.00 (1) UTI (urinary tract infection) Hematuria presence: with hematuria Urinary tract infection type: site unspecified Qualified Code(s): N39.0 - Urinary tract infection, site not specified; R31.9 - Hematuria, unspecified (2) Hypertension Hypertension type: essential hypertension Qualified Code(s): I10 - Essential (primary) hypertension
[2022-01-05] MEDS: MELATONIN 3 MG TAB PO SCH (22:10)
[2022-01-06] MEDS: HYDROCODONE/ACETAMOPHEN 5/325MG TAB PO PRN (05:09)
[2022-01-06 06:43] LABS: Hemoglobin 10.5 g/dL (14.0-18.0); Mean Corpuscular Hemoglobin 31.1 pg (25-34); Mean Corpuscular Hgb Conc 36.2 g/dL (32-36); Mean Corpuscular Volume 85.8 fL (80-100); Mean Platelet Volume 9.4 fL (7.4-10.4); Platelet Count 236 K/uL (130-400); RDW Coefficient of Variation 14.1 % (11.5-14.5); RDW Standard Deviation 44.6 fL (36.4-46.3); Red Blood Count 3.38 M/uL (4.7-6.1); White Blood Count 9.65 K/uL (4.8-10.8)
[2022-01-06 07:07] LABS: BUN Creatinine Ratio 14.8 (10-20); Calcium 8.9 mg/dl (8.5-10.1); Creatinine Clr Calc Pharmacy 29.4 ml/min; Est GFR (African American) 37.2 ml/min; Est GFR (Non-African American) 32.1 ml/min; Magnesium 1.9 mg/dl (1.7-2.4)
[2022-01-06] MEDS: CEROVITE ADV FORMULA TAB PO SCH (07:56)
[2022-01-06] MEDS: VITAMIN B COMPLEX TAB PO SCH (07:56)
[2022-01-06] MEDS: ADVANCED PROBIOTIC 1250 MG CAPSULE PO SCH (07:56)
[2022-01-06] MEDS: MAGNESIUM OXIDE 400 MG TAB PO SCH (07:56)
[2022-01-06] MEDS: PANTOprazole 40 MG TAB PO SCH (07:57)
[2022-01-06] MEDS: POLYETHYLENE (MIRALAX) 17 GM PACK PO SCH (07:57)
[2022-01-06] MEDS: amLODIPine BESYLATE 5 MG TAB PO SCH (07:57)
[2022-01-06] MEDS: LIDOCAINE 5% 1 PATCH TD SCH (07:58)
[2022-01-06] MEDS: HEPARIN SOD 5,000 UNIT/0.5 ML VIAL SQ SCH (08:01)
[2022-01-06] MEDS: SENNA 8.6 MG TAB PO SCH (08:02)
--- NOTE | 2022-01-06 09:32 | Discharge Summary ---
Date of Service January 06, 2022 Admission HPI Per Admitting Provider 81yo male with h/o BPH, kidney stones, recurrent MDR ESBL klebsiella UTIs, and prior bacteremia due to klebsiella infection presents with 3-4 days of low-grade fevers (99-100.5), gross hematuria, fatigue, and simply feeling unwell. Then, about 24 hours ago, he developed right testicular pain and swelling. Further, he has had right groin pain and right anterior upper thigh pain over the last few days. He is followed by Dr Nicholas Flores of [facility] for his urological issues. He contacted their office and they advised him to come to the ER today for evaluation. Discharge Exam gen - pleasant, NAD mouth - MMM neck - supple, no JVD heart - RRR, s1 s2, no murmur lungs - CTA b/l (scant basilar dry rales) - ongoing firm scrotal swelling on right but again improved from prior exams; no tenderness with moving the scrotum or palpation; warmth/redness resolved abd - soft, NT, BS+, mildly distended today ext - no edema, pulses 2+ b/l skin - no rash Discharge Data Allergies Allergy/AdvReac Type Severity Reaction Status Date / Time Iodinated Contrast Media Allergy Severe Rashes Unverified 12/31/21 16:03 iodine Allergy Severe RASHES Verified 12/31/21 16:02 Consultations 12/31/21 17:54 ED Decision to Admit Stat 01/02/22 16:47 Consult Infectious Diseases Routine 01/04/22 19:55 Consult Urology Routine Ordered Studies 12/31/21 16:23 US scrotum/testicle Stat 12/31/21 19:36 CT abd pelvis wo con Stat Hospital Course (1) Acute epididymitis: right-sided. continues to clinically improve. continue scrotal support/elevation and cool packs. cont abx. cont pain control (norco prn). has h/o ESBL klebsiella colonization with recurrent infections. fortunately the urine cx this admission grew klebsiella but NOT ESBL. s/p [facility] consult - they advised: IV rocephin 1gm daily for ~10 days. Plan is HOME ON THURSDAY with us-guided IV and daily IV rocephin 1gm. Last dose 01/13/22. Following the IV rocephin course will switch to 2 weeks of PO abx -- I corresponded with his primary urologist Dr Flores and we both feel we should t reat for presumed acute prostatitis in addition to the epididymitis. PO cefdinir would be good choice for those 2 weeks. Appreciate [facility] consultation. Appreciate urology consultation today. (2) Sepsis: 2nd to #1, #3 resolved blood cx's negative (3) UTI (urinary tract infection): 2nd klebsiella, NOT ESBL fortunately, as on prior cultures. blood cx's remain negative. see #1 above. 2 weeks of IV abx followed by 2 weeks of PO abx (see above) (4) Constipation: ongoing issue. opiate induced. despite suppositories, miralax, senna, etc still no success. gave lactulose this afternoon without results. tonight - give miralax x 3 doses q1h. re-eval tomorrow am. no signs clinically of ileus. (5) Benign localized prostatic hyperplasia with lower urinary tract symptoms (LUTS): voiding fine. no evidence of obstruction on CT a/p at time of admission. no stones. cont alpha kelly. see discussion above re: Rx of presumed acute prostatitis. (6) GERD (gastroesophageal reflux disease): cont PPI. (7) Chronic kidney disease, stage IV (severe): baseline CrCl 20s, with baseline Cr ~1.9 to low 2's. follows with [facility]. Cr 2 today repeat Cr in am for stability (8) Hypertension: largely controlled w/ amlodipine and terazosin. (9) Hematuria, gross: CT a/p obtained to r/o obstructing kidney stone -- this was not seen. hematuria likely 2nd to bladder infection, prostatitis, etc. resolved (10) History of stroke: cont plavix for secondary prevention. (11) Kidney stones: history of such in the past. was hospitalized in [place] for an obstructing stone and had severe sepsis. CT a/p at admission negative for obstructing stones; does have tiny stones in L renal pelvis but no hydronephrosis either side. (12) DVT prophylaxis: since gross hematuria as resolved started heparin 5000 BID (13) Right hip pain: chronic, has seen sports med locally for this and has received physical therapy. cont tylenol prn. cont lidoderm patches prn. updated at bedside briefly today told her we are shooting for home tomorrow AM PT saw patient today - did very well - walked independently 250+ feet Home Health Attestation I certify that this patient is under my care and that I, or a physicians assistant project engineer working with me, had a face to-face encounter that meets the home health yobf-xa-haeg encounter requirements with this patient. The encounter with the patient was in whole, or in part, for the following medical condition, which is the primary reason for home health care (list medical condition): I certify that, based on my findings, the following services are medically necessary home health services: My clinical findings support the need for the above services because: Skilled Nsg Assessment Further, I certify that my clinical findings support that this patient is homebound (i.e. absences from home require considerable and taxing effort and are for medical reasons or jain services or infrequently or of short duration when for other reasons) because: Certification for Home Health Services: Based on the above findings, I certify that this patient is confined to the home and needs intermittent chcf care, physical therapy and/or speech therapy or continues to need occupational therapy. The patient is under my care, and I have initiated the establishment of the plan of care. This patient will be followed by a physician who will periodically review the plan of care. Discharge Plan Discharge Items Patient Disposition: Home - Home Health Services Reason For Visit: UTI, ACUTE EPIDIDYMITIS Discharge Diagnosis: 1. UTI 2. Right-sided Acute Epididymitis 3. Suspected Prostatitis 4. Sepsis due to the above - resolved; blood cultures negative for bacteria Activity: As commented below Activity Comment: gradually increase your activities over the next week Lifting: No more than 10 pounds Bathing: No limitations Driving/Machine Use: No driving if you are taking narcotic pain killer medication Non-emergency contact: Primary Care Provider and Urologist Call non-emergency contact if: you have any medication questions, your symptoms worsen, your pain is not controlled, your pain is worsening, your pain is unusua l for you, your pain is concerning for you and your temperature is above 101 Follow-up/Referrals: Anshul Flores MD [Physician] - 01/27/22 (keep scheduled appointment on 01/27) Albina Cruz DO [Primary Care Provider] - 01/15/22 11:50 am Diet: Heart Healthy Addtl Attending Provider Instructions: Dr Kailey, You were hospitalized for the problems listed above in "discharge diagnoses." Your epididymitis improved with IV antibiotics, cool packs, scrotal support, and time. You were seen by [facility] and they were satisfied with your progress. Blood cultures remained negative while here. Your urine culture grew klebsiella but fortunately it was NOT the "ESBL" variety that you have had in the past. [facility] you [facility] consult and recommended the rocephin (ceftriaxone) injections once daily after discharge via your IV. Your last dose of rocephin will be on 01/13/22. Dr Flores and I spoke and we are both advising that when the rocephin course is complete that you continue with 2 additional weeks of oral antibiotics to treat for possible prostatitis. The first day of the oral antibiotic (cefdinir) will be 01/14/22. Your creatinine today on day of discharge is 1.89. Recommendations - 1. Rocephin antibiotic - 1gm IV daily starting TODAY at home, last infusion on 01/13/22. 2. Cefdinir oral antibiotic - 300mg once daily, starting 01/14/22 and ending 01/27/22. 3. Continue your probiotics daily over the next month to help prevent infection of the colon. Eat extra yogurt every day while taking the IV and oral antibiotics. 4. For pain - * hydrocodone/acetaminophen 1 tablet every 6 hours as needed for pain * this is a narcotic pain killer medication * do not drive a car while taking this medication * do not drink alcohol while taking this medication * do not take extra tylenol while taking this medication as the hydrocodone has tylenol already in it * this medication can cause constipation - see below * it can also cause you to feel sleepy or groggy 5. Continue to elevate the scrotum by wearing briefs or boxerbriefs. 6. Continue cool packs to the scrotum as desired. 7. For constipation - * hqch-niq-knliegv miralax once or twice daily --- especially if you taking the hydrocodone pain medication * gomu-mji-hxhetzr senna/senakot, if needed (some people take the miralax AND senakot together) * shoot for a bowel movement at least every other day 8. Follow-up with Dr Avila for your shoulder pains. 9. Follow-up with your family doctor for your right hip issues. 10. If you wish to use the lidoderm patches for the hip or shoulders you can purchase [id number] "Salonpas." These are the sbdz-ppb-vvsvnwo version of the patches we were using here. Simply follow the instructions on the package for using them. 11. Of note - while on the IV rocephin you will need weekly labs to check on your kidney function, etc. These labs can be monitored by your family doctor. Follow-up - see separate section Return to [facility] if - * you have fevers over 101 degrees * you have worsening scrotal pain despite all of the above recommendations * you have worsening redness or tenderness of the scrotum * you have worsening blood in the urine * you have severe constipation or abdominal pains * you develop severe diarrhea * any other concerns It was our pleasure to care for you at [facility]! Continue to feel better, Dr Lechuga Pending Studies at Discharge: No Stand-Alone Forms: My [facility], Smoking Cessation Medications and DC Order Prescriptions: New ceftriaxone 1 gram recon soln 1 g IV DAILY 8 Days Qty: 8 RF: 0 hydrocodone-acetaminophen 5-325 mg Tablet 1 tab PO Q6H PRN (Reason: pain) Qty: 15 RF: 0 cefdinir 300 mg capsule 300 mg PO DAILY 14 Days Qty: 14 RF: 0 Continued amlodipine 10 mg tablet 10 mg PO QAM RF: 0 cholecalciferol (vitamin D3) 125 mcg (5,000 unit) capsule 125 mcg PO QPM RF: 0 terazosin 5 mg Capsule 5 mg PO HS RF: 0 omeprazole 20 mg Capsule,Delayed Release(Dr/Ec) 20 mg PO QAM RF: 0 vitamin A-vitamin C-vit E-min Tablet 1 tab PO QAM RF: 0 Probiotic 10 billion cell Capsule 10,000 mmu cells PO QAM RF: 0 clopidogrel 75 mg tablet 75 mg PO QPM RF: 0 vitamin B complex Tablet 1 tab PO DAILY RF: 0 loratadine 10 mg Tablet 10 mg PO HS RF: 0 ferrous sulfate 27 mg iron Tablet 27 mg PO DAILY RF: 0 Glucosamine Chondroitin 550-30-1 mg Capsule 2 cap PO HS RF: 0 magnesium oxide 400 mg magnesium Tablet 400 mg PO DAILY RF: 0 Discharge Orders: Discharge Order (Routine); Ordered 01/06/22 Ordered By: Josafat Lechuga Admission Data Admit Date/Time: 12/31/21 19:42 Attending Provider: Josafat Lechuga Admit Provider: Josafat Lechuga Primary Care Provider: Albina Cruz Other Providers: Josafat Lechuga ; Miguelangel Somers ; Carlo Sprague ; Pedro Mcguire I. ; El Delacruz II ; Sara Beck ; Preston Sharma ; Jose Samaniego ; Isra Wisdom ; [facility] Coding Diagnoses Acute epididymitis N45.1 Sepsis A41.9 UTI (urinary tract infection) N39.0; R31.9 Hematuria presence: with hematuria Urinary tract infection type: site unspecified Constipation K59.00 Benign localized prostatic hyperplasia with lower urinary tract symptoms (LUTS) N40.1 GERD (gastroesophageal reflux disease) K21.9 Chronic kidney disease, stage IV (severe) N18.4 Hypertension I10 Hypertension type: essential hypertension Hematuria, gross R31.0 History of stroke Z86.73 Kidney stones N20.0 DVT prophylaxis Z29.9 Right hip pain M25.551
== END 2022-01-06 10:43 | disposition home health service (06) | DRG 872 ==
LOC: ED 14:47 → 2N 19:42

== ENCOUNTER 2023-04-04 10:10 | Inpatient (IN) ==
--- NOTE | 2023-04-04 11:35 | Emergency Department Note ---
Impression & Plan Acute left flank pain, Ureterolithiasis, Acute UTI (urinary tract infection), CKD (chronic kidney disease) ED Provider Note ED Provider Note NAME: HONEY VELASQUEZ AGE:82 SEX: Male : 1940 ARRIVES VIA: Private vehicle INFORMANT: Patient ED PROVIDER(s): Stephanie Emerson DO CHIEF COMPLAINT: Left flank pain, concern for stone HPI: This is an 82-year-old male presents emergency department due to concern for left flank pain and possible kidney stone. Patient with a history of stones and does follow with Dr. Flores of urology. He states he began noticing left flank pain again which felt similar to prior stones. He states the pain has been waxing and waning. He states he has noticed some radiation do wn in the left testicle and in the left proximal thigh. He denies nausea, vomiting, fevers or chills. Patient does have a prior history of UTIs with sepsis. He states he has not noticed any change in his urine over the last several days. He states he does follow with nephrology due to some kidney dysfunction additionally. also notes he did have epididymitis last year also which caused testicular pain. He states no other recent illness, URI symptoms, or concerns. He does note mild constipation over the last several days with the use of the pain medication he had at home left over from prior stones. He did reach out and speak to Dr. Flores and a KUB was ordered and performed yesterday as an outpatient. This does suggest a possible stone. He states Dr. Avila instructed him that should he feel worse he should come to the ER for additional evaluation. PAST MEDICAL HISTORY:See Below PAST SURGICAL HISTORY:See Below FAMILY HISTORY:See Below SOCIAL HISTORY:See Below HOME MEDICATIONS:See Below ALLERGIES:See Below VITALS:See Below PHYSICAL EXAMINATION: GENERAL: alert, well appearing, well nourished, no distress, non-toxic EYE EXAM: normal conjunctiva, PERRL and EOM's grossly intact OROPHARYNX: no exudate, no erythema, lips, buccal mucosa, and tongue normal and mucous membranes are moist NECK: supple, no nuchal rigidity, no adenopathy, non-tender LUNGS: Clear to auscultation. Normal chest wall mechanics, no w/r/r HEART: no murmurs, S1 normal and S2 normal ABDOMEN: abdomen soft, normo-active bowel sounds, no masses, no rebound or guarding. Mild pain with palpation over the left flank. BACK: Back is symmetrical on inspection and there is no deformity, no midline tenderness, no CVA tenderness. SKIN: no rashes, petechiae, orbruising UPPER EXTREMITIES: upper extremities are grossly normal. FROM, nml pulses b/l. LOWER EXTREMITIES: No pitting edema. FROM, nml pulses b/l. NEURO EXAM: Normal sensorium, cranial nerves II-XII grossly intact, normal speech, no facial droop,nogross weakness of arms, no gross weakness of legs. Gross sensation intact. No ataxia. Vital Signs: reviewed and remarkable Differential Diagnosis: ureterolithiaisis, UTI, ROSALVA, diverciulitis, torsion, epididymitis, SBO, colitis, prostatitis hernia as well as others were considered MEDICAL DECISION MAKING: THis is an 82 yo male who presents with flank/abd pain and concern for recurrent kidney stone. Patient afebrile and VS stable. Labs drawn and sent, IV established, and patient placed on telemetry. Patient started on gentle IVF and given IV tylenol and IV fentanyl initially for pain. Patient sent for CT imaging which confirmed 4 mm left ureteral stone. UA suggestive of possible evolving infection. GIven hx of uti I reviewed cultures and started IV rocephin while awaiting a call back from urology. Patient given additional doses of morphine for pain. It did take some time for urology to return our call as they were in the OR on another case. We discussed hx, CKD which appears at baseline, new finding of stone, and concern for UTI and prior cultures which showed specimens only responsive to antibiotics that are only IV. He was in agreement with likely admission despite patient hoping to be discharged. AFter additional discussion at bedside, patient and in agreement with the plan. CAse discussed with hospitalist. VS stable while in the ER. Consultation(s): 837: Discussed with Dr. Royal. [id number]: Discussed with Dr Moseley. ER Treatment Provided: See below Diagnostics Interpreted By Me: -ECG: [] -Cardiac Monitoring: An order was placed for continuous cardiac monitoring. The monitor shows a rate of 72 with normal sinus rhythm. -Laboratory studies: As stated above and show below. 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 On Plavix Prostatitis 2015; with sepsis Urinary tract infection dx ~1 week ago (~12/22/22) and started on abx and feeling better currently. to finish 01/06/2023. Vertigo Surgical History History of colonoscopy History of cystoscopy History of lithotripsy [place] [facility] [place] [place] History of right cataract surgery History of tooth extraction wisdom teeth S/P TURP modified, during ureteral stent placement for kidney stone in [facility] Family History Family/Other Hypertension Diabetes Mother , old age at age 88 Breast cancer Hypertension Father , from complications of hip fracture No problems noted. Denies family history of Myocardial infarction Stroke Social History Smoking Status: Former smoker Tobacco Type: Cigarettes Age Quit Using Tobacco: 43; packs per day: 0.5; Second Hand Exposure: No; Do You Dip or Chew Tobacco: No; Tobacco Cessation Education Requested by Patient: No Hx Alcohol Use: Yes Alcohol type: hard liquor Alcohol Intake Frequency: Monthly or Less Hx Substance Use: No Preferred Language: Uzbek Communication Ability: Effective Dipper And Drier Required: No Beliefs That Will Affect Care: None marital status: Current Living Situation: Spouse Current Living Situation Comment: lives at home with spouse current occupational status: retired 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 How many Children do You have: 2 Other Information That Helps Us Care for You: No other: 2 children; 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, 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) Feels Safe at Home: Yes Safety Concerns: Feels Safe At This Time Assistive Devices: Denture - Upper and Glasses Allergies Allergies Allergy/AdvReac Type Severity Reaction Status Date / Time cefdinir Allergy Severe hives Verified 04/04/23 14:49 Iodinated Contrast Media Allergy Severe Rashes Verified 04/04/23 14:49 iodine Allergy Severe RASHES Verified 04/04/23 14:49 egg Allergy Intermediate Difficulty Verified 04/04/23 14:49 Breathing Home Meds Home Medications Medication Instructions Recorded Confirmed terazosin 5 mg capsule 5 mg PO HS 11/29/19 04/04/23 amlodipine 10 mg tablet 10 mg PO QAM 01/02/21 04/04/23 Lactobacillus acidophilus 10 10,000 mmu cells PO QAM 01/23/21 04/04/23 billion cell capsule (Probiotic) clopidogrel 75 mg tablet 75 mg PO HS 01/23/21 04/04/23 omeprazole 20 mg capsule,delayed 20 mg PO QAM 01/23/21 04/04/23 release vitamin A-vitamin C-vit E-min 1 tab PO QAM 01/23/21 04/04/23 tablet (Vision tablet) ferrous sulfate 27 mg iron tablet 27 mg PO QAM 12/31/21 04/04/23 glucosamine sulf dipot 2 cap PO HS 12/31/21 04/04/23 chlr,msm,chond 550 mg-C 30 mg-que 1 mg capsule (Glucosamine Chondroitin) loratadine 10 mg tablet 10 mg PO HS 12/31/21 04/04/23 vitamin B complex 1 tab PO QAM 12/31/21 04/04/23 metoprolol tartrate 25 mg tablet 12.5 mg PO BID 06/19/22 04/04/23 finasteride 5 mg tablet 5 mg PO HS 07/28/22 04/04/23 potassium citrate 10 mEq (1,080 10 meq PO BID 02/17/23 04/04/23 mg) tablet,extended release cholecalciferol (vitamin D3) 50 50 mcg PO DAILY 04/04/23 04/04/23 mcg (2,000 unit) tablet (Vitamin D3) Previous Rx's Medication Instructions Recorded hydrocodone 5 mg-acetaminophen 325 1 tab PO Q6H PRN pain #15 tabs 10/28/22 mg tablet Results & Data (ED) Vital Signs Vital Signs - 24 hr 04/04/23 10:30 04/04/23 11:24 04/04/23 11:53 Temperature 36.4 C L Temperature Source Skin Pulse Rate 72 68 Pulse Rate [Apical] 56 L Respiratory Rate 20 20 Respiratory Effort / Characteristics Non-Labored Spontaneous Respiratory Depth Normal Respiratory Pattern Regular Blood Pressure 158/76 H Blood Pressure [Right Arm] 135/75 Blood Pressure Mean 103 Blood Pressure Mean [Right Arm] 95 Blood Pressure Position [Right Arm] Sitting Pulse Oximetry 97 96 Oxygen Delivery Method Room Air Room Air Sepsis Recent Fever Within 48 Hours No Sepsis New/Unexplained Change in Mental Status N/A Sepsis Action Taken by Nursing No Action Required 04/04/23 15:22 04/04/23 16:21 Temperature Temperature Source Pulse Rate 69 Pulse Rate [Apical] 77 Respiratory Rate 18 Respiratory Effort / Characteristics Respiratory Depth Respiratory Pattern Blood Pressure Blood Pressure [Right Arm] 137/85 Blood Pressure Mean Blood Pressure Mean [Right Arm] 102 Blood Pressure Position [Right Arm] Sitting Pulse Oximetry 99 Oxygen Delivery Method Room Air Sepsis Recent Fever Within 48 Hours Sepsis New/Unexplained Change in Mental Status Sepsis Action Taken by Nursing Laboratory Data 04/04/23 11:41 04/04/23 11:41 Lab Results 04/04/23 04/04/23 04/04/23 Range/Units 11:04 11:41 11:41 WBC 4.35 L (4.8-10.8) K/ul RBC 4.01 L (4.70-6.10) M/uL Hgb 12.3 L (14.0-18.0) g/dl Hct 34.2 L (42.0-52.0) % MCV 85.3 (80.0-100.0) fL MCH 30.7 (25.0-34.0) pg MCHC 36.0 (32.0-36.0) g/dL RDW Std Deviation 43.9 (36.4-46.3) fL RDW Coeff of Rickey 14.0 (11.5-14.5) % Plt Count 155 (130-400) K/uL MPV 10.9 (9.4-12.4) fL Immature Gran % (Auto) 0.2 % Neut % (Auto) 64.1 % Lymph % (Auto) 25.1 % Saunders % (Auto) 7.1 % Eos % (Auto) 3.0 % Baso % (Auto) 0.5 % Neut # (Auto) 2.79 (1.40-6.50) K/uL Lymph # (Auto) 1.09 L (1.2-3.4) K/uL Saunders # (Auto) 0.31 (0.11-0.59) K/uL Eos # (Auto) 0.13 (0-0.50) K/uL Baso # (Auto) 0.02 (0-0.2) K/uL Immature Gran # (Auto) 0.01 (0.01-0.20) K/uL Sodium 137 (136-145) mmol/L Potassium 4.2 (3.5-5.1) mmol/L Chloride 107 (98-107) mmol/L Carbon Dioxide 23 (21-32) mmol/L Anion Gap 7 (3-11) BUN 27 H (6-23) mg/dl Creatinine 2.10 H (0.6-1.4) mg/dl Est Cr Clr Drug Dosing 25.3 ml/min Est GFR ( Amer) 32.5 ml/min Est GFR (Non-Af Amer) 28.1 ml/min BUN/Creatinine Ratio 12.9 (10-20) Glucose 112 H (70-99(Fasting)) mg/dl Calcium 8.9 (8.6-10.3) mg/dl Total Bilirubin 0.7 (0.2-1.0) mg/dl AST 17 (13-39) U/L ALT 12 (7-52) U/L Alkaline Phosphatase 62 (34-104) U/L Total Protein 7.8 (6.0-8.3) gm/dl Albumin 4.0 (3.4-5.0) gm/dl Globulin 3.8 (2.5-4.0) gm/dl Albumin/Globulin Ratio 1.1 (0.9-2) Urine Color Yellow Urine Appearance Clear (Clear) Urine pH 5.5 (4.5-7.5) Ur Specific Dougherty 1.019 (1.000-1.030) Urine Protein 2+ H (Negative) Urine Glucose (UA) Negative (Negative) Urine Ketones Negative (Negative) Urine Blood Trace H (Negative) Urine Nitrite Negative (Negative) Urine Bilirubin Negative (Negative) Urine Urobilinogen Negative (Negative) Ur Leukocyte Esterase 2+ H (Negative) Urine WBC (Auto) >30 H (0-5) /hpf Urine RBC (Auto) 0-4 (0-4) /hpf U Hyaline Cast (Auto) 1-5 (0-5) /lpf U Epithel Cells (Auto) 0-5 (0-5) /lpf Urine Bacteria (Auto) 4+ H (Negative) SARS-CoV-2 (PCR) (Negative) Influenza Type A (PCR) (Neg) Influenza Type B (PCR) (Neg) RSV (RT-PCR) (Neg) 04/04/23 Range/Units 17:11 WBC (4.8-10.8) K/ul RBC (4.70-6.10) M/uL Hgb (14.0-18.0) g/dl Hct (42.0-52.0) % MCV (80.0-100.0) fL MCH (25.0-34.0) pg MCHC (32.0-36.0) g/dL RDW Std Deviation (36.4-46.3) fL RDW Coeff of Rickey (11.5-14.5) % Plt Count (130-400) K/uL MPV (9.4-12.4) fL Immature Gran % (Auto) % Neut % (Auto) % Lymph % (Auto) % Saunders % (Auto) % Eos % (Auto) % Baso % (Auto) % Neut # (Auto) (1.40-6.50) K/uL Lymph # (Auto) (1.2-3.4) K/uL Saunders # (Auto) (0.11-0.59) K/uL Eos # (Auto) (0-0.50) K/uL Baso # (Auto) (0-0.2) K/uL Immature Gran # (Auto) (0.01-0.20) K/uL Sodium (136-145) mmol/L Potassium (3.5-5.1) mmol/L Chloride (98-107) mmol/L Carbon Dioxide (21-32) mmol/L Anion Gap (3-11) BUN (6-23) mg/dl Creatinine (0.6-1.4) mg/dl Est Cr Clr Drug Dosing ml/min Est GFR ( Amer) ml/min Est GFR (Non-Af Amer) ml/min BUN/Creatinine Ratio (10-20) Glucose (70-99(Fasting)) mg/dl Calcium (8.6-10.3) mg/dl Total Bilirubin (0.2-1.0) mg/dl AST (13-39) U/L ALT (7-52) U/L Alkaline Phosphatase (34-104) U/L Total Protein (6.0-8.3) gm/dl Albumin (3.4-5.0) gm/dl Globulin (2.5-4.0) gm/dl Albumin/Globulin Ratio (0.9-2) Urine Color Urine Appearance (Clear) Urine pH (4.5-7.5) Ur Specific Dougherty (1.000-1.030) Urine Protein (Negative) Urine Glucose (UA) (Negative) Urine Ketones (Negative) Urine Blood (Negative) Urine Nitrite (Negative) Urine Bilirubin (Negative) Urine Urobilinogen (Negative) Ur Leukocyte Esterase (Negative) Urine WBC (Auto) (0-5) /hpf Urine RBC (Auto) (0-4) /hpf U Hyaline Cast (Auto) (0-5) /lpf U Epithel Cells (Auto) (0-5) /lpf Urine Bacteria (Auto) (Negative) SARS-CoV-2 (PCR) NEGATIVE (Negative) Influenza Type A (PCR) Negative (Neg) Influenza Type B (PCR) Negative (Neg) RSV (RT-PCR) Negative (Neg) Administered Medications Clopidogrel Bisulfate (Clopidogrel Bisulfate 75 Mg Tab) 75 mg PO HS KRISHNA Stop: 05/04/23 21:20 Last Admin: 04/04/23 22:46 Dose: 75 mg Documented By: AMS Finasteride (Finasteride 5 Mg Tab) 5 mg PO HS KRISHNA Stop: 05/04/23 21:20 Last Admin: 04/04/23 22:45 Dose: 5 mg Documented By: AMS Metoprolol Tartrate (Metoprolol Tartrate 25 Mg Tab) 12.5 mg PO BID KRISHNA Stop: 05/04/23 21:20 Last Admin: 04/04/23 22:46 Dose: 12.5 mg Documented By: AMS Morphine Sulfate (Morphine Sulfate 2 Mg/Ml Carp) 2 mg IV Q3H PRN PRN Reason: Pain(4+) Stop: 04/18/23 21:20 Last Admin: 04/05/23 06:29 Dose: 2 mg Documented By: Admin: 04/05/23 03:23 Dose: 2 mg Documented By: Admin: 04/04/23 22:48 Dose: 2 mg Documented By: AMS Potassium Citrate (Potassium Citrate 10 Meq Tab) 10 meq PO BID KRISHNA Stop: 05/04/23 21:20 Last Admin: 04/04/23 22:46 Dose: 10 meq Documented By: AMS Terazosin HCl (Terazosin Hcl 5 Mg Cap) 5 mg PO HS KRISHNA Stop: 05/04/23 21:20 Last Admin: 04/04/23 22:46 Dose: 5 mg Documented By: AMS Discontinued Medications Fentanyl Citrate (Fentanyl Citrate Pf 100 Mcg/2 Ml Vial) 50 mcg IV NOW STA Stop: 04/04/23 11:43 Last Admin: 04/04/23 12:39 Dose: Not Given Documented By: QGV Acetaminophen (Ofirmev) 1,000 mg in 100 mls @ 400 mls/hr IV NOW STA Stop: 04/04/23 11:56 Last Infusion: 04/04/23 12:57 Dose: 0 mls/hr Documented By: Admin: 04/04/23 12:30 Dose: 400 mls/hr Documented By: QGV Ceftriaxone Sodium 1,000 mg/ (Dextrose) 50 mls @ 100 mls/hr IV NOW STA; Protocol Stop: 04/04/23 15:03 Last Infusion: 04/04/23 16:09 Dose: 0 mls/hr Documented By: Admin: 04/04/23 15:07 Dose: 100 mls/hr Documented By: QGV Parenteral Electrolytes (Plasma-Lyte A Ph 7.4) 1,000 mls @ 100 mls/hr IV .Q10H KRISHNA Stop: 04/05/23 04:14 Last Infusion: 04/05/23 04:58 Dose: 0 mls/hr Documented By: Admin: 04/04/23 18:58 Dose: 100 mls/hr Documented By: QGV Parenteral Electrolytes (Plasma-Lyte A Ph 7.4) 1,000 mls @ 100 mls/hr IV .Q10H KRISHNA Stop: 04/05/23 07:20 Last Admin: 04/05/23 04:26 Dose: Not Given Documented By: AMS Morphine Sulfate (Morphine Sulfate 2 Mg/Ml Carp) 2 mg IV NOW STA Stop: 04/04/23 14:35 Last Admin: 04/04/23 14:54 Dose: 2 mg Documented By: ERNA Morphine Sulfate (Morphine Sulfate 4 Mg/Ml 1 Ml Carp\Vial) 4 mg IV NOW STA Stop: 04/04/23 16:05 Last Admin: 04/04/23 16:18 Dose: 4 mg Documented By: QGV Imaging Data Radiologist's Impression: Abdomen/Pelvis CT 04/04/23 11:[address] WITHOUT CONTRAST CT DOSE: 941.02 mGy.cm HISTORY: left flank pain, hx stones TECHNIQUE: Multiaxial CT images of the abdomen and pelvis were performed without contrast. A dose lowering technique was utilized adhering to the principles of ALARA. COMPARISON STUDY: Abdomen and pelvis CT 10/23/2022. FINDINGS: Left-sided nephrolithiasis again noted. There is mild fullness within the left renal collecting system without kathrin hydronephrosis secondary to an obstructing 4 mm stone within the proximal to mid left ureter on image 152. This is similar to the prior study. No right-sided hydronephrosis or right ureteral calculi. Bladder wall thickening, unchanged. The prostate gland remains heterogeneous and enlarged. Emphysema again noted at the lung bases. No pneumoperitoneum. No pneumatosis. No acute fractures identified. The unenhanced liver, gallbladder, spleen, adrenal glands, and pancreas unremarkable. No retroperitoneal lymphadenopathy. Normal caliber abdominal aorta with mild calcified plaque. No pelvic lymphadenopathy or pelvic free fluid. Suboptimal evaluation for bowel pathology due to the lack of intravenous and oral contrast. However, there is no definite bowel wall thickening or obstruction. Colonic diverticulosis. No evidence for acute diverticulitis. [id number] fecal retention is noted. Normal appendix. IMPRESSION: 1. No significant change in the partially obstructing 4 mm stone within the pro ximal to mid left ureter. 2. Left-sided nephrolithiasis. 3. Prostatomegaly with chronic bladder outlet obstruction again noted. 4. Colonic diverticulosis. No evidence for acute diverticulitis. 5. Additional findings as described above. ACT 112: Negative or not required by law. Electronically signed by: Ramiro Grimes M.D. 04/04/2023 12:51 PM Discharge Plan Visit Data Chief Complaint: Kidney Stone Stated Complaint: REF BY DOC; KIDNEY STONE ED Provider: Stephanie Emerson Discharge Problem: Acute left flank pain, Ureterolithiasis, Acute UTI (urinary tract infection), CKD (chronic kidney disease) Patient Disposition: Admitted As Inpatient Discharge Instructions Interventions: ED Discharge Assessment Last Done: 04/04/23 21:02
[2023-04-04] MEDS ORDERED: fentaNYL citrate PF 100 MCG/2 ML VIAL IV STA (11:42)
[2023-04-04] MEDS ORDERED: ACETAMINOPHEN 1,000 MG/100 ML VIAL IV STA (11:42)
[2023-04-04 11:56] LABS: Appearance Urine Clear (Clear); Bacteria Urine Automated 4+ (Negative); Bilirubin Urine Negative (Negative); Blood Urine Trace (Negative); Color Urine Yellow; Epithelial Cell Urine Auto 0-5 /lpf (0-5); Glucose Urine UA Negative (Negative); Ketones Urine Negative (Negative); Leukocyte Esterase Urine 2+ (Negative); Nitrite Urine Negative (Negative); Protein Urine 2+ (Negative); RBC Urine Automated 0-4 /hpf (0-4); Specific Gravity Urine 1.019 (1.000-1.030); Urobilinogen Urine Negative (Negative); WBC Urine Automated >30 /hpf (0-5); pH Urine 5.5 (4.5-7.5)
[2023-04-04 12:01] LABS: Basophils # (auto) 0.02 K/uL (0-0.2); Basophils % (auto) 0.5 %; Eosinophils # (auto) 0.13 K/uL (0-0.50); Hematocrit (blood only) 34.2 % (42.0-52.0); Hemoglobin 12.3 g/dl (14.0-18.0); Immature Granulocytes # (auto) 0.01 K/uL (0.01-0.20); Immature Granulocytes % (auto) 0.2 %; Lymphocytes # (auto) 1.09 K/uL (1.2-3.4); Lymphocytes % (auto) 25.1 %; Mean Corpuscular Hemoglobin 30.7 pg (25.0-34.0); Mean Corpuscular Volume 85.3 fL (80.0-100.0); Mean Platelet Volume 10.9 fL (9.4-12.4); Monocytes # (auto) 0.31 K/uL (0.11-0.59); Monocytes % (auto) 7.1 %; Neutrophils # (auto) 2.79 K/uL (1.40-6.50); Neutrophils % (auto) 64.1 %; Platelet Count 155 K/uL (130-400); RDW Standard Deviation 43.9 fL (36.4-46.3); Red Blood Count 4.01 M/uL (4.70-6.10); White Blood Count 4.35 K/ul (4.8-10.8)
[2023-04-04 12:18] LABS: Albumin Globulin Ratio 1.1 (0.9-2); BUN Creatinine Ratio 12.9 (10-20); Bilirubin,Total 0.7 mg/dl (0.2-1.0); Calcium 8.9 mg/dl (8.6-10.3); Creatinine Clr Calc Pharmacy 25.3 ml/min; Est GFR (African American) 32.5 ml/min; Est GFR (Non-African American) 28.1 ml/min; Globulin 3.8 gm/dl (2.5-4.0); Potassium 4.2 mmol/L (3.5-5.1); Total Protein 7.8 gm/dl (6.0-8.3)
--- NOTE | 2023-04-04 12:54 | CT Scan Report ---
ABDOMEN AND PELVIS CT WITHOUT CONTRAST CT DOSE: 941.02 mGy.cm HISTORY: left flank pain, hx stones TECHNIQUE: Multiaxial CT images of the abdomen and pelvis were performed without contrast. A dose lo wering technique was utilized adhering to the principles of ALARA. COMPARISON STUDY: Abdomen and pelvis CT 10/23/2022. FINDINGS: Left-sided nephrolithiasis again noted. There is mild fullness within the left renal collec ting system without kathrin hydronephrosis secondary to an obstructing 4 mm stone within the proximal t o mid left ureter on image 152. This is similar to the prior study. No right-sided hydronephrosis or right ureteral calculi. Bladder wall thickening, unchanged. The prostate gland remains heterogeneous and enlarged. Emphysema again noted at the lung bases. No pneumoperitoneum. No pneumatosis. No acute fractures identified. The unenhanced liver, gallbladder, spleen, adrenal glands, and pancreas unremar kable. No retroperitoneal lymphadenopathy. Normal caliber abdominal aorta with mild calcified plaque. No pelvic lymphadenopathy or pelvic free fluid. Suboptimal evaluation for bowel pathology due to the lack of intravenous and oral contrast. However, there is no definite bowel wall thickening or obstru ction. Colonic diverticulosis. No evidence for acute diverticulitis. [id number] fecal retention is noted. Normal appendix. IMPRESSION: 1. No significant change in the partially obstructing 4 mm stone within the proximal to mid left uret er. 2. Left-sided nephrolithiasis. 3. Prostatomegaly with chronic bladder outlet obstruction again noted. 4. Colonic diverticulosis. No evidence for acute diverticulitis. 5. Additional findings as described above. ACT 112: Negative or not required by law. Electronically signed by: Ramiro Grimes M.D. 04/04/2023 12:51 PM
[2023-04-04] MEDS ORDERED: MoRPHine SULFATE 2 MG/ML CARP IV STA (14:34)
[2023-04-04] MEDS ORDERED: cefTRIAXone SODIUM 1,000 MG in DEXTROSE 5% AD-VAN 50 ML IV STA (14:34)
[2023-04-04] MEDS ORDERED: MoRPHine SULFATE 4 MG/ML 1 ML CARP\\VIAL IV STA (16:04)
--- NOTE | 2023-04-04 17:54 | History & Physical Report ---
Date of Service April 04, 2023 Assessment & Plan (1) Ureteral calculus, left: Plan: -Admit to med/tele -Currently stable and non-toxic appearing -Found to have a partially obstructing 4 mm left ureteral stone on CT today -UA today appears infected -S/P one dose of Ceftriaxone in the ED -Has a history of growing Klebsiella sensitive to Ceftriaxone, will continue with it for now -Will keep NPO except meds in case of urgent/emergent OR overnight -Will keep on Plasmalyte while NPO for hydration -Continue home terazosin and finasteride -Follow blood and urine cultures -Tylenol and morphine for pain -Hold chemical DVT PPX for now with OR likely in the next 24 hours -AM CBC, CMP, Mag, PT/INR (2) UTI (urinary tract infection): Plan: -Continue Ceftriaxone -Follow urine and blood cultures (3) BPH (benign prostatic hypertrophy): Plan: -Continue terazosin and finasteride (4) Hypertension: Plan: -Stable -Will hold amlodipine for now to avoid hypotension if he becomes septic -Continue metoprolol (5) Chronic cerebral ischemia: Plan: -Continue plavix (6) GERD (gastroesophageal reflux disease): Plan: -Continue omeprazole Plan The patient was discussed with Dr. Moseley at the time of the admissino History of Present Illness Chief Complaint: left flank pain, concern for kidney stone Primary Care Provider: DO Zohreh Marquez is an 82 year old male with a PMH significant for BPH, kidney stones, recurrent MDR ESBL klebsiella UTIs, and prior bacteremia due to klebsiella infection, HTN, previous CVA on plavix, and CKD who presented to the [facility] ED on 04/04 with left flank pain and concerns for recurrent kidney stones. In the ED vitals were stable. Labs were significant for stable pancytopenia, s table renal function and UA concerning for infection. CT of the abd/pelvis wo con was read as "1. No significant change in the partially obstructing 4 mm stone within the proximal to mid left ureter. 2. Left-sided nephrolithiasis. 3. Prostatomegaly with chronic bladder outlet obstruction again noted. 4. Colonic diverticulosis. No evidence for acute diverticulitis.". The patient was offered the option to be taken to the OR today for stent placement but he would like to try and wait until tomorrow. Prior to admission the patient was given a dose of ceftriaxone, 50 mcg of fentanyl, 1gm IV acetaminophen, and 6 total mg of IV morphine. At the time of the admission the patient was sitting in bed in no acute distress. He states that he has been having left flank, abdominal/groin pain over the past 3 days. He has had multiple kidney stones in the past which have required stent placement and follows with the [facility] Urology team. He started to develop chills this am so he came to the ED to be evaluated as he has been septic from infected stones in the past. He denies recent fevers, chest pain, SOB, cough, dysuria, hematuria, diarrhea, melena,a LE swelling, and recent trauma. He is currently experiencing the most discomfort in the left groin at this time. He has very mild left testicular pain. When asked, he says this pain is not similar to his previous episodes of epididymitis or prostatitis. He is currently feeling well and has been able to eat and drink without issue. He understands that we will keep him NPO for now if case he would become septic overnight and require emergent stent placement. He is a full code and wishes for his to make medical decisions for him if he could not make them himself. Please refer to Dr. Moseley's attestation for any changes to the treatment plan Allergies Allergy/AdvReac Type Severity Reaction Status Date / Time cefdinir Allergy Severe hives Verified 04/04/23 14:49 Iodinated Contrast Media Allergy Severe Rashes Verified 04/04/23 14:49 iodine Allergy Severe RASHES Verified 04/04/23 14:49 egg Allergy Intermediate Difficulty Verified 04/04/23 14:49 Breathing Home Medications Medication Instructions Recorded Confirmed Type terazosin 5 mg capsule 5 mg PO HS 11/29/19 04/04/23 History amlodipine 10 mg tablet 10 mg PO QAM 01/02/21 04/04/23 History Lactobacillus acidophilus 10 10,000 mmu cells PO QAM 01/23/21 04/04/23 History billion cell capsule (Probiotic) clopidogrel 75 mg tablet 75 mg PO HS 01/23/21 04/04/23 History omeprazole 20 mg capsule,delayed 20 mg PO QAM 01/23/21 04/04/23 History release vitamin A-vitamin C-vit E-min 1 tab PO QAM 01/23/21 04/04/23 History tablet (Vision tablet) ferrous sulfate 27 mg iron tablet 27 mg PO QAM 12/31/21 04/04/23 History glucosamine sulf dipot 2 cap PO HS 12/31/21 04/04/23 History chlr,msm,chond 550 mg-C 30 mg-que 1 mg capsule (Glucosamine Chondroitin) loratadine 10 mg tablet 10 mg PO HS 12/31/21 04/04/23 History vitamin B complex 1 tab PO QAM 12/31/21 04/04/23 History metoprolol tartrate 25 mg tablet 12.5 mg PO BID 06/19/22 04/04/23 History finasteride 5 mg tablet 5 mg PO HS 07/28/22 04/04/23 History hydrocodone 5 mg-acetaminophen 325 1 tab PO Q6H PRN pain #15 tabs 08/01/22 04/04/23 Rx mg tablet potassium citrate 10 mEq (1,080 10 meq PO BID 02/17/23 04/04/23 History mg) tablet,extended release cholecalciferol (vitamin D3) 50 50 mcg PO DAILY 04/04/23 04/04/23 History mcg (2,000 unit) tablet (Vitamin D3) Past Med/Surg History Medical History Asthma as child BPH (benign prostatic hyperplasia) 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 On Plavix Prostatitis 2015; with sepsis Urinary tract infection dx ~1 week ago (~12/22/22) and started on abx and feeling better currently. to finish 01/06/2023. Vertigo Surgical History History of colonoscopy History of cystoscopy History of lithotripsy History of lithotripsy ESWL ([facility] [place] 08/01/2022) History of right cataract surgery History of tooth extraction wisdom teeth S/P TURP modified, during ureteral stent placement for kidney stone in [place] Family History Family/Other Hypertension Diabetes Mother , old age at age 88 Breast cancer Hypertension Father , from complications of hip fracture No problems noted. Denies family history of Myocardial infarction Stroke Social History Smoking Status: Former smoker Tobacco Type: Cigarettes Age Quit Using Tobacco: 43; packs per day: 0.5; Second Hand Exposure: No; Do You Dip or Chew Tobacco: No; Tobacco Cessation Education Requested by Patient: No Hx Alcohol Use: Yes Alcohol type: hard liquor Alcohol Intake Frequency: Monthly or Less Hx Substance Use: No Preferred Language: Indonesian Communication Ability: Effective Production Posting Clerk Required: No Beliefs That Will Affect Care: None marital status: Current Living Situation: Spouse Current Living Situation Comment: lives at home with spouse current occupational status: retired 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 How many Children do You have: 2 Other Information That Helps Us Care for You: No other: 2 children; 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, 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) Feels Safe at Home: Yes Safety Concerns: Feels Safe At This Time Assistive Devices: Denture - Upper and Glasses Physical Exam Physical Exam: Physical Exam: General: In no acute distress, stated age, well-nourished, good hygiene HEENT: Normocephalic, atraumatic, no scleral icterus, pupils around round, symmetrical, and reactive to light, moist mucus membranes, trachea midline, no thyromegaly Chest/Pulm: No respiratory distress, symmetrical chest expansion, clear breath sounds throughout Cardiac: RRR, no murmurs noted Abdomen: Negative for ascites and bruising, normoactive bowel sounds, soft, mildly tender in the left lower abdomen : Negative CVA tenderness BL, patient without swelling or erythema of the scrotum Musculoskeletal: Symmetrical and without signs of acute trauma, upper and lower extremities with full ROM, no atrophy, spasticity, or flaccidity Extremities: Radial, dorsalis pedis, and posterior tibial pulses are intact and symmetrical, no edema noted in the BL LE's Skin: Warm, dry, no rashes , lesions, or scars noted Neuro: Alert and oriented to person, place, month, year, and president, no focal defects, no tremors noted Psych: No acute distress, calm and cooperative during the exam Results & Data Results & Data Vital Signs (Past 12 Hours) Vital Signs Temp Pulse Pulse Resp BP BP Pulse Ox 04/04/23 16:21 77 18 137/85 99 04/04/23 15:22 69 04/04/23 11:53 56 L 20 135/75 96 04/04/23 11:24 68 04/04/23 10:30 36.4 C L 72 20 158/76 H 97 O2 Del Method 04/04/23 16:21 Room Air 04/04/23 15:22 04/04/23 11:53 Room Air 04/04/23 11:24 04/04/23 10:30 Room Air Laboratory Results Abnormal lab results 04/04/23 04/04/23 04/04/23 Range/Units 11:04 11:41 11:41 WBC 4.35 L (4.8-10.8) K/ul RBC 4.01 L (4.70-6.10) M/uL Hgb 12.3 L (14.0-18.0) g/dl Hct 34.2 L (42.0-52.0) % Lymph # (Auto) 1.09 L (1.2-3.4) K/uL BUN 27 H (6-23) mg/dl Creatinine 2.10 H (0.6-1.4) mg/dl Glucose 112 H (70-99(Fasting)) mg/dl Urine Protein 2+ H (Negative) Urine Blood Trace H (Negative) Ur Leukocyte Esterase 2+ H (Negative) Urine WBC (Auto) >30 H (0-5) /hpf Urine Bacteria (Auto) 4+ H (Negative) Diagnostic Findings Abdomen/Pelvis CT 04/04/23 11:[address] WITHOUT CONTRAST CT DOSE: 941.02 mGy.cm HISTORY: left flank pain, hx stones TECHNIQUE: Multiaxial CT images of the abdomen and pelvis were performed without contrast. A dose lowering technique was utilized adhering to the principles of ALARA. COMPARISON STUDY: Abdomen and pelvis CT 10/23/2022. FINDINGS: Left-sided nephrolithiasis again noted. There is mild fullness within the left renal collecting system without kathrin hydronephrosis secondary to an obstructing 4 mm stone within the proximal to mid left ureter on image 152. This is similar to the prior study. No right-sided hydronephrosis or right ureteral calculi. Bladder wall thickening, unchanged. The prostate gland remains heterogeneous and enlarged. Emphysema again noted at the lung bases. No pneumoperitoneum. No pneumatosis. No acute fractures identified. The unenhanced liver, gallbladder, spleen, adrenal glands, and pancreas unremarkable. No retroperitoneal lymphadenopathy. Normal caliber abdominal aorta with mild calcified plaque. No pelvic lymphadenopathy or pelvic free fluid. Suboptimal evaluation for bowel pathology due to the lack of intravenous and oral contrast. However, there is no definite bowel wall thickening or obstruction. Colonic diverticulosis. No evidence for acute diverticulitis. Zcys-fh-[id number] fecal retention is noted. Normal appendix. IMPRESSION: 1. No significant change in the partially obstructing 4 mm stone within the proximal to mid left ureter. 2. Left-sided nephrolithiasis. 3. Prostatomegaly with chronic bladder outlet obstruction again noted. 4. Colonic diverticulosis. No evidence for acute diverticulitis. 5. Additional findings as described above. ACT 112: Negative or not required by law. Electronically signed by: Ramiro Grimes M.D. 04/04/2023 12:51 PM Code Status & VTE Plan Code Status Full code Supervising Physician Co-Signing Physician Notes I personally saw and examined the patient. I verified all arana points and agree with Marshall Alejandro PA-C with the following exceptions and/or additions: 82 year old male presents to the ER with 3 days of left flank pain. History of multiple kidney stones since 2019 requiring lithotripsy. No dysuria but UA gross ly infected. O/E HS RRR, no murmurs, Chest CTAB, Abdo SNT, mild left CVA tenderness A/P Left ureterolithiasis in presence of UTI - IV ceftriaxone, consult urology for consideration of ureteral stent, NPO after midnight, IV fluids, terazosin PG Care Time/CCT Total # of Minutes Spent Total Time Spent with Patient: Total time spent is greater than 50% in coordination of care (as documented) at patient's floor/unit and/or counseling patient: C[place] [address] INT INP/OBS CARE 3/75MIN Patient Type Established Medical Decision Making Moderate Complexity Diagnoses Ureteral calculus, left N20.1 UTI (urinary tract infection) N39.0; R31.9 Hematuria presence: with hematuria Urinary tract infection type: site unspecified BPH (benign prostatic hypertrophy) N40.0 Lower urinary tract symptom presence: symptoms absent Hypertension I10 Hypertension type: essential hypertension Chronic cerebral ischemia I67.82 GERD (gastroesophageal reflux disease) K21.9 (2) UTI (urinary tract infection) Hematuria presence: with hematuria Urinary tract infection type: site unspecified Qualified Code(s): N39.0 - Urinary tract infection, site not specified; R31.9 - Hematuria, unspecified (3) BPH (benign prostatic hypertrophy) Lower urinary tract symptom presence: symptoms absent Qualified Code(s): N40.0 - Benign prostatic hyperplasia without lower urinary tract symptoms (4) Hypertension Hypertension type: essential hypertension Qualified Code(s): I10 - Essential (primary) hypertension
[2023-04-04 18:02] LABS: Influenza A virus by PCR Negative (Neg); Influenza B virus by PCR Negative (Neg); RSV by PCR Negative (Neg); SARS CoV2 RNA(COVID-19) Ceph NEGATIVE (Negative)
[2023-04-04] MEDS ORDERED: PLASMA-LYTE A 1,000 ML IV SCH ×2 (18:15→21:21)
[2023-04-04] MEDS ORDERED: ACETAMINOPHEN 325 MG TAB PO PRN (21:21)
[2023-04-04] MEDS: FINASTERIDE 5 MG TAB PO SCH (22:45)
[2023-04-04] MEDS: CLOPIDOGREL BISULFATE 75 MG TAB PO SCH (22:46)
[2023-04-04] MEDS: POTASSIUM CITRATE 10 MEQ TAB PO SCH (22:46)
[2023-04-04] MEDS: TERAZOSIN HCL 5 MG CAP PO SCH (22:46)
[2023-04-04] MEDS: METOPROLOL TARTRATE 25 MG TAB PO SCH (22:46)
[2023-04-04] MEDS: MoRPHine SULFATE 2 MG/ML CARP IV PRN (22:48)
[2023-04-05] MEDS: MoRPHine SULFATE 2 MG/ML CARP IV PRN ×5 (03:23→21:18)
[2023-04-05 07:07] LABS: Basophils # (auto) 0.03 K/uL (0-0.2); Basophils % (auto) 0.7 %; Eosinophils # (auto) 0.16 K/uL (0-0.50); Eosinophils % (auto) 3.5 %; Hematocrit (blood only) 32.6 % (42.0-52.0); Hemoglobin 11.6 g/dl (14.0-18.0); Immature Granulocytes # (auto) 0.01 K/uL (0.01-0.20); Immature Granulocytes % (auto) 0.2 %; Lymphocytes # (auto) 1.01 K/uL (1.2-3.4); Lymphocytes % (auto) 22.1 %; Mean Corpuscular Hemoglobin 30.9 pg (25.0-34.0); Mean Corpuscular Hgb Conc 35.6 g/dL (32.0-36.0); Mean Corpuscular Volume 86.9 fL (80.0-100.0); Mean Platelet Volume 10.9 fL (9.4-12.4); Monocytes # (auto) 0.31 K/uL (0.11-0.59); Monocytes % (auto) 6.8 %; Neutrophils # (auto) 3.04 K/uL (1.40-6.50); Neutrophils % (auto) 66.7 %; Platelet Count 153 K/uL (130-400); RDW Coefficient of Variation 13.6 % (11.5-14.5); RDW Standard Deviation 43.2 fL (36.4-46.3); Red Blood Count 3.75 M/uL (4.70-6.10); White Blood Count 4.56 K/ul (4.8-10.8)
[2023-04-05 07:23] LABS: BUN Creatinine Ratio 12.1 (10-20); Calcium 8.6 mg/dl (8.6-10.3); Est GFR (African American) 36.7 ml/min; Est GFR (Non-African American) 31.7 ml/min; Magnesium 1.7 mg/dl (1.7-2.4)
--- NOTE | 2023-04-05 07:45 | Hospitalist Progress Note ---
Date of Service April 05, 2023 Assessment & Plan (1) Ureteral calculus, left: (2) BPH (benign prostatic hypertrophy): (3) Kidney stone: (4) Hypertension: Plan Zohreh Bonner is a 82 year-old male with past medical history of BPH, kidney stones, recurrent MDR ESBL klebsiella UTIs, and prior bacteremia due to klebsiella infection, HTN, previous CVA, and CKD who presented to the [facility] ED on 04/04 with left flank pain and concerns for recurrent kidney stones. Ureteral calculus, left Patient presented to the ED on 04/04 with left flank pain, found to have a left sided ureteral stone. He has a history of prior kidney stones as well as ESBL Klebsiella UTSs and bacteremia. -CT abdomen: partially obstructing 4 mm left ureteral stone on CT -UA appears infected -Received Ceftriaxone in the ED -Afebrile, WBC 4.56 today -History of growing Klebsiella sensitive to Ceftriaxone, will continue Ceftriaxone and follow blood & urine cultures (as of 04/05, growing gram negative negative bacilli) -Urology consulted -s/p left retrograde pyelogram, ureteroscopy, dilation, and stent placement -Continue home terazosin and finasteride -Pain control: Tylenol, Morphine PRN UTI (urinary tract infection) -Continue Ceftriaxone -Follow urine and blood cultures as above BPH (benign prostatic hypertrophy) -Continue terazosin and finasteride Hypertension -Stable -Will hold amlodipine for now to avoid hypotension if he becomes septic -Continue metoprolol Chronic cerebral ischemia -Continue Plavix GERD (gastroesophageal reflux disease) -Continue omeprazole FENa: Low sodium diet VTE Prophylaxis: Code Status: DNR/ DNI Dispo: Med Tele Admission and Anticipated Discharge Date Admission Date: April 04, 2023 Supervising Physician Co-Signing Physician Notes Resident Physician Supervision Note: I independently interviewed and examined the patient and verified the arana history and physical, reviewed labs and image studies and agree with resident findings and care plan. Subjective Patient seen and examined at bedside. He states that his symptoms started on Thursday and given his history of multiple kidney stones/prior infections he went to the ED. He denies any systemic symptoms at this time, had some "chills" (although his states that he gets cold easily and this was due to the freezing cold ER). Notes that his pain is at his left lower back/flank and will radiate to his hip and groin- this is his typical pain distribution with stones. Denies shortness of breath or chest pain. Review of Systems Review of Systems: As per above Physical Exam Constitutional: cooperative and comfortable; no acute distress Eyes: No conjunctival abnormalities. ENMT: External ears and nose normal. Moist mucous membranes. Respiratory: normal respiratory effort, lungs clear to auscultation Cardiovascular: Rate/Rhythm: regular rate and regular rhythm No lower extremity edema bilaterally. Gastrointestinal (Abdomen): Abdomen soft, nondistended. Musculoskeletal: Pain with palpation of left lower back. Skin: no rashes, warm and dry Psychiatric: A+Ox3, euthymic affect Results & Data Results & Data Vital Signs (Past 12 Hours) Vital Signs Temp Pulse Pulse Resp BP BP Pulse Ox 04/05/23 03:15 36.6 C 60 18 156/81 H 96 04/04/23 22:00 61 04/04/23 21:18 78 04/04/23 21:18 36.6 C 82 16 179/87 H 95 04/04/23 22:58 36.6 C 82 16 179/87 H 95 04/04/23 20:59 77 17 161/96 H 96 04/04/23 20:06 59 L 04/04/23 20:00 63 20 186/91 H 95 O2 Del Method 04/05/23 03:15 Room Air 04/04/23 22:00 04/04/23 21:18 04/04/23 21:18 Room Air 04/04/23 22:58 Room Air 04/04/23 20:59 04/04/23 20:06 04/04/23 20:00 Resident Activity Tracking Resident Involvement: Resident Care Provided Care Provided: Adult Hospital Medicine (2) BPH (benign prostatic hypertrophy) Lower urinary tract symptom presence: symptoms absent Qualified Code(s): N40.0 - Benign prostatic hyperplasia without lower urinary tract symptoms (4) Hypertension Hypertension type: essential hypertension Qualified Code(s): I10 - Essential (primary) hypertension
[2023-04-05] MEDS ORDERED: fentaNYL citrate PF 100 MCG/2 ML VIAL IV PRN (08:32)
[2023-04-05] MEDS ORDERED: ePHEDrine sulfate 50 MG/ML AMP IV PRN (08:32)
[2023-04-05] MEDS ORDERED: ONDANSETRON INJ 2 MG/ML 2 ML VIAL IV PRN (08:32)
[2023-04-05] MEDS ORDERED: ATROPINE SULFATE 0.1 MG/ML 10ML SYR IV PRN (08:32)
--- NOTE | 2023-04-05 08:32 | Anesthesiology Consultation ---
Date of Service April 05, 2023 Assessment & Plan (1) Encounter for pre-operative examination: Chart Review Chart Review: Acceptable Risk for Surgery and Patient NOT seen in Pre Admission Testing Consults Requested none History Surgery Operation Date: 04/05/23 10:00 Proposed Procedures p Cystoscopy - Darin Royal DO Height/Weight Height: 5 ft 8 in Weight: 70.2 kg Allergies Allergy/AdvReac Type Severity Reaction Status Date / Time cefdinir Allergy Severe hives Verified 04/04/23 14:49 Iodinated Contrast Media Allergy Severe Rashes Verified 04/04/23 14:49 iodine Allergy Severe RASHES Verified 04/04/23 14:49 egg Allergy Intermediate Difficulty Verified 04/04/23 14:49 Breathing Medications Home Medications Medication Instructions Recorded Confirmed Last Taken terazosin 5 mg capsule 5 mg PO 11/29/19 04/04/23 04/03/23 amlodipine 10 mg tablet 10 mg PO QA 01/02/21 04/04/23 04/04/23 Lactobacillus acidophilus 10 10,000 mmu cells PO QAM 01/23/21 04/04/23 04/04/23 billion cell capsule (Probiotic) clopidogrel 75 mg tablet 75 mg PO 01/23/21 04/04/23 04/03/23 omeprazole 20 mg capsule,delayed 20 mg PO QAM 01/23/21 04/04/23 04/04/23 release vitamin A-vitamin C-vit E-min 1 tab PO QAM 01/23/21 04/04/23 04/04/23 tablet (Vision tablet) ferrous sulfate 27 mg iron tablet 27 mg PO QA 12/31/21 04/04/23 04/04/23 glucosamine sulf dipot 2 cap PO HS 12/31/21 04/04/23 04/03/23 chlr,msm,chond 550 mg-C 30 mg-que 1 mg capsule (Glucosamine Chondroitin) loratadine 10 mg tablet 10 mg PO HS 12/31/21 04/04/23 04/03/23 vitamin B complex 1 tab PO QAM 12/31/21 04/04/23 04/04/23 metoprolol tartrate 25 mg tablet 12.5 mg PO BID 06/19/22 04/04/23 04/04/23 finasteride 5 mg tablet 5 mg PO HS 07/28/22 04/04/23 04/03/23 hydrocodone 5 mg-acetaminophen 325 1 tab PO Q6H PRN pain #15 tabs 08/01/22 04/04/23 04/03/23 mg tablet potassium citrate 10 mEq (1,080 10 meq PO BID 02/17/23 04/04/23 04/04/23 mg) tablet,extended release cholecalciferol (vitamin D3) 50 50 mcg PO DAILY 04/04/23 04/04/23 04/04/23 mcg (2,000 unit) tablet (Vitamin D3) Active Medications Generic Name Dose Route Start Last Admin Trade Name Freq PRN Reason Stop Dose Admin Clopidogrel Bisulfate 75 mg 04/04/23 21:21 04/04/23 22:46 Clopidogrel Bisulfate 75 Mg Tab PO 05/04/23 21:20 75 mg HS KRISHNA Administration Finasteride 5 mg 04/04/23 21:21 04/04/23 22:45 Finasteride 5 Mg Tab PO 05/04/23 21:20 5 mg HS KRISHNA Administration Metoprolol Tartrate 12.5 mg 04/04/23 21:21 04/04/23 22:46 Metoprolol Tartrate 25 Mg Tab PO 05/04/23 21:20 12.5 mg BID KRISHNA Administration Morphine Sulfate 2 mg 04/04/23 21:21 04/05/23 06:29 Morphine Sulfate 2 Mg/Ml Carp IV 04/18/23 21:20 2 mg Q3H PRN Administration Pain(4+) Potassium Citrate 10 meq 04/04/23 21:21 04/04/23 22:46 Potassium Citrate 10 Meq Tab PO 05/04/23 21:20 10 meq BID KRIHSNA Administration Terazosin HCl 5 mg 04/04/23 21:21 04/04/23 22:46 Terazosin Hcl 5 Mg Cap PO 05/04/23 21:20 5 mg HS KRISHNA Administration Past Medical History Medical History Asthma as child BPH (benign prostatic hyperplasia) 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 On Plavix Prostatitis 2015; with sepsis Urinary tract infection dx ~1 week ago (~12/22/22) and started on abx and feeling better currently. to finish 01/06/2023. Vertigo Past Family History Family History Family/Other Hypertension Diabetes Mother , old age at age 88 Breast cancer Hypertension Father , from complications of hip fracture No problems noted. Denies family history of Myocardial infarction Stroke Past Surgical History Surgical History History of colonoscopy History of cystoscopy History of lithotripsy History of lithotripsy ESWL ([facility] [place] 08/01/2022) History of right cataract surgery History of tooth extraction wisdom teeth S/P TURP modified, during ureteral stent placement for kidney stone in [facility] Social History Smoking Status: Former smoker tobacco type: cigarettes Do You Dip or Chew Tobacco: No Hx Alcohol Use: Yes Alcohol type: hard liquor alcohol intake frequency: holidays/special occasions only Hx Substance Use: No substance use type: does not use Physical Exam Vital Signs Last Vital Signs Temp 97.9 F 04/05/23 03:15 Pulse 60 04/05/23 03:15 Resp 18 04/05/23 03:15 BP 156/81 H 04/05/23 03:15 Pulse Ox 96 04/05/23 03:15 O2 Del Method Room Air 04/05/23 03:15 Testing Laboratory Results 04/05/23 06:21 04/05/23 06:21 Urine Color Yellow 04/04/23 11:04 Urine Appearance Clear (Clear) 04/04/23 11:04 Urine pH 5.5 (4.5-7.5) 04/04/23 11:04 Ur Specific Bryce 1.019 (1.000-1.030) 04/04/23 11:04 Urine Protein 2+ (Negative) H 04/04/23 11:04 Urine Glucose (UA) Negative (Negative) 04/04/23 11:04 Urine Ketones Negative (Negative) 04/04/23 11:04 Urine Nitrite Negative (Negative) 04/04/23 11:04 Ur Leukocyte Esterase 2+ (Negative) H 04/04/23 11:04 Urine WBC (Auto) >30 /hpf (0-5) H 04/04/23 11:04 Urine RBC (Auto) 0-4 /hpf (0-4) 04/04/23 11:04 U Hyaline Cast (Auto) 1-5 /lpf (0-5) 04/04/23 11:04 U Epithel Cells (Auto) 0-5 /lpf (0-5) 04/04/23 11:04 Urine Bacteria (Auto) 4+ (Negative) H 04/04/23 11:04 Electrocardiogram Date: 01/06/23 Findings: + NSR @ [facility])
--- NOTE | 2023-04-05 09:21 | Urology Consultation ---
Date of Consultation April 05, 2023 Assessment & Plan (1) Ureteral calculus, left: (2) BPH (benign prostatic hypertrophy): (3) Acute bacterial prostatitis: (4) UTI (urinary tract infection): (5) Chronic cerebral ischemia: (6) Hearing loss: (7) CKD (chronic kidney disease): Plan Well-known patient with history of significant stones as well as infection and bladder outlet obstruction issues longtime patient of Dr. Flores. Very well- known. Patient has considerable issues with stone on left side causing obstructive issues pain discomfort. Concerned about possible sepsis. Patient has had considerable infections in the past with multidrug-resistant organisms. Most recent infection had Klebsiella which was sensitive to Rocephin. Patient is currently on Rocephin IV. Has been tolerating supportive care. Has been undergoing hydration. Patient's complicated medical and surgical history is reviewed and summarized as above. Patient's vitals are currently stable with mild hypertension of 172/86. Pulse was 70. Temp was 36.8 with a Tmax of 37.4 and no major episodes of fever throughout the admission. Is satting 99% on room air patient's blood work includes a white count of 4.56. Creatinine 1.90. Had been 2.1 yesterday and decreasing downwards. Hemoglobin i s 11.6. Patient's imaging was reviewed interpreted by myself. Has a mid ureteral stone causing obstructive issues on the left. Mild perinephric stranding. No signs of other major obstructing stones. Patient has prostate enlargement with signs of bladder outlet obstruction. Agree with staff rate. Discussed options moving forward. Extensively reviewed. Also discussed with patient's via phone. Discussed different options for management including possible stent placement for stone treatment versus other options due to patient's previous significant infections discussed possible development of sepsis and other issues. Discussed options related to anesthesia. Discussed concerns and issues. Discussed possible recovery issues and other problems and concerns. Patient agrees to move forward. We will plan to set patient up for cystoscopy with possible left stent placement possible stone treatment. Risks and benefits discussed at length for procedure. These include bleeding, infection, injury to surrounding tissues or organs, and risks associated with anesthesia. Patient states understanding and agrees to proceed. Will sign consent and proceed. History of Present Illness Attending Physician: Magi Joyce MD History of Present Illness New consultation for patient with stone, discomfort, obstruction, and ill feelings. Well-known patient with significant issues related to urinary symptoms including previous major obstructive issues and previous considerable stones with sepsis and major illness. Patient developed sudden onset of pain into flank going down and radiating into groin and back in waves comes and goes. Can be severe at times. Patient found to have small 4 mm stone in the mid ureter. Causing obstructive issues on the left. Discussed and reviewed patient's family history for any history of stone disease. Also, discussed patient's medical surgery history especially related to any history of urinary issues or stone disease. Patient was admitted and is undergoing observation. Patient continues to have pain and discomfort. Has continued ill feelings. Has been having increasing pressure and bother. Allergies Allergy/AdvReac Type Severity Reaction Status Date / Time cefdinir Allergy Severe hives Verified 04/04/23 14:49 Iodinated Contrast Media Allergy Severe Rashes Verified 04/04/23 14:49 iodine Allergy Severe RASHES Verified 04/04/23 14:49 egg Allergy Intermediate Difficulty Verified 04/04/23 14:49 Breathing Home Medications Medication Instructions Recorded Confirmed Type terazosin 5 mg capsule 5 mg PO 11/29/19 04/04/23 History amlodipine 10 mg tablet 10 mg PO QA 01/02/21 04/04/23 History Lactobacillus acidophilus 10 10,000 mmu cells PO QA 01/23/21 04/04/23 History billion cell capsule (Probiotic) clopidogrel 75 mg tablet 75 mg PO HS 01/23/21 04/04/23 History omeprazole 20 mg capsule,delayed 20 mg PO QA 01/23/21 04/04/23 History release vitamin A-vitamin C-vit E-min 1 tab PO QA 01/23/21 04/04/23 History tablet (Vision tablet) ferrous sulfate 27 mg iron tablet 27 mg PO QA 12/31/21 04/04/23 History glucosamine sulf dipot 2 cap PO 12/31/21 04/04/23 History chlr,msm,chond 550 mg-C 30 mg-que 1 mg capsule (Glucosamine Chondroitin) loratadine 10 mg tablet 10 mg PO HS 12/31/21 04/04/23 History vitamin B complex 1 tab PO QAM 12/31/21 04/04/23 History metoprolol tartrate 25 mg tablet 12.5 mg PO BID 06/19/22 04/04/23 History finasteride 5 mg tablet 5 mg PO 07/28/22 04/04/23 History hydrocodone 5 mg-acetaminophen 325 1 tab PO Q6H PRN pain #15 tabs 08/01/22 04/04/23 Rx mg tablet potassium citrate 10 mEq (1,080 10 meq PO BID 02/17/23 04/04/23 History mg) tablet,extended release cholecalciferol (vitamin D3) 50 50 mcg PO DAILY 04/04/23 04/04/23 History mcg (2,000 unit) tablet (Vitamin D3) Patient History Medical History Asthma as child BPH (benign prostatic hyperplasia) 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 On Plavix Prostatitis 2015; with sepsis Urinary tract infection dx ~1 week ago (~12/22/22) and started on abx and feeling better currently. to finish 01/06/2023. Vertigo Surgical History History of colonoscopy History of cystoscopy History of lithotripsy History of [place]otripsy [facility] [place] [place] [facility] [place] History of right cataract surgery History of tooth extraction wisdom teeth S/P TURP modified, during ureteral stent placement for kidney stone in [place] Family History Family/Other Hypertension Diabetes Mother , old age at age 88 Breast cancer Hypertension Father , from complications of hip fracture No problems noted. Denies family history of Myocardial infarction Stroke Social History Smoking Status: Former smoker Tobacco Type: Cigarettes Age Quit Using Tobacco: 43; packs per day: 0.5; Second Hand Exposure: No; Do You Dip or Chew Tobacco: No; Tobacco Cessation Education Requested by Patient: No Hx Alcohol Use: Yes Alcohol type: hard liquor Alcohol Intake Frequency: Monthly or Less Hx Substance Use: No Preferred Language: Khmer Communication Ability: Effective Pumper Gager Required: No Beliefs That Will Affect Care: None marital status: Current Living Situation: Spouse Current Living Situation Comment: lives at home with spouse current occupational status: retired 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 HEENT: Normocephalic Atraumatic. Inspection normal. Cranial Nerves 2-12 Grossly intact. Nares are clear. Neck is supple. Normal inspection of face. Normal inspection of neck. Neurologic: No deficits on inspection. Baseline for motor function and sensory. Psychologic: Normal affect. Respiratory: Nonlabored. No use of accessory muscles. No tachypnea or dyspnea. Cardiovascular: No tachycardia Skin: Ricketts and Dry. No rashes or visible lesions. Extremities: Moving without issues. No motor deficits on inspection Lymphatics: No edema Abdomen: Soft Non-distended. No rebound or guarding. Results & Data Vital Signs (Past 12 Hours) Vital Signs Temp Pulse Pulse Resp BP Pulse Ox O2 Del Method 04/05/23 07:44 36.8 C 70 18 172/86 H 99 Room Air 04/05/23 03:15 36.6 C 60 18 156/81 H 96 Room Air 04/04/23 22:00 61 04/04/23 21:18 78 04/04/23 21:18 36.6 C 82 16 179/87 H 95 Room Air 04/04/23 22:58 36.6 C 82 16 179/87 H 95 Room Air PG Care Time/CCT Total # of Minutes Spent Total Time Spent with Patient: Total time spent is greater than 50% in coordination of care (as documented) at patient's floor/unit and/or counseling patient: Coding Level of Care Code 18648 INT INP/OBS CARE Diagnoses Ureteral calculus, left N20.1 BPH (benign prostatic hypertrophy) N40.0 Lower urinary tract symptom presence: symptoms absent Acute bacterial prostatitis N41.0 UTI (urinary tract infection) N39.0; R31.9 Hematuria presence: with hematuria Urinary tract infection type: site unspecified Chronic cerebral ischemia I67.82 Hearing loss H91.90 CKD (chronic kidney disease) N18.9 (2) BPH (benign prostatic hypertrophy) Lower urinary tract symptom presence: symptoms absent Qualified Code(s): N40.0 - Benign prostatic hyperplasia without lower urinary tract symptoms (4) UTI (urinary tract infection) Hematuria presence: with hematuria Urinary tract infection type: site unspecified Qualified Code(s): N39.0 - Urinary tract infection, site not specified; R31.9 - Hematuria, unspecified
[2023-04-05] MEDS ORDERED: fentaNYL citrate PF 100 MCG/2 ML VIAL ONE (10:32)
[2023-04-05] MEDS ORDERED: DIATRIZOATE MEGLUMINE 30% 100ML VIAL INSTIL ONE (10:32)
[2023-04-05] MEDS ORDERED: LIDOCAINE 2% 2 ML VIAL/AMP(20MG/ML) INFIL ONE (10:33)
[2023-04-05] MEDS ORDERED: PROPOFOL IV EMULSION 10 MG/ML 20 ML VIAL IV ONE ×2 (10:34→11:05)
[2023-04-05] MEDS ORDERED: ONDANSETRON INJ 2 MG/ML 2 ML VIAL ONE (10:34)
--- NOTE | 2023-04-05 11:25 | Operative Report ---
PG Post Operative Report Pre & Post Diagnosis Operation Date: 04/05/23 10:00 Pre-Op Diagnosis: Ureteral calculus, left, benign prostatic hypertrophy, Acute bacterial prostatitis, urinary tract infection Post-Op Diagnosis: Ureteral calculus, left, benign prostatic hypertrophy, Acute bacterial prostatitis, urinary tract infection I identified the patient and participated in the time-out.: Yes Procedure Operation Date: 04/05/23 10:00 Actual Procedures p Cystoscopy with extraction of bladder stones x2. Left retrograde pyelogram, ureteroscopy, dilation, and stent placement - Darin Royal DO Surgeon Darin Royal, II, DO [employer] Operator None Estimated Blood Loss 1 Findings Consistent with Post-Op Diagnosis Two small Stones in bladder extracted. Severe J-hooking of ureter with stricture and difficulty passing wire and catheter. Dilated renal pelvis with short ureter. Specimens Stone Fragments, likely from left ureter within bladder. Drains 6 Fr x 22 cm Left Anesthesia Type General Complications none Disposition Disposition: Recovery Room Indications Patient with bothersome stones. Risks and benefits discussed at length. Description of Procedure Patient was consented and brought back to the operating room. Patient was placed under anesthesia in the supine position and moved to the dorsal lithotomy position. Patient was prepped and draped in the regular sterile fashion. A time out was completed. A 30degree Cystoscope was placed into the bladder and the entire bladder was examined. The UO's were identified. The UO was cannulized with a catheter and a retrograde pyelogram was completed. A wire was attempted to be placed. The wire would not make the curve around the likely considerable J hooking from the ureter and the patient's previous obstructive issues. The catheter was attempted to be advanced. This would also not make the curve. It was difficult to determine if there was possibly a stone within the distal ureter that was causing obstruction. After multiple attempts to pass the wire failed it was decided to move forward with rigid ureteroscopy. The Rigid ureteroscope was taken into the ureter. Narrowing was found at the site of the distal ureter. This had to be gently dilated in order to bypass. Past this there was no major injury of the area that was dilated. The ureter was largely hooking likely from insertion into the bladder from prostate enlargement previously. Once past year the ureter was found to be dilated. There was areas of irri tation along the ureter. The scope was advanced up into the UPJ region. No stones were discovered. A basket was utilized to try to sweep down along the ureter but no stones or other debris were found within the ureter itself. The rigid scope was then removed after a retrograde pyelogram was once again completed through the scope. The wire had been placed and situated into the renal pelvis without major issue. The scope was then fully removed and the 30 degree cystoscope was replaced. Within the bladder 2 small stone fragments were found. These possibly have been the stone within the left ureter. The stones were extracted and sent for analysis. The entire bladder was then assessed. No residual large fragments or areas of concern were noted. A dual-lumen catheter was placed over the wire and a pyelogram was completed to assist in stent placement. No obstructions or other areas of concern were noted. With the wire in place, a 6 Fr Double J stent was placed. First a 24 cm stent was used however this was found to be excessively long with a majority of it in the bladder. This stent was grasped and partially removed. The wire was placed a second time. And a 22 cm stent was then placed. This had a better position in the renal pelvis and within the bladder. It was confirmed with fluoroscopy. With the stent in place, the bladder was emptied. The scope was removed. The patient was cleaned, aroused from anesthesia, and transferred to the pacu in stable condition having tolerated the procedure well with no complications. I was present and participated in all aspects of the procedure. The patient will be monitored in the PACU until transferred. We will plan to maintain stent for the next few days with plans to possibly remove in the office. We will plan to monitor I attest to the content of the Intraoperative Record and any orders documented therein. Any exceptions are noted below.
--- NOTE | 2023-04-05 12:26 | Anesthesiology Progress Note ---
Date of Service April 05, 2023 Anesthesia Post Procedure Vital Signs Vital Signs: Temp Pulse Pulse Pulse Resp BP BP 04/05/23 12:25 97 H 16 173/92 H 04/05/23 12:15 97.7 F 95 H 14 176/88 H 04/05/23 12:05 67 14 120/75 04/05/23 11:55 73 12 119/86 04/05/23 11:45 69 12 99/71 L 04/05/23 11:35 74 12 98/61 L 04/05/23 11:27 96.8 F L 75 14 108/64 04/05/23 07:44 98.2 F 70 18 172/86 H 04/05/23 03:15 97.9 F 60 18 156/81 H 04/04/23 22:00 61 04/04/23 21:18 78 04/04/23 21:18 97.9 F 82 16 179/87 H 04/04/23 22:58 97.9 F 82 16 179/87 H 04/04/23 20:59 77 17 161/96 H 04/04/23 20:06 59 L 04/04/23 20:00 63 20 186/91 H 04/04/23 19:00 64 20 154/90 H 04/04/23 18:50 71 20 04/04/23 16:21 77 18 04/04/23 15:22 69 BP Pulse Ox O2 Del Method O2 Flow Rate 04/05/23 12:25 97 Room Air 04/05/23 12:15 96 Room Air 04/05/23 12:05 97 Oxymask 12 04/05/23 11:55 97 Oxymask 15 04/05/23 11:45 96 Oxymask 15 04/05/23 11:35 95 Oxymask 15 04/05/23 11:27 94 Oxymask 15 04/05/23 07:44 99 Room Air 04/05/23 03:15 96 Room Air 04/04/23 22:00 04/04/23 21:18 04/04/23 21:18 95 Room Air 04/04/23 22:58 95 Room Air 04/04/23 20:59 96 04/04/23 20:06 04/04/23 20:00 95 04/04/23 19:00 96 04/04/23 18:50 161/92 H 98 Room Air 04/04/23 16:21 137/85 99 Room Air 04/04/23 15:22 Pain Intensity Left Groin: Pain Intensity: 2 Left Flank: Pain Intensity: 4 Lower Abdomen: Pain Intensity: 3 Transfer of Care Handoff Completed per policy Notes Mental Status: alert / awake / arousable and participated in evaluation Patient Amnestic to Procedure: Yes Nausea / Vomiting: adequately controlled Pain: adequately controlled Airway Patency, RR, SpO2: stable & adequate BP & HR: stable & adequate Hydration State: stable & adequate Anesthetic Complications: no major complications apparent and Pt Satisfied with anesthetic care
--- NOTE | 2023-04-05 12:40 | Fluoroscopy Report ---
INTRAOPERATIVE RADIOGRAPHS CLINICAL HISTORY: Left ureteral stent placement. Fluoro time: 122 seconds Ka,r: 26.13 mGy FINDINGS: 2 spot fluoroscopic views of the left abdomen are correlated with abdominal CT dated 04/04/20 23. Contrast in the left renal pelvis shows mild hydronephrosis. The second image shows the distal en d of a left ureteral stent in appropriate position. IMPRESSION: Intraoperative images from a left ureteral stent placement procedure as above. Electronically signed by: Long Oconnell M.D. 04/05/2023 12:38 PM
[2023-04-05] MEDS: PLASMA-LYTE A 1,000 ML IV SCH (13:27)
[2023-04-05] MEDS: POTASSIUM CITRATE 10 MEQ TAB PO SCH ×2 (13:30→22:00)
[2023-04-05] MEDS: PANTOprazole 40 MG TAB PO SCH (13:31)
[2023-04-05] MEDS: METOPROLOL TARTRATE 25 MG TAB PO SCH ×2 (13:31→22:00)
[2023-04-05] MEDS: FERROUS SULFATE 325 MG TAB PO SCH (13:31)
[2023-04-05] MEDS: amLODIPine BESYLATE 5 MG TAB PO SCH (15:09)
[2023-04-05] MEDS: cefTRIAXone SODIUM 1,000 MG in DEXTROSE 5% AD-VAN 50 ML IV SCH (16:42)
[2023-04-05] MEDS ORDERED: Nursing to Pharmacy Communication SCH (19:15)
[2023-04-05] MEDS: TERAZOSIN HCL 5 MG CAP PO SCH (22:00)
[2023-04-05] MEDS: CLOPIDOGREL BISULFATE 75 MG TAB PO SCH (22:00)
[2023-04-05] MEDS: FINASTERIDE 5 MG TAB PO SCH (22:00)
[2023-04-05] MEDS: PHENAZOPYRIDINE HCL 200 MG TAB PO PRN (22:45)
[2023-04-06] MEDS: MoRPHine SULFATE 2 MG/ML CARP IV PRN ×5 (00:27→22:21)
[2023-04-06] MEDS: PHENAZOPYRIDINE HCL 200 MG TAB PO PRN ×2 (03:14→21:17)
[2023-04-06] MEDS: PLASMA-LYTE A 1,000 ML IV SCH ×2 (03:30→14:13)
[2023-04-06] MEDS ORDERED: LIDOCAINE 2% JELLY 5 ML TUBE EXT PRN (05:09)
[2023-04-06 08:26] LABS: Basophils # (auto) 0.01 K/uL (0-0.2); Basophils % (auto) 0.1 %; Eosinophils # (auto) 0.01 K/uL (0-0.50); Eosinophils % (auto) 0.1 %; Hemoglobin 11.4 g/dl (14.0-18.0); Immature Granulocytes # (auto) 0.02 K/uL (0.01-0.20); Immature Granulocytes % (auto) 0.3 %; Lymphocytes # (auto) 0.75 K/uL (1.2-3.4); Lymphocytes % (auto) 10.9 %; Mean Corpuscular Hgb Conc 35.6 g/dL (32.0-36.0); Mean Platelet Volume 10.6 fL (9.4-12.4); Monocytes # (auto) 0.38 K/uL (0.11-0.59); Monocytes % (auto) 5.5 %; Neutrophils # (auto) 5.73 K/uL (1.40-6.50); Neutrophils % (auto) 83.1 %; Platelet Count 153 K/uL (130-400); RDW Coefficient of Variation 13.8 % (11.5-14.5); RDW Standard Deviation 43.9 fL (36.4-46.3); Red Blood Count 3.68 M/uL (4.70-6.10)
[2023-04-06 08:48] LABS: BUN Creatinine Ratio 11.8 (10-20); Calcium 8.6 mg/dl (8.6-10.3); Creatinine Clr Calc Pharmacy 25.1 ml/min; Est GFR (African American) 32.2 ml/min; Est GFR (Non-African American) 27.7 ml/min; Magnesium 1.8 mg/dl (1.7-2.4); Potassium 3.9 mmol/L (3.5-5.1)
--- NOTE | 2023-04-06 09:14 | Urology Progress Note ---
Date of Service April 06, 2023 Assessment & Plan (1) Ureteral calculus, left: (2) UTI (urinary tract infection): (3) Hematuria, gross: Plan - Pt POD#1 s/p cystoscopy and left stent placement, extraction of bladder stones x2. - Afebrile, lab work reviewed - creatinine 2.12, WBC 6.90. - Urine culture prelim showing 50k cfu of Gram negative bacilli. - BCx no growth x 24 hours. - Continue broad-spectrum antibiotics and narrow per sensitivity data when available. - Tolerating left ureteral stent with minimal discomfort. - Developed discomfort and difficulty voiding overnight, straight cath x 2, c/o hematuria with clots. - Discussed that hematuria could be multifactorial due to presence of stent, infection, and recent instrumentation and catheterization. - Voided this am and PVR was less than 300 mL - Continue to monitor hematuria and bladder emptying. Bladder scan prn. - Continue to monitor overnight given incomplete emptying and await final culture data. - Expected clinical course reviewed, all questions answered. - Will arrange f/u with urology for imaging and possible stent removal in clinic (discussed with Dr. Flores, patient's primary urologist). - Urology will follow. Admission and Anticipated Discharge Date Admission Date: April 04, 2023 Subjective POD #1 s/p cystoscopy and left stent placement, extraction of bladder stones x2. Patient seen and examined at bedside this am. He is awake and sitting up at the side of the bed. Reports several concerns today. Notes discomfort and difficulty voiding overnight. Also reports hematuria with small clots, which he reports has not happened after previous stent placements. Per nursing notes, he was bladder scanned for >447 ml, straight catheterized for unmeasured amount, then bladder scan was 295 mL. 2nd attempt with straight cath yielded no urine. He voided 125 mL this morning, PVR was 280 mL. He was given Miralax due to constipation. Denies pain at present. No nausea, vomiting, fever or chills. Review of Systems Constitutional: as per Subjective / HPI Gastrointestinal: as per Subjective / HPI Genitourinary: + as per Subjective / HPI Physical Exam Physical Exam: General: well-appearing, no acute distress HEENT: Normocephalic, mucous membranes moist Pulmonary: Nonlabored respirations Abdomen: Nondistended Extremities: Moves all 4 spontaneously Neuro: No gross deficits Psych: alert and oriented Skin: Warm, dry, no rashes noted to exposed skin Results & Data Vital Signs (Past 12 Hours) Vital Signs Temp Pulse Pulse Resp BP Pulse Ox O2 Del Method 04/06/23 07:38 36.8 C 89 20 149/82 H 94 Room Air 04/06/23 03:40 36.9 C 86 18 158/79 H 94 Room Air 04/05/23 22:01 113 H 04/05/23 22:47 36.8 C 99 H 18 132/78 95 Room Air PG Care Time/CCT Total # of Minutes Spent Total Time Spent with Patient: Total time spent is greater than 50% in coordination of care (as documented) at patient's floor/unit and/or counseling patient: Coding Level of Care Code 97757 SUB INP/OBS CARE 2/35MIN Diagnoses Ureteral calculus, left N20.1 UTI (urinary tract infection) N39.0; R31.9 Hematuria presence: with hematuria Urinary tract infection type: site unspecified Hematuria, gross R31.0 (2) UTI (urinary tract infection) Hematuria presence: with hematuria Urinary tract infection type: site unspecified Qualified Code(s): N39.0 - Urinary tract infection, site not specified; R31.9 - Hematuria, unspecified
[2023-04-06] MEDS: POLYETHYLENE (MIRALAX) 17 GM PACK PO PRN (09:27)
[2023-04-06] MEDS: POTASSIUM CITRATE 10 MEQ TAB PO SCH ×2 (09:28→21:17)
[2023-04-06] MEDS: METOPROLOL TARTRATE 25 MG TAB PO SCH ×2 (09:28→21:15)
[2023-04-06] MEDS: PANTOprazole 40 MG TAB PO SCH (09:29)
[2023-04-06] MEDS: FERROUS SULFATE 325 MG TAB PO SCH (09:29)
[2023-04-06] MEDS: amLODIPine BESYLATE 5 MG TAB PO SCH (09:29)
--- NOTE | 2023-04-06 13:47 | Hospitalist Progress Note ---
Date of Service April 06, 2023 Assessment & Plan (1) Ureteral calculus, left: (2) BPH (benign prostatic hypertrophy): (3) Kidney stone: (4) Hypertension: Plan Pt is a 82 year-old male with past medical history of BPH, kidney stones, recurrent MDR ESBL klebsiella UTIs, and prior bacteremia due to klebsiella infection, HTN, previous CVA, and CKD who presented to the [facility] 04/04 with left flank pain and concerns for recurrent kidney stones. Left ureteral calculus s/p stent - CT abdomen: partially obstructing 4 mm left ureteral stone on CT - continue home terazosin and finasteride - pain control: Tylenol, morphine PRN - urology consulted; s/p left retrograde pyelogram, ureteroscopy, dilation, and stent placement (04/05) - observe overnight d/t incomplete emptying UTI (urinary tract infection) - afebrile, no leukocytosis - UA showed 2+ LE, 4+ bacteria, >30 WBC; urine cx grew <100,000 gram neg bacilli - blood cx neg after 24 hrs - hx of klebsiella sensitive to ceftriaxone - continue ceftriaxone (day 2) BPH (benign prostatic hypertrophy) - continue terazosin and finasteride Hypertension - continue metoprolol, amlodipine Chronic cerebral ischemia - continue Plavix GERD (gastroesophageal reflux disease) - continue omeprazole FENa: Low sodium diet VTE Prophylaxis: SCDs Code Status: DNR/ DNI Dispo: med/surg with tele Admission and Anticipated Discharge Date Admission Date: April 04, 2023 Supervising Physician Co-Signing Physician Notes I personally examined the patient and verified all arana points of history and exam, discussed case, and agree with decision making with Dr Esquivel pain, retention, hematuria. appreciate urology input vitals noted nad heent nc at mmm breathing unlabored no accessory muscle use good effort. Skin shows no rashes no pallor or icterus. Neuro without focal deficits. Ureterolithiasis/infectioncontinue antibiotics, continue monitoring urine output and clearing of blood. Appreciate urology input. Otherwise as above Subjective Pt feeling better this morning. Overnight, he was having difficulty urinating and required straight cath. This morning he was able to urinate on his own with blood tinged urine with clots. He describes his pain as similar to when he had prostatitis in the past. Review of Systems Review of Systems: As per HPI Physical Exam Physical Exam: Constitutional: well appearing, no acute distress HEENT: normocephalic, no conjunctival injection CV: RRR, no murmur, no LE edema Respiratory: CTA bilaterally. No rhonchi, wheezes, or crackles. No increased work of breathing MSK: no gross deformities noted Skin: warm, dry, no rashes Neuro: alert, oriented, no FND noted Psych: mood and affect congruent Results & Data Results & Data Vital Signs (Past 12 Hours) Vital Signs Temp Pulse Pulse Resp BP Pulse Ox O2 Del Method 04/06/23 11:03 36.7 C 79 17 147/73 H 96 Room Air 04/06/23 07:00 79 04/06/23 10:00 Room Air 04/06/23 07:38 36.8 C 89 20 149/82 H 94 Room Air 04/06/23 03:40 36.9 C 86 18 158/79 H 94 Room Air Resident Activity Tracking Resident Involvement: Resident Care Provided Care Provided: Adult Hospital Medicine (2) BPH (benign prostatic hypertrophy) Lower urinary tract symptom presence: symptoms absent Qualified Code(s): N40.0 - Benign prostatic hyperplasia without lower urinary tract symptoms (4) Hypertension Hypertension type: essential hypertension Qualified Code(s): I10 - Essential (primary) hypertension
[2023-04-06] MEDS: cefTRIAXone SODIUM 1,000 MG in DEXTROSE 5% AD-VAN 50 ML IV SCH (14:52)
--- NOTE | 2023-04-06 17:53 | Billing Data ---
Date of Service April 06, 2023 Coding Level of Care Code 09462 SUB INP/OBS CARE
[2023-04-06] MEDS: CLOPIDOGREL BISULFATE 75 MG TAB PO SCH (21:15)
[2023-04-06] MEDS: FINASTERIDE 5 MG TAB PO SCH (21:15)
[2023-04-06] MEDS: TERAZOSIN HCL 5 MG CAP PO SCH (21:16)
[2023-04-07 07:26] LABS: Basophils # (auto) 0.03 K/uL (0-0.2); Basophils % (auto) 0.5 %; Eosinophils # (auto) 0.23 K/uL (0-0.50); Eosinophils % (auto) 4.1 %; Hematocrit (blood only) 29.4 % (42.0-52.0); Hemoglobin 10.6 g/dl (14.0-18.0); Immature Granulocytes # (auto) 0.02 K/uL (0.01-0.20); Immature Granulocytes % (auto) 0.4 %; Lymphocytes # (auto) 1.15 K/uL (1.2-3.4); Lymphocytes % (auto) 20.5 %; Mean Corpuscular Hemoglobin 31.4 pg (25.0-34.0); Mean Corpuscular Hgb Conc 36.1 g/dL (32.0-36.0); Mean Platelet Volume 10.7 fL (9.4-12.4); Monocytes # (auto) 0.38 K/uL (0.11-0.59); Monocytes % (auto) 6.8 %; Neutrophils # (auto) 3.79 K/uL (1.40-6.50); Neutrophils % (auto) 67.7 %; Platelet Count 143 K/uL (130-400); RDW Standard Deviation 44.2 fL (36.4-46.3); Red Blood Count 3.38 M/uL (4.70-6.10)
[2023-04-07 07:36] LABS: BUN Creatinine Ratio 14.3 (10-20); Calcium 8.6 mg/dl (8.6-10.3); Creatinine Clr Calc Pharmacy 25.3 ml/min; Est GFR (African American) 32.5 ml/min; Est GFR (Non-African American) 28.1 ml/min; Magnesium 1.8 mg/dl (1.7-2.4); Potassium 4.2 mmol/L (3.5-5.1)
[2023-04-07] MEDS: POTASSIUM CITRATE 10 MEQ TAB PO SCH (09:12)
[2023-04-07] MEDS: amLODIPine BESYLATE 5 MG TAB PO SCH (09:13)
[2023-04-07] MEDS: METOPROLOL TARTRATE 25 MG TAB PO SCH (09:13)
[2023-04-07] MEDS: PANTOprazole 40 MG TAB PO SCH (09:13)
[2023-04-07] MEDS: FERROUS SULFATE 325 MG TAB PO SCH (09:14)
[2023-04-07] MEDS: POLYETHYLENE (MIRALAX) 17 GM PACK PO PRN (09:15)
--- NOTE | 2023-04-07 09:42 | Urology Progress Note ---
Date of Service April 07, 2023 Assessment & Plan (1) UTI (urinary tract infection): Plan: Urine culture growing Klebsiella. This appears to be sensitive to Bactrim. I think would be reasonable to switch him to Bactrim and stop ceftriaxone given these culture results. He could be discharged home on a course of 7 to 10 days of Bactrim. (2) Ureteral calculus, left: Plan: Has left ureteral stent in place now and should be draining well for source control. Urology will coordinate outpatient follow-up for further stone management or stent removal. (3) BPH (benign prostatic hypertrophy): Plan: He is voiding reasonably well without recent catheterization. For now, would let him void spontaneously and catheterize if needed. Plan At this point it seems reasonable for discharge home on oral antibiotics. We will arrange outpatient follow-up in the urology office Urology will sign off for now, please call with any questions or concerns. Admission and Anticipated Discharge Date Admission Date: April 04, 2023 Subjective Feeling well s/p cystoscopy, stent placement, bladder stone extraction on 04/05/2023. Reports that urine has cleared overnight and he feels like he is voiding well He is tolerating his ureteral stent without any discomfort. Blood cultures negative at 48 hours, Urine culture from 04/04/2023 growing Klebsiella. Physical Exam Physical Exam: Well-appearing, NAD Results & Data Vital Signs (Past 12 Hours) Vital Signs Temp Pulse Pulse Resp BP Pulse Ox O2 Del Method 04/07/23 07:09 37 C 69 18 145/81 H 96 Room Air 04/07/23 03:00 36.9 C 70 18 156/73 H 96 Room Air 04/07/23 00:25 77 04/06/23 22:00 37.5 C 86 20 131/66 94 Room Air PG Care Time/CCT Total # of Minutes Spent Total Time Spent with Patient: Total time spent is greater than 50% in coordination of care (as documented) at patient's floor/unit and/or counseling patient: Coding Level of Care Code 05061 SUB INP/OBS CARE 10/29MIN Diagnoses UTI (urinary tract infection) N39.0; R31.9 Urinary tract infection type: site unspecified Hematuria presence: with hematuria Ureteral calculus, left N20.1 BPH (benign prostatic hypertrophy) N40.0 Lower urinary tract symptom presence: symptoms absent (1) UTI (urinary tract infection) Urinary tract infection type: site unspecified Hematuria presence: with hematuria Qualified Code(s): N39.0 - Urinary tract infection, site not specified; R31.9 - Hematuria, unspecified (3) BPH (benign prostatic hypertrophy) Lower urinary tract symptom presence: symptoms absent Qualified Code(s): N40.0 - Benign prostatic hyperplasia without lower urinary tract symptoms
--- NOTE | 2023-04-07 10:06 | Discharge Summary ---
Date of Service April 07, 2023 Admission HPI Per Admitting Provider Zohreh is an 82 year old male with a PMH significant for BPH, kidney stones, recurrent MDR ESBL klebsiella UTIs, and prior bacteremia due to klebsiella infection, HTN, previous CVA on plavix, and CKD who presented to the [facility] ED on 04/04 with left flank pain and concerns for recurrent kidney stones. In the ED vitals were stable. Labs were significant for stable pancytopenia, stable renal function and UA concerning for infection. CT of the abd/pelvis wo con was read as "1. No significant change in the partially obstructing 4 mm stone within the proximal to mid left ureter. 2. Left-sided nephrolithiasis. 3. Prostatomegaly with chronic bladder outlet obstruction again noted. 4. Colonic diverticulosis. No evidence for acute diverticulitis.". The patient was offered the option to be taken to the OR today for stent placement but he would like to try and wait until tomorrow. Prior to admission the patient was given a dose of ceftriaxone, 50 mcg of fentanyl, 1gm IV acetaminophen, and 6 total mg of IV morphine. At the time of the admission the patient was sitting in bed in no acute distress. He states that he has been having left flank, abdominal/groin pain over the past 3 days. He has had multiple kidney stones in the past which have required stent placement and follows with the [facility] Urology team. He started to develop chills this am so he came to the ED to be evaluated as he has been septic from infected stones in the past. He denies recent fevers, chest pain, SOB, cough, dysuria, hematuria, diarrhea, melena,a LE swelling, and recent trauma. He is currently experiencing the most discomfort in the left groin at this time. He has very mild left testicular pain. When asked, he says this pain is not similar to his previous episodes of epididymitis or prostatitis. He is currently feeling well and has been able to eat and drink without issue. He understands that we will keep him NPO for now if case he would become septic overnight and require emergent stent placement. He is a full code and wishes for his to make medical decisions for him if he could not make them himself. Please refer to Dr. Moseley's attestation for any changes to the treatment plan Admission Exam Per Admitting Provider General:In no acute distress, stated age, well-nourished, good hygiene HEENT:Normocephalic, atraumatic, no scleral icterus, pupils around round, symmetrical, and reactive to light, moist mucus membranes, trachea midline, no thyromegaly Chest/Pulm:No respiratory distress, symmetrical chest expansion, clear breath sounds throughout Cardiac:RRR, no murmurs noted Abdomen:Negative for ascites and bruising, normoactive bowel sounds, soft, mildly tender in the left lower abdomen :Negative CVA tenderness BL, patient without swelling or erythema of the scrotum Musculoskeletal:Symmetrical and without signs of acute trauma, upper and lower extremities with full ROM, no atrophy, spasticity, or flaccidity Extremities:Radial, dorsalis pedis, and posterior tibial pulses are intact and symmetrical, no edema noted in the BL LE's Skin:Warm, dry, no rashes , lesions, or scars noted Neuro:Alert and oriented to person, place, month, year, and president, no focal defects, no tremors noted Psych:No acute distress, calm and cooperative during the exam Principal Diagnosis left nephrolithiasis, UTI Discharge Exam Constitutional: well appearing, no acute distress HEENT: normocephalic, no conjunctival injection CV: regular rhythm, regular rate, no murmur, no LE edema Respiratory: Clear to auscultation bilaterally. No rhonchi, wheezes, or crackles. No increased work of breathing MSK: no gross deformities noted Skin: warm, dry, no rashes Neuro: alert, oriented, no FND noted Discharge Data Allergies Allergy/AdvReac Type Severity Reaction Status Date / Time cefdinir Allergy Severe hives Verified 04/04/23 14:49 Iodinated Contrast Media Allergy Severe Rashes Verified 04/04/23 14:49 iodine Allergy Severe RASHES Verified 04/04/23 14:49 Consultations 04/04/23 17:28 ED Decision to Admit Stat 04/04/23 18:15 Consult Urology Routine Procedures Performed Operation Date: 04/05/23 10:00 Actual Procedures p Cystoscopy, left retrograde pyelogram, left ureteroscopy, stone extraction of ureteral stone, ureteral dilation, stent place left ureter (Left) - Darin Royal, DO Ordered Studies 04/04/23 11:28 CT abd pelvis wo con Stat IMPRESSION: 1. No significant change in the partially obstructing 4 mm stone within the proximal to mid left ureter. 2. Left-sided nephrolithiasis. 3. Prostatomegaly with chronic bladder outlet obstruction again noted. 4. Colonic diverticulosis. No evidence for acute diverticulitis. 5. Additional findings as described above. 04/05/23 FL retrograde includes kub Routine IMPRESSION: Intraoperative images from a left ureteral stent placement procedure as above. Hospital Course (1) Ureteral calculus, left: (2) CKD (chronic kidney disease): (3) Ureterolithiasis: Plan Pt is a 82 year-old male with past medical history of BPH, kidney stones, recurrent MDR ESBL klebsiella UTIs, and prior bacteremia due to klebsiella infection, HTN, previous CVA, and CKD who presented to the [facility] 04/04 with left flank pain and concerns for recurrent kidney stones. Left ureteral calculus s/p stent - CT abdomen: partially obstructing 4 mm left ureteral stone on CT - continue home terazosin and finasteride - pain well controlled with tylenol and morphine PRN while hospitalized; may use tylenol as outpatient - urology consulted; s/p left retrograde pyelogram, ureteroscopy, dilation, and stent placement (04/05)- f/u 2 weeks after discharge UTI (urinary tract infection) - afebrile, no leukocytosis - UA showed 2+ LE, 4+ bacteria, >30 WBC; urine cx grew 50,000 klebsiella - blood cx neg after 48 hrs - d/c ceftriaxone; discharged with single dose bactrim BID x7 days - pt advised to hold potassium until after bactrim course complete with BMPs to check Cr and K 04/10 and 04/14 BPH (benign prostatic hypertrophy) - continue terazosin and finasteride Hypertension - continue metoprolol, amlodipine Chronic cerebral ischemia - continue Plavix GERD (gastroesophageal reflux disease) - continue omeprazole FEN: regular VTE Prophylaxis: SCDs Code Status: DNR/ DNI Dispo: home Total Time Total Time Spent Total Time Spent (In Minutes): <30 Discharge Plan Discharge Items Patient Disposition: Home - Self-Care Reason For Visit: LEFT FLANK PAIN, OBNSTRUCTING KIDNEY STONE, UTI Discharge Diagnosis: obstructing kidney stone s/p left stent, UTI Activity: Resume your previous activity Non-emergency contact: Primary Care Provider and Urologist Call non-emergency contact if: you have any medication questions, your symptoms worsen, your pain is not controlled and you have a fever Follow-up/Referrals: Nicholas Flores MD [Physician] - Albina Cruz DO [Primary Care Provider] - Diet: Regular Ambulatory Orders: Basic Metabolic Panel (Routine) Timeframe: 20230410 Location: Determined by Patient Ordered By: Leah Esquivel Basic Metabolic Panel (Routine) Timeframe: 20230414 Location: Determined by Patient Ordered By: Leah Esquivel Addtl Attending Provider Instructions: You were admitted to the hospital for left flank pain and found to have a kidney stone. You were treated with a left sided-stent to help pass this stone. In addition to the stone, you are also being treated with antibiotics for a urinary tract infection. A discharge summary will be sent to your primary care physician to ensure continuity of care. Please bring this discharge summary with you to your next office appointment so that your provider can review it at that time. Medications: Your medication list has been reviewed and reconciled upon discharge to ensure accuracy and continuity of care. An updated list of all your medications is included with your hospital discharge paperwork. Please review this list closely and make note of any changes to your medications. - You have been prescribed the antibiotic, bactrim. You should take this twice per day for the next 7 days. Because bactrim can affect your kidneys, you should have blood work done Thursday, 04/10 and Saturday 04/14. These results are sent to your urologist and PCP. - You should STOP taking your potassium supplement pill while taking the bactrim because the bactrim can cause your potassium to elevate. - You should continue all your other medications as previously prescribed. Follow up appointments: - Make a follow up appointment with your PCP within the next week. It is very important that you follow up with them shortly after discharge from the [facility]. - You should follow up in 2-3 weeks with your urologist to address your stent. - Keep all of your follow up appointments as already scheduled. If you cannot make an appointment, notify your provider. CONTACT YOUR PRIMARY CARE PROVIDER if you experience any of the following: - Difficulty following your treatment plan - Difficulty taking any of your medications CALL 911 OR GO TO THE EMERGENCY DEPARTMENT if you experience any of the following: - Sudden, severe abdominal pain or nausea/vomiting - Severe chest pain or chest pain that radiates to your jaw or arm - Sudden, severe shortness of breath or difficulty breathing Pending Studies at Discharge: No Stand-Alone Forms: My [facility] InExchange, Smoking Cessation Medications and DC Order Prescriptions: New sulfamethoxazole-trimethoprim [Bactrim] 400-80 mg tablet 1 tab PO BID Qty: 14 0RF Continued amlodipine 10 mg tablet 10 mg PO QAM metoprolol tartrate 25 mg tablet 12.5 mg PO BID terazosin 5 mg Capsule 5 mg PO HS omeprazole 20 mg Capsule,Delayed Release(Dr/Ec) 20 mg PO QAM Vision Tablet 1 tab PO QAM Probiotic 10 billion cell Capsule 10,000 mmu cells PO QAM clopidogrel 75 mg tablet 75 mg PO HS vitamin B complex Tablet 1 tab PO QAM loratadine 10 mg Tablet 10 mg PO HS ferrous sulfate 27 mg iron Tablet 27 mg PO QAM Glucosamine Chondroitin 550-30-1 mg Capsule 2 cap PO HS cholecalciferol (vitamin D3) [Vitamin D3] 50 mcg (2,000 unit) Tablet 50 mcg PO DAILY finasteride 5 mg tablet 5 mg PO HS hydrocodone-acetaminophen 5-325 mg tablet 1 tab PO Q6H PRN (Reason: pain) Qty: 15 0RF No Action potassium citrate 10 mEq (1,080 mg) Tablet Extended Release 10 meq PO BID Discharge Orders: Discharge Order (Routine); Ordered 04/07/23 Ordered By: Leah Esquivel Admission Data Admit Date/Time: 04/04/23 17:58 Attending Provider: Herbie Quarles Admit Provider: Josafat Moseley Primary Care Provider: Albina Cruz Other Providers: Josafat Moseley ; Darin Royal Other Interventions: Discharge Summary Assessment (RN) Last Done: 04/07/23 12:10 Supervising Physician Co-Signing Physician Notes I personally examined the patient and verified all arana points of history and exam, discussed case, and agree with decision making with Dr Esquivel symptoms have largely improved. hematuria off and on persists but less than before. vitals noted nad heent nc at mmm breathing unlabored no accessory muscle use good effort. Skin shows no rashes no pallor or icterus. Neuro without focal deficits. Ureterolithiasis/infection safe for home, outpatient urology follow-up. Antibiotics with Bactrimdiscussed in the context of his CKDhe notes he has been on it before and tolerated fine. Discussed having lab work done in 3-4 days, and then likely again next week, largely to ensure that he does not have anything that would require management such as hyperkalemia. He expressed a good understanding of this. Safe/stable for home, otherwise as above
[2023-04-07] MEDS ORDERED: SULFAMETHOXAZOLE/TRIMETHOPRIM DS 800/160MG TAB PO STA (10:14)
--- NOTE | 2023-04-07 12:50 | Billing Data ---
Date of Service April 07, 2023 Coding Level of Care Code 84805 IN/OBS DISCH 30 MIN/LESS
[2023-04-07] MEDS ORDERED: SULFA/TRIMETH 400/80MG TAB PO SCH (21:00)
== END 2023-04-07 13:38 | disposition home or self-care (01) | DRG 660 ==
LOC: ED 10:10 → 2N 17:58 → SUATTDRO 17:58 → 2N 21:02

== ENCOUNTER 2023-04-17 10:32 | Observation (INO) ==
--- NOTE | 2023-04-13 09:44 | Anesthesiology Consultation ---
Date of Service April 13, 2023 Assessment & Plan (1) Encounter for pre-operative examination: Plan - discharge summary 04/07/23 MN: "...Left ureteral calculus s/p stent- CT abdomen: partially obstructing 4 mm left ureteral stone on CT- continue home terazosin an d finasteride- pain well controlled with tylenol and morphine PRN while hospitalized; may use tylenol as outpatient- urology consulted; s/p left retrograde pyelogram, ureteroscopy, dilation, and stent placement (04/05)- f/u 2 weeks after discharge. UTI (urinary tract infection)- afebrile, no leukocytosis- UA showed 2+ LE, 4+ bacteria, >30 WBC; urine cx grew 50,000 klebsiella- blood cx neg after 48 hrs- d/c ceftriaxone; discharged with single dose bactrim BID x7 days- pt advised to hold potassium until after bactrim course complete with BMPs to check Cr and K 04/10 and 04/14..." - COVID screening: Per solar site assessment specialist on 04/10/2023: Travel screen negative, no known COVID-19 positive contacts or current COVID-19 related symptoms in past 2 weeks. To surgeon's discretion if preop COVID testing is needed. Chart Review Chart Review: Acceptable Risk for Surgery and Patient NOT seen in Pre Admission Testing History Surgery Operation Date: 04/17/23 12:00 Proposed Procedures p Cystoscopy, Ureteronphroscopy,Retrograde Pyelogram, with Possible Ureteral Dilation, Laser Detruction or Extraction of the Stone, Insertion or Exchange of Stent Catheter Left - Nicholas Flores MD s Possible Transurethral Resection of the Prostate - Nicholas Flores MD Height/Weight Height: 5 ft 8 in Weight: 70.307 kg Allergies Allergy/AdvReac Type Severity Reaction Status Date / Time cefdinir Allergy Severe hives Verified 04/10/23 14:40 Iodinated Contrast Media Allergy Severe Rashes Verified 04/10/23 14:40 iodine Allergy Severe RASHES Verified 04/10/23 14:40 Medications Home Medications Medication Instructions Recorded Confirmed Last Taken terazosin 5 mg capsule 5 mg PO HS 11/29/19 04/10/23 04/03/23 amlodipine 10 mg tablet 10 mg PO QAM 01/02/21 04/10/23 04/04/23 Lactobacillus acidophilus 10 10,000 mmu cells PO QAM 01/23/21 04/10/23 04/04/23 billion cell capsule (Probiotic) clopidogrel 75 mg tablet 75 mg PO HS 01/23/21 04/10/23 04/03/23 omeprazole 20 mg capsule,delayed 20 mg PO QAM 01/23/21 04/10/23 04/04/23 release vitamin A-vitamin C-vit E-min 1 tab PO QAM 01/23/21 04/10/23 04/04/23 tablet (Vision tablet) ferrous sulfate 27 mg iron tablet 27 mg PO QAM 12/31/21 04/10/23 04/04/23 glucosamine sulf dipot 2 cap PO HS 12/31/21 04/10/23 04/03/23 chlr,msm,chond 550 mg-C 30 mg-que 1 mg capsule (Glucosamine Chondroitin) loratadine 10 mg tablet 10 mg PO HS 12/31/21 04/10/23 04/03/23 vitamin B complex 1 tab PO QAM 12/31/21 04/10/23 04/04/23 metoprolol tartrate 25 mg tablet 12.5 mg PO BID 06/19/22 04/10/23 04/04/23 finasteride 5 mg tablet 5 mg PO HS 07/28/22 04/10/23 04/03/23 hydrocodone 5 mg-acetaminophen 325 1 tab PO Q6H PRN pain #15 tabs 08/01/22 04/10/23 04/03/23 mg tablet potassium citrate 10 mEq (1,080 10 meq PO BID 02/17/23 04/10/23 04/04/23 mg) tablet,extended release cholecalciferol (vitamin D3) 50 50 mcg PO DAILY 04/04/23 04/10/23 04/04/23 mcg (2,000 unit) tablet (Vitamin D3) sulfamethoxazole 400 1 tab PO BID #14 tabs 04/07/23 04/10/23 Unknown mg-trimethoprim 80 mg tablet (Bactrim) nystatin 100,000 unit/gram topical 1 applic topical BID #15 grams 04/10/23 04/10/23 Unknown cream Past Medical History Medical History Asthma as child BPH (benign prostatic hyperplasia) 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 On Plavix Prostatitis 2015; with sepsis Ureterolithiasis Urinary tract infection dx ~1 week ago (~12/22/22) and started on abx and feeling better currently. to finish 01/06/2023. Vertigo Past Family History Family History Family/Other Hypertension Diabetes Mother , old age at age 88 Breast cancer Hypertension Father , from complications of hip fracture No problems noted. Denies family history of Myocardial infarction Stroke Past Surgical History Surgical History History of colonoscopy History of cystoscopy History of lithotripsy History of lithotripsy [facility] ([facility] 08/01/2022) History of right cataract surgery History of tooth extraction wisdom teeth Hx of left cataract extraction S/P TURP modified, during ureteral stent placement for kidney stone in [facility] Social History Smoking Status: Former smoker tobacco type: cigarettes Smoking cigarettes per day: QUIT 45 YRS AGO Do You Dip or Chew Tobacco: No Hx Alcohol Use: Yes Alcohol type: hard liquor alcohol intake frequency: holidays/special occasions only Hx Substance Use: No substance use type: does not use Lab Results Anesthesia Preop Results Results Anesthesia Widget: WBC 5.60 K/ul (4.8-10.8) 04/07/23 Hgb 10.6 g/dl (14.0-18.0) L 04/07/23 Hct 29.4 % (42.0-52.0) L 04/07/23 Plt 143 K/uL (130-400) 04/07/23 Na 136 mmol/L (136-145) 04/07/23 K 4.2 mmol/L (3.5-5.1) 04/07/23 Cl 107 mmol/L (98-107) 04/07/23 CO2 24 mmol/L (21-32) 04/07/23 BUN 30 mg/dl (6-23) H 04/07/23 Creat 2.10 mg/dl (0.6-1.4) H 04/07/23 Glucose Level 103 mg/dl (70-99(Fasting)) H 04/07/23 Urine Color Yellow 04/04/23 Urine Appearance Clear (Clear) 04/04/23 Urine pH 5.5 (4.5-7.5) 04/04/23 Urine Specific [place] 1.019 (1.000-1.030) 04/04/23 Urine Protein 2+ (Negative) H 04/04/23 Urine Glucose (UA) Negative (Negative) 04/04/23 Urine Ketones Negative (Negative) 04/04/23 Urine Blood Trace (Negative) H 04/04/23 Urine Nitrite Negative (Negative) 04/04/23 Urine Bilirubin Negative (Negative) 04/04/23 Urine Urobilinogen Negative (Negative) 04/04/23 Urine Leukocyte Esterase 2+ (Negative) H 04/04/23 Urine WBC (Auto) >30 /hpf (0-5) H 04/04/23 Urine RBC (Auto) 0-4 /hpf (0-4) 04/04/23 Urine Hyaline Casts (Auto) 1-5 /lpf (0-5) 04/04/23 Urine Epithelial Cells (Auto) 0-5 /lpf (0-5) 04/04/23 Urine Bacteria (Auto) 4+ (Negative) H 04/04/23 COVID-19 PCR NEGATIVE (Negative) 04/04/23 Testing Electrocardiogram Date: 01/06/23 Sinus bradycardia, rate 55 bpm Chest X-Ray Date: 07/30/22 No acute cardiopulmonary findings Echocardiogram Date: 03/21/20 EF 60-65% Normal LV wall motion Mild aortic regurgitation Mild cLVH Other Testing Abdomen pelvis CT 04/04/23 1. No significant change in the partially obstructing 4 mm stone within the proximal to mid left ureter. 2. Left-sided nephrolithiasis. 3. Prostatomegaly with chronic bladder outlet obstruction again noted. 4. Colonic diverticulosis. No evidence for acute diverticulitis. 5. Additional findings as described above. Carotid doppler 03/21/20 1. There is no sonographic evidence of hemodynamically significant stenosis in the right or left carotid arterial system. 2. Antegrade flow is shown in the vertebral arteries.
[~2023-04-17 10:32] MED LIST changes: -CIPROFLOXACIN / D5W 400 MG/200 ML BAG IV SCH; +MEROPENEM 1,000 MG in SYRINGE 0 ML IV ONE; +MEROPENEM 1,000 MG in SYRINGE 0 ML IV SCH
--- NOTE | 2023-04-17 11:05 | History & Physical Bridge Note ---
Date of Service April 17, 2023 History & Physical Bridge Note I have examined the patient, reviewed the History & Physical and in the interval since the performance of the History & Physical I have noted the following changes of clinical significance: no changes noted
[2023-04-17] MEDS ORDERED: DEXAMETHASONE SOD INJ 4 MG/ML VIAL ONE (11:20)
[2023-04-17] MEDS ORDERED: fentaNYL citrate PF 100 MCG/2 ML VIAL ONE (11:20)
[2023-04-17] MEDS ORDERED: ONDANSETRON INJ 2 MG/ML 2 ML VIAL ONE (11:20)
[2023-04-17] MEDS ORDERED: LIDOCAINE 2% 2 ML VIAL/AMP(20MG/ML) INFIL ONE (11:20)
[2023-04-17] MEDS ORDERED: PROPOFOL IV EMULSION 10 MG/ML 20 ML VIAL IV ONE (11:20)
[2023-04-17] MEDS ORDERED: fentaNYL citrate PF 100 MCG/2 ML VIAL IV PRN (12:22)
[2023-04-17] MEDS ORDERED: LABETALOL HCL IV 5 MG/ML 20ML IV PRN (12:22)
[2023-04-17] MEDS ORDERED: ONDANSETRON INJ 2 MG/ML 2 ML VIAL IV PRN ×2 (12:22→20:57)
[2023-04-17] MEDS ORDERED: ATROPINE SULFATE 0.1 MG/ML 10ML SYR IV PRN (12:22)
[2023-04-17] MEDS ORDERED: FLUMAZENIL 0.1 MG/1 ML 10 ML VIAL IV PRN (12:22)
[2023-04-17] MEDS ORDERED: NALOXONE HCL 0.4 MG/1 ML VIAL/CARP IV PRN (12:22)
[2023-04-17] MEDS ORDERED: PROMETHAZINE HCL 12.5 MG in SODIUM CHLORIDE 0.9% 50 ML IV PRN (12:22)
[2023-04-17] MEDS ORDERED: ePHEDrine sulfate 50 MG/ML AMP IV PRN (12:22)
[2023-04-17] MEDS ORDERED: PHENYLEPHRINE 100MCG/ML 5ML SYR ONE (12:45)
[2023-04-17] MEDS ORDERED: ePHEDrine sulfate 50 MG/ML SYR ONE (12:45)
--- NOTE | 2023-04-17 13:26 | Operative Report ---
PG Post Operative Report Pre & Post Diagnosis Operation Date: 04/17/23 12:00 Pre-Op Diagnosis: Left Ureteral Calculus, Benign Localized Prostatic Hyperplasia Post-Op Diagnosis: Left Ureteral Calculus, Benign Localized Prostatic Hyperplasia I identified the patient and participated in the time-out.: Yes Procedure Operation Date: 04/17/23 12:00 Actual Procedures p Cystoscopy, Left ureteroscopy, Laser lithotripsy, Stent Exchange- Left(Left) - Nicholas Flores MD Surgeon Nicholas Flores MD Wrinkle Chaser none Estimated Blood Loss 5 Findings Consistent with Post-Op Diagnosis Specimens none Description of Procedure The patient was identified in the preoperative holding area, appropriate informed consents were reviewed and completed and the patient was transferred to the operative suite. Upon arrival, appropriate antibiotics and anesthesia were administered and the patient was placed in dorsal lithotomy position and prepped and draped in sterile fashion. To begin the case to pass a 22 Gabonese cystoscope with 30 degree lens. Inspection revealed a healthy-appearing urethra. Is moderately enlarged prostate but I was able to navigate beyond it with the scope. Of note, his left ureteral stent was positioned appropriately but the tip of the stent was protruding into the prostatic urethra. After inspecting the bladder I grasped the distal end of the stent and withdrew it to the meatus. I intubated with a sensor wire. I then withdrew the stent entirely and used a 10 Gabonese double-lumen catheter introduced a second wire into the kidney. A flexible ureteroscope was advanced into the kidney and full renoscopy conducted. He had 2 prominent Skip's plaques in the upper pole. I treated both of these entirely. There were no other free-floating stones within the kidney. I then performed a very careful exit ureteroscopy with particular focus around the portion of the mid ureter where he previously has had a noted calcification on KUB. There was no evidence of any intraluminal stone in this location. If this calcification persists on future imaging, it is certainly extrinsic to the ureter And does not require treatment. To conclude the case I did place a new 6 Gabonese by 26 cm double-J stent. I left a string attached to it. I placed a 16 Gabonese coud catheter because of prior difficulties urinating after surgery. He was reversed of anesthesia and taken to the recovery room in stable condition. There were no complications. I attest to the content of the Intraoperative Record and any orders documented therein. Any exceptions are noted below.
[2023-04-17] MEDS ORDERED: MoRPHine SULFATE 10 MG/ML CARP/VIAL ONE (13:35)
[2023-04-17] MEDS ORDERED: MoRPHine SULFATE 2 MG/ML CARP IV PRN (13:35)
--- NOTE | 2023-04-17 14:00 | Fluoroscopy Report ---
FL KUB CLINICAL HISTORY: LTleft-sided cystourethrogram COMPARISON STUDY: 04/05/2023 FLUOROSCOPY TIME: 9.8 seconds FLUOROSCOPY IMAGES: 1 EXPOSURE DOSE: 2.0 mGy FINDINGS: A left ureteral stent is in place which appears to be in satisfactory positioning. The dist al portion of the stent however was not imaged. IMPRESSION: Fluoroscopic assistance as above. ACT 112: Negative or not required by law. Electronically signed by: Alonso Waters M.D. 04/17/2023 1:59 PM
--- NOTE | 2023-04-17 14:06 | Anesthesiology Progress Note ---
Date of Service April 17, 2023 Anesthesia Post Procedure Vital Signs Vital Signs: Temp Pulse Resp BP Pulse Ox O2 Del Method O2 Flow Rate 04/17/23 13:50 75 16 131/79 95 Room Air 04/17/23 13:40 75 16 154/79 H 95 Room Air 04/17/23 13:30 73 16 147/75 H 95 Oxymask 5 04/17/23 13:20 65 16 147/79 H 99 Oxymask 5 04/17/23 13:14 36.6 C 72 16 162/86 H 97 Oxymask 5 04/17/23 11:05 36.7 C 61 18 152/77 H 99 Room Air Pain Intensity Right Groin: Pain Intensity: 1 Transfer of Care Handoff Completed per policy Notes Mental Status: alert / awake / arousable Patient Amnestic to Procedure: Yes Nausea / Vomiting: adequately controlled Pain: adequately controlled Airway Patency, RR, SpO2: stable & adequate BP & HR: stable & adequate Hydration State: stable & adequate Anesthetic Complications: no major complications apparent
[2023-04-17] MEDS: HYDROCODONE/ACETAMOPHEN 5/325MG TAB PO PRN ×2 (17:14→22:44)
[2023-04-17] MEDS: CLOPIDOGREL BISULFATE 75 MG TAB PO SCH (20:30)
[2023-04-17] MEDS: NYSTATIN CR 15 GM TUBE EXT SCH (20:30)
[2023-04-17] MEDS: TERAZOSIN HCL 5 MG CAP PO SCH (20:31)
[2023-04-17] MEDS: LORATADINE 10 MG TAB PO SCH (20:31)
[2023-04-17] MEDS: METOPROLOL TARTRATE 25 MG TAB PO SCH (20:32)
[2023-04-17] MEDS: POTASSIUM CITRATE 10 MEQ TAB PO SCH (20:33)
[2023-04-17] MEDS: FINASTERIDE 5 MG TAB PO SCH (20:33)
[2023-04-18] MEDS: MEROPENEM 500 MG in SYRINGE 0 ML IV SCH ×2 (00:20→13:44)
[2023-04-18] MEDS: ACETAMINOPHEN 325 MG TAB PO PRN ×4 (03:59→16:58)
[2023-04-18] MEDS: amLODIPine BESYLATE 5 MG TAB PO SCH (08:34)
[2023-04-18] MEDS: NYSTATIN CR 15 GM TUBE EXT SCH ×2 (08:34→20:09)
[2023-04-18] MEDS: METOPROLOL TARTRATE 25 MG TAB PO SCH ×2 (08:34→20:08)
[2023-04-18] MEDS: POTASSIUM CITRATE 10 MEQ TAB PO SCH ×2 (08:34→20:08)
[2023-04-18] MEDS: PANTOprazole 40 MG TAB PO SCH (08:34)
--- NOTE | 2023-04-18 08:50 | Urology Progress Note ---
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 Continue meropenem for now Given low-grade temp we will keep him for 1 additional day Leave stent and catheter in until tomorrow morningpresuming afebrile throughout the day today we will plan for removal of both tomorrow prior to discharge home Cover with several extra days of Bactrim after discharge Admission and Anticipated Discharge Date Admission Date: April 17, 2023 Subjective Subjectively feeling well this morning but had some challenges overnight Nausea and vomiting after dinner Shaking chills at 2 different times during the nightboth resolved after Tylenol Temperature of 38.0 this morning Otherwise hemodynamically stable Physical Exam Physical Exam: Woodward catheter and stent still in placesome hematuria but resolving appropriately Results & Data Vital Signs (Past 12 Hours) Vital Signs Temp Pulse Resp BP Pulse Ox O2 Del Method 04/18/23 07:21 38.0 C H 92 H 18 180/87 H 98 Room Air 04/18/23 03:25 37.2 C 96 H 18 169/89 H 99 Room Air 04/17/23 23:27 36.5 C 99 H 17 153/78 H 97 Room Air PG Care Time/CCT Total # of Minutes Spent Total Time Spent with Patient: Total time spent is greater than 50% in coordination of care (as documented) at patient's floor/unit and/or counseling patient: Coding Level of Care Code None Diagnoses UTI (urinary tract infection) N39.0; R31.9 Urinary tract infection type: site unspecified Hematuria presence: with hematuria Calcium nephrolithiasis N20.0 (1) UTI (urinary tract infection) Urinary tract infection type: site unspecified Hematuria presence: with hematuria Qualified Code(s): N39.0 - Urinary tract infection, site not specified; R31.9 - Hematuria, unspecified
[2023-04-18 09:42] LABS: Hematocrit (blood only) 30.6 % (42.0-52.0); Mean Corpuscular Hemoglobin 30.6 pg (25.0-34.0); Mean Corpuscular Hgb Conc 35.9 g/dL (32.0-36.0); Mean Corpuscular Volume 85.2 fL (80.0-100.0); Mean Platelet Volume 10.3 fL (9.4-12.4); Platelet Count 197 K/uL (130-400); RDW Standard Deviation 43.7 fL (36.4-46.3); Red Blood Count 3.59 M/uL (4.70-6.10); White Blood Count 11.45 K/ul (4.8-10.8)
[2023-04-18 09:59] LABS: BUN Creatinine Ratio 12.8 (10-20); Calcium 8.7 mg/dl (8.6-10.3); Creatinine Clr Calc Pharmacy 26.2 ml/min; Est GFR (African American) 33.9 ml/min; Est GFR (Non-African American) 29.2 ml/min
[2023-04-18 10:05] LABS: Basophils # (auto) 0.02 K/uL (0-0.2); Basophils % (auto) 0.2 %; Immature Granulocytes # (auto) 0.05 K/uL (0.01-0.20); Immature Granulocytes % (auto) 0.4 %; Lymphocytes # (auto) 0.49 K/uL (1.2-3.4); Lymphocytes % (auto) 4.3 %; Monocytes # (auto) 0.43 K/uL (0.11-0.59); Monocytes % (auto) 3.8 %; Neutrophils # (auto) 10.46 K/uL (1.40-6.50); Neutrophils % (auto) 91.3 %
[2023-04-18] MEDS: POLYETHYLENE (MIRALAX) 17 GM PACK PO PRN (12:23)
[2023-04-18] MEDS: HYDROCODONE/ACETAMOPHEN 5/325MG TAB PO PRN (18:25)
[2023-04-18] MEDS: CLOPIDOGREL BISULFATE 75 MG TAB PO SCH (20:08)
[2023-04-18] MEDS: FINASTERIDE 5 MG TAB PO SCH (20:09)
[2023-04-18] MEDS: TERAZOSIN HCL 5 MG CAP PO SCH (20:09)
[2023-04-18] MEDS: LORATADINE 10 MG TAB PO SCH (20:09)
[2023-04-19] MEDS: ACETAMINOPHEN 325 MG TAB PO PRN ×2 (02:30→12:23)
[2023-04-19] MEDS: MEROPENEM 500 MG in SYRINGE 0 ML IV SCH ×2 (02:30→11:42)
[2023-04-19] MEDS: METOPROLOL TARTRATE 25 MG TAB PO SCH (08:55)
[2023-04-19] MEDS: POTASSIUM CITRATE 10 MEQ TAB PO SCH (08:56)
[2023-04-19] MEDS: PANTOprazole 40 MG TAB PO SCH (08:56)
[2023-04-19] MEDS: NYSTATIN CR 15 GM TUBE EXT SCH (08:56)
[2023-04-19] MEDS: POLYETHYLENE (MIRALAX) 17 GM PACK PO PRN (08:56)
[2023-04-19] MEDS: amLODIPine BESYLATE 5 MG TAB PO SCH (08:56)
[2023-04-19 10:01] LABS: Basophils # (auto) 0.01 K/uL (0-0.2); Basophils % (auto) 0.1 %; Eosinophils # (auto) 0.02 K/uL (0-0.50); Eosinophils % (auto) 0.2 %; Hematocrit (blood only) 32.1 % (42.0-52.0); Hemoglobin 11.2 g/dl (14.0-18.0); Immature Granulocytes # (auto) 0.03 K/uL (0.01-0.20); Immature Granulocytes % (auto) 0.3 %; Lymphocytes # (auto) 0.82 K/uL (1.2-3.4); Lymphocytes % (auto) 9.1 %; Mean Corpuscular Hemoglobin 30.8 pg (25.0-34.0); Mean Corpuscular Hgb Conc 34.9 g/dL (32.0-36.0); Mean Corpuscular Volume 88.2 fL (80.0-100.0); Mean Platelet Volume 10.4 fL (9.4-12.4); Monocytes # (auto) 0.45 K/uL (0.11-0.59); Neutrophils # (auto) 7.66 K/uL (1.40-6.50); Neutrophils % (auto) 85.3 %; Platelet Count 186 K/uL (130-400); RDW Coefficient of Variation 14.1 % (11.5-14.5); RDW Standard Deviation 45.4 fL (36.4-46.3); Red Blood Count 3.64 M/uL (4.70-6.10); White Blood Count 8.99 K/ul (4.8-10.8)
[2023-04-19 10:11] LABS: BUN Creatinine Ratio 15.9 (10-20); Calcium 8.9 mg/dl (8.6-10.3); Creatinine Clr Calc Pharmacy 23.4 ml/min; Est GFR (African American) 29.6 ml/min; Est GFR (Non-African American) 25.5 ml/min; Potassium 3.8 mmol/L (3.5-5.1)
--- NOTE | 2023-04-19 10:25 | Urology Progress Note ---
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 We will plan for discharge home on oral antibiotics once he is able to void. Admission and Anticipated Discharge Date Admission Date: April 17, 2023 Subjective Feeling well this morning, denies any more chills Has been tolerating a diet without nausea or vomiting No bowel movements yet Urine has cleared slightly in catheter. Leukocytosis improved (WBC 8.99) Creatinine slightly elevated (2.27) Physical Exam Physical Exam: Well-appearing, NAD Genitourinary: Woodward catheter in place, draining paula red urine with no clots. Strings from stent secured to the penis with Steri-Strips. Woodward and stent removed at the bedside successfully. Results & Data Vital Signs (Past 12 Hours) Vital Signs Temp Pulse Resp BP Pulse Ox O2 Del Method 04/19/23 07:27 37.1 C 79 16 134/75 95 Room Air PG Care Time/CCT Total # of Minutes Spent Total Time Spent with Patient: Total time spent is greater than 50% in coordination of care (as documented) at patient's floor/unit and/or counseling patient: Coding Level of Care Code 60918 SUB INP/OBS CARE 10/29MIN Diagnoses UTI (urinary tract infection) N39.0; R31.9 Urinary tract infection type: site unspecified Hematuria presence: with hematuria Calcium nephrolithiasis N20.0 (1) UTI (urinary tract infection) Urinary tract infection type: site unspecified Hematuria presence: with hematuria Qualified Code(s): N39.0 - Urinary tract infection, site not specified; R31.9 - Hematuria, unspecified
--- NOTE | 2023-04-19 10:36 | Discharge Summary ---
Date of Service April 19, 2023 Admission HPI Per Admitting Provider This is an 82-year-old male followed by urology for nephrolithiasis and BPH. He he was admitted to the hospital on 04/17/2023 after ureteroscopy and stone treatment as of his history of multidrug-resistant urinary tract infections. Admission Exam Per Admitting Provider Constitutional well developed and well nourished Neck neck nontender Respiratory normal respiratory effort; no respiratory distress and does not use accessory muscles Cardiovascular Rate/Rhythm: regular rate Vessels: radial pulses present Extremities: no edema Gastrointestinal (Abdomen) Inspection/Auscultation: abdomen normal to inspection Percussion/Palpation: abdomen soft; abdomen nontender and no guarding Musculoskeletal Head/Neck/Chest: normocephalic and head atraumatic Extremities: extremities normal to inspection Skin no rashes and no lesions Trauma: no evidence of skin trauma Neurologic awake; not obtunded Speech / Cognition: normal speech Motor/Sensory: no tremor Psychiatric Orientation: alert and oriented x 3 Genitourinary no CVA tenderness Lymphatic no lymphadenopathy Principal Diagnosis Nephrolithiasis Discharge Exam Well-appearing, NAD Genitourinary Woodward catheter was draining paula red urine with no clots. Catheter and stent were successfully removed at the bedside. Discharge Data Allergies Allergy/AdvReac Type Severity Reaction Status Date / Time cefdinir Allergy Severe hives Verified 04/17/23 11:00 Iodinated Contrast Media Allergy Severe Rashes Verified 04/17/23 11:00 Procedures Performed Operation Date: 04/17/23 12:00 Actual Procedures p Cystoscopy, Left ureteroscopy, Laser lithotripsy, Stent Exchange- Left(Left) - Nicholas Flores MD Ordered Studies 04/17/23 12:00 FL KUB Routine Hospital Course (1) UTI (urinary tract infection): He was maintained on IV meropenem after his surgery. He had a low-grade fever and subjective chills on postop day 1, but this improved by postop day 2. He was subsequently discharged on oral Bactrim. (2) Kidney stones: Stones were addressed with ureteroscopy. Stent was successfully removed prior to discharge. (3) BPH (benign prostatic hypertrophy): He was maintained with a Woodward catheter after surgery to prevent urinary retention. Woodward was removed on 04/19/2023 for voiding trial prior to discharge. Total Time Total Time Spent Total Time Spent (In Minutes): 20 Discharge Plan Discharge Items Patient Disposition: Home - Self-Care Reason For Visit: Left Ureteral Calculus, Benign Localized Hyperplas Discharge Diagnosis: Ureteral stone, BPH Activity: Resume your previous activity Non-emergency contact: Urologist Call non-emergency contact if: your pain is not controlled, you have a fever and your temperature is above 101 Follow-up/Referrals: Albina Cruz DO [Primary Care Provider] - Diet: Regular Addtl Attending Provider Instructions: Please take all medications as prescribed and keep all follow-ups as scheduled. Please call our office at [phone] with any questions, concerns or need to reschedule appointments for any reason. We are happy to assist you. Medications: please resume your normal medications as previously prescribed. You have been prescribed 3 days of antibiotics (Bactrim). For pain, it is ok to take tylenol. You can also take AZO, which can be purchased [id number] at the drugstore. Be aware this turns your urine a bright orange color. If you are prescribed a stronger medication you can take this according to instructions on the label. What to expect after your ureteroscopy and stone removal procedure: You may notice small pieces of stone or stone dust/gravel in your urine over the next few days. Drink plenty of liquids to help flush your system. You may notice some blood in your urine. As long as you are able to urinate, this is ok. The urology office will call you to coordinate follow-up When to call [facility] at [phone]: Fever of 101F or higher Heavy bleeding Pain that is not controlled with medicine Uncontrolled vomiting Problems urinating or inability to urinate Pending Studies at Discharge: No Stand-Alone Forms: [email or web address], Smoking Cessation Medications and DC Order Prescriptions: New sulfamethoxazole-trimethoprim [Bactrim] 400-80 mg tablet 1 tab PO BID 3 Days Qty: 6 0RF Continued amlodipine 10 mg tablet 10 mg PO QAM metoprolol tartrate 25 mg tablet 12.5 mg PO BID nystatin 100,000 unit/gram cream 1 applic topical BID Qty: 15 2RF terazosin 5 mg Capsule 5 mg PO HS omeprazole 20 mg Capsule,Delayed Release(Dr/Ec) 20 mg PO QAM Vision Tablet 1 tab PO QAM Probiotic 10 billion cell Capsule 10,000 mmu cells PO QAM clopidogrel [Plavix] 75 mg tablet 75 mg PO HS vitamin B complex Tablet 1 tab PO QAM loratadine [Claritin] 10 mg Tablet 10 mg PO HS ferrous sulfate 27 mg iron Tablet 27 mg PO QAM Glucosamine Chondroitin 550-30-1 mg Capsule 2 cap PO HS cholecalciferol (vitamin D3) [Vitamin D3] 50 mcg (2,000 unit) Tablet 50 mcg PO DAILY finasteride 5 mg tablet 5 mg PO HS hydrocodone-acetaminophen 5-325 mg tablet 1 tab PO Q6H PRN (Reason: pain) Qty: 15 0RF potassium citrate 10 mEq (1,080 mg) Tablet Extended Release 10 meq PO BID Discharge Orders: Discharge Order (Routine); Ordered 04/19/23 Ordered By: Pavel Oro Admission Data Admit Date/Time: 04/17/23 13:22 Attending Provider: Nicholas Flores Admit Provider: Nicholas Flores Primary Care Provider: Albina Cruz Coding Level of Care Code 38615 IN/OBS DISCH 30 MIN/LESS Diagnoses UTI (urinary tract infection) N39.0; R31.9 Hematuria presence: with hematuria Urinary tract infection type: site unspecified Kidney stones N20.0 BPH (benign prostatic hypertrophy) N40.0 Lower urinary tract symptom presence: symptoms absent
== END 2023-04-19 14:39 | disposition home or self-care (01) ==
LOC: ASU 10:32 → 3E 10:32